=== PATIENT | male | born 1960 | race Caucasian/White ===

== ENCOUNTER → 2016-03-29 | Outpatient (CLI) | payer BC, OTHER ==
[~2016-03-29] MED LIST: ACET-1256 PO; AMT24 PO; ASCA500 PO; ASCO500T16 PO; AZIT250T PO; CNT PO; DOCU100C31 PO; FINA5TAB PO; FLM4 PO; FURO20TA PO; LACT10SO17 PO; LACT10SO61 PO; LEVO100T PO; LEVO100T7 PO; LEVO150T9 PO; LEVO75TA PO; LEVO88TA3 PO; LINA1CAP PO; LINA1CAP2 PO; LVQ500 PO; MRLP527 PO; MULT-845 PO; MULTTAB63 PO; OMEP20CA9 PO; PANT40TA PO; POLY335019 PO; PRS5 PO; PRT/40 PO; PRT40 PO; PSYL48.59 PO; RPF/8 PO; SENN-61 PO; SILO8CAP PO; SULF1SUS4 PO
[2016-03-29 14:37] LABS: THYROID STIMULATING HORMONE 0.043 uIu/ml (0.300-4.500)
== END | disposition home or self-care (01) ==
LOC: C.LABBFT 09:37
PROVIDERS: ATTEND Internal Medicine
DX: E03.9 Hypothyroidism, unspecified (principal)

== ENCOUNTER 2016-03-30 14:04 | Emergency (ER) | payer BC, OTHER ==
[~2016-03-30] VITALS: Ht 162.6 cm; Wt 67.0 kg
[~2016-03-30 14:04] MED LIST changes: -ACET-1256 PO; -AMT24 PO; -ASCO500T16 PO; -AZIT250T PO; -DOCU100C31 PO; -FINA5TAB PO; -FLM4 PO; -FURO20TA PO; -LACT10SO17 PO; -LACT10SO61 PO; -LEVO100T PO; -LEVO100T7 PO; -LEVO150T9 PO; -LEVO88TA3 PO; -LINA1CAP PO; -LINA1CAP2 PO; -LVQ500 PO; -MRLP527 PO; -MULT-845 PO; -MULTTAB63 PO; -OMEP20CA9 PO; -PANT40TA PO; -PRS5 PO; -PRT/40 PO; -PRT40 PO; -PSYL48.59 PO; -RPF/8 PO; -SULF1SUS4 PO
[2016-03-30 14:09] VITALS: TEMP 36.5; Ht 162.6 cm; Wt 67.0 kg
--- NOTE | 2016-03-30 15:16 | DIAGNOSTIC IMAGING REPORT ---
CT HEAD WITHOUT CONTRAST (CT) CLINICAL HISTORY: Change in mental status. COMPARISON STUDY: No previous studies for comparison. TECHNIQUE: Axial CT of the brain is performed from the vertex to the skull base. IV contrast was not administered for this examination. CT DOSE: 537.48 mGy.cm FINDINGS: No intra or extra-axial mass lesions are visualized. There is no CT evidence of acute cortical infarction. There is no evidence of midline shift. There is no acute hemorrhage. No calvarial fractures are visualized. There are minimal white matter hypodensities likely on a small vessel basis. There is mild ventricular dilatation, out of proportion to the degree of atrophy. There is no evidence of acute sinusitis IMPRESSION: 1. Mild hydrocephalus 2. No evidence of intracranial mass 3. No evidence of acute hemorrhage Electronically signed by: Ponce Obregon M.D. 03/30/2016 3:15 PM Dictated Date/Time: 03/30/2016 3:13 PM
[2016-03-30 15:58] LABS: BASO % 0.3 %; BASO ABS # 0.03 K/uL (0-0.2); COMPLETE YES; EOS % 0.3 %; HEMATOCRIT 37.4 % (42-52); IG% 0.1 %; LYMPH % 11.3 %; LYMPH ABS # 0.99 K/uL (1.2-3.4); MEAN CELL VOLUME 97.4 fL (80-100); MEAN CORPUSCULAR HEMOGLOBIN 33.9 pg (25-34); MEAN CORPUSCULAR HGB CONC 34.8 g/dl (32-36); MEAN PLATELET VOLUME 10.1 fL (7.4-10.4); MONO % 6.3 %; NEUT % 81.7 %; PLATELET COUNT 265 K/uL (130-400); RED BLOOD COUNT 3.84 M/uL (4.7-6.1); WHITE BLOOD COUNT 8.74 K/uL (4.8-10.8)
[2016-03-30] MEDS ORDERED: AZIT250T PO (16:11)
[2016-03-30] MEDS ORDERED: FURO20TA PO (16:11)
[2016-03-30] MEDS ORDERED: LEVO150T9 PO (16:11)
[2016-03-30] MEDS ORDERED: MULT-845 PO (16:11)
[2016-03-30] MEDS ORDERED: LACT10SO17 PO (16:11)
[2016-03-30 16:13] LABS: PARTIAL THROMBOPLASTIN RATIO 1.1; PROTHROMBIN TIME (PATIENT) 11.1 SECONDS (9.0-12.0)
[2016-03-30 16:16] LABS: ALT/SGPT 15 U/L (12-78); BLOOD UREA NITROGEN 9 mg/dl (7-18); BUN/CREATININE RATIO 9.7 (10-20); CALCIUM 8.6 mg/dl (8.5-10.1); CARBON DIOXIDE 28 mmol/L (21-32); CHLORIDE 101 mmol/L (98-107); CREATININE 0.95 mg/dl (0.60-1.40); GLUCOSE 92 mg/dl (70-99); MAGNESIUM 2.2 mg/dl (1.8-2.4); POTASSIUM 3.9 mmol/L (3.5-5.1); SODIUM 140 mmol/L (136-145)
[2016-03-30 16:20] LABS: ALKALINE PHOSPHATASE 84 U/L (45-117); AST/SGOT 18 U/L (15-37)
[2016-03-30] MEDS ORDERED: SODIUM CHLORIDE 0.9% 1000ML 1,000 ML IV STA (16:55)
--- NOTE | 2016-03-30 17:16 | DIAGNOSTIC IMAGING REPORT ---
CHEST 2 VIEWS ROUTINE CLINICAL HISTORY: Syncope COMPARISON STUDY: 02/09/2014 FINDINGS: The heart is normal in size. There is no failure. There is no lobar consolidation. There are mild basilar atelectatic changes. There is a retrocardiac opacity, consistent with a hiatal hernia. No pleural effusions are visualized. Visualized portions the upper abdomen reveal gaseous distention of the colon with fecal retention.[ IMPRESSION: No active disease in the chest. Electronically signed by: Ponce Obregon M.D. 03/30/2016 5:15 PM Dictated Date/Time: 03/30/2016 5:13 PM
[2016-03-30 17:54] LABS: MANUAL MICROSCOPIC REQUIRED? NO; REVIEW REQ? NO; URINE APPEARANCE CLEAR (CLEAR); URINE BILIRUBIN NEG (NEG); URINE COLOR YELLOW; URINE NITRITE NEG (NEG); URINE PH 7.5 (4.5-7.5); URINE SPECIFIC GRAVITY 1.004 (1.000-1.030); UROBILINOGEN NEG (NEG)
[2016-03-30 19:07] VITALS: BP 94/63; PULSE 79; O2SAT 98
--- NOTE | 2016-03-30 19:14 | EMERGENCY ROOM VISIT NOTE ---
History Report prepared by Shan: Lizett Bell Under the Supervision of: Dr. Kade Sainz M.D. First contact with patient: 14:35 Chief Complaint: SYNCOPE (NEAR SYNCOPE) Stated Complaint: PASSED OUT THIS MORNING Nursing Triage Summary: pt stood up from chair and table at lunch time and passed out per mother. mother states had trouble getting him off of floor. no injuries noted pt appears pale History of Present Illness The patient is a 55 year old male who presents to the Emergency Room with complaints of an episode of syncope beginning 2 hours ago. The patient's family member states that the patient has been having thyroid issues since August and his levels went from 3 to almost 6 in January. She states that he had two episodes off falls during this time period that she notes is from having difficulty with depth perception and he has been shuffling his feet. She reports that the patient has had a chest cold recently with a cough and they went to see the doctor yesterday and he had blood work and was put on a 5 day z- pac. She states that the patient was recently put on levothyroxine and the blood work was to check his thyroid to see if the medication was helping. She notes that he has cataracts and the patient's eye doctor did not think that his gait problems were in relation to his eyes. The family member states that when the patient falls he does not catch himself and hits his face. She notes that the patient has green mucous coming out of his nose and a cough. She reports that he took 1 dose of his antibiotic yesterday but did not take anything today. Today, the mother states that the patient was sitting down to eat dinner when he stood up and slumped over and fell to the carpeted floor. She notes that she does not think that he hit his head and he was not completely unconscious. She stated that he slowly went down to the floor and did not fall suddenly. The mother reports that he tried to get up but it was like he was sleeping and would slump back over if he tried to get up. She denies any seizure like activity and fever. At the time of the fall, they took his vitals and report that his blood pressure was 94/61, blood glucose was 123, and his pulse was 73. The family reports that they have not heard back about the thyroid results and note that he was put on Lasix in January after having swelling in his legs. They report that he sees a urologist and had 850cc of urinary retention in January. HPI limited secondary to non-verbal patient. Source of History: patient History Limited By: other (non-verbal) Onset: 2 hours ago Position: other (global) Quality: other (slumping) Timing: other (episode) Associated Symptoms: + cough, No LOC, No fevers Note: Denies seizure-like activity, and injury. They note green mucous. Review of Systems See HPI for pertinent positives & negatives. ROS limited secondary to non- verbal patient. Past Medical & Surgical Medical Problems: (1) Constipation (2) Emphysema lung (3) Mental retardation (4) Urinary problem Surgical Problems: (1) History of prostate surgery Family History FH: cancer FH: diabetes mellitus FH: hypertension Social History Smoking Status: Never Smoker Marital Status: single Housing Status: lives with family Occupation Status: disabled Current/Historical Medications Scheduled Ascorbic Acid (Ascorbic Acid), 500 MG PO DAILY Azithromycin (Zithromax), 250 MG PO DAILY Furosemide (Lasix), 20 MG PO DAILY Lactulose (Chronulac), 30 ML PO DAILY Levothyroxine Sodium (Levothyroxine Sodium), 1 TAB PO DAILY Multiple Vitamins W/ Minerals (Centrum Silver Adult 50+), 1 TAB PO DAILY Silodosin (Rapaflo), 8 MG PO HS Miscellaneous Medications Finasteride (Proscar), 5 MG PO Allergies Coded Allergies: No Known Allergies (Unverified , 03/30/16) Physical Exam Vital Signs Date Time Temp Pulse Resp B/P Pulse Ox O2 Delivery O2 Flow Rate FiO2 03/30/16 19:07 79 18 94/63 98 03/30/16 16:33 98 101/55 98 Room Air 86 99/55 78 91/56 03/30/16 14:25 64 03/30/16 14:09 36.5 72 16 98/63 100 Physical Exam Constitutional: Vital signs reviewed. Eyes: Pupils are equal round reactive to light. Conjunctiva are noninjected. ENT: Mucous membranes are moist. Neck supple without meningeal signs. No midline tenderness to cervical spine. Respiratory: Clear to auscultation bilaterally. Breath sounds are equal bilaterally. Cardiovascular: Regular rate and rhythm. No rubs or gallops. GI: Soft, nondistended and nontender. Bowel sounds are present. Musculoskeletal: No evidence of trauma to extremities. Bilateral lower extremity edema. Integumentary: No cyanosis. Neurological: The patient is awake and alert. Nonverbal. No focal deficits. Psychiatric: Cannot asses affect. Medical Decision & Procedures ER Provider Diagnostic Interpretation: X-ray results as stated below per interpretation by me and the radiologist. Other radiology results as stated below per my review and the radiologist's interpretation: CT HEAD WITHOUT CONTRAST (CT) FINDINGS: No intra or extra-axial mass lesions are visualized. There is no CT evidence of acute cortical infarction. There is no evidence of midline shift. There is no acute hemorrhage. No calvarial fractures are visualized. There are minimal white matter hypodensities likely on a small vessel basis. There is mild ventricular dilatation, out of proportion to the degree of atrophy. There is no evidence of acute sinusitis IMPRESSION: 1. Mild hydrocephalus 2. No evidence of intracranial mass 3. No evidence of acute hemorrhage Electronically signed by: Ponce Obregon M.D. 03/30/2016 3:15 PM Dictated Date/Time: 03/30/2016 3:13 PM CHEST 2 VIEWS ROUTINE FINDINGS: The heart is normal in size. There is no failure. There is no lobar consolidation. There are mild basilar atelectatic changes. There is a retrocardiac opacity, consistent with a hiatal hernia. No pleural effusions are visualized. Visualized portions the upper abdomen reveal gaseous distention of the colon with fecal retention.[ IMPRESSION: No active disease in the chest. Electronically signed by: Ponce Obregon M.D. 03/30/2016 5:15 PM Dictated Date/Time: 03/30/2016 5:13 PM Laboratory Results 03/30/16 15:45 Red Blood Count 3.84, Mean Corpuscular Volume 97.4, Mean Corpuscular Hemoglobin 33.9, Mean Corpuscular Hemoglobin Concent 34.8, Mean Platelet Volume 10.1, Neutrophils (%) (Auto) 81.7, Lymphocytes (%) (Auto) 11.3, Monocytes (%) (Auto) 6.3, Eosinophils (%) (Auto) 0.3, Basophils (%) (Auto) 0.3, Neutrophils # (Auto) 7.13, Lymphocytes # (Auto) 0.99, Monocytes # (Auto) 0.55, Eosinophils # (Auto) 0.03, Basophils # (Auto) 0.03 03/30/16 15:45 Test 03/30/16 15:45 03/30/16 17:34 White Blood Count 8.74 K/uL (4.8-10.8) Red Blood Count 3.84 M/uL (4.7-6.1) Hemoglobin 13.0 g/dL (14.0-18.0) Hematocrit 37.4 % (42-52) Mean Corpuscular Volume 97.4 fL (80-100) Mean Corpuscular Hemoglobin 33.9 pg (25-34) Mean Corpuscular Hemoglobin Concent 34.8 g/dl (32-36) Platelet Count 265 K/uL (130-400) Mean Platelet Volume 10.1 fL (7.4-10.4) Neutrophils (%) (Auto) 81.7 % Lymphocytes (%) (Auto) 11.3 % Monocytes (%) (Auto) 6.3 % Eosinophils (%) (Auto) 0.3 % Basophils (%) (Auto) 0.3 % Neutrophils # (Auto) 7.13 K/uL (1.4-6.5) Lymphocytes # (Auto) 0.99 K/uL (1.2-3.4) Monocytes # (Auto) 0.55 K/uL (0.11-0.59) Eosinophils # (Auto) 0.03 K/uL (0-0.5) Basophils # (Auto) 0.03 K/uL (0-0.2) RDW Standard Deviation 47.5 fL (36.4-46.3) RDW Coefficient of Variation 13.4 % (11.5-14.5) Immature Granulocyte % (Auto) 0.1 % Immature Granulocyte # (Auto) 0.01 K/uL (0.00-0.02) Prothrombin Time 11.1 SECONDS (9.0-12.0) Prothromb Time International Ratio 1.0 (0.9-1.1) Activated Partial Thromboplast Time 28.7 SECONDS (21.0-31.0) Partial Thromboplastin Ratio 1.1 Anion Gap 11.0 mmol/L (3-11) Est Creatinine Clear Calc Drug Dose 73.6 ml/min Estimated GFR () 104.0 Estimated GFR (Non- 89.8 BUN/Creatinine Ratio 9.7 (10-20) Calcium Level 8.6 mg/dl (8.5-10.1) Magnesium Level 2.2 mg/dl (1.8-2.4) Total Bilirubin 0.4 mg/dl (0.2-1) Direct Bilirubin 0.1 mg/dl (0-0.2) Aspartate Amino Transf (AST/SGOT) 18 U/L (15-37) Alanine Aminotransferase (ALT/SGPT) 15 U/L (12-78) Alkaline Phosphatase 84 U/L (45-117) Troponin I < 0.015 ng/ml (0-0.045) Total Protein 7.0 gm/dl (6.4-8.2) Albumin 3.0 gm/dl (3.4-5.0) Urine Color YELLOW Urine Appearance CLEAR (CLEAR) Urine pH 7.5 (4.5-7.5) Urine Specific [place] 1.004 (1.000-1.030) Urine Protein NEG (NEG) Urine Glucose (UA) NEG (NEG) Urine Ketones NEG (NEG) Urine Occult Blood NEG (NEG) Urine Nitrite NEG (NEG) Urine Bilirubin NEG (NEG) Urine Urobilinogen NEG (NEG) Urine Leukocyte Esterase NEG (NEG) Laboratory results as reviewed by me. Medications Administered Medications (Trade) Dose Ordered Sig/Page Route Start Time Stop Time Status Last Admin Dose Admin Sodium Chloride (Nss 1000ml) 1,000 ml @ 999 mls/hr Q1H1M STAT IV 03/30/16 16:55 03/30/16 17:56 DC 03/30/16 16:55 999 MLS/HR ECG Indication: syncope Rate (beats per minute): 65 Rhythm: normal sinus Findings: no acute ischemic change, no ectopy, other (No QT prolongation or heart block) ED Course 1435: The patient was evaluated in room C6. A complete history and physical exam was performed. 1655: Sodium Chloride 1000 ml @ 999 mls/hr IV. 1703: I spoke to Dr. Fonseca of neurology. He recommends that the patient follows up outpatient. 1717: I spoke to the patient's sister about the patient's hydrocephalus and urinary retention. She states that his doctor reports that the distention is normal and it has become distended over the years. The last time he saw the patient he had over 800cc of urine. We will catheterize the patient to get a sample. 1800: I spoke to the patient's family about his test results. He looks well appearing. 182: Upon reevaluation, the patient appeared to have improvement of his symptoms. I discussed tonight's findings with the patient's family. They verbalized agreement of the treatment plan. The patient was discharged home. Medical Decision This is a 55-year-old male with Down syndrome who presents after a syncopal episode today. Differential diagnosis includes vasovagal syncope, orthostatic hypotension, metabolic derangement, infection, cardiac. I did perform a limited focused review of portions of the patient's old chart on the electronic medical record. The patient had blood work yesterday and the TSH was .043 and T4 is 1.75. I did evaluate the patient as noted above. The patient is nonverbal and so I did obtain history from the mother who witnessed the fall and his sister. According to his mother the patient got up after sitting down and slowly fell to the floor. She states that he did not hit his head and did not appear to injure himself from the fall. When she went to him he was not fully unconscious but seemed like he was just difficult to wake up from sleep. IV access was established. The patient was placed on a continuous cardiac sonographer. I did order and personally review the patient's 12-lead EKG and chest x-ray as described above. I did order and review the patient's blood work as noted in the electronic medical record. I did order a CT of the head. I did review the images myself as well as the radiology report as described above. He does have mild hydrocephalus but no acute abnormality otherwise. I did discuss the case with Dr. Fonseca of neurology who recommended outpatient workup for the hydrocephalus. Urine bladder scan showed over 700 mL of urine. He does have a history of chronic urinary retention and is followed by Dr. Santiago. He does urinate on his own and does not have a Shah catheter. We did catheterize him for a urine specimen which was negative for infection. Orthostatic vital signs shows orthostatic hypotension with a drop of his systolic blood pressure to 91 upon standing. This is likely the cause of his syncope. He was hydrated with a liter normal saline. I did give instructions to the patient's mother and sister. I did recommend close follow up with neurology and his primary care physician. He was discharged in good condition. Consults Time Called: 1657 Consulting Physician: Dr. Fonseca Returned Call: [address] Fonseca of neurology. He recommends that the patient follows up outpatient. Impression Primary Impression: Syncope Additional Impressions: Orthostatic hypertension Hydrocephalus Urinary retention Scribe Attestation The scribe's documentation has been prepared under my direct and personally reviewed by me in its entirety. I confirm that the note above accurately reflects all work, treatment, procedures, and medical decision making performed by me. Departure Information Dispostion Home / Self-Care Referrals Fernando Herr M.D. (PCP) Forms HOME CARE DOCUMENTATION FORM, IMPORTANT VISIT INFORMATION Patient Instructions ED Hypotension Orthostatic, My [facility] Additional Instructions You have been examined and treated today on an emergency basis only. This is not a substitute for, or an effort to provide, complete comprehensive medical care. It is impossible to recognize and treat all injuries or illnesses in a single emergency department visit. It is therefore important that you follow up closely with your physician. Also follow up with neurology regarding his hydrocephalus on CT scan. Call as soon as possible for an appointment. Return for worsening symptoms or if you develop fever, vomiting, difficulty breathing or any other concerning symptoms. Problem Qualifiers Primary Impression: Syncope Syncope type: unspecified Qualified Codes: R55 - Syncope and collapse
[2016-07-28] MEDS ORDERED: LEVO88TA3 PO (14:25)
[2016-07-31] MEDS ORDERED: FLM4 PO (08:06)
[2016-08-05] MEDS ORDERED: SULF1SUS4 PO (14:46)
[2016-09-13] MEDS ORDERED: LINA1CAP PO (14:06)
[2016-10-07] MEDS ORDERED: LACT10SO61 PO (10:18)
[2016-10-07] MEDS ORDERED: PSYL48.59 PO (10:18)
[2016-11-14] MEDS ORDERED: PRT40 PO (14:27)
[2016-11-14] MEDS ORDERED: LVQ500 PO (14:27)
[2016-11-21] MEDS ORDERED: FINA5TAB PO (11:23)
== END 2016-03-30 19:09 | disposition home or self-care (01) ==
LOC: C.EDB 14:05 → C.EDC 19:09
DX: R55 Syncope and collapse (principal); I10 Essential (primary) hypertension; G91.9 Hydrocephalus, unspecified; R33.9 Retention of urine, unspecified; Z91.81 History of falling; F79 Unspecified intellectual disabilities; Z98.890 Other specified postprocedural states; Z80.9 Family history of malignant neoplasm, unspecified; Z83.3 Family history of diabetes mellitus; Z82.49 Family history of ischemic heart disease and other diseases of the circulatory system

== ENCOUNTER → 2016-04-29 | Outpatient (CLI) | payer BC, OTHER ==
[~2016-04-29] MED LIST changes: +ACET-1256 PO; +AMT24 PO; -ASCA500 PO; +ASCO500T16 PO; +AZIT250T PO; -CNT PO; +CRFUDL PO; +DOCU100C31 PO; +FINA5TAB PO; +FLM4 PO; +FURO20TA PO; +LACT10SO17 PO; +LACT10SO61 PO; +LEVO100T PO; +LEVO100T7 PO; +LEVO150T9 PO; -LEVO75TA PO; +LEVO88TA3 PO; +LINA1CAP PO; +LINA1CAP2 PO; +LVQ500 PO; +MRLP527 PO; +MULT-845 PO; +MULTTAB63 PO; +OMEP20CA9 PO; +PANT40TA PO; -POLY335019 PO; +PRS5 PO; +PRT/40 PO; +PRT40 PO; +PSYL48.59 PO; +RPF/8 PO; -SENN-61 PO; +SNKUDL10 PO; +SULF1SUS4 PO
[2016-04-29 13:11] LABS: THYROID STIMULATING HORMONE 0.084 uIu/ml (0.300-4.500)
== END | disposition home or self-care (01) ==
LOC: C.LABBFT 08:58
PROVIDERS: ATTEND Internal Medicine
DX: E03.9 Hypothyroidism, unspecified (principal)

== ENCOUNTER → 2016-05-31 | Outpatient (CLI) | payer BC, OTHER ==
[~2016-05-31] MED LIST changes: +PANT40TA2 PO; -PRT/40 PO
[2016-05-31 12:55] LABS: THYROID STIMULATING HORMONE 0.689 uIu/ml (0.300-4.500)
== END | disposition home or self-care (01) ==
LOC: C.LABBFT 08:58
PROVIDERS: ATTEND Internal Medicine
DX: E03.9 Hypothyroidism, unspecified (principal)

== ENCOUNTER → 2016-08-23 | Outpatient (CLI) | payer BC, OTHER ==
[~2016-08-23] MED LIST changes: -AZIT250T PO; -FURO20TA PO; -LEVO150T9 PO; -SILO8CAP PO
== END | disposition home or self-care (01) ==
LOC: C.LABSPEC 14:32
PROVIDERS: ATTEND Urology
DX: R33.9 Retention of urine, unspecified (principal); N39.0 Urinary tract infection, site not specified

== ENCOUNTER 2016-09-13 11:17 | Emergency (ER) | payer BC, OTHER ==
[~2016-09-13] VITALS: Ht 162.6 cm; Wt 66.0 kg
[~2016-09-13 11:17] MED LIST changes: -ACET-1256 PO; -AMT24 PO; -CRFUDL PO; -DOCU100C31 PO; -LACT10SO61 PO; -LEVO100T PO; -LEVO100T7 PO; -LINA1CAP PO; -LINA1CAP2 PO; -LVQ500 PO; -MRLP527 PO; -MULTTAB63 PO; -OMEP20CA9 PO; -PANT40TA PO; -PANT40TA2 PO; -PRS5 PO; -PRT40 PO; -PSYL48.59 PO; -RPF/8 PO; -SNKUDL10 PO
[2016-09-13 11:20] VITALS: TEMP 36.7; Ht 162.6 cm; Wt 66.0 kg
[2016-09-13 12:34] LABS: BASO % 0.6 %; BASO ABS # 0.05 K/uL (0-0.2); COMPLETE YES; EOS % 0.2 %; HEMATOCRIT 41.3 % (42-52); IG% 0.2 %; LYMPH % 17.7 %; LYMPH ABS # 1.56 K/uL (1.2-3.4); MEAN CELL VOLUME 100.2 fL (80-100); MEAN CORPUSCULAR HEMOGLOBIN 34.2 pg (25-34); MEAN CORPUSCULAR HGB CONC 34.1 g/dl (32-36); MEAN PLATELET VOLUME 9.8 fL (7.4-10.4); MONO % 8.1 %; NEUT % 73.2 %; PLATELET COUNT 308 K/uL (130-400); RED BLOOD COUNT 4.12 M/uL (4.7-6.1); WHITE BLOOD COUNT 8.79 K/uL (4.8-10.8)
[2016-09-13 12:53] LABS: BUN/CREATININE RATIO 12.8 (10-20); CALCIUM 9.1 mg/dl (8.5-10.1); CREATININE 1.2 mg/dl (0.60-1.40); POTASSIUM 3.7 mmol/L (3.5-5.1)
[2016-09-13 12:55] LABS: ALB/GLOB RATIO 0.9 (0.9-2)
[2016-09-13] MEDS ORDERED: RPF/8 PO (14:05)
[2016-09-13] MEDS ORDERED: LINA1CAP (14:06)
[2016-09-13] MEDS ORDERED: OPTIRAY 320 IV PRN (14:45)
--- NOTE | 2016-09-13 15:12 | DIAGNOSTIC IMAGING REPORT ---
ABDOMEN 2VIEW W/PA CHEST RTN CLINICAL HISTORY: 56 years-old Male presenting with abd pain/constipation. TECHNIQUE: PA view of the chest and supine and upright views of the abdomen were obtained. COMPARISON: None. FINDINGS: Cardiomediastinal silhouette normal. Lungs and pleural spaces clear. Moderate stool burden throughout the colon, which is mildly distended. Oral contrast opacifies the small bowel. No evidence of free intraperitoneal gas, pneumatosis, or portal venous gas. Osseous structures normal. IMPRESSION: 1. Findings consistent with constipation with stool throughout the mildly distended colon. Electronically signed by: Darian Walsh M.D. 09/13/2016 3:10 PM Dictated Date/Time: 09/13/2016 3:08 PM
[2016-09-13] MEDS ORDERED: MILK AND MOLASSES ENEMA PR ONE (15:15)
--- NOTE | 2016-09-13 16:11 | DIAGNOSTIC IMAGING REPORT ---
ABD/PELVIS IV AND ORAL CONT CT DOSE: 489.17 mGy.cm HISTORY: Pain abd pain/constipation TECHNIQUE: Multiaxial CT images of the abdomen and pelvis were performed following the use of intravenous and oral contrast. COMPARISON STUDY: None. FINDINGS: Lung bases are clear. There is hiatal hernia with evidence for thickening of the distal esophagus and gastroesophageal junction. Endoscopic evaluation is indicated. As 1.2 cm right hepatic lobe cyst. Liver otherwise is uniform. There is evidence for other marked hydronephrosis of the right kidney with distention of the right ureter. There is considerable cortical thinning of the right kidney which indicate a long-standing process. Left kidney shows moderate distention of the renal pelvis with mild distention of the ureter. Well-defined obstructing lesions are not seen although cystoscopy is suggested. Bladder is considerably distended. There is a large fecal impaction with the rectum is extensive fecal content and distention throughout the remainder of the sigmoid and to a lesser extent the remainder of the colon. Maximum diameter of the lower sigmoid is 9 cm with the more proximal sigmoid measuring 7 cm. There is additional fecal load throughout the remainder the colon although this is considerably less prominent. There is no evidence of pneumatosis or ascites. IMPRESSION: 1. Large fecal impaction of the rectosigmoid. 2. Considerable fecal material within the descending colon with less prominent fecal material within the remainder the colon. 3. Bladder distention. 4. Hydronephrosis and hydroureter of the right and to a lesser extent left kidney which appear to be long-standing given the cortical thinning present on the right 5. Nevertheless, cystoscopy is recommended given the degree of bladder distention 6. Hiatal hernia with an abnormally thickened distal esophageal and gastroesophageal junction wall. Endoscopic evaluation is suggested. 7. Small hepatic cyst. The above report was generated using voice recognition software. It may contain grammatical, syntax or spelling errors. Electronically signed by: Prem Silva M.D. 09/13/2016 4:10 PM Dictated Date/Time: 09/13/2016 4:05 PM
--- NOTE | 2016-09-13 18:15 | EMERGENCY ROOM VISIT NOTE ---
History Report prepared by Shan: Anoop Muñoz Under the Supervision of: Dr. Barrett Ni D.O. First contact with patient: 12:18 Chief Complaint: ABDOMINAL PAIN Stated Complaint: ABD. PAIN-NO GOOD BM IN 11 DAYS Nursing Triage Summary: Pt comes in with sister. Lives in residential at the [facility]. Pt has had increased abdominal distention over the last few days per sister reports. Reports pt seems to be in pain, unable to stand straight up. Pt is tender in RLQ of abdomen upon palpation. History of Present Illness The patient is a 56 year old male who presents to the Emergency Room from the [facility] with complaints of persistent constipation starting about 11 days ago. He has been straining to have a bowel movement. The patient is having small amounts of bowel movement but the stool is without form and has the consistency of peanut butter. He also has worsening abdominal distention. He seems to be in pain. The patient has been receiving lactulose, stool softeners, and enema with some relief. He had dinner as normal last night but did not eat too much today. The patient has a history of constipation occurring intermittently since he was a child. HPI is limited secondary to patient's nonverbal status. Additional history is obtained as per sister. Source of History: family History Limited By: other (nonverbal) Onset: about 11 days ago Position: other (global) Quality: other (constipation) Timing: other (persistent) Modifying Factors (Relieving): other (lactulose, stool softeners, and enema with some relief) Review of Systems ROS is limited secondary to patient's nonverbal status. Past Medical & Surgical Medical Problems: (1) Constipation (2) Emphysema lung (3) Mental retardation (4) Urinary problem Surgical Problems: (1) History of prostate surgery Family History FH: cancer FH: diabetes mellitus FH: hypertension Social History Smoking Status: Never Smoker Drug Use: none Marital Status: single Housing Status: lives with family Occupation Status: disabled Current/Historical Medications Scheduled Ascorbic Acid (Ascorbic Acid), 500 MG PO DAILY Finasteride (Proscar), 5 MG PO HS Lactulose (Chronulac), 30 ML PO DAILY Levothyroxine Sodium (Levothyroxine Sodium), 1 TAB PO DAILY Multiple Vitamins W/ Minerals (Centrum Silver Adult 50+), 1 TAB PO DAILY Silodosin (Rapaflo), 1 CAP PO DAILY Tamsulosin HCl (Tamsulosin HCl), 0.4 MG PO HS Miscellaneous Medications Linaclotide (Linzess), Unknown Dose Allergies Coded Allergies: Azithromycin (Unverified Allergy, Unknown, flat line, 09/13/16) Physical Exam Vital Signs Date Time Temp Pulse Resp B/P (MAP) Pulse Ox O2 Delivery O2 Flow Rate FiO2 09/13/16 19:00 71 20 145/89 94 09/13/16 16:45 87 16 118/77 94 Room Air 09/13/16 13:43 99 20 109/67 99 Room Air 09/13/16 11:20 36.7 81 16 110/70 91 Room Air Physical Exam CONSTITUTIONAL/VITAL SIGNS: Reviewed / noted above. GENERAL: Non-toxic in appearance. INTEGUMENTARY: Warm, dry, and [place]. HEAD: Normocephalic. EYES: without scleral icterus or trauma. ENT/OROPHARYNX: clear and moist. LYMPHADENOPATHY/NECK: Is supple without lymphadenopathy or meningismus. RESPIRATORY: Lungs clear and equal. CARDIOVASCULAR: Regular rate and rhythm. GI/ABDOMEN: Distended abdomen. Soft and nontender. No organomegaly or pulsatile mass. No rebound or guarding. Normal bowel sounds. RECTAL: Hard stool in the proximal rectum. EXTREMITIES: Warm and well perfused. BACK: No CVA tenderness. NEUROLOGICAL: Intact without focal deficits. PSYCHIATRIC: normal affect. MUSCULOSKELETAL: Normally developed with good muscle tone. Medical Decision & Procedures ER Provider Diagnostic Interpretation: X ray results and stated below per my interpretation and radiology interpretation. ABDOMEN 2VIEW W/PA CHEST RTN CLINICAL HISTORY: 56 years-old Male presenting with abd pain/constipation. TECHNIQUE: PA view of the chest and supine and upright views of the abdomen were obtained. COMPARISON: None. FINDINGS: Cardiomediastinal silhouette normal. Lungs and pleural spaces clear. Moderate stool burden throughout the colon, which is mildly distended. Oral contrast opacifies the small bowel. No evidence of free intraperitoneal gas, pneumatosis, or portal venous gas. Osseous structures normal. IMPRESSION: 1. Findings consistent with constipation with stool throughout the mildly distended colon. Electronically signed by: Darian Walsh M.D. 09/13/2016 3:10 PM Dictated Date/Time: 09/13/2016 3:[address] results as stated below per my review and radiologist interpretation: ABD/PELVIS IV AND ORAL CONT CT DOSE: 489.17 mGy.cm HISTORY: Pain abd pain/constipation TECHNIQUE: Multiaxial CT images of the abdomen and pelvis were performed following the use of intravenous and oral contrast. COMPARISON STUDY: None. FINDINGS: Lung bases are clear. There is hiatal hernia with evidence for thickening of the distal esophagus and gastroesophageal junction. Endoscopic evaluation is indicated. As 1.2 cm right hepatic lobe cyst. Liver otherwise is uniform. There is evidence for other marked hydronephrosis of the right kidney with distention of the right ureter. There is considerable cortical thinning of the right kidney which indicate a long-standing process. Left kidney shows moderate distention of the renal pelvis with mild distention of the ureter. Well-defined obstructing lesions are not seen although cystoscopy is suggested. Bladder is considerably distended. There is a large fecal impaction with the rectum is extensive fecal content and distention throughout the remainder of the sigmoid and to a lesser extent the remainder of the colon. Maximum diameter of the lower sigmoid is 9 cm with the more proximal sigmoid measuring 7 cm. There is additional fecal load throughout the remainder the colon although this is considerably less prominent. There is no evidence of pneumatosis or ascites. IMPRESSION: 1. Large fecal impaction of the rectosigmoid. 2. Considerable fecal material within the descending colon with less prominent fecal material within the remainder the colon. 3. Bladder distention. 4. Hydronephrosis and hydroureter of the right and to a lesser extent left kidney which appear to be long-standing given the cortical thinning present on the right 5. Nevertheless, cystoscopy is recommended given the degree of bladder distention 6. Hiatal hernia with an abnormally thickened distal esophageal and gastroesophageal junction wall. Endoscopic evaluation is suggested. 7. Small hepatic cyst. The above report was generated using voice recognition software. It may contain grammatical, syntax or spelling errors. Electronically signed by: Prem Silva M.D. 09/13/2016 4:10 PM Dictated Date/Time: 09/13/2016 4:05 PM Laboratory Results 09/13/16 12:15 Red Blood Count 4.12, Mean Corpuscular Volume 100.2, Mean Corpuscular Hemoglobin 34.2, Mean Corpuscular Hemoglobin Concent 34.1, Mean Platelet Volume 9.8, Neutrophils (%) (Auto) 73.2, Lymphocytes (%) (Auto) 17.7, Monocytes (%) ( Auto) 8.1, Eosinophils (%) (Auto) 0.2, Basophils (%) (Auto) 0.6, Neutrophils # ( Auto) 6.43, Lymphocytes # (Auto) 1.56, Monocytes # (Auto) 0.71, Eosinophils # ( Auto) 0.02, Basophils # (Auto) 0.05 09/13/16 12:15 Test 09/13/16 12:15 White Blood Count 8.79 K/uL (4.8-10.8) Red Blood Count 4.12 M/uL (4.7-6.1) Hemoglobin 14.1 g/dL (14.0-18.0) Hematocrit 41.3 % (42-52) Mean Corpuscular Volume 100.2 fL (80-100) Mean Corpuscular Hemoglobin 34.2 pg (25-34) Mean Corpuscular Hemoglobin Concent 34.1 g/dl (32-36) Platelet Count 308 K/uL (130-400) Mean Platelet Volume 9.8 fL (7.4-10.4) Neutrophils (%) (Auto) 73.2 % Lymphocytes (%) (Auto) 17.7 % Monocytes (%) (Auto) 8.1 % Eosinophils (%) (Auto) 0.2 % Basophils (%) (Auto) 0.6 % Neutrophils # (Auto) 6.43 K/uL (1.4-6.5) Lymphocytes # (Auto) 1.56 K/uL (1.2-3.4) Monocytes # (Auto) 0.71 K/uL (0.11-0.59) Eosinophils # (Auto) 0.02 K/uL (0-0.5) Basophils # (Auto) 0.05 K/uL (0-0.2) RDW Standard Deviation 52.4 fL (36.4-46.3) RDW Coefficient of Variation 14.2 % (11.5-14.5) Immature Granulocyte % (Auto) 0.2 % Immature Granulocyte # (Auto) 0.02 K/uL (0.00-0.02) Anion Gap 9.0 mmol/L (3-11) Est Creatinine Clear Calc Drug Dose 57.6 ml/min Estimated GFR () 77.9 Estimated GFR (Non- 67.2 BUN/Creatinine Ratio 12.8 (10-20) Calcium Level 9.1 mg/dl (8.5-10.1) Total Bilirubin 0.5 mg/dl (0.2-1) Aspartate Amino Transf (AST/SGOT) 63 U/L (15-37) Alanine Aminotransferase (ALT/SGPT) 33 U/L (12-78) Alkaline Phosphatase 98 U/L (45-117) Total Protein 7.6 gm/dl (6.4-8.2) Albumin 3.7 gm/dl (3.4-5.0) Globulin 3.9 gm/dl (2.5-4.0) Albumin/Globulin Ratio 0.9 (0.9-2) Lipase 88 U/L (73-393) Laboratory results as stated above per my review. Medications Administered Medications (Trade) Dose Ordered Sig/Page Route Start Time Stop Time Status Last Admin Dose Admin Miscellaneous Medication (Milk And Molasses Enema) 1 ea ONE ONCE KS 09/13/16 15:15 09/13/16 15:16 DC 09/13/16 16:40 1 EA ED Course 1218: Previous medical records were reviewed. The patient was evaluated in room C07. A complete history and physical examination was performed. 1515: Milk of Molasses Enema 1 ea KS 1550: I successfully disimpacted the patient. 1615: On reevaluation, the patient is resting comfortably. I discussed the results and findings with the patient's sister. She verbalized agreement of the treatment plan. The patient was discharged home. Medical Decision Medication Reconciliation: I attest that I have personally reviewed the patient' s current medication list. Blood pressure Screening: Patient was found to have normal blood pressure on screening and does not require follow-up. Differential considered: pancreatitis, hepatitis, or acute cholecystitis, AAA, UTI, pyelonephritis, kidney stones, appendicitis, diverticulitis, shingles, bowel obstruction mesenteric ischemia, intussusception,hernia, testicular torsion. This is a 56-year-old male who presents to the ED with a chief complaint of abdominal distention, intermittent abdominal pain for the past couple of days. The patient is unable to provide history because of his baseline mental status. His sister and caregiver provide the history. He has not had a good bowel movement for about 11 days according to the sister. He is been okay. He is been having loose stools but no solid stools. His vital signs are stable. His physical exam reveals some abdominal distention. He does have some stool in the proximal rectal vault just palpable of the distal end of my finger. It is fairly large. Unable to be disimpacted digitally. He does not appear to be in distress at this time. His blood work was unremarkable. Acute abdominal series reveals constipation. CT scan of the abdomen and pelvis reveals constipation as well. There is also some hydronephrosis noted. The patient is to see a urologist next Friday. He has already seen urology in the past. The patient received a soapsuds enema as well as a milk of molasses enema. This did not help. I was able to disimpact the patient with significant removal of bowels and then his bowels started to move and he had a significant ( Huge!) bowel movement here. I feel the patient is stable for discharge. Impression Primary Impression: Constipation Scribe Attestation The scribe's documentation has been prepared under my direction and personally reviewed by me in its entirety. I confirm that the note above accurately reflects all work, treatment, procedures, and medical decision making performed by me. Departure Information Dispostion Home / Self-Care Referrals No Doctor, Assigned (PCP) Forms Call Back Authorization, HOME CARE DOCUMENTATION FORM, IMPORTANT VISIT INFORMATION Patient Instructions Constipation, My [facility] Additional Instructions Follow-up with your doctor for further care and evaluation in 1-2 days. Return to the emergency department for worsening or new symptoms or any concerns. You have been examined and treated today on an emergency basis only. This is not a substitute for, or an effort to provide, complete comprehensive medical care. It is impossible to recognize and treat all injuries or illnesses in a single emergency department visit. It is therefore important that you follow up closely with your doctor. Call as soon as possible for an appointment.
[2016-09-13 19:00] VITALS: BP 145/89; PULSE 71; O2SAT 94
== END 2016-09-13 19:01 | disposition home or self-care (01) ==
LOC: C.EDB 11:18 → C.EDC 19:01
DX: K59.00 Constipation, unspecified (principal); J43.9 Emphysema, unspecified; F79 Unspecified intellectual disabilities; Z80.9 Family history of malignant neoplasm, unspecified; Z83.3 Family history of diabetes mellitus; Z82.49 Family history of ischemic heart disease and other diseases of the circulatory system; Z79.899 Other long term (current) drug therapy

== ENCOUNTER 2016-09-30 17:55 | Emergency (ER) | payer BC, OTHER ==
[~2016-09-30 17:55] MED LIST changes: -ASCO500T16 PO; -FINA5TAB PO; +LINA1CAP PO; -SULF1SUS4 PO
--- NOTE | 2016-09-30 18:00 | EMERGENCY ROOM VISIT NOTE ---
History First contact with patient: 17:57 Chief Complaint: FALL Stated Complaint: FALL History of Present Illness The patient is a 56 year old non-verbal male with intellectual disability, who presents to the Emergency Room with complaints of a fall. At ~5:30 patient fell backward from standing. Landed on bottom first, then back rolled down. Did not have traumatic hit to head. There was no LOC on initial fall - eyes were open through out, but was unconscious upon fall for 1-2 min. Sat patient up. Couldn't see chest movement, couldn't find pulse. Patient was not blue around lips or fingers. No CPR was done. Patient was trembling - possibly a seizure. Not on seizure medication. No fecal or urinary incontinence. Upon waking was whimpering, but rapidly returned to baseline. No recent cough, cold, fevers, runny nose. No vomiting. No complaints of pain. 2 episodes previously. In Mar 2016, July 2016. No cause was found. Seen by Dr. King previously who does not think it is related to seizure. Has had intermittent falls for the last year. Does not see PT regularly. No BM in 9 days, but passing flatus Review of Systems See HPI for pertinent positives and negatives. A total of ten systems were reviewed and were otherwise negative. Past Medical/Surgical History Medical Problems: (1) Constipation (2) Emphysema lung (3) Mental retardation (4) Urinary problem Surgical Problems: (1) History of prostate surgery Family History FH: cancer FH: diabetes mellitus FH: hypertension Social History Smoking Status: Never Smoker Drug Use: none Marital Status: single Housing Status: other (Lives in detention) Occupation Status: disabled Current/Historical Medications Scheduled Ascorbic Acid (Ascorbic Acid), 500 MG PO DAILY Docusate Sodium (Docusate Sodium), 100 MG PO HS Finasteride (Proscar), 5 MG PO HS Lactulose (Chronulac), 30 ML PO DAILY Levothyroxine Sodium (Levothyroxine Sodium), 1 TAB PO DAILY Linaclotide (Linzess), 290 MG PO QAM Multiple Vitamins W/ Minerals ([place]ms M), 1 TAB PO QAM Silodosin (Rapaflo), 1 CAP PO DAILY Allergies Azithromycin Physical Exam Vital Signs Date Time Temp Pulse Resp B/P (MAP) Pulse Ox O2 Delivery O2 Flow Rate FiO2 09/30/16 21:22 72 20 102/58 100 09/30/16 19:50 79 16 109/68 98 09/30/16 18:10 73 09/30/16 18:08 37.0 71 14 110/70 99 Room Air Physical Exam GENERAL: alert, lying in bed, no acute distress, non-toxic HEAD: NC/AT. EYES: PERRL, EOMI, normal conjunctiva OROPHARYNX: Mucous membranes are moist NECK: unable to assess given neck collar in situ LUNGS: Clear to auscultation without deep breathing as patient unable to comply to instructions. Normal chest wall mechanics, good air entry. No crepitations, crackles, or wheezes HEART: no murmurs, S1 normal and S2 normal ABDOMEN: abdomen soft, non-tender, normo-active bowel sounds, no masses, no rebound or guarding. BACK: Back is symmetrical on inspection, no deformities, no midline tenderness, no CVA tenderness. SKIN: Warm, pink, dry. No erythema, rashes, or bruising. EXTREMITIES: upper extremities are held in flexion, not fixed contractures. No pitting edema. Calves non tender. Strength 5/5 bilaterally. NEURO: Alert, No focal deficits. Non verbal. PSYCH: Mood and affect appropriate. Medical Decision & Procedures ER Provider Diagnostic Interpretation: CT SCAN OF THE BRAIN WITHOUT IV CONTRAST CLINICAL HISTORY: Seizure. COMPARISON STUDY: CT of the brain dated 07/28/2016. TECHNIQUE: Unenhanced axial CT scan of the brain is performed from the vertex to the skull base. Automated dose control exposure was utilized. A dose lowering technique was utilized adhering to the principles of ALARA. The patient was scanned twice due to motion artifact. The examination is significantly motion degraded. CT DOSE: Reported separately under the concurrently performed CT scan of the cervical spine. FINDINGS: Brain parenchyma: There are age advanced involutional changes. There is no hemorrhage, mass effect, or evidence of acute territorial ischemia by CT criteria. Mata-white matter is preserved. No extra-axial fluid collection is seen. Ventricles, sulci, cisterns: Ventriculomegaly is similar to previous. Intracranial vasculature: The visualized intracranial vasculature at the skull base is normal in appearance. Calvarium: There is no depressed calvarial fracture. Sinuses and mastoids: The visualized paranasal sinuses are clear. The mastoid air cells are well pneumatized. Orbits: The bony orbits are grossly intact. IMPRESSION: 1. No acute intracranial abnormality noting a motion compromised examination. 2. Ventriculomegaly is similar to previous. CT SCAN OF THE CERVICAL SPINE CLINICAL HISTORY: Fall with head injury. COMPARISON STUDY: No priors. TECHNIQUE: CT scan of the cervical spine is performed from the skull base to the upper thoracic spine. Images are reviewed in the axial, sagittal, and coronal planes. IV contrast was not administered for this examination. A dose lowering technique was utilized adhering to the principles of ALARA. The examination is degraded by suboptimal positioning. CT DOSE: 2181.38 mGy.cm FINDINGS: Skeletal structures: The skeletal structures are well mineralized. There is no evidence of fracture or subluxation involving the cervical spine. Vertebral body height and alignment are maintained. There is straightening of cervical lordosis. The odontoid process and lateral masses are intact. The atlantoaxial articulation is preserved. The spinous processes appear intact. There is mild to moderate multilevel cervical spondylosis. Uncovertebral and facet arthropathy is seen at several levels. This contributes to multilevel neural foraminal narrowing. Intervertebral discs: Mild disc space narrowing is seen at C5-C6 and C6-C7. Central canal: Grossly patent. Soft tissues: The prevertebral and paraspinous soft tissues are within normal limits. Calvarium: The visualized calvarium at the skull base appears intact. Brain parenchyma: Partially visualized brain parenchyma the skull base is within normal limits. Sinuses and mastoids: The visualized paranasal sinuses are clear. There are trace mastoid effusions. Lung apices: Clear as visualized. IMPRESSION: 1. There is no evidence of fracture or subluxation involving the cervical spine. 2. Spondylotic change as above. Laboratory Results 09/30/16 18:50 Red Blood Count 4.05, Mean Corpuscular Volume 100.0, Mean Corpuscular Hemoglobin 32.8, Mean Corpuscular Hemoglobin Concent 32.8, Mean Platelet Volume 9.8, Neutrophils (%) (Auto) 77.5, Lymphocytes (%) (Auto) 12.9, Monocytes (%) ( Auto) 8.0, Eosinophils (%) (Auto) 0.3, Basophils (%) (Auto) 1.0, Neutrophils # ( Auto) 5.70, Lymphocytes # (Auto) 0.95, Monocytes # (Auto) 0.59, Eosinophils # ( Auto) 0.02, Basophils # (Auto) 0.07 09/30/16 18:50 Test 09/30/16 18:50 White Blood Count 7.35 K/uL (4.8-10.8) Red Blood Count 4.05 M/uL (4.7-6.1) Hemoglobin 13.3 g/dL (14.0-18.0) Hematocrit 40.5 % (42-52) Mean Corpuscular Volume 100.0 fL (80-100) Mean Corpuscular Hemoglobin 32.8 pg (25-34) Mean Corpuscular Hemoglobin Concent 32.8 g/dl (32-36) Platelet Count 246 K/uL (130-400) Mean Platelet Volume 9.8 fL (7.4-10.4) Neutrophils (%) (Auto) 77.5 % Lymphocytes (%) (Auto) 12.9 % Monocytes (%) (Auto) 8.0 % Eosinophils (%) (Auto) 0.3 % Basophils (%) (Auto) 1.0 % Neutrophils # (Auto) 5.70 K/uL (1.4-6.5) Lymphocytes # (Auto) 0.95 K/uL (1.2-3.4) Monocytes # (Auto) 0.59 K/uL (0.11-0.59) Eosinophils # (Auto) 0.02 K/uL (0-0.5) Basophils # (Auto) 0.07 K/uL (0-0.2) RDW Standard Deviation 51.2 fL (36.4-46.3) RDW Coefficient of Variation 14.1 % (11.5-14.5) Immature Granulocyte % (Auto) 0.3 % Immature Granulocyte # (Auto) 0.02 K/uL (0.00-0.02) Prothrombin Time 11.2 SECONDS (9.0-12.0) Prothromb Time International Ratio 1.0 (0.9-1.1) Activated Partial Thromboplast Time 24.5 SECONDS (21.0-31.0) Partial Thromboplastin Ratio 0.9 Anion Gap 2.0 mmol/L (3-11) Estimated GFR () 97.1 Estimated GFR (Non- 83.8 BUN/Creatinine Ratio 13.3 (10-20) Calcium Level 8.7 mg/dl (8.5-10.1) Phosphorus Level 3.4 mg/dl (2.5-4.9) Magnesium Level 2.4 mg/dl (1.8-2.4) Thyroid Stimulating Hormone (TSH) 2.290 uIu/ml (0.300-4.500) ECG Indication: syncope Rhythm: normal sinus Change: no significant change ED Course 1800: The patient was evaluated in room A12. A complete history and physical exam was performed. 1833: Labs and imaging ordered Medical Decision Prior records/ancillary studies reviewed. Triage Nursing notes reviewed. The patient's history was concerning for fall with syncope Differential diagnosis: Etiologies such as benign positional vertigo, dehydration, hypovolemia, anemia, tumor, infection, hypoglycemia, electrolyte abnormalities, cardiac sources, intracerebral event, toxicologic, neurologic, as well as others were entertained. Physical examination: As above. No pathologic nystagmus. ER treatment provided: On initial and reassessment the patient was well. Diagnostics interpretation by me: ECG: Normal sinus rhythm without ischemic change or evidence of dysrhythmia. The labs revealed a normal CBC and chemistry panel, normal MG+, PO4+, and TSH Consultation: It appears the patient had an episode of syncope. By the evaluation outlined above emergent etiologies such as infection, hypoglycemia, electrolyte abnormalities, cardiac sources, intracerebral event, toxicologic, neurologic,as well as others were deemed relatively unlikely. The patient's sister and caregivers informed about the findings as listed above. All questions were answered and they were pleased with the management plan. Return instructions were outlined and the patient was discharged in stable condition. Outpatient prescription management: Magnesium citrate for constipation Referral: The patient was referred back to their primary care physician for follow-up in 3 to 4 days for a recheck of the current condition. Impression Primary Impression: Syncope Additional Impression: Constipation Departure Information Dispostion Home / Self-Care Condition GOOD Referrals Fernando Herr M.D. (PCP) Patient Instructions My [facility] Resident Tracking Resident Involvement: Resident Care Provided Care Provided: Adult ED Problem Qualifiers
[2016-09-30 18:08] VITALS: TEMP 37
[2016-09-30 19:10] LABS: BASO ABS # 0.07 K/uL (0-0.2); COMPLETE YES; EOS % 0.3 %; HEMATOCRIT 40.5 % (42-52); IG% 0.3 %; LYMPH % 12.9 %; LYMPH ABS # 0.95 K/uL (1.2-3.4); MEAN CORPUSCULAR HEMOGLOBIN 32.8 pg (25-34); MEAN CORPUSCULAR HGB CONC 32.8 g/dl (32-36); MEAN PLATELET VOLUME 9.8 fL (7.4-10.4); NEUT % 77.5 %; PLATELET COUNT 246 K/uL (130-400); RED BLOOD COUNT 4.05 M/uL (4.7-6.1); WHITE BLOOD COUNT 7.35 K/uL (4.8-10.8)
--- NOTE | 2016-09-30 19:18 | DIAGNOSTIC IMAGING REPORT ---
CT SCAN OF THE BRAIN WITHOUT IV CONTRAST CLINICAL HISTORY: Seizure. COMPARISON STUDY: CT of the brain dated 07/28/2016. TECHNIQUE: Unenhanced axial CT scan of the brain is performed from the vertex to the skull base. Automated dose control exposure was utilized. A dose lowering technique was utilized adhering to the principles of ALARA. The patient was scanned twice due to motion artifact. The examination is significantly motion degraded. CT DOSE: Reported separately under the concurrently performed CT scan of the cervical spine. FINDINGS: Brain parenchyma: There are age advanced involutional changes. There is no hemorrhage, mass effect, or evidence of acute territorial ischemia by CT criteria. Mata-white matter is preserved. No extra-axial fluid collection is seen. Ventricles, sulci, cisterns: Ventriculomegaly is similar to previous. Intracranial vasculature: The visualized intracranial vasculature at the skull base is normal in appearance. Calvarium: There is no depressed calvarial fracture. Sinuses and mastoids: The visualized paranasal sinuses are clear. The mastoid air cells are well pneumatized. Orbits: The bony orbits are grossly intact. IMPRESSION: 1. No acute intracranial abnormality noting a motion compromised examination. 2. Ventriculomegaly is similar to previous. Electronically signed by: Isaiah Sherwood M.D. 09/30/2016 7:16 PM Dictated Date/Time: 09/30/2016 7:14 PM
--- NOTE | 2016-09-30 19:23 | DIAGNOSTIC IMAGING REPORT ---
CT SCAN OF THE CERVICAL SPINE CLINICAL HISTORY: Fall with head injury. COMPARISON STUDY: No priors. TECHNIQUE: CT scan of the cervical spine is performed from the skull base to the upper thoracic spine. Images are reviewed in the axial, sagittal, and coronal planes. IV contrast was not administered for this examination. A dose lowering technique was utilized adhering to the principles of ALARA. The examination is degraded by suboptimal positioning. CT DOSE: 2181.38 mGy.cm FINDINGS: Skeletal structures: The skeletal structures are well mineralized. There is no evidence of fracture or subluxation involving the cervical spine. Vertebral body height and alignment are maintained. There is straightening of cervical lordosis. The odontoid process and lateral masses are intact. The atlantoaxial articulation is preserved. The spinous processes appear intact. There is mild to moderate multilevel cervical spondylosis. Uncovertebral and facet arthropathy is seen at several levels. This contributes to multilevel neural foraminal narrowing. Intervertebral discs: Mild disc space narrowing is seen at C5-C6 and C6-C7. Central canal: Grossly patent. Soft tissues: The prevertebral and paraspinous soft tissues are within normal limits. Calvarium: The visualized calvarium at the skull base appears intact. Brain parenchyma: Partially visualized brain parenchyma the skull base is within normal limits. Sinuses and mastoids: The visualized paranasal sinuses are clear. There are trace mastoid effusions. Lung apices: Clear as visualized. IMPRESSION: 1. There is no evidence of fracture or subluxation involving the cervical spine. 2. Spondylotic change as above. Electronically signed by: Isaiah Sherwood M.D. 09/30/2016 7:21 PM Dictated Date/Time: 09/30/2016 7:14 PM
[2016-09-30 19:26] LABS: PARTIAL THROMBOPLASTIN RATIO 0.9; PROTHROMBIN TIME (PATIENT) 11.2 SECONDS (9.0-12.0)
[2016-09-30 19:30] LABS: BLOOD UREA NITROGEN 13 mg/dl (7-18); BUN/CREATININE RATIO 13.3 (10-20); CALCIUM 8.7 mg/dl (8.5-10.1); CARBON DIOXIDE 30 mmol/L (21-32); CHLORIDE 108 mmol/L (98-107); GLUCOSE 112 mg/dl (70-99); MAGNESIUM 2.4 mg/dl (1.8-2.4); POTASSIUM 4.5 mmol/L (3.5-5.1); SODIUM 140 mmol/L (136-145)
[2016-09-30 19:41] LABS: PHOSPHORUS 3.4 mg/dl (2.5-4.9)
[2016-09-30 21:22] VITALS: BP 102/58; PULSE 72; O2SAT 100
--- NOTE | 2016-09-30 22:02 | EMERGENCY ROOM VISIT NOTE ---
History Report prepared by Shan: Josh Ye Under the Supervision of: Dr. Mynor Sosa M.D. First contact with patient: 17:57 Chief Complaint: FALL Stated Complaint: FALL History of Present Illness The patient is a 56 year old male who presents to the Emergency Room with complaints of fall that occurred 3 hours ago. The patient is nonverbal with an intellectual disability. This history is given by his family. He lives in a prison. This history is provided by the people living with him who saw the incident. At this time, the patient was standing up and fell backwards. They state that it was a slow fall, and he landed on his buttocks first and then curled back. There was no direct trauma to the head, and his eyes were open the entire time of the fall. After he fell, he lost consciousness for a few minutes. He looked like he was not breathing, and bystanders could not find a pulse. They sat him up immediately afterward. There was no blue discoloration around his lips or fingers. When he woke back up, he was trembling, but quickly returned to baseline. There were no post ictal symptoms. He has been constipated for the past 9 days, but they note he has been passing gas. Pt denies LOC, headache, fevers, chills, diaphoresis, visual changes, neck pain, chest pain, breathing difficulties, nausea, vomiting, abdominal pain, back pain , melena, hematochezia, urinary symptoms, numbness, weakness, lymphadenopathy, rash, or other complaints. He has had similar episodes of this in the past, but is nonconsistent with a seizure disorder. He also has had intermittent falls in the past. He is not on seizure medications. 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 Review of Systems See HPI for pertinent positives and negatives. A total of ten systems were reviewed and were otherwise negative. Past Medical & Surgical Medical Problems: (1) Constipation (2) Emphysema lung (3) Mental retardation (4) Urinary problem Surgical Problems: (1) History of prostate surgery Family History FH: cancer FH: diabetes mellitus FH: hypertension Social History Smoking Status: Never Smoker Smokeless Tobacco Use: No Drug Use: none Marital Status: single Housing Status: other (Lives in prison) Occupation Status: disabled Current/Historical Medications Scheduled Ascorbic Acid (Ascorbic Acid), 500 MG PO DAILY Docusate Sodium (Docusate Sodium), 100 MG PO HS Finasteride (Proscar), 5 MG PO HS Lactulose (Chronulac), 30 ML PO DAILY Levothyroxine Sodium (Levothyroxine Sodium), 1 TAB PO DAILY Linaclotide (Linzess), 290 MG PO QAM Multiple Vitamins W/ Minerals (Therems M), 1 TAB PO QAM Silodosin (Rapaflo), 1 CAP PO DAILY Allergies Coded Allergies: Azithromycin (Unverified Allergy, Unknown, flat line, 09/30/16) Physical Exam Vital Signs Date Time Temp Pulse Resp B/P (MAP) Pulse Ox O2 Delivery O2 Flow Rate FiO2 09/30/16 21:22 72 20 102/58 100 09/30/16 19:50 79 16 109/68 98 09/30/16 18:10 73 09/30/16 18:08 37.0 71 14 110/70 99 Room Air Physical Exam GENERAL: Awake, alert, well-appearing, in no distress HENT: Microcephalic, atraumatic. Oropharynx unremarkable. EYES: Normal conjunctiva. Sclera non-icteric. Disconjugate gaze. NECK: Supple. No nuchal rigidity. FROM. No JVD. RESPIRATORY: Clear to auscultation. CARDIAC: Regular rate, normal rhythm. Extremities warm and well perfused. Pulses equal. ABDOMEN: Soft, non-distended. No tenderness to palpation. No rebound or guarding. No masses. RECTAL: Deferred. MUSCULOSKELETAL: Chest examination reveals no tenderness. The back is symmetrical on inspection without obvious abnormality. There is no CVA tenderness to palpation. No joint edema. LOWER EXTREMITIES: Calves are equal size bilaterally and non-tender. 1+ bilateral edema. No discoloration. NEURO: Sensorium consistent with down syndrome. Follows basic commands. Gait relatively normal. SKIN: No rash or jaundice noted. Medical Decision & Procedures ER Provider Diagnostic Interpretation: Radiology results as stated below per my review and radiologist interpretation: CT SCAN OF THE BRAIN WITHOUT IV CONTRAST CLINICAL HISTORY: Seizure. COMPARISON STUDY: CT of the brain dated 07/28/2016. TECHNIQUE: Unenhanced axial CT scan of the brain is performed from the vertex to the skull base. Automated dose control exposure was utilized. A dose lowering technique was utilized adhering to the principles of ALARA. The patient was scanned twice due to motion artifact. The examination is significantly motion degraded. CT DOSE: Reported separately under the concurrently performed CT scan of the cervical spine. FINDINGS: Brain parenchyma: There are age advanced involutional changes. There is no hemorrhage, mass effect, or evidence of acute territorial ischemia by CT criteria. Mata-white matter is preserved. No extra-axial fluid collection is seen. Ventricles, sulci, cisterns: Ventriculomegaly is similar to previous. Intracranial vasculature: The visualized intracranial vasculature at the skull base is normal in appearance. Calvarium: There is no depressed calvarial fracture. Sinuses and mastoids: The visualized paranasal sinuses are clear. The mastoid air cells are well pneumatized. Orbits: The bony orbits are grossly intact. IMPRESSION: 1. No acute intracranial abnormality noting a motion compromised examination. 2. Ventriculomegaly is similar to previous. Electronically signed by: Isaiah Sherwood M.D. 09/30/2016 7:16 PM Dictated Date/Time: 09/30/2016 7:[address] SCAN OF THE CERVICAL SPINE CLINICAL HISTORY: Fall with head injury. COMPARISON STUDY: No priors. TECHNIQUE: CT scan of the cervical spine is performed from the skull base to the upper thoracic spine. Images are reviewed in the axial, sagittal, and coronal planes. IV contrast was not administered for this examination. A dose lowering technique was utilized adhering to the principles of ALARA. The examination is degraded by suboptimal positioning. CT DOSE: 2181.38 mGy.cm FINDINGS: Skeletal structures: The skeletal structures are well mineralized. There is no evidence of fracture or subluxation involving the cervical spine. Vertebral body height and alignment are maintained. There is straightening of cervical lordosis. The odontoid process and lateral masses are intact. The atlantoaxial articulation is preserved. The spinous processes appear intact. There is mild to moderate multilevel cervical spondylosis. Uncovertebral and facet arthropathy is seen at several levels. This contributes to multilevel neural foraminal narrowing. Intervertebral discs: Mild disc space narrowing is seen at C5-C6 and C6-C7. Central canal: Grossly patent. Soft tissues: The prevertebral and paraspinous soft tissues are within normal limits. Calvarium: The visualized calvarium at the skull base appears intact. Brain parenchyma: Partially visualized brain parenchyma the skull base is within normal limits. Sinuses and mastoids: The visualized paranasal sinuses are clear. There are trace mastoid effusions. Lung apices: Clear as visualized. IMPRESSION: 1. There is no evidence of fracture or subluxation involving the cervical spine. 2. Spondylotic change as above. Electronically signed by: Isaiah Sherwood M.D. 09/30/2016 7:21 PM Dictated Date/Time: 09/30/2016 7:14 PM Laboratory Results 09/30/16 18:50 Red Blood Count 4.05, Mean Corpuscular Volume 100.0, Mean Corpuscular Hemoglobin 32.8, Mean Corpuscular Hemoglobin Concent 32.8, Mean Platelet Volume 9.8, Neutrophils (%) (Auto) 77.5, Lymphocytes (%) (Auto) 12.9, Monocytes (%) ( Auto) 8.0, Eosinophils (%) (Auto) 0.3, Basophils (%) (Auto) 1.0, Neutrophils # ( Auto) 5.70, Lymphocytes # (Auto) 0.95, Monocytes # (Auto) 0.59, Eosinophils # ( Auto) 0.02, Basophils # (Auto) 0.07 09/30/16 18:50 Test 09/30/16 18:50 White Blood Count 7.35 K/uL (4.8-10.8) Red Blood Count 4.05 M/uL (4.7-6.1) Hemoglobin 13.3 g/dL (14.0-18.0) Hematocrit 40.5 % (42-52) Mean Corpuscular Volume 100.0 fL (80-100) Mean Corpuscular Hemoglobin 32.8 pg (25-34) Mean Corpuscular Hemoglobin Concent 32.8 g/dl (32-36) Platelet Count 246 K/uL (130-400) Mean Platelet Volume 9.8 fL (7.4-10.4) Neutrophils (%) (Auto) 77.5 % Lymphocytes (%) (Auto) 12.9 % Monocytes (%) (Auto) 8.0 % Eosinophils (%) (Auto) 0.3 % Basophils (%) (Auto) 1.0 % Neutrophils # (Auto) 5.70 K/uL (1.4-6.5) Lymphocytes # (Auto) 0.95 K/uL (1.2-3.4) Monocytes # (Auto) 0.59 K/uL (0.11-0.59) Eosinophils # (Auto) 0.02 K/uL (0-0.5) Basophils # (Auto) 0.07 K/uL (0-0.2) RDW Standard Deviation 51.2 fL (36.4-46.3) RDW Coefficient of Variation 14.1 % (11.5-14.5) Immature Granulocyte % (Auto) 0.3 % Immature Granulocyte # (Auto) 0.02 K/uL (0.00-0.02) Prothrombin Time 11.2 SECONDS (9.0-12.0) Prothromb Time International Ratio 1.0 (0.9-1.1) Activated Partial Thromboplast Time 24.5 SECONDS (21.0-31.0) Partial Thromboplastin Ratio 0.9 Anion Gap 2.0 mmol/L (3-11) Estimated GFR () 97.1 Estimated GFR (Non- 83.8 BUN/Creatinine Ratio 13.3 (10-20) Calcium Level 8.7 mg/dl (8.5-10.1) Phosphorus Level 3.4 mg/dl (2.5-4.9) Magnesium Level 2.4 mg/dl (1.8-2.4) Thyroid Stimulating Hormone (TSH) 2.290 uIu/ml (0.300-4.500) Laboratory results reviewed by me ECG Indication: other (Fall) Rate (beats per minute): 67 Rhythm: normal sinus Findings: no acute ischemic change, no ectopy ED Course 1756: The patient was evaluated in room A2. A complete history and physical exam was performed. 2113: I reevaluated the patient. Discussed results and discharge instructions: His family verbalized understanding and agreement. The patient is ready for discharge. Medical Decision Triage Nursing notes reviewed. The patient's presentation and history were concerning for a fall and possible syncope/seizure. Etiologies such as vasovagal event, infection, hypoglycemia, electrolyte abnormalities, cardiac sources, intracerebral event, toxicologic, neurologic, as well as others were entertained. The patient was evaluated. Clinically he was doing well. His head CT, cervical spine CT, and blood work were unremarkable. ECG was unremarkable. The patient was unable to provide a urine sample as he was incontinent prior and this is nothing new. Family did not want to stress him with a catheter or prolonged attempts at obtaining a urinalysis. I think this is reasonable. The patient was standing for an extended period prior to having this event. This may be a vagal/hypotensive event that then resulted in a brief syncopal episode. It does not sound consistent with seizure. I discussed conservative management given the patient's situation and family felt comfortable. They did note he is having intermittent problems with constipation. He is on a significant bowel regimen. I did offer magnesium citrate as a possible additive in case he needs it. He will need close outpatient follow-up. Family feels comfortable with this. I gave my usual and customary discussion regarding this issue. The patient was seen and examined with Dr. Geno Chin, resident physician. We discussed the case and treatments ordered, reviewed the results, and determine the disposition. Please refer to the resident's note for additional details. I have been directly involved with the management and disposition as well as independently evaluated the patient as documented in this note. By the evaluation outlined above other emergent etiologies such as those listed in the differential, as well as others, were deemed relatively unlikely. The patient's family educated about the findings as listed above. All questions were answered and they were pleased with the treatment. Return instructions were outlined and the patient was discharged in stable condition. The patient was referred to his PCP for follow-up for a recheck of the current condition. Medication Reconcilliation Current Medication List: was personally reviewed by me Blood Pressure Screening Patient's blood pressure: Normal blood pressure Blood pressure disposition: Did not require urgent referral Impression Primary Impression: Fall Additional Impression: Syncope Scribe Attestation The scribe's documentation has been prepared under my direction and personally reviewed by me in its entirety. I confirm that the note above accurately reflects all work, treatment, procedures, and medical decision making performed by me. Departure Information Dispostion Home / Self-Care Referrals Fernando Herr M.D. (PCP) Forms HOME CARE DOCUMENTATION FORM, IMPORTANT VISIT INFORMATION Patient Instructions My [facility] Additional Instructions Patient was seen in hospital for a fall. Lab and diagnostic imaging were reasurring. At this time, continue management as is, with no changes in medications. For constipation, you may add magnesium citrate to patient's regimen. Please drink half the bottle only initially. If no bowel movement occurs in ~8hrs, then drink the other half of the bottle. Advise for follow up with Dr. Herr later this week. Please seek medical advice for recurrent falls, seizure activity, vomiting, fevers, difficulty breathing, black or bloody stools, worsening of patient's condition, or as needed if new concerns arise Problem Qualifiers
[2016-10-07] MEDS ORDERED: LACT10SO61 PO (10:18)
[2016-10-07] MEDS ORDERED: PSYL48.59 PO (10:18)
[2016-11-14] MEDS ORDERED: PRT40 PO (14:27)
[2016-11-14] MEDS ORDERED: LVQ500 PO (14:27)
[2016-11-21] MEDS ORDERED: FINA5TAB PO (11:23)
[2016-12-04] MEDS ORDERED: SNKUDL10 PO (18:04)
[2016-12-04] MEDS ORDERED: CRFUDL PO (18:04)
== END 2016-09-30 21:22 | disposition home or self-care (01) ==
LOC: EDBD 17:55 → C.EDA 17:56
DX: R55 Syncope and collapse (principal); K59.00 Constipation, unspecified; F79 Unspecified intellectual disabilities; J43.9 Emphysema, unspecified; Z83.3 Family history of diabetes mellitus; Z82.49 Family history of ischemic heart disease and other diseases of the circulatory system

== ENCOUNTER 2016-10-09 14:14 | Emergency (ER) | payer BC, OTHER ==
[~2016-10-09] VITALS: Ht 162.6 cm; Wt 62.0 kg
[~2016-10-09 14:14] MED LIST changes: -FLM4 PO; -LACT10SO17 PO; +LACT10SO61 PO; -MULT-845 PO; +PSYL48.59 PO
[2016-10-09 14:17] VITALS: TEMP 36.6; Ht 162.6 cm; Wt 62.0 kg
[2016-10-09] MEDS ORDERED: LINA1CAP2 PO (14:46)
--- NOTE | 2016-10-09 15:26 | EMERGENCY ROOM VISIT NOTE ---
History Report prepared by Robinaibsusan: Rachel Abrams Under the Supervision of: Dr. Barrett Bearden M.D. First contact with patient: 14:50 Chief Complaint: CONSTIPATION Stated Complaint: NO BM-SENT BY DR. HOOD'S OFFICE Nursing Triage Summary: sister states patient is nonverbal and lives at the [facility] snf. patient has a lare colon and hx of extreme constipation and impactions. patient was constipated September 13. patient was impacted and has had on and off constipation since. pt is scheduled to have colonoscopy on friday. patient had large BM per the arc yesterday morning. sister states the doctor is worried he will not have prep done and adequate by friday and was told to take mag citrate last evening. sister states she gave mag citrate and all prescription meds for constipation and has had no BM. sister is unsure about large BM at the [facility] because he has not gone since. GI doctor wanted patient to be seen in ER due to questionable impaction. sister also states he is on a clear liquid diet this week for colonoscopy on friday. History of Present Illness The patient is a 56 year old male who presents to the Emergency Room with complaints of persistent constipation starting yesterday. The patient has a history of MR. Per sister, the last known normal bowel movement was yesterday. He was referred to the ED by Dr. Hood of GI. The patient was believed to be trying to have another bowel movement today, but was unsuccessful. He was given a bottle of magnesium citrate last night and has started on a clear liquid diet today. The patient has a scheduled colonoscopy and tracheoscopy for next week. HPI limited secondary to MR. Source of History: sibling History Limited By: other (MR) Onset: yesterday Quality: other (constipation) Timing: other (persistent) Review of Systems ROS limited secondary to MR. Past Medical & Surgical Medical Problems: (1) Constipation (2) Emphysema lung (3) Mental retardation (4) Urinary problem Surgical Problems: (1) History of prostate surgery Family History FH: cancer FH: diabetes mellitus FH: hypertension Social History Smoking Status: Never Smoker Drug Use: none Marital Status: single Housing Status: other Occupation Status: disabled Current/Historical Medications Scheduled Ascorbic Acid (Ascorbic Acid), 500 MG PO QAM Docusate Sodium (Docusate Sodium), 100 MG PO HS Finasteride (Proscar), 5 MG PO HS Levothyroxine Sodium (Levothyroxine Sodium), 1 TAB PO QAM Linaclotide (Linzess), 290 MCG PO DAILY Multiple Vitamins W/ Minerals (Therems M), 1 TAB PO QAM Silodosin (Rapaflo), 1 CAP PO HS Scheduled PRN Acetaminophen (Tylenol), 500 MG PO Q4H PRN for Pain or Fever Lactulose (Encephalopathy) (Enulose), 30 ML PO Q24H PRN for Constipation Allergies Coded Allergies: Azithromycin (Verified Allergy, Unknown, flat line, 10/11/16) Physical Exam Vital Signs Date Time Temp Pulse Resp B/P (MAP) Pulse Ox O2 Delivery O2 Flow Rate FiO2 10/09/16 16:32 82 18 107/69 100 10/09/16 14:17 36.6 59 22 87/53 94 Room Air Physical Exam GENERAL: Patient is a healthy-appearing well-nourished male HEAD: Normocephalic atraumatic EYES: Ocular movements intact pupils equal and react to light OROPHARYNX mucous membranes are moist no exudates present no erythema or edema present NECK: Supple no nuchal rigidity CHEST: Good equal expansion LUNGS: Clear and equal to auscultation CARDIAC: Normal S1 and S2 ABDOMEN: Soft nontender no guarding RECTAL EXAM: Patient has stool ball that I cannot reach. No masses were felt. BACK: No CVA tenderness EXTREMITIES: No pain upon palpation normal muscle strength in all groups no clubbing cyanosis or edema NEURO: Patient is following commands and answering questions appropriately. Alert and oriented x3 Cranial Nerves 2-12 grossly intact Medical Decision & Procedures ER Provider Diagnostic Interpretation: X-ray results as stated below per interpretation by me and the radiologist: KUB HISTORY: 56 years-old Male Pt c/o constipation COMPARISON: Abdominal radiographs 09/13/2016 TECHNIQUE: KUB radiograph FINDINGS: There is extensive stool volume is seen within the rectosigmoid with moderate to extensive stool in within the splenic flexure and descending colon. No significant stool volume is seen within the right hemicolon. Large stool ball in the rectal vault is seen measuring up to 9.4 cm transversely. These findings appear similar to slightly improved from prior exam. There is no bowel obstruction or gross pneumoperitoneum. Negative for urolithiasis or fracture. IMPRESSION: 1. No bowel obstruction. 2. Persistent large volume of formed stool throughout the colon, notably within the rectosigmoid and descending colon suggests constipation. The above report was generated using voice recognition software. It may contain grammatical, syntax or spelling errors. Electronically signed by: Maximo Ayala M.D. Medications Administered Medications (Trade) Dose Ordered Sig/Page Route Start Time Stop Time Status Last Admin Dose Admin Glycerin (Glycerin Adult Supp) 1 ea STK-MED ONCE .ROUTE 10/09/16 15:31 10/09/16 15:32 DC 10/09/16 15:31 1 EA Sodium Biphosphate/ Sodium Phosphate (Fleet Enema) 132 ml NOW STAT VT 10/09/16 15:40 10/09/16 15:41 DC 10/09/16 15:40 132 ML ED Course 1503: Past medical records reviewed. The patient was evaluated in room B5. A complete history and physical examination was performed. 1531: Ordered Glycerin 1 ea .STK-MED once 1539: Soap suds enema 1 ea VT 1540: Fleet enema 132 ml VT 1632: Upon reexamination the patient is resting. He was able to pass a large amount of stool successfully. I discussed results and treatment plan with the patient. His sister verbalizes agreement and understanding. The patient is ready for discharge. Medical Decision Differential diagnosis: Etiologies such as functional constipation, impaction, obstruction, volvulus, metabolic abnormality, infection, neurologic, as well as others were entertained. This is a 56-year-old male who presents emergency department who because he has been unable to have a bowel movement. The patient was disimpacted by me and then given a glycerin suppository along with an enema this resulted in a large bowel movement. I do believe the patient is well enough to be discharged home for follow-up with gastroenterology. Patient was in agreement with the treatment plan. Impression Primary Impression: Constipation Scribe Attestation The scribe's documentation has been prepared under my direction and personally reviewed by me in its entirety. I confirm that the note above accurately reflects all work, treatment, procedures, and medical decision making performed by me. Departure Information Dispostion Home / Self-Care Referrals Fernando Herr M.D. (PCP) Forms HOME CARE DOCUMENTATION FORM, IMPORTANT VISIT INFORMATION Patient Instructions Constipation, My [facility] Additional Instructions Follow up with Dr Hood's office You have been examined and treated today on an emergency basis only. This is not a substitute for, or an effort to provide, complete comprehensive medical care. It is impossible to recognize and treat all injuries or illnesses in a single emergency department visit. It is therefore important that you follow up closely with Dr Herr. Call as soon as possible for an appointment. Thank you for your time and consideration. I look forward to speaking with you again soon. Please don't hesitate to call us if you have any questions. Problem Qualifiers Primary Impression: Constipation Constipation type: unspecified constipation type Qualified Codes: K59.00 - Constipation, unspecified
--- NOTE | 2016-10-09 15:30 | DIAGNOSTIC IMAGING REPORT ---
KUB HISTORY: 56 years-old Male Pt c/o constipation COMPARISON: Abdominal radiographs 09/13/2016 TECHNIQUE: KUB radiograph FINDINGS: There is extensive stool volume is seen within the rectosigmoid with moderate to extensive stool in within the splenic flexure and descending colon. No significant stool volume is seen within the right hemicolon. Large stool ball in the rectal vault is seen measuring up to 9.4 cm transversely. These findings appear similar to slightly improved from prior exam. There is no bowel obstruction or gross pneumoperitoneum. Negative for urolithiasis or fracture. IMPRESSION: 1. No bowel obstruction. 2. Persistent large volume of formed stool throughout the colon, notably within the rectosigmoid and descending colon suggests constipation. The above report was generated using voice recognition software. It may contain grammatical, syntax or spelling errors. Electronically signed by: Maximo Ayala M.D. 10/09/2016 3:28 PM Dictated Date/Time: 10/09/2016 3:26 PM
[2016-10-09] MEDS ORDERED: GLYCERIN ADULT 1 EA SUPP ONE (15:31)
[2016-10-09] MEDS ORDERED: SOAP SUDS ENEMA PR STA (15:39)
[2016-10-09] MEDS ORDERED: SOD PHOSPHATE/SOD BIPHOSPHATE ENEMA 132 ML BTL PR STA (15:40)
[2016-10-09 16:32] VITALS: BP 107/69; PULSE 82; O2SAT 100
[2016-11-14] MEDS ORDERED: PRT40 PO (14:27)
[2016-11-14] MEDS ORDERED: LVQ500 PO (14:27)
[2016-11-21] MEDS ORDERED: FINA5TAB PO (11:23)
[2016-12-04] MEDS ORDERED: SNKUDL10 PO (18:04)
[2016-12-04] MEDS ORDERED: CRFUDL PO (18:04)
== END 2016-10-09 16:32 | disposition home or self-care (01) ==
LOC: C.EDB 14:16
DX: K59.00 Constipation, unspecified (principal); J43.9 Emphysema, unspecified; F79 Unspecified intellectual disabilities; Z80.9 Family history of malignant neoplasm, unspecified; Z83.3 Family history of diabetes mellitus; Z82.49 Family history of ischemic heart disease and other diseases of the circulatory system; Z79.899 Other long term (current) drug therapy

== ENCOUNTER → 2016-10-11 | Day surgery (SDC) | payer BC, OTHER ==
[2016-10-07 10:18] VITALS: Ht 160 cm; Wt 61.8 kg
[~2016-10-11] VITALS: Ht 160 cm; Wt 61.8 kg
[~2016-10-11] MED LIST changes: +ACET-1256 PO; +AMT24 PO; +ASCO500T16 PO; +CRFUDL PO; +DOCU100C31 PO; +FENTANYL CITRATE INJ 50 MCG/1 ML 2 ML VIAL ONE; +FINA5TAB PO; +LACT10SO17 PO; +LEVO100T PO; +LEVO100T7 PO; +LIDOCAINE HCL 2% 2 ML VIAL (20MG/ML) ONE; -LINA1CAP PO; +LINA1CAP2 PO; +LVQ500 PO; +MRLP527 PO; +MULTTAB63 PO; +OMEP20CA9 PO; +ONDANSETRON INJ 2 MG/ML 2 ML VIAL ONE; +PANT40TA PO; +PHENYLEPHRINE 100MCG/ML 5ML SYR ONE; +PROPOFOL IV EMULSION 10 MG/ML 20 ML VIAL IV ONE; +PRS5 PO; +PRT/40 PO; +PRT40 PO; +RPF/8 PO; +SNKUDL10 PO; +SODIUM CHLORIDE 0.9% 500ML 500 ML IV ONE
--- NOTE | 2016-10-11 14:07 | Endo History and Physical ---
History & Physical Date of Service: Oct 11, 2016. Chief Complaint: Anemia, Abnormal finding on imaging, constipation Referring Physician: Dr. Fernando Herr History of Present Illness 56 yo CM who presents for EGD and colonoscopy secondary to anemia and chronic constipation. Past Surgical History Hx Cardiac Surgery: No Hx Internal Defibrillator: No Hx Pacemaker: No Hx Abdominal Surgery: No Hx of Implantable Prosthesis: No Hx Cancer Surgery: No Hx Thoracic Surgery: No Hx Orthopedic: No Hx Urinary Tract Surgery: Yes (PROSTATE SURGERY) Family History None Social History Smoking Status: Never Smoker Allergies Coded Allergies: Azithromycin (Verified Allergy, Unknown, flat line, 10/11/16) Current Medications Reported Home Medications Medications Dose Route/Sig Max Daily Dose Days Date Category Linzess (Linaclotide) 290 Mcg Cap 290 Mcg PO DAILY 10/09/16 Reported Enulose (Lactulose (Encephalopathy)) 10 Gm/15 Ml Felicity 30 Ml PO Q24H PRN 10/07/16 Reported Tylenol (Acetaminophen) 500 Mg Tab 500 Mg PO Q4H PRN 10/07/16 Reported Docusate Sodium 100 Mg Cap 100 Mg PO HS 09/30/16 Reported Therems M (Multiple Vitamins W/ Minerals) 1 Tab Tab 1 Tab PO QAM 09/30/16 Reported Rapaflo (Silodosin) 8 Mg Cap 1 Cap PO HS 09/13/16 Reported Levothyroxine Sodium 88 Mcg Tab 1 Tab PO QAM 07/28/16 Reported Ascorbic Acid 500 Mg Tab 500 Mg PO QAM 03/30/16 Reported Proscar (Finasteride) 5 Mg Tab 5 Mg PO HS 03/25/11 Reported Vital Signs Weight (Kilograms): 61.82 Height (Feet): 5 Height (Inches): 3 Date Time Temp Pulse Resp B/P (MAP) Pulse Ox O2 Delivery O2 Flow Rate FiO2 10/11/16 13:44 36.5 80 16 95/62 (73) 100 Room Air Physical Exam General Appearance: WD/WN, no apparent distress Respiratory/Chest: Auscultation: breath sounds normal Cardiovascular: Heart Auscultation: RRR Abdomen: Bowel Sounds: normal Inspection & Palpation: soft, non-distended, no tenderness, guarding & rebound Assessment and Plan Assessment: 56 yo CM who presents for EGD and colonoscopy secondary to anemia and chronic constipation. Plan: Proceed with EGD and colonoscopy.
--- NOTE | 2016-10-11 15:23 | Anesthesiology Progress Note ---
Anesthesia Post Op Note Date & Time Oct 11, 2016 at 15:22 Vital Signs Pain Intensity: 0 Vital Signs Past 12 Hours Date Time Temp Pulse Resp B/P (MAP) Pulse Ox O2 Delivery O2 Flow Rate FiO2 10/11/16 13:44 36.5 80 16 95/62 (73) 100 Room Air Notes Mental Status: alert / awake / arousable, participated in evaluation Pt Amnestic to Procedure: Yes Nausea / Vomiting: adequately controlled Pain: adequately controlled Airway Patency, RR, SpO2: stable & adequate BP & HR: stable & adequate Hydration State: stable & adequate Anesthetic Complications: no major complications apparent The patient is awake and stable at baseline.
--- NOTE | 2016-10-11 15:27 | Discharge Instructions ---
Endoscopy Patient Instructions Date / Procedure(s) Performed Oct 11, 2016. Colonoscopy, EGD Allergy Information Coded Allergies: Azithromycin (Verified Allergy, Unknown, flat line, 10/11/16) Discharge Date / Findings Oct 11, 2016. EGD: Reflux esophagitis, Hiatal hernia, Gastritis s/p biopsies, Pyloric stenosis s/p dilation to 15mm Colonoscopy: Poor prep procedure aborted Medication Instructions 1) Start Omeprazole 20mg by mouth twice daily 1/2 hour prior to breakfast and dinner. 2) OK to resume all medications today as prescribed Reported Home Medications Medications Dose Route/Sig Max Daily Dose Days Date Category Linzess (Linaclotide) 290 Mcg Cap 290 Mcg PO DAILY 10/09/16 Reported Enulose (Lactulose (Encephalopathy)) 10 Gm/15 Ml Felicity 30 Ml PO Q24H PRN 10/07/16 Reported Tylenol (Acetaminophen) 500 Mg Tab 500 Mg PO Q4H PRN 10/07/16 Reported Docusate Sodium 100 Mg Cap 100 Mg PO HS 09/30/16 Reported Therems M (Multiple Vitamins W/ Minerals) 1 Tab Tab 1 Tab PO QAM 09/30/16 Reported Rapaflo (Silodosin) 8 Mg Cap 1 Cap PO HS 09/13/16 Reported Levothyroxine Sodium 88 Mcg Tab 1 Tab PO QAM 07/28/16 Reported Ascorbic Acid 500 Mg Tab 500 Mg PO QAM 03/30/16 Reported Proscar (Finasteride) 5 Mg Tab 5 Mg PO HS 03/25/11 Reported Provider Instructions Activity Restrictions - No exercising or heavy lifting for 24 hours. - Do not drink alcohol the day of the procedure. - Do not drive a car or operate machinery until the day after the procedure. - Do not make any important decisions or sign important papers in 24 hours after the procedure. Following Day: - Return to full activity which may include returning to work/school. Diet Start your diet with liquids and light foods (jello, soup, juice, toast). Then eat your usual diet if not nauseated. Treatment For Common After Affects For mild abdominal pain, bloating, or excessive gas: - Rest - Eat lightly - Lie on right side Follow-Up Information Follow-up with Dr. Fernando Herr as scheduled Anesthesia Information What You Should Know You have had a procedure that required some medicine to reduce anxiety and discomfort. This treatment is called moderate sedation. After receiving the treatment, you may be sleepy, but you will be able to breathe on your own. The effects of the treatment may last for several hours. Follow these instructions along with Activity/Diet recommendations noted above: * Do NOT do anything where dizziness or clumsiness would be dangerous. * Rest quietly at home today, then you can be up and about tomorrow. * Have a responsible person stay with you the rest of today. * You may have had an I.V. today. If so, you may take the dressing off later today. Recommendations Call your doctor if: * Trouble breathing * Continuous vomiting for more than 24 hours * Temperature above 101 degrees * Severe abdominal pain or bloating * Pain not relieved by pain medicine ordered * There is increased drainage or redness from any incision * A large amount of rectal bleeding greater than 2-3 tablespoons. (If you had a polyp/s removed or have hemorrhoids, a small amount of blood - from the rectum is to be expected.) * You have any unanswered questions or concerns. IN THE EVENT OF A SERIOUS EMERGENCY, GO TO THE NEAREST EMERGENCY ROOM Your discharge instructions were prepared by provider Amos Hood. Patient Instructions Signature Page Erlin Mantilla Patient (or Guardian) Signature/Date: I have read and understand the instructions given to me by my caregivers. Caregiver/RN/Doctor Signature/Date: The above-named patient and/or guardian has received patient instructions on this date. + Original Patient Signature Page (only) stays with chart. Please make copy for patient.
[2016-10-11 15:45] VITALS: BP 105/60; PULSE 80; O2SAT 100
--- NOTE | 2016-10-11 15:51 | GI REPORT ---
Procedure Date: 10/11/2016 2:13 PM Procedure: Upper GI endoscopy Indications: Iron deficiency anemia Medicines: Monitored Anesthesia Care Complications: No immediate complications. Estimated Blood Loss: Estimated blood loss: none. Procedure: Pre-Anesthesia Assessment: - Prior to the procedure, a History and Physical was performed, and patient medications and allergies were reviewed. The patient's tolerance of previous anesthesia was also reviewed. The risks and benefits of the procedure and the sedation options and risks were discussed with the patient. All questions were answered, and informed consent was obtained. Prior Anticoagulants: The patient has taken no previous anticoagulant or antiplatelet agents. ASA Grade Assessment: III - A patient with severe systemic disease. After reviewing the risks and benefits, the patient was deemed in satisfactory condition to undergo the procedure. After obtaining informed consent, the endoscope was passed under direct vision. Throughout the procedure, the patient's blood pressure, pulse, and oxygen saturations were monitored continuously. The scope was introduced through the mouth, and advanced to the second part of duodenum. The scope was introduced through the and advanced to the. The upper GI endoscopy was accomplished without difficulty. The patient tolerated the procedure well. Findings: LA Grade D (one or more mucosal breaks involving at least 75% of esophageal circumference) esophagitis with no bleeding was found. A small hiatus hernia was present. Localized moderate inflammation characterized by erythema was found in the gastric antrum. Biopsies were taken with a cold forceps for histology. A benign-appearing, intrinsic moderate stenosis was found in the gastric antrum. This was non-traversed. A TTS dilator was passed through the scope. Dilation with a 10-11-12 mm, a 12-13.5-15 mm and a 15 mm pyloric balloon dilator was performed. The dilation site was examined and showed moderate improvement in luminal narrowing. The examined duodenum was normal. Impression: - LA Grade D reflux esophagitis. - Small hiatus hernia. - Gastritis. Biopsied. - Gastric stenosis was found in the gastric antrum. Dilated. - Normal examined duodenum. Recommendation: - Resume previous diet. - Use Prilosec (omeprazole) 20 mg PO BID. - Await pathology results. - Return to primary care physician as previously scheduled. Amos Hood DO 10/11/2016 3:51:01 PM This report has been signed electronically. Note Initiated On: 10/11/2016 2:13 PM I attest to the content of the Intraoperative Record and orders documented therein, exceptions below
--- NOTE | 2016-10-11 15:59 | GI REPORT ---
Procedure Date: 10/11/2016 2:13 PM Procedure: Colonoscopy Indications: Constipation Medicines: Monitored Anesthesia Care Complications: No immediate complications. Estimated Blood Loss: Estimated blood loss: none. Procedure: Pre-Anesthesia Assessment: - Prior to the procedure, a History and Physical was performed, and patient medications and allergies were reviewed. The patient's tolerance of previous anesthesia was also reviewed. The risks and benefits of the procedure and the sedation options and risks were discussed with the patient. All questions were answered, and informed consent was obtained. Prior Anticoagulants: The patient has taken no previous anticoagulant or antiplatelet agents. ASA Grade Assessment: III - A patient with severe systemic disease. After reviewing the risks and benefits, the patient was deemed in satisfactory condition to undergo the procedure. After I obtained informed consent, the scope was passed under direct vision. Throughout the procedure, the patient's blood pressure, pulse, and oxygen saturations were monitored continuously. The Scope was introduced through the anus with the intention of advancing to the ileum. The scope was advanced to the rectum before the procedure was aborted. Medications were given. The colonoscopy was aborted due to the difficulty of the procedure. The patient tolerated the procedure well. The quality of the bowel preparation was unsatisfactory. Findings: Copious quantities of liquid semi-solid stool was found in the rectum, precluding visualization. Impression: - The procedure was aborted due to the difficulty of the procedure. - Preparation of the colon was unsatisfactory. - Stool in the rectum. - No specimens collected. Recommendation: - Resume previous diet. - Continue present medications. - No repeat colonoscopy. - Return to GI clinic as previously scheduled. Amos Hood DO 10/11/2016 3:58:39 PM This report has been signed electronically. Note Initiated On: 10/11/2016 2:13 PM I attest to the content of the Intraoperative Record and orders documented therein, exceptions below
== END | disposition home or self-care (01) ==
LOC: C.GI 12:18
PROVIDERS: ATTEND Internal Medicine
DX: K59.00 Constipation, unspecified (principal); K21.0 Gastro-esophageal reflux disease with esophagitis; K31.89 Other diseases of stomach and duodenum; K29.70 Gastritis, unspecified, without bleeding; K44.9 Diaphragmatic hernia without obstruction or gangrene; D50.9 Iron deficiency anemia, unspecified; Z79.899 Other long term (current) drug therapy

== ENCOUNTER 2016-10-18 08:58 | Emergency (ER) | payer BC, OTHER ==
[~2016-10-18 08:58] MED LIST changes: -ACET-1256 PO; -AMT24 PO; -ASCO500T16 PO; -CRFUDL PO; -DOCU100C31 PO; -FENTANYL CITRATE INJ 50 MCG/1 ML 2 ML VIAL ONE; -FINA5TAB PO; -LACT10SO17 PO; -LEVO100T PO; -LEVO100T7 PO; -LIDOCAINE HCL 2% 2 ML VIAL (20MG/ML) ONE; -LVQ500 PO; -MRLP527 PO; -MULTTAB63 PO; -OMEP20CA9 PO; -ONDANSETRON INJ 2 MG/ML 2 ML VIAL ONE; -PANT40TA PO; -PHENYLEPHRINE 100MCG/ML 5ML SYR ONE; -PROPOFOL IV EMULSION 10 MG/ML 20 ML VIAL IV ONE; -PRS5 PO; -PRT/40 PO; -PRT40 PO; -PSYL48.59 PO; -RPF/8 PO; -SNKUDL10 PO; -SODIUM CHLORIDE 0.9% 500ML 500 ML IV ONE
[2016-10-18] MEDS ORDERED: OMEP20CA9 PO (09:39)
[2016-10-18] MEDS ORDERED: AMT24 PO (09:39)
[2016-10-18] MEDS ORDERED: GLYCERIN ADULT 1 EA SUPP PR ONE (10:00)
--- NOTE | 2016-10-18 10:50 | DIAGNOSTIC IMAGING REPORT ---
KUB CLINICAL HISTORY: no BM for 7 days COMPARISON STUDY: No previous studies for comparison. FINDINGS: There is no pathologic bowel dilatation. There is mild fecal retention. There is a paucity of bowel gas within the pelvis. This could be secondary to a distended bladder as was described on a September 13, 2016 CT scan. IMPRESSION: 1. Mild fecal retention 2. No evidence of pathologic bowel dilatation 3. Paucity of bowel gas within the pelvis Electronically signed by: Ponce Obregon M.D. 10/18/2016 10:49 AM Dictated Date/Time: 10/18/2016 10:46 AM
[2016-10-18] MEDS ORDERED: LAVAGE SOLUTION 4000ML PO SCH (11:45)
[2016-10-18] MEDS ORDERED: LIDOCAINE HCL 2% JELLY 30 ML TUBE EXT ONE (11:51)
[2016-10-18 13:00] VITALS: BP 96/61; PULSE 62; O2SAT 98
[2016-10-18] MEDS ORDERED: METHYLNALTREXONE BROMIDE INJ 12 MG/0.6 ML SYR SQ ONE (13:15)
--- NOTE | 2016-10-18 18:01 | EMERGENCY ROOM VISIT NOTE ---
ED Visit Note First contact with patient: 09:25 Chief Complaint: My brother has not had a bowel movement in 7 days. History of Present Illness: Mr. Mantilla is a 56 year-old white male who ambulates into the ED accompanied by his caregiver. Historically patient has a history of moderate to severe constipation. He was seen in the emergency department a week ago for this. Laboratory testing and imaging was nondiagnostic. He was tried on multiple medications. He was seen by catering barista approximately 4 days ago after a colon prep for colonoscopy which was eventually canceled because of his constipation. An EGD was performed and was reported as normal. Additionally should be noted patient has Down syndrome is profoundly mentally retarded and does not speak but does acknowledge some questions with yes no answers of the head. Patient's sister reports that he has not had a bowel movement in the last 7 days since being discharged from the ED. She goes on to report he does not appear to be having any pain. His last bowel movement was not observed. She reports she has been eating and drinking normally. He has only received his constipation medications for his symptoms. Sister denies fevers, sweats, skin eruptions, skin color changes, upper respiratory tract symptoms, difficulty breathing, vomiting, diarrhea, hematuria. Review of Systems: As noted above in history of present illness. All body systems were reviewed and found to be negative as noted above. Past Medical History: (1) Constipation (2) Emphysema lung (3) Mental retardation (4) Urinary problem Surgical Problems: (1) History of prostate surgery Current Medications: Medications Dose Route/Sig Max Daily Dose Days Date Category Amitiza (Lubiprostone) 24 Mcg Cap 24 Mcg PO BID 10/18/16 Reported Prilosec (Omeprazole) 20 Mg Cap 20 Mg PO BID 10/18/16 Reported Polyethylene Glycol 3350 (Polyethylene) 527 Gm Soln 17 Gm PO DAILY 10/18/16 Reported Tylenol (Acetaminophen) 500 Mg Tab 500 Mg PO Q4H PRN 10/07/16 Reported Docusate Sodium 100 Mg Cap 100 Mg PO HS 09/30/16 Reported Therems M (Multiple Vitamins W/ Minerals) 1 Tab Tab 1 Tab PO QAM 09/30/16 Reported Rapaflo (Silodosin) 8 Mg Cap 1 Cap PO HS 09/13/16 Reported Levothyroxine Sodium 88 Mcg Tab 1 Tab PO QAM 07/28/16 Reported Ascorbic Acid 500 Mg Tab 500 Mg PO QAM 03/30/16 Reported Proscar (Finasteride) 5 Mg Tab 5 Mg PO HS 03/25/11 Reported Allergies to Medications: Azithromycin. Social History: Patient is not employed. He lives in a group environment. Family members deny tobacco and alcohol use. Physical Examination: Vital Signs: Date Time Temp Pulse Resp B/P (MAP) Pulse Ox O2 Delivery O2 Flow Rate FiO2 10/18/16 13:00 62 21 96/61 98 Room Air 10/18/16 11:05 59 19 88/59 97 Room Air 10/18/16 09:05 20 97/63 Room Air GENERAL: 56-year-old male in no acute distress, nontoxic-appearing, afebrile and hemodynamically stable. NEUROLOGICAL: Awake, alert and oriented to person and caregiver/sister. Pleasant and cooperative with my examination. Normal gait. Good hand eye coordination. SKIN: Warm, dry and pink. No soft tissue eruptions or trauma noted. HEENT: Atraumatic and normocephalic. PERRLA. Disconjugate gaze. Sclera white and conjunctiva pink. Oral cavity moist and pink. Pharynx is nonerythematous or edematous. No lymphadenopathy. Trachea midline. No jugular venous distention. BACK: No tenderness over the bony spine. No CVA tenderness. THORAX: Lungs sounds are clear to auscultation and equal bilaterally with symmetrical chest wall. ABDOMEN: Flat, soft and nontender. Decreased bowel sounds in all quadrants. No guarding, rigidity or organomegaly. RECTAL: No external tags or hemorrhoids. Normal rectal tone. No palpable rectal masses. I was not able to palpate any stool within the colon to indicate impaction. Heme-negative stools. EXTREMITIES: Moves all extremities well. All distal neurovascular statuses are intact and equal bilaterally. ED Course: Patient is assessed as noted above. KUB: Was read by myself and the radiologist showing mild feculent action with no evidence of bowel obstruction. Upon she bowel gas in the pelvis. This was compared to previous and the fecal retention seemed to improve. Radiologist also note that the bladder was distended. Patient was reassessed multiple times during his stay in the emergency department. Patient's sister was insistent that we clean out his colon from his constipation. I did have a lengthy conversation with the patient. She then requested that the patient be admitted for observation/admission. I did review the case with case management and the hospitalists who did not feel he met criteria for admission. Patient had an NG tube placed without difficulty and approximately 800 mL of GoLYTELY was placed in the stomach via the NG tube. Patient then started experiencing discomfort so this procedure was stopped. Additionally was looking at the patient's medication list I thought I noted that he was on Lortab for pain. I spoke with the pharmacist and he did recommend that Relistor could be given subcutaneously. This medication was ordered and given but on further review of his notes he was not on Lortab. I did inform him sister of this was power of corporate attorney. Just prior to discharge patient was placed on the toilet but did not have a bowel movement. Patient's case was reviewed with Dr. Bearden; we agreed on diagnostic approach , treatment, disposition and plan. Patient's sister was educated about today's findings and instructed on his treatment plan; she verbalized understanding and agreement with this plan. Clinical Impression: Chronic constipation. Decision-Making: Initially my differential diagnosis I considered constipation, bowel obstruction and other causes. Disposition: While reviewing the patient's treatment plan with his sister patient was sitting on the bed with his legs slightly and was passing gas by rectum without difficulty. Plan: Was encouraged that the sister in a alf continue his current medications as prescribed and encouraged clear fluids. Was encouraged that the sister over the alf contact his catering barista for further evaluation and care. Was encouraged that if the patient does start moving his bowels all his bowel movement should be observed for blood. It was also encouraged that the patient be brought back to the emergency department for worsening symptoms, bloody stools, fevers or any new/concerning symptoms.
[2016-11-14] MEDS ORDERED: LVQ500 PO (14:27)
[2016-11-14] MEDS ORDERED: PRT40 PO (14:27)
[2016-11-21] MEDS ORDERED: FINA5TAB PO (11:23)
[2016-12-04] MEDS ORDERED: SNKUDL10 PO (18:04)
[2016-12-04] MEDS ORDERED: CRFUDL PO (18:04)
== END 2016-10-18 15:31 | disposition home or self-care (01) ==
LOC: C.EDB 08:59 → C.EDA 15:31
DX: K59.09 Other constipation (principal); Q90.9 Down syndrome, unspecified; F73 Profound intellectual disabilities; Z87.09 Personal history of other diseases of the respiratory system; Z87.448 Personal history of other diseases of urinary system; Z79.899 Other long term (current) drug therapy

== ENCOUNTER → 2016-10-23 | Outpatient (CLI) | payer BC, OTHER ==
[~2016-10-23] MED LIST changes: +ACET-1256 PO; +AMT24 PO; +ASCO500T16 PO; +CRFUDL PO; +DOCU100C31 PO; +FINA5TAB PO; +LACT10SO17 PO; +LEVO100T PO; +LEVO100T7 PO; -LINA1CAP2 PO; +LVQ500 PO; +MRLP527 PO; +MULTTAB63 PO; +OMEP20CA9 PO; +PANT40TA PO; +PRS5 PO; +PRT/40 PO; +PRT40 PO; +RPF/8 PO; +SNKUDL10 PO
[2016-10-23 12:22] LABS: HEMATOCRIT 42.5 % (42-52); MEAN CELL VOLUME 101.2 fL (80-100); MEAN CORPUSCULAR HEMOGLOBIN 32.6 pg (25-34); MEAN CORPUSCULAR HGB CONC 32.2 g/dl (32-36); MEAN PLATELET VOLUME 11.1 fL (7.4-10.4); PLATELET COUNT 280 K/uL (130-400); WHITE BLOOD COUNT 4.61 K/uL (4.8-10.8)
[2016-10-23 12:57] LABS: ALT/SGPT 26 U/L (12-78); BLOOD UREA NITROGEN 12 mg/dl (7-18); BUN/CREATININE RATIO 10.9 (10-20); CALCIUM 8.7 mg/dl (8.5-10.1); CARBON DIOXIDE 27 mmol/L (21-32); CHLORIDE 107 mmol/L (98-107); CHOLESTEROL 182 mg/dl (0-200); GLUCOSE 69 mg/dl (70-99); POTASSIUM 4.1 mmol/L (3.5-5.1); SODIUM 140 mmol/L (136-145); TRIGLYCERIDES 65 mg/dl (0-150); VERY LOW DENSITY LIPOPROT CALC 13 mg/dl
[2016-10-23 13:07] LABS: ALB/GLOB RATIO 0.8 (0.9-2); ALKALINE PHOSPHATASE 91 U/L (45-117); AST/SGOT 23 U/L (15-37); CHOLESTEROL/HDL RATIO 2.5; HDL CHOLESTEROL 73 mg/dl; LDL CHOLESTEROL CALCULATED 96 mg/dl
== END | disposition home or self-care (01) ==
LOC: C.LABBFT 09:12
PROVIDERS: ATTEND Internal Medicine
DX: E03.9 Hypothyroidism, unspecified (principal)

== ENCOUNTER → 2016-11-07 | Outpatient (CLI) | payer BC, OTHER ==
--- NOTE | 2016-11-07 11:45 | DIAGNOSTIC IMAGING REPORT ---
ABDOMEN 2VIEW W/PA CHEST RTN CLINICAL HISTORY: K59.00 [id number] pain COMPARISON STUDY: 10/18/2016 FINDINGS: Lungs remain clear. No evidence for cardiac enlargement. Bowel pattern is improved compared to the prior study. Fecal load is considered within normal limits at this time. IMPRESSION: Negative chest. Negative abdomen. No current evidence for fecal retention The above report was generated using voice recognition software. It may contain grammatical, syntax or spelling errors. Electronically signed by: Prem Silva M.D. 11/07/2016 11:44 AM Dictated Date/Time: 11/07/2016 11:42 AM
== END | disposition home or self-care (01) ==
LOC: C.RAD 11:13
PROVIDERS: ATTEND Physician Assistant
DX: K59.00 Constipation, unspecified (principal)

== ENCOUNTER 2016-11-08 17:05 | Inpatient (IN) | payer BC, OTHER ==
[~2016-11-08] VITALS: Ht 154.9 cm; Wt 60.5 kg
[~2016-11-08 17:05] MED LIST changes: -ACET-1256 PO; -ASCO500T16 PO; -CRFUDL PO; -DOCU100C31 PO; -FINA5TAB PO; -LACT10SO17 PO; -LACT10SO61 PO; -LEVO100T PO; -LEVO100T7 PO; -LVQ500 PO; -MRLP527 PO; -MULTTAB63 PO; -PANT40TA PO; -PRS5 PO; -PRT/40 PO; -PRT40 PO; -RPF/8 PO; -SNKUDL10 PO
[2016-11-08 17:12] VITALS: Ht 154.9 cm; Wt 60.5 kg
[2016-11-08] MEDS ORDERED: SODIUM CHLORIDE 0.9% 1000ML 1,000 ML IV STA (17:48)
[2016-11-08] MEDS ORDERED: LACT10SO61 PO (18:13)
[2016-11-08 18:39] LABS: BASO ABS # 0.06 K/uL (0-0.2); COMPLETE YES; HEMATOCRIT 41.7 % (42-52); IG% 0.2 %; LYMPH % 15.8 %; LYMPH ABS # 0.96 K/uL (1.2-3.4); MEAN CORPUSCULAR HEMOGLOBIN 33.1 pg (25-34); MEAN CORPUSCULAR HGB CONC 33.1 g/dl (32-36); MEAN PLATELET VOLUME 9.9 fL (7.4-10.4); MONO % 10.6 %; NEUT % 71.4 %; PLATELET COUNT 227 K/uL (130-400); RED BLOOD COUNT 4.17 M/uL (4.7-6.1); WHITE BLOOD COUNT 6.06 K/uL (4.8-10.8)
[2016-11-08 18:58] LABS: ALT/SGPT 40 U/L (12-78); BLOOD UREA NITROGEN 17 mg/dl (7-18); BUN/CREATININE RATIO 14.1 (10-20); CALCIUM 9.2 mg/dl (8.5-10.1); CARBON DIOXIDE 31 mmol/L (21-32); CHLORIDE 109 mmol/L (98-107); GLUCOSE 98 mg/dl (70-99); POTASSIUM 4.2 mmol/L (3.5-5.1); SODIUM 145 mmol/L (136-145)
[2016-11-08 19:01] LABS: ALKALINE PHOSPHATASE 103 U/L (45-117); AST/SGOT 71 U/L (15-37)
--- NOTE | 2016-11-08 19:07 | DIAGNOSTIC IMAGING REPORT ---
SOFT TISSUE NECK WITHOUT CLINICAL HISTORY: patient refuses to swallow/refused barium swallow this morning no additional significant history TECHNIQUE: Transaxial acquisition with multi axial reformatted images COMPARISON STUDY: None FINDINGS: Limited study due to the absence of contrast enhancement. Major salivary glands appear grossly symmetric. No significant airway compromise. Glottic and subglottic regions are unremarkable. Distended low cervical and upper thoracic esophagus with a fluid debris level. This suggests suggests obstructive changes. Several small bilateral reactive cervical nodes. Mild degenerative change cervical spine. IMPRESSION: 1. Limited study due to limited history and no contrast enhancement. 2. No major compromise of the airway system. 3. Distended lower cervical and upper thoracic esophagus with a maximum esophageal distention of approximately 6 x 4 cm on this exam. 4. This suggests distal esophageal obstructive change. The above report was generated using voice recognition software. It may contain grammatical, syntax or spelling errors. Electronically signed by: Prem Silva M.D. 11/08/2016 7:06 PM Dictated Date/Time: 11/08/2016 7:00 PM
--- NOTE | 2016-11-08 20:05 | EMERGENCY ROOM VISIT NOTE ---
History First contact with patient: 17:37 Chief Complaint: OTHER COMPLAINT Stated Complaint: REFUSED FOOD/DRINK/MEDS 2 DAYS,SALIVA & MUCUS History of Present Illness The patient is a 56 year old male who presents to the Emergency Room from a shelter with complaints of that the patient will not drink or eat anything yesterday or today. The therapeutic recreation assistant states that she has been able to get his pills down with 1 teaspoon of yogurt each day. He refuses to take his lactulose or MiraLAX. She states any type of liquid he just spits up mucus. He was scheduled for a barium swallow this morning but refused to do the study. The patient is nonverbal. The patient is under the care of Dr. weller. He had an endoscopy performed on October 11 which revealed ulcers throughout his esophagus. He was placed on Prilosec. He has a follow-up with Dr. weller on November 28. The patient has not had any vomiting. There has been no fever. The patient has had problems with swallowing in the past. The patient also had an abdominal series x-ray done yesterday without any evidence of fecal retention or small bowel obstruction. Review of Systems 10 system review was performed and was negative unless stated otherwise history of present illness. Past Medical/Surgical History Medical Problems: (1) Constipation (2) Emphysema lung (3) Mental retardation (4) Urinary problem Surgical Problems: (1) History of prostate surgery Family History FH: cancer FH: diabetes mellitus FH: hypertension Social History Smoking Status: Never Smoker Drug Use: none Marital Status: single Housing Status: other Occupation Status: disabled Current/Historical Medications Scheduled Ascorbic Acid (Ascorbic Acid), 500 MG PO QAM Docusate Sodium (Docusate Sodium), 100 MG PO TID Finasteride (Proscar), 5 MG PO HS Lactulose (Encephalopathy) (Enulose), ML PO QID Levothyroxine Sodium (Synthroid), 100 MCG PO QAM Lubiprostone (Amitiza), 24 MCG PO BID Multiple Vitamins W/ Minerals (Therems M), 1 TAB PO QAM Omeprazole (Prilosec), 20 MG PO BID Polyethylene (Polyethylene Glycol 3350), 17 GM PO BID Silodosin (Rapaflo), 1 CAP PO HS Scheduled PRN Acetaminophen (Tylenol), 500 MG PO Q4H PRN for Pain or Fever Physical Exam Vital Signs Date Time Temp Pulse Resp B/P (MAP) Pulse Ox O2 Delivery O2 Flow Rate FiO2 11/08/16 19:02 76 18 87/66 92 Room Air 11/08/16 17:12 22 89/58 Physical Exam GENERAL: 56-year-old white male is nonverbal and appears in no acute distress. MENTAL Status: Patient is alert. MOUTH: Attempted to visualize pharynx without success. A large amount of mucus was expressed. NECK: Supple, no lymphadenopathy noted. No carotid bruits noted. LUNGS: Clear auscultation without wheezes rales or rhonchi. CARDIAC: Regular rate and rhythm without murmur. Pulses is full and equal throughout. ABDOMEN: Positive bowel sounds all 4 quadrants. Soft, nontender to palpation without organomegaly or masses. Medical Decision & Procedures ER Provider Diagnostic Interpretation: SOFT TISSUE NECK WITHOUT CLINICAL HISTORY: patient refuses to swallow/refused barium swallow this morning no additional significant history TECHNIQUE: Transaxial acquisition with multi axial reformatted images COMPARISON STUDY: None FINDINGS: Limited study due to the absence of contrast enhancement. Major salivary glands appear grossly symmetric. No significant airway compromise. Glottic and subglottic regions are unremarkable. Distended low cervical and upper thoracic esophagus with a fluid debris level. This suggests suggests obstructive changes. Several small bilateral reactive cervical nodes. Mild degenerative change cervical spine. IMPRESSION: 1. Limited study due to limited history and no contrast enhancement. 2. No major compromise of the airway system. 3. Distended lower cervical and upper thoracic esophagus with a maximum esophageal distention of approximately 6 x 4 cm on this exam. 4. This suggests distal esophageal obstructive change. The above report was generated using voice recognition software. It may contain grammatical, syntax or spelling errors. Electronically signed by: Prem Silva M.D. 11/08/2016 7:06 PM Laboratory Results 11/08/16 18:27 Red Blood Count 4.17, Mean Corpuscular Volume 100.0, Mean Corpuscular Hemoglobin 33.1, Mean Corpuscular Hemoglobin Concent 33.1, Mean Platelet Volume 9.9, Neutrophils (%) (Auto) 71.4, Lymphocytes (%) (Auto) 15.8, Monocytes (%) ( Auto) 10.6, Eosinophils (%) (Auto) 1.0, Basophils (%) (Auto) 1.0, Neutrophils # (Auto) 4.33, Lymphocytes # (Auto) 0.96, Monocytes # (Auto) 0.64, Eosinophils # ( Auto) 0.06, Basophils # (Auto) 0.06 11/08/16 18:27 Test 11/08/16 18:27 White Blood Count 6.06 K/uL (4.8-10.8) Red Blood Count 4.17 M/uL (4.7-6.1) Hemoglobin 13.8 g/dL (14.0-18.0) Hematocrit 41.7 % (42-52) Mean Corpuscular Volume 100.0 fL (80-100) Mean Corpuscular Hemoglobin 33.1 pg (25-34) Mean Corpuscular Hemoglobin Concent 33.1 g/dl (32-36) Platelet Count 227 K/uL (130-400) Mean Platelet Volume 9.9 fL (7.4-10.4) Neutrophils (%) (Auto) 71.4 % Lymphocytes (%) (Auto) 15.8 % Monocytes (%) (Auto) 10.6 % Eosinophils (%) (Auto) 1.0 % Basophils (%) (Auto) 1.0 % Neutrophils # (Auto) 4.33 K/uL (1.4-6.5) Lymphocytes # (Auto) 0.96 K/uL (1.2-3.4) Monocytes # (Auto) 0.64 K/uL (0.11-0.59) Eosinophils # (Auto) 0.06 K/uL (0-0.5) Basophils # (Auto) 0.06 K/uL (0-0.2) RDW Standard Deviation 52.8 fL (36.4-46.3) RDW Coefficient of Variation 14.6 % (11.5-14.5) Immature Granulocyte % (Auto) 0.2 % Immature Granulocyte # (Auto) 0.01 K/uL (0.00-0.02) Anion Gap 5.0 mmol/L (3-11) Estimated GFR () 77.9 Estimated GFR (Non- 67.2 BUN/Creatinine Ratio 14.1 (10-20) Calcium Level 9.2 mg/dl (8.5-10.1) Total Bilirubin 0.4 mg/dl (0.2-1) Direct Bilirubin 0.2 mg/dl (0-0.2) Aspartate Amino Transf (AST/SGOT) 71 U/L (15-37) Alanine Aminotransferase (ALT/SGPT) 40 U/L (12-78) Alkaline Phosphatase 103 U/L (45-117) Total Protein 7.5 gm/dl (6.4-8.2) Albumin 3.3 gm/dl (3.4-5.0) Lipase 94 U/L (73-393) Medications Administered Medications (Trade) Dose Ordered Sig/Page Route Start Time Stop Time Status Last Admin Dose Admin Sodium Chloride 1,000 ml @ 999 mls/hr Q1H1M STAT IV 11/08/16 17:48 11/08/16 18:48 DC 11/08/16 17:42 999 MLS/HR ED Course The patient was evaluated. IV access was obtained. The patient was given 1 L normal saline wide-open. CBC and differential, renal profile, LFTs and lipase levels were ordered. CT of the neck was ordered interpreted by the radiologist as above with evidence of possible obstruction of the mid to lower esophagus. Labs are reviewed and were unremarkable. The therapeutic recreation assistant was informed of the findings. I discussed the case with Dr. sorensen who is in agreement with treatment plan. The hospitalist was consulted for admission. Medical Decision Differential diagnosis include dysphasia, esophageal obstruction, small bowel obstruction. [place] Drug Monitoring Program Search Results: patient reviewed within database Medication Reconcilliation Current Medication List: was personally reviewed by sd Blood Pressure Screening Patient's blood pressure: Low blood pressure Impression Primary Impression: Esophageal obstruction Departure Information Dispostion Being Evaluated By Hospitalist Condition GOOD Referrals Kevin Teixeira D.ONazario (PCP) Patient Instructions [facility]
[2016-11-08] MEDS ORDERED: ACETAMINOPHEN 325 MG TAB PO PRN (21:15)
[2016-11-08] MEDS ORDERED: SODIUM CHLORIDE 0.9% 1000ML 1,000 ML IV SCH (21:15)
--- NOTE | 2016-11-08 21:20 | History and Physical ---
History & Physical Date & Time of Service: Nov 08, 2016 at 21:11 Chief Complaint: Refused Food/Drink/Meds 2 Days,Saliva & Mucus Primary Care Physician: Kevin Teixeira D.O. History of Present Illness Source: patient, clinic records, hospital records 56 year old male with Down Syndrome, Hypothyroidism, Urinary Retention, Chronic Constipation presenting with refusal to eat x 1 day. History of obtained from patient's sister Christina, caregiver and hospital records as patient is non verbal. Patient follows with Dr. Hood. On October 11, 2016, patient underwent an EGD and Colonoscopy for anemia and chronic constipation. Findings are as follows: EGD: Reflux esophagitis, Hiatal hernia, Gastritis s/p biopsies, Pyloric stenosis s/p dilation to 15mm Colonoscopy: Poor prep procedure aborted As per family and caregiver, patient has been doing fine since that time until yesterday when he started to refuse anything to eat or drink. Today, caregiver was able to give most of his medications with some yogurt. They have noticed that the patient was spitting up saliva/mucus today. (+) flatus, last BM yesterday No reports of fever/chills, coughing, dyspnea. Patient was scheduled for a barium swallow today but was did not tolerate the procedure. CT soft tissue of the neck showed: IMPRESSION: 1. Limited study due to limited history and no contrast enhancement 2. No major compromise of the airway system. 3. Distended lower cervical and upper thoracic esophagus with a maximum esophageal distention of approximately 6 x 4 cm on this exam. 4. This suggests distal esophageal obstructive change. On exam, patient seen with sister at bedside. Alert, comfortable, not in distress. Past Medical/Surgical History Medical Problems: (1) Constipation Status: Chronic (2) Emphysema lung Status: Chronic (3) Mental retardation Status: Chronic (4) Urinary problem Status: Chronic Surgical Problems: (1) History of prostate surgery Status: Chronic Family History FH: cancer FH: diabetes mellitus FH: hypertension Social History Smoking Status: Never Smoker Drug Use: none Marital Status: single Housing status: lives with family Occupational Status: disabled Allergies Coded Allergies: Azithromycin (Verified Allergy, Unknown, flat line, 11/08/16) Home Medications Scheduled Ascorbic Acid (Ascorbic Acid), 500 MG PO QAM Docusate Sodium (Docusate Sodium), 100 MG PO TID Finasteride (Proscar), 5 MG PO HS Lactulose (Encephalopathy) (Enulose), ML PO QID Levothyroxine Sodium (Synthroid), 100 MCG PO QAM Lubiprostone (Amitiza), 24 MCG PO BID Multiple Vitamins W/ Minerals (Therems M), 1 TAB PO QAM Omeprazole (Prilosec), 20 MG PO BID Polyethylene (Polyethylene Glycol 3350), 17 GM PO BID Silodosin (Rapaflo), 1 CAP PO HS Scheduled PRN Acetaminophen (Tylenol), 500 MG PO Q4H PRN for Pain or Fever Review of Systems Constitutional- no fever; no weight loss Eyes- no acute visual changes ENT- no sinus drainage; no pharyngitis Pulmonary- no cough, no wheezing, no shortness of breath Cardiac- no chest pain, no palpitations, no orthopnea, no dependent edema GI-(+) as noted above - no dysuria, no hematuria Musculoskeletal- no arthralgias, no myalgias Derm- no rashes, no new skin lesions, no changing skin lesions Hematologic- no unusual bruising, no unusual bleeding Lymphatics- no adenopathy Endocrine- no polyuria or polydipsia; no heat or cold intolerance Neuro- no headaches, no focal neurologic symptoms Psych- no anxiety, no depression Physical Exam Vital Signs Date Time Temp Pulse Resp B/P (MAP) Pulse Ox O2 Delivery O2 Flow Rate FiO2 11/08/16 21:00 74 18 103/64 95 Room Air 11/08/16 19:02 76 18 87/66 92 Room Air 11/08/16 17:12 22 89/58 General Appearance: WD/WN, no apparent distress Head: normocephalic, atraumatic Eyes: normal inspection, EOMI, sclerae normal ENT: normal ENT inspection, hearing grossly normal, pharynx normal Neck: supple, no adenopathy, thyroid normal, no JVD, trachea midline Respiratory/Chest: chest non-tender, lungs clear, normal breath sounds, no respiratory distress, no accessory muscle use Cardiovascular: regular rate, rhythm, no edema, no JVD, no murmur Abdomen/GI: non tender, soft, no organomegaly, + pertinent finding (hypoactive bowel sounds ) Back: normal inspection, no CVA tenderness Extremities/Musculoskelatal: normal inspection, no calf tenderness, no pedal edema 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, no motor/sensory deficits, alert, + pertinent finding (non verbal) Diagnostics Laboratory Results Results Past 24 Hours Test 11/08/16 18:27 Range/Units White Blood Count 6.06 4.8-10.8 K/uL Red Blood Count 4.17 4.7-6.1 M/uL Hemoglobin 13.8 14.0-18.0 g/dL Hematocrit 41.7 42-52 % Mean Corpuscular Volume 100.0 80-100 fL Mean Corpuscular Hemoglobin 33.1 25-34 pg Mean Corpuscular Hemoglobin Concent 33.1 32-36 g/dl Platelet Count 227 130-400 K/uL Mean Platelet Volume 9.9 7.4-10.4 fL Neutrophils (%) (Auto) 71.4 % Lymphocytes (%) (Auto) 15.8 % Monocytes (%) (Auto) 10.6 % Eosinophils (%) (Auto) 1.0 % Basophils (%) (Auto) 1.0 % Neutrophils # (Auto) 4.33 1.4-6.5 K/uL Lymphocytes # (Auto) 0.96 1.2-3.4 K/uL Monocytes # (Auto) 0.64 0.11-0.59 K/uL Eosinophils # (Auto) 0.06 0-0.5 K/uL Basophils # (Auto) 0.06 0-0.2 K/uL RDW Standard Deviation 52.8 36.4-46.3 fL RDW Coefficient of Variation 14.6 11.5-14.5 % Immature Granulocyte % (Auto) 0.2 % Immature Granulocyte # (Auto) 0.01 0.00-0.02 K/uL Sodium Level 145 136-145 mmol/L Potassium Level 4.2 3.5-5.1 mmol/L Chloride Level 109 98-107 mmol/L Carbon Dioxide Level 31 21-32 mmol/L Anion Gap 5.0 3-11 mmol/L Blood Urea Nitrogen 17 7-18 mg/dl Creatinine 1.20 0.60-1.40 mg/dl Estimated GFR () 77.9 Estimated GFR (Non- 67.2 BUN/Creatinine Ratio 14.1 10-20 Random Glucose 98 70-99 mg/dl Calcium Level 9.2 8.5-10.1 mg/dl Total Bilirubin 0.4 0.2-1 mg/dl Direct Bilirubin 0.2 0-0.2 mg/dl Aspartate Amino Transf (AST/SGOT) 71 15-37 U/L Alanine Aminotransferase (ALT/SGPT) 40 12-78 U/L Alkaline Phosphatase 103 45-117 U/L Total Protein 7.5 6.4-8.2 gm/dl Albumin 3.3 3.4-5.0 gm/dl Lipase 94 73-393 U/L Diagnostic Radiology soft tissue neck CT: as per H&P CXR and KUB pending Impression Assessment and Plan 56 year old male with Down Syndrome, Hypothyroidism, Urinary Retention, Chronic Constipation presenting with refusal to eat x 1 day. DYSPHAGIA - possible esophageal obstruction - has esophagitis, pyloric stenosis per EGD October 11, [address] Hood - KUB and CXR pending - strict NPO IV fluids - Protonix IV - consulted GI DOWN SYNDROME - mental status at baseline cooperative, calm, non verbal, follows simple commands CHRONIC CONSTIPATION - last BM 1 day ago - laxatives on hold as patient is NPO CHRONIC URINARY RETENTION - Tamsulosin and Finasteride on hold as patient NPO DVT PROPHYLAXIS SCDs for now LEVEL 3 no intubation/mech vent per sister DISPOSITION lives in a [facility] Dr. Teixeira PCP Dr. Hood GI VTE Prophylaxis VTE Risk Assessment Done? Y/N: Yes Risk Level: Moderate Given or contraindicated: SCD's
[2016-11-08 21:48] VITALS: BP 106/59
[2016-11-08] MEDS ORDERED: PANTOprazole INJ 40 MG in SYRINGE 0 ML IV STA (22:04)
[2016-11-08] MEDS: D5W AND NSS 1,000 ML IV SCH (22:13)
[2016-11-08] MEDS ORDERED: IV FLUIDS COMPLETED PRN (23:45)
[2016-11-09 04:33] VITALS: BP 70/39; PULSE 61; O2SAT 96
--- NOTE | 2016-11-09 05:50 | DIAGNOSTIC IMAGING REPORT ---
KUB CLINICAL HISTORY: r/o obstruction pain COMPARISON STUDY: 11/07/2016 FINDINGS: Nonobstructive bowel pattern. Mild nonobstructive ileus. No secondary evidence for free air. IMPRESSION: Mild nonobstructive ileus. The above report was generated using voice recognition software. It may contain grammatical, syntax or spelling errors. Electronically signed by: Prem Silva M.D. 11/09/2016 5:48 AM Dictated Date/Time: 11/09/2016 5:48 AM
--- NOTE | 2016-11-09 05:51 | DIAGNOSTIC IMAGING REPORT ---
CHEST ONE VIEW PORTABLE CLINICAL HISTORY: r/o pneumonia dyspnea COMPARISON STUDY: 11/07/2016 FINDINGS: Mild pulmonary hyperaeration. Potential early parenchymal infiltrate right base. Prominent central pulmonary vasculature. IMPRESSION: Hyperaeration. Early parenchymal infiltrate right base. The above report was generated using voice recognition software. It may contain grammatical, syntax or spelling errors. Electronically signed by: Prem Silva M.D. 11/09/2016 5:49 AM Dictated Date/Time: 11/09/2016 5:49 AM
[2016-11-09 07:06] LABS: BASO % 1.5 %; BASO ABS # 0.07 K/uL (0-0.2); COMPLETE YES; EOS % 2.8 %; HEMATOCRIT 33.8 % (42-52); IG% 0.2 %; LYMPH % 28.9 %; LYMPH ABS # 1.34 K/uL (1.2-3.4); MEAN CELL VOLUME 98.8 fL (80-100); MEAN CORPUSCULAR HEMOGLOBIN 33.3 pg (25-34); MEAN CORPUSCULAR HGB CONC 33.7 g/dl (32-36); MEAN PLATELET VOLUME 10.4 fL (7.4-10.4); MONO % 11.6 %; PLATELET COUNT 169 K/uL (130-400); RED BLOOD COUNT 3.42 M/uL (4.7-6.1); WHITE BLOOD COUNT 4.64 K/uL (4.8-10.8)
[2016-11-09 07:38] VITALS: BP 94/55; PULSE 57; TEMP 36.7; O2SAT 98
[2016-11-09 07:47] LABS: CREATININE 0.82 mg/dl (0.60-1.40)
[2016-11-09] MEDS: CLINDAMYCIN IV 600 MG in DEXTROSE 5% 50ML 50 ML IV SCH ×2 (07:53→15:35)
[2016-11-09] MEDS: D5W AND NSS 1,000 ML IV SCH ×2 (07:54→18:56)
[2016-11-09] MEDS: PANTOprazole INJ 40 MG in SYRINGE 0 ML IV SCH ×2 (07:55→20:46)
[2016-11-09 08:09] LABS: POTASSIUM 3.3 mmol/L (3.5-5.1)
[2016-11-09] MEDS ORDERED: LEVOTHYROXINE SODIUM IV SCH (09:00)
--- NOTE | 2016-11-09 09:50 | Gastrointestinal Consultation ---
Gastrointestinal Consultation Date of Consultation: Nov 09, 2016 Attending Physician: Lizzie Cheney Consulting Physician: Dr. Livingston Reason for Consultation: dysphagia History of Present Illness Patient is a 56 year old male with Down's syndrome. He is non-verbal. THe history is obtained at the bedside from his sister who is one of his main caregivers. She tells me that starting about 6 months ago he has had some problems eating. The first time was about 6 months ago while eating meatballs. He threw up undigested food shortly after eating. He has had a few other episodes like that which prompted an EGD on October [address] Hood. It showed severe esophagitis with associated ulcerations in the esophagus. He was also noted to have gastritis and stenosis of the pylorus which was dilated to 15mm. Since that time he has continued to have problems intermittently with meats and starchy foods. They have been questioning if the consistency of his diet should be altered. This past week on Friday he was eating enchiladas at his intermediate and threw up a bit. Per the patient's daughter, he then started refusing to eat or drink anything. She is not sure if he has had anything since that time. Finally on Friday she insisted that they bring him to the ER. He is managing his secretions without any difficulty this AM. She tells me this was not the case last evening. She witnessed him gulping and thinks this relieved whatever was bothering him. His sister noted that for the last 6 months he seems to cough intermittently while eating. He is sitting up in bed without any drooling or signs of distress this AM. Lives in intermediate Fri-Fri and with his mother and sister on the weekends. Past Medical/Surgical History Medical Problems: (1) Down syndrome Status: Acute (2) Esophageal obstruction Status: Acute (3) Fall Status: Acute (4) Hydrocephalus Status: Acute (5) Orthostatic hypertension Status: Acute (6) Syncope Status: Acute (7) Syncope Status: Acute (8) Syncope Status: Acute Family History FH: cancer FH: diabetes mellitus FH: hypertension as noted Social History Smoking Status: Never Smoker Drug Use: none Marital Status: single Housing Status: other Occupation Status: disabled Allergies Coded Allergies: Azithromycin (Verified Allergy, Unknown, flat line, 11/08/16) Current Medications Home Meds and Scripts Medications Dose Route/Sig Max Daily Dose Days Date Category Enulose (Lactulose (Encephalopathy)) 10 Gm/15 Ml Felicity Ml PO QID 11/08/16 Reported Synthroid (Levothyroxine Sodium) 100 Mcg Tab 100 Mcg PO QAM 11/08/16 Reported Amitiza (Lubiprostone) 24 Mcg Cap 24 Mcg PO BID 10/18/16 Reported Prilosec (Omeprazole) 20 Mg Cap 20 Mg PO BID 10/18/16 Reported Polyethylene Glycol 3350 (Polyethylene) 527 Gm Soln 17 Gm PO BID 10/18/16 Reported Tylenol (Acetaminophen) 500 Mg Tab 500 Mg PO Q4H PRN 10/07/16 Reported Docusate Sodium 100 Mg Cap 100 Mg PO TID 09/30/16 Reported Therems M (Multiple Vitamins W/ Minerals) 1 Tab Tab 1 Tab PO QAM 09/30/16 Reported Rapaflo (Silodosin) 8 Mg Cap 1 Cap PO HS 09/13/16 Reported Ascorbic Acid 500 Mg Tab 500 Mg PO QAM 03/30/16 Reported Proscar (Finasteride) 5 Mg Tab 5 Mg PO HS 03/25/11 Reported Review of Systems as noted Patient non-verbal and unable to personally contribute to the ROS Physical Exam Date Time Temp Pulse Resp B/P (MAP) Pulse Ox O2 Delivery O2 Flow Rate FiO2 11/09/16 07:38 36.7 57 18 94/55 (68) 98 Room Air 11/09/16 04:33 61 18 70/39 (49) 96 Room Air 11/09/16 04:00 Room Air 11/09/16 00:00 Room Air 11/08/16 21:48 106/59 (75) 11/08/16 21:25 Room Air 11/08/16 21:00 74 18 103/64 95 Room Air 11/08/16 19:02 76 18 87/66 92 Room Air 11/08/16 17:12 22 89/58 General Appearance: WD/WN, no apparent distress Eyes: normal inspection, PERRL ENT: normal ENT inspection, hearing grossly normal, pharynx normal Neck: supple, no JVD Respiratory/Chest: chest non-tender, lungs clear, normal breath sounds, no accessory muscle use Cardiovascular: regular rate, rhythm Abdomen: normal bowel sounds, non tender, soft Extremities: normal range of motion, no pedal edema 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, 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 Skin: normal color, no jaundice, warm/dry Laboratory Results Last 24 Hours Test 11/08/16 18:27 11/09/16 06:24 White Blood Count 6.06 K/uL 4.64 K/uL Red Blood Count 4.17 M/uL 3.42 M/uL Hemoglobin 13.8 g/dL 11.4 g/dL Hematocrit 41.7 % 33.8 % Mean Corpuscular Volume 100.0 fL 98.8 fL Mean Corpuscular Hemoglobin 33.1 pg 33.3 pg Mean Corpuscular Hemoglobin Concent 33.1 g/dl 33.7 g/dl Platelet Count 227 K/uL 169 K/uL Mean Platelet Volume 9.9 fL 10.4 fL Neutrophils (%) (Auto) 71.4 % 55.0 % Lymphocytes (%) (Auto) 15.8 % 28.9 % Monocytes (%) (Auto) 10.6 % 11.6 % Eosinophils (%) (Auto) 1.0 % 2.8 % Basophils (%) (Auto) 1.0 % 1.5 % Neutrophils # (Auto) 4.33 K/uL 2.55 K/uL Lymphocytes # (Auto) 0.96 K/uL 1.34 K/uL Monocytes # (Auto) 0.64 K/uL 0.54 K/uL Eosinophils # (Auto) 0.06 K/uL 0.13 K/uL Basophils # (Auto) 0.06 K/uL 0.07 K/uL RDW Standard Deviation 52.8 fL 51.9 fL RDW Coefficient of Variation 14.6 % 14.6 % Immature Granulocyte % (Auto) 0.2 % 0.2 % Immature Granulocyte # (Auto) 0.01 K/uL 0.01 K/uL Sodium Level 145 mmol/L 145 mmol/L Potassium Level 4.2 mmol/L 3.3 mmol/L Chloride Level 109 mmol/L 113 mmol/L Carbon Dioxide Level 31 mmol/L 25 mmol/L Anion Gap 5.0 mmol/L 7.0 mmol/L Blood Urea Nitrogen 17 mg/dl 15 mg/dl Creatinine 1.20 mg/dl 0.82 mg/dl Estimated GFR () 77.9 114.6 Estimated GFR (Non- 67.2 98.9 BUN/Creatinine Ratio 14.1 18.0 Random Glucose 98 mg/dl 105 mg/dl Calcium Level 9.2 mg/dl 8.0 mg/dl Total Bilirubin 0.4 mg/dl Direct Bilirubin 0.2 mg/dl Aspartate Amino Transf (AST/SGOT) 71 U/L Alanine Aminotransferase (ALT/SGPT) 40 U/L Alkaline Phosphatase 103 U/L Total Protein 7.5 gm/dl Albumin 3.3 gm/dl Lipase 94 U/L Est Creatinine Clear Calc Drug Dose 74.4 ml/min Impression Patient is a 56 year old non-verbal male with Down's syndrome who appears to have at least a 6 month history of difficulty with dysphagia. Recent EGD (just 3 weeks ago) showed severe ulcerative esophagitis as well as gastritis and some narrowing of the pylorus which was dilated. No esophageal obstruction/ stricture at that time. He was started on BID PPI. The CT showed dilated esophagus - at that time has was apparently not managing secretions. Now appears to have cleared any potential. Would like to let him have sips of liquids today and see how he does. No solid food today. If the liquids go well can advance to clear liquid diet and include jello, etc. Plan - BID IV PPI. - Sips of clears as detailed above today. - If no improvement, can consider repeating an EGD at some point. - He will need a full swallow evaluation with speech therapy prior to discharge once things improve.
[2016-11-09 11:38] VITALS: BP 80/47; PULSE 50; TEMP 36.1; O2SAT 96
[2016-11-09 15:49] VITALS: BP 107/48; PULSE 54; TEMP 36.6; O2SAT 97
--- NOTE | 2016-11-09 18:40 | Progress Note ---
Internal Med Progress Note Date of Service: Nov 09, 2016. Provider Documentation: SUBJECTIVE: sitting up on low bed , taking of his hospital gown does not communicate able to follow simple command " hold my hand -he will attempt to hold hands " no sign of drooling, no respiratory distress noted OBJECTIVE: Vital Signs-as noted below Exam: General-no sign of distress Lungs-no rales or wheeze noted Heart-regular Abdomen-soft, Extremities-no edema , rash or deformity noted Neuro-Down's syndrome with mental retardation , non communicative Lab data as noted below. ASSESSMENT & PLAN: 56 year old male with Down Syndrome, Hypothyroidism, Urinary Retention, Chronic Constipation presenting with refusal to eat x 1 day. DYSPHAGIA - possible esophageal obstruction - has esophagitis, pyloric stenosis per EGD October 11, [address] Hood - appreciate input form GI recommend cont IV PPI for evidence of severe esophagitis noted in recent EGD ordered for sips of water and ice chips slow advance to clears as tolerated speech eval requested DOWN SYNDROME - mental status at baseline cooperative, calm, non verbal, follows simple commands CHRONIC CONSTIPATION - last BM 1 day ago -ordered for stool softener /laxatives -Miralax CHRONIC URINARY RETENTION - Tamsulosin and Finasteride resumed DVT PROPHYLAXIS SCDs for now LEVEL 3 no intubation/mech vent per sister DISPOSITION lives in a assisted Dr. Teixeira PCP Dr. Hood GI Vital Signs: Date Time Temp Pulse Resp B/P (MAP) Pulse Ox O2 Delivery O2 Flow Rate FiO2 11/09/16 16:00 Nasal Cannula 11/09/16 15:49 36.6 54 16 107/48 (67) 97 Room Air 11/09/16 12:00 Nasal Cannula 11/09/16 11:38 36.1 50 16 80/47 (58) 96 Room Air 11/09/16 08:00 Nasal Cannula 11/09/16 07:38 36.7 57 18 94/55 (68) 98 Room Air 11/09/16 04:33 61 18 70/39 (49) 96 Room Air 11/09/16 04:00 Room Air 11/09/16 00:00 Room Air 11/08/16 21:48 106/59 (75) 11/08/16 21:25 Room Air 11/08/16 21:00 74 18 103/64 95 Room Air 11/08/16 19:02 76 18 87/66 92 Room Air Lab Results: Results Past 24 Hours Test 11/09/16 06:24 Range/Units White Blood Count 4.64 4.8-10.8 K/uL Red Blood Count 3.42 4.7-6.1 M/uL Hemoglobin 11.4 14.0-18.0 g/dL Hematocrit 33.8 42-52 % Mean Corpuscular Volume 98.8 80-100 fL Mean Corpuscular Hemoglobin 33.3 25-34 pg Mean Corpuscular Hemoglobin Concent 33.7 32-36 g/dl Platelet Count 169 130-400 K/uL Mean Platelet Volume 10.4 7.4-10.4 fL Neutrophils (%) (Auto) 55.0 % Lymphocytes (%) (Auto) 28.9 % Monocytes (%) (Auto) 11.6 % Eosinophils (%) (Auto) 2.8 % Basophils (%) (Auto) 1.5 % Neutrophils # (Auto) 2.55 1.4-6.5 K/uL Lymphocytes # (Auto) 1.34 1.2-3.4 K/uL Monocytes # (Auto) 0.54 0.11-0.59 K/uL Eosinophils # (Auto) 0.13 0-0.5 K/uL Basophils # (Auto) 0.07 0-0.2 K/uL RDW Standard Deviation 51.9 36.4-46.3 fL RDW Coefficient of Variation 14.6 11.5-14.5 % Immature Granulocyte % (Auto) 0.2 % Immature Granulocyte # (Auto) 0.01 0.00-0.02 K/uL Sodium Level 145 136-145 mmol/L Potassium Level 3.3 3.5-5.1 mmol/L Chloride Level 113 98-107 mmol/L Carbon Dioxide Level 25 21-32 mmol/L Anion Gap 7.0 3-11 mmol/L Blood Urea Nitrogen 15 7-18 mg/dl Creatinine 0.82 0.60-1.40 mg/dl Est Creatinine Clear Calc Drug Dose 74.4 ml/min Estimated GFR () 114.6 Estimated GFR (Non- 98.9 BUN/Creatinine Ratio 18.0 10-20 Random Glucose 105 70-99 mg/dl Calcium Level 8.0 8.5-10.1 mg/dl
[2016-11-09] MEDS: POLYETHYLENE (MIRALAX) 17 GM PACK PO SCH (20:47)
[2016-11-09] MEDS: DOCUSATE SODIUM 100 MG CAP PO SCH (20:47)
[2016-11-09] MEDS: FINASTERIDE 5 MG TAB PO SCH (20:48)
[2016-11-09 22:55] VITALS: BP 106/74; PULSE 60; TEMP 36.6; O2SAT 97
[2016-11-10] MEDS: CLINDAMYCIN IV 600 MG in DEXTROSE 5% 50ML 50 ML IV SCH ×4 (00:26→23:09)
[2016-11-10] MEDS: D5W AND NSS 1,000 ML IV SCH ×2 (04:15→14:44)
[2016-11-10] MEDS: LEVOTHYROXINE 100 MCG TAB PO SCH (06:34)
[2016-11-10 07:10] LABS: BASO % 1.5 %; BASO ABS # 0.06 K/uL (0-0.2); COMPLETE YES; EOS % 3.9 %; HEMATOCRIT 35.4 % (42-52); LYMPH % 34.2 %; LYMPH ABS # 1.33 K/uL (1.2-3.4); MEAN CELL VOLUME 98.3 fL (80-100); MEAN CORPUSCULAR HEMOGLOBIN 33.1 pg (25-34); MEAN CORPUSCULAR HGB CONC 33.6 g/dl (32-36); MEAN PLATELET VOLUME 10.2 fL (7.4-10.4); MONO % 11.8 %; NEUT % 48.6 %; PLATELET COUNT 187 K/uL (130-400); WHITE BLOOD COUNT 3.89 K/uL (4.8-10.8)
[2016-11-10 07:57] LABS: BUN/CREATININE RATIO 12.3 (10-20); CALCIUM 8.1 mg/dl (8.5-10.1); CREATININE 0.69 mg/dl (0.60-1.40); POTASSIUM 3.4 mmol/L (3.5-5.1)
--- NOTE | 2016-11-10 08:03 | Gastroenterology Progress Note ---
Progress Note Date of Service: Nov 10, 2016 Subjective Pt evaluation today including: conversation w/ patient, physical exam, chart review, lab review, review of studies, review of inpatient medication list Tolerated liquids well last evening. Awake and smiling this AM. No drool or evidence he is not managing secretions Review of Systems Patient unable to participate in ROS - non-verbal Medications Current Inpatient Medications Medications (Trade) Dose Ordered Sig/Page Route Start Time Stop Time Status Last Admin Dose Admin Pantoprazole Sodium 40 mg/ Syringe 10 ml @ 5 mls/min DAILY@ IV 11/09/16 09:00 12/09/16 08:59 11/09/16 20:46 5 MLS/MIN Acetaminophen (Tylenol Tab) 650 mg Q4H PRN PO 11/08/16 21:15 12/08/16 21:14 Dextrose/Sodium Chloride 1,000 ml @ 100 mls/hr Q10H IV 11/08/16 22:15 12/08/16 22:14 11/10/16 04:15 100 MLS/HR Miscellaneous (Iv Fluids Completed) 1 ea PRN PRN N/A 11/08/16 23:45 11/08/17 23:44 Clindamycin Phosphate 600 mg/ Dextrose 54 ml @ 100 mls/hr Q8H IV 11/09/16 07:00 11/16/16 06:59 11/10/16 06:34 100 MLS/HR Polyethylene (Miralax Powder Packet) 17 gm BID PO 11/09/16 21:00 12/09/16 20:59 11/09/16 20:47 17 GM Docusate Sodium (coLACE CAP) 100 mg BID PO 11/09/16 21:00 12/09/16 20:59 11/09/16 20:47 100 MG Ascorbic Acid (Vitamin C Tab) 500 mg QAM PO 11/10/16 09:00 12/10/16 08:59 Finasteride (Proscar Tab) 5 mg HS PO 11/09/16 21:00 12/09/16 20:59 11/09/16 20:48 5 MG Levothyroxine Sodium (Synthroid Tab) 100 mcg DAILYBB PO 11/10/16 06:30 12/10/16 06:29 11/10/16 06:34 100 MCG Multivitamins/ Minerals (Multivitamin W/ Minerals Tab) 1 tab QAM PO 11/10/16 09:00 12/10/16 08:59 Objective Vital Signs Date Time Temp Pulse Resp B/P (MAP) Pulse Ox O2 Delivery O2 Flow Rate FiO2 11/10/16 00:00 Room Air 11/09/16 22:55 36.6 60 18 106/74 (85) 97 Room Air 11/09/16 20:00 Room Air 11/09/16 16:00 Nasal Cannula 11/09/16 15:49 36.6 54 16 107/48 (67) 97 Room Air 11/09/16 12:00 Nasal Cannula 11/09/16 11:38 36.1 50 16 80/47 (58) 96 Room Air 11/09/16 08:00 Nasal Cannula Physical Exam General Appearance: WD/WN, no apparent distress Eyes: normal inspection ENT: normal ENT inspection, hearing grossly normal, pharynx normal, + pertinent finding (poor dentition) Neck: supple Respiratory/Chest: chest non-tender, lungs clear, normal breath sounds, no accessory muscle use Cardiovascular: regular rate, rhythm Abdomen: normal bowel sounds, non tender, soft Extremities: normal range of motion, no pedal edema Neurologic/Psych: no motor/sensory deficits, alert Skin: normal color, no jaundice, warm/dry Laboratory Results Last 24 Hours Test 11/10/16 06:41 White Blood Count 3.89 K/uL Red Blood Count 3.60 M/uL Hemoglobin 11.9 g/dL Hematocrit 35.4 % Mean Corpuscular Volume 98.3 fL Mean Corpuscular Hemoglobin 33.1 pg Mean Corpuscular Hemoglobin Concent 33.6 g/dl Platelet Count 187 K/uL Mean Platelet Volume 10.2 fL Neutrophils (%) (Auto) 48.6 % Lymphocytes (%) (Auto) 34.2 % Monocytes (%) (Auto) 11.8 % Eosinophils (%) (Auto) 3.9 % Basophils (%) (Auto) 1.5 % Neutrophils # (Auto) 1.89 K/uL Lymphocytes # (Auto) 1.33 K/uL Monocytes # (Auto) 0.46 K/uL Eosinophils # (Auto) 0.15 K/uL Basophils # (Auto) 0.06 K/uL RDW Standard Deviation 50.9 fL RDW Coefficient of Variation 14.1 % Immature Granulocyte % (Auto) 0.0 % Immature Granulocyte # (Auto) 0.00 K/uL Sodium Level 143 mmol/L Potassium Level 3.4 mmol/L Chloride Level 111 mmol/L Carbon Dioxide Level 26 mmol/L Anion Gap 6.0 mmol/L Blood Urea Nitrogen 9 mg/dl Creatinine 0.69 mg/dl Est Creatinine Clear Calc Drug Dose 88.4 ml/min Estimated GFR () 123.0 Estimated GFR (Non- 106.1 BUN/Creatinine Ratio 12.3 Random Glucose 88 mg/dl Calcium Level 8.1 mg/dl Assessment and Plan 56 year old non-verbal male with Down's syndrome who appears to have at least a 6 month history of difficulty with dysphagia. Recent EGD (just 3 weeks ago) showed severe ulcerative esophagitis as well as gastritis and some narrowing of the pylorus which was dilated. No esophageal obstruction/stricture at that time. He was started on BID PPI. The CT showed dilated esophagus - at that time has was apparently not managing secretions. Now appears to have cleared. Tolerated liquids well yesterday per nursing. Would allow him to have clear liquid diet today and NPO after midnight tonight for repeat EGD tomorrow. Swallow evaluation at some point.
[2016-11-10] MEDS: PANTOprazole INJ 40 MG in SYRINGE 0 ML IV SCH ×2 (08:27→21:28)
[2016-11-10] MEDS: POLYETHYLENE (MIRALAX) 17 GM PACK PO SCH ×2 (08:28→21:29)
[2016-11-10] MEDS: ASCORBIC ACID 500 MG TAB PO SCH (08:28)
[2016-11-10] MEDS: DOCUSATE SODIUM 100 MG CAP PO SCH ×3 (08:28→21:29)
[2016-11-10] MEDS: CEROVITE ADV FORMULA TAB PO SCH (08:28)
[2016-11-10 15:02] VITALS: BP 86/54; PULSE 61; TEMP 36.6; O2SAT 91
--- NOTE | 2016-11-10 17:58 | Progress Note ---
Internal Med Progress Note Date of Service: Nov 10, 2016. Provider Documentation: SUBJECTIVE: non verbal no sign of discomfort OBJECTIVE: Vital Signs-as noted below Exam: General-no sign of distress Lungs-no rales or wheeze noted Heart-regular Abdomen-soft, Extremities-no edema , rash or deformity noted Neuro-Down's syndrome with mental retardation , non communicative Lab data as noted below. ASSESSMENT & PLAN: 56 year old male with Down Syndrome, Hypothyroidism, Urinary Retention, Chronic Constipation presenting with refusal to eat x 1 day. DYSPHAGIA - - has esophagitis, pyloric stenosis per EGD October 11, [address] Hood - appreciate input form GI recommend cont IV PPI for evidence of severe esophagitis noted in recent EGD diet advanced to clears ordered for NPO past midnight by GI for possible EGD in AM D/w with Sister Christina -eager to know when EGD will be done , wants to be present prior to that will update GI team Christina mentions pt has been having the symptoms of coughing while eating solids for almost a months does not like soft food -mashed potato with gravy/pureed food was in [facility] in past -did not participate in speech therapy at all this Am during breakfast and lunch -family noticed -Erlin is able to eat jello with difficulty but having coughing spell with thin liquids and broth speech eval requested continue aspiration precaution DOWN SYNDROME - mental status at baseline cooperative, calm, non verbal, follows simple commands CHRONIC CONSTIPATION - last BM 1 day ago -ordered for stool softener /laxatives -Miralax CHRONIC URINARY RETENTION - Tamsulosin and Finasteride resumed DVT PROPHYLAXIS SCDs for now LEVEL 3 no intubation/mech vent per sister DISPOSITION lives in a detention the [facility] family interested to transition to Medical correction given his multiple medical needs also looking for SNF at [facility] for short term rehab including speech therapy if bed available update given to sister Christina at bedside Social service following for discharge planning Dr. Teixeira PCP Dr. Hood GI Vital Signs: Date Time Temp Pulse Resp B/P (MAP) Pulse Ox O2 Delivery O2 Flow Rate FiO2 11/11/16 17:19 36.8 78 18 110/72 (85) 90 11/11/16 16:16 36.7 170 18 105/70 (82) 90 11/11/16 16:00 Room Air 11/11/16 15:15 36.4 65 16 100/67 (78) 98 Room Air 11/11/16 14:37 57 16 105/54 (71) 96 Room Air 11/11/16 14:22 59 16 120/62 (81) 94 Room Air 11/11/16 14:07 54 16 104/55 (71) 96 Mask 2 11/11/16 13:17 36.6 81 16 93/59 (70) 95 Room Air 11/11/16 08:00 Room Air 11/11/16 07:18 36.5 64 16 86/53 (64) 98 Room Air 11/11/16 00:00 Room Air 11/10/16 22:45 36.6 59 16 94/56 (69) 96 Room Air 11/10/16 20:00 Room Air Lab Results: Results Past 24 Hours Test 11/11/16 06:35 Range/Units Sodium Level 144 136-145 mmol/L Potassium Level 3.8 3.5-5.1 mmol/L Chloride Level 112 98-107 mmol/L Carbon Dioxide Level 25 21-32 mmol/L Anion Gap 7.0 3-11 mmol/L Blood Urea Nitrogen 4 7-18 mg/dl Creatinine 0.80 0.60-1.40 mg/dl Est Creatinine Clear Calc Drug Dose 76.3 ml/min Estimated GFR () 115.7 Estimated GFR (Non- 99.9 BUN/Creatinine Ratio 5.3 10-20 Random Glucose 79 70-99 mg/dl Calcium Level 8.3 8.5-10.1 mg/dl
[2016-11-10] MEDS: D5NSS + 20MEQ KCL 1,000 ML IV SCH (18:30)
[2016-11-10] MEDS ORDERED: POTASSIUM CHLORIDE 20 MEQ/15 ML UDC PO ONE (18:30)
[2016-11-10] MEDS ORDERED: [UNRECOGNIZED DRUG - OTHER] PO SCH (21:00)
[2016-11-10] MEDS: FINASTERIDE 5 MG TAB PO SCH (21:29)
[2016-11-10 22:45] VITALS: BP 94/56; PULSE 59; TEMP 36.6; O2SAT 96
[2016-11-11] MEDS: LEVOTHYROXINE 100 MCG TAB PO SCH (04:57)
[2016-11-11] MEDS: D5NSS + 20MEQ KCL 1,000 ML IV SCH (06:12)
[2016-11-11] MEDS: CLINDAMYCIN IV 600 MG in DEXTROSE 5% 50ML 50 ML IV SCH ×2 (06:12→15:39)
[2016-11-11 07:18] VITALS: BP 86/53; PULSE 64; TEMP 36.5; O2SAT 98
--- NOTE | 2016-11-11 07:48 | DIAGNOSTIC IMAGING REPORT ---
CHEST ONE VIEW PORTABLE CLINICAL HISTORY: Aspiration pneumonia. COMPARISON STUDY: Chest radiograph November 08, 2016. FINDINGS: Lung volumes are diminished. No pneumothorax is present. Patient is rotated. Bibasilar consolidation has developed. There may be small bilateral pleural effusions. IMPRESSION: 1. Interval development of bibasilar consolidation, potentially on the basis of aspiration given the distribution. 2. Small bilateral pleural effusions. 3. Diminished lung volumes. Electronically signed by: Edwin Pollack M.D. 11/11/2016 7:46 AM Dictated Date/Time: 11/11/2016 7:40 AM
[2016-11-11 08:05] LABS: BUN/CREATININE RATIO 5.3 (10-20); CALCIUM 8.3 mg/dl (8.5-10.1); CREATININE 0.8 mg/dl (0.60-1.40); POTASSIUM 3.8 mmol/L (3.5-5.1)
[2016-11-11] MEDS: CEROVITE ADV FORMULA TAB PO SCH (09:00)
[2016-11-11] MEDS: ASCORBIC ACID 500 MG TAB PO SCH (09:00)
[2016-11-11] MEDS: POLYETHYLENE (MIRALAX) 17 GM PACK PO SCH ×2 (09:00→20:50)
[2016-11-11] MEDS: DOCUSATE SODIUM 100 MG CAP PO SCH ×4 (09:00→20:50)
[2016-11-11] MEDS: PANTOprazole INJ 40 MG in SYRINGE 0 ML IV SCH (09:53)
--- NOTE | 2016-11-11 13:12 | Gastroenterology Progress Note ---
Progress Note Date of Service: Nov 11, 2016 Subjective Pt evaluation today including: conversation w/ family, chart review, review of inpatient medication list 56 yo CM who presented with questionable aspiration pneumonia. Prior EGD showed severe esophagitis and pyloric stenosis s/p dilation. Medications Current Inpatient Medications Medications (Trade) Dose Ordered Sig/Page Route Start Time Stop Time Status Last Admin Dose Admin Pantoprazole Sodium 40 mg/ Syringe 10 ml @ 5 mls/min DAILY@, IV 11/09/16 09:00 12/09/16 08:59 11/11/16 09:53 5 MLS/MIN Acetaminophen (Tylenol Tab) 650 mg Q4H PRN PO 11/08/16 21:15 12/08/16 21:14 Miscellaneous (Iv Fluids Completed) 1 ea PRN PRN N/A 11/08/16 23:45 11/08/17 23:44 Clindamycin Phosphate 600 mg/ Dextrose 54 ml @ 100 mls/hr Q8H IV 11/09/16 07:00 11/16/16 06:59 11/11/16 06:12 100 MLS/HR Polyethylene (Miralax Powder Packet) 17 gm BID PO 11/09/16 21:00 12/09/16 20:59 11/10/16 21:29 17 GM Docusate Sodium (coLACE CAP) 100 mg BID PO 11/09/16 21:00 12/09/16 20:59 11/10/16 21:29 100 MG Ascorbic Acid (Vitamin C Tab) 500 mg QAM PO 11/10/16 09:00 12/10/16 08:59 11/10/16 08:28 500 MG Finasteride (Proscar Tab) 5 mg HS PO 11/09/16 21:00 12/09/16 20:59 11/10/16 21:29 5 MG Levothyroxine Sodium (Synthroid Tab) 100 mcg DAILYBB PO 11/10/16 06:30 12/10/16 06:29 11/10/16 06:34 100 MCG Multivitamins/ Minerals (Multivitamin W/ Minerals Tab) 1 tab QAM PO 11/10/16 09:00 12/10/16 08:59 11/10/16 08:28 1 TAB Potassium Chloride/Dextrose/ Sod Cl 1,000 ml @ 80 mls/hr [id number] IV 11/10/16 18:30 12/10/16 18:29 11/11/16 06:12 80 MLS/HR Docusate Sodium (coLACE CAP) 100 mg TID PO 11/10/16 21:00 12/10/16 20:59 11/10/16 21:29 100 MG Objective Vital Signs Date Time Temp Pulse Resp B/P (MAP) Pulse Ox O2 Delivery O2 Flow Rate FiO2 11/11/16 08:00 Room Air 11/11/16 07:18 36.5 64 16 86/53 (64) 98 Room Air 11/11/16 00:00 Room Air 11/10/16 22:45 36.6 59 16 94/56 (69) 96 Room Air 11/10/16 20:00 Room Air 11/10/16 16:00 Room Air 11/10/16 15:02 36.6 61 18 86/54 (65) 91 Room Air Physical Exam General Appearance: no apparent distress Respiratory/Chest: lungs clear Cardiovascular: regular rate, rhythm Laboratory Results Last 24 Hours Test 11/11/16 06:35 Sodium Level 144 mmol/L Potassium Level 3.8 mmol/L Chloride Level 112 mmol/L Carbon Dioxide Level 25 mmol/L Anion Gap 7.0 mmol/L Blood Urea Nitrogen 4 mg/dl Creatinine 0.80 mg/dl Est Creatinine Clear Calc Drug Dose 76.3 ml/min Estimated GFR () 115.7 Estimated GFR (Non- 99.9 BUN/Creatinine Ratio 5.3 Random Glucose 79 mg/dl Calcium Level 8.3 mg/dl Assessment and Plan Assessment: 56 yo CM with esophagitis and pyloric stenosis for EGD. Plan: Proceed with EGD Continue current therapy and supportive care
[2016-11-11] MEDS ORDERED: PROPOFOL IV EMULSION 10 MG/ML 20 ML VIAL IV ONE (13:34)
[2016-11-11] MEDS ORDERED: LIDOCAINE HCL 2% 2 ML VIAL (20MG/ML) ONE (13:34)
[2016-11-11] MEDS ORDERED: FENTANYL CITRATE INJ 50 MCG/1 ML 2 ML VIAL ONE (13:34)
--- NOTE | 2016-11-11 14:07 | GI REPORT ---
Procedure Date: 11/11/2016 1:33 PM Procedure: Upper GI endoscopy Indications: Abnormal CT of the GI tract, Reflux esophagitis Medicines: Monitored Anesthesia Care Complications: No immediate complications. Estimated Blood Loss: Estimated blood loss: none. Procedure: Pre-Anesthesia Assessment: - Prior to the procedure, a History and Physical was performed, and patient medications and allergies were reviewed. The patient's tolerance of previous anesthesia was also reviewed. The risks and benefits of the procedure and the sedation options and risks were discussed with the patient. All questions were answered, and informed consent was obtained. Prior Anticoagulants: The patient has taken no previous anticoagulant or antiplatelet agents. ASA Grade Assessment: III - A patient with severe systemic disease. After reviewing the risks and benefits, the patient was deemed in satisfactory condition to undergo the procedure. After obtaining informed consent, the endoscope was passed under direct vision. Throughout the procedure, the patient's blood pressure, pulse, and oxygen saturations were monitored continuously. The scope was introduced through the mouth, and advanced to the second part of duodenum. The upper GI endoscopy was accomplished without difficulty. The patient tolerated the procedure well. Findings: One moderate benign-appearing, intrinsic stenosis was found. This measured 1.2 cm (inner diameter) x 1 cm (in length) and was traversed. A TTS dilator was passed through the scope. Dilation with a 12-13.5-15 mm balloon (to a maximum balloon size of 15 mm) dilator was performed. The dilation site was examined and showed moderate improvement in luminal narrowing. A small hiatus hernia was present. The examined duodenum was normal. Impression: - Benign-appearing esophageal stenosis. Dilated. - Small hiatus hernia. - Normal examined duodenum. - No specimens collected. Recommendation: - Return patient to [facility] for ongoing care. - Advance diet as tolerated. - Continue present medications. Amos Hood DO 11/11/2016 2:06:18 PM This report has been signed electronically. Note Initiated On: 11/11/2016 1:33 PM I attest to the content of the Intraoperative Record and orders documented therein, exceptions below
[2016-11-11] MEDS ORDERED: EpHEDrine SULFATE 50MG/5ML SYR ONE (14:13)
[2016-11-11] MEDS ORDERED: GLYCOPYRROLATE INJ 0.2 MG/ML VIAL ONE (14:13)
--- NOTE | 2016-11-11 14:37 | Anesthesiology Progress Note ---
Anesthesia Post Op Note Date & Time Nov 11, 2016 at 14:37 Vital Signs Pain Intensity: 0 Vital Signs Past 12 Hours Date Time Temp Pulse Resp B/P (MAP) Pulse Ox O2 Delivery O2 Flow Rate FiO2 11/11/16 14:22 59 16 120/62 (81) 94 Room Air 11/11/16 14:07 54 16 104/55 (71) 96 Mask 2 11/11/16 13:17 36.6 81 16 93/59 (70) 95 Room Air 11/11/16 08:00 Room Air 11/11/16 07:18 36.5 64 16 86/53 (64) 98 Room Air Notes Mental Status: alert / awake / arousable, participated in evaluation Pt Amnestic to Procedure: Yes Nausea / Vomiting: adequately controlled Pain: adequately controlled Airway Patency, RR, SpO2: stable & adequate BP & HR: stable & adequate Hydration State: stable & adequate Anesthetic Complications: no major complications apparent
[2016-11-11 15:15] VITALS: BP 100/67; PULSE 65; TEMP 36.4; O2SAT 98
[2016-11-11 16:16] VITALS: BP 105/70; PULSE 170; TEMP 36.7; O2SAT 90
[2016-11-11 17:19] VITALS: BP 110/72; PULSE 78; TEMP 36.8; O2SAT 90
--- NOTE | 2016-11-11 18:15 | Progress Note ---
Internal Med Progress Note Date of Service: Nov 11, 2016. Provider Documentation: SUBJECTIVE: s/p EGD today with dilatation of lower Esophageal junction diet advanced to full liquid tolerating well no sign of distress , no aspiration noted with full liquid diet Sister and Mother present at bedside -updated OBJECTIVE: Vital Signs-as noted below Exam: General-no sign of distress Lungs-no rales or wheeze noted Heart-regular Abdomen-soft, Extremities-no edema , rash or deformity noted Neuro-Down's syndrome with mental retardation , non communicative Lab data as noted below. ASSESSMENT & PLAN: 56 year old male with Down Syndrome, Hypothyroidism, Urinary Retention, Chronic Constipation presenting with refusal to eat x 1 day. DYSPHAGIA - - has esophagitis, pyloric stenosis per EGD October 11, [address] Hood - appreciate input form GI s/p EGD today : - Benign-appearing esophageal stenosis. Dilated. - Small hiatus hernia. - Normal examined duodenum. - No specimens collected. diet advanced to full liquid tolerating well speech eval requested continue aspiration precaution ASPIRATION PNEUMONIA: due to above -Cxray shows rt lower lobe infiltrate was on Clindamycin changed to PO Levaquin -need total 10 days tx no evidence of sepsis , normal white count, no hypoxia , no fever DOWN SYNDROME - mental status at baseline cooperative, calm, non verbal, follows simple commands CHRONIC CONSTIPATION -ordered for stool softener /laxatives -Miralax CHRONIC URINARY RETENTION - Tamsulosin and Finasteride resumed DVT PROPHYLAXIS SCDs for now LEVEL 3 no intubation/mech vent per sister DISPOSITION lives in a penitentiary the [facility] family interested to transition to Medical residential given his multiple medical needs also looking for SNF at [facility] for short term rehab including speech therapy if bed available update given to sister and mother at bedside Social service following for discharge planning Dr. Teixeira PCP Dr. Hood GI Vital Signs: Date Time Temp Pulse Resp B/P (MAP) Pulse Ox O2 Delivery O2 Flow Rate FiO2 11/11/16 17:19 36.8 78 18 110/72 (85) 90 11/11/16 16:16 36.7 170 18 105/70 (82) 90 11/11/16 16:00 Room Air 11/11/16 15:15 36.4 65 16 100/67 (78) 98 Room Air 11/11/16 14:37 57 16 105/54 (71) 96 Room Air 11/11/16 14:22 59 16 120/62 (81) 94 Room Air 11/11/16 14:07 54 16 104/55 (71) 96 Mask 2 11/11/16 13:17 36.6 81 16 93/59 (70) 95 Room Air 11/11/16 08:00 Room Air 11/11/16 07:18 36.5 64 16 86/53 (64) 98 Room Air 11/11/16 00:00 Room Air 11/10/16 22:45 36.6 59 16 94/56 (69) 96 Room Air 11/10/16 20:00 Room Air Lab Results: Results Past 24 Hours Test 11/11/16 06:35 Range/Units Sodium Level 144 136-145 mmol/L Potassium Level 3.8 3.5-5.1 mmol/L Chloride Level 112 98-107 mmol/L Carbon Dioxide Level 25 21-32 mmol/L Anion Gap 7.0 3-11 mmol/L Blood Urea Nitrogen 4 7-18 mg/dl Creatinine 0.80 0.60-1.40 mg/dl Est Creatinine Clear Calc Drug Dose 76.3 ml/min Estimated GFR () 115.7 Estimated GFR (Non- 99.9 BUN/Creatinine Ratio 5.3 10-20 Random Glucose 79 70-99 mg/dl Calcium Level 8.3 8.5-10.1 mg/dl
[2016-11-11] MEDS: PANTOprazole SOD 40 MG TAB PO SCH (20:50)
[2016-11-11] MEDS: FINASTERIDE 5 MG TAB PO SCH (20:50)
[2016-11-11] MEDS: LEVOFLOXACIN 500 MG TAB PO SCH (20:51)
[2016-11-11 23:47] VITALS: BP 104/67; PULSE 87; TEMP 36.8; O2SAT 96
[2016-11-12] MEDS: LEVOTHYROXINE 100 MCG TAB PO SCH (05:59)
[2016-11-12 07:16] VITALS: BP 104/65; PULSE 66; TEMP 36.4; O2SAT 100
[2016-11-12 08:00] VITALS: O2SAT 100
[2016-11-12] MEDS: PANTOprazole SOD 40 MG TAB PO SCH ×2 (08:15→20:43)
[2016-11-12] MEDS: ASCORBIC ACID 500 MG TAB PO SCH (08:16)
[2016-11-12] MEDS: SENNA 17.6 MG/10 ML UDP PO SCH (08:16)
[2016-11-12] MEDS: CEROVITE ADV FORMULA TAB PO SCH (08:17)
[2016-11-12] MEDS: POLYETHYLENE (MIRALAX) 17 GM PACK PO SCH ×2 (08:17→20:54)
[2016-11-12] MEDS: DOCUSATE SODIUM 100 MG CAP PO SCH ×3 (08:18→20:43)
--- NOTE | 2016-11-12 10:56 | Gastroenterology Progress Note ---
Progress Note Date of Service: Nov 12, 2016 Subjective Pt evaluation today including: physical exam, chart review, review of studies, review of inpatient medication list Patient unable to provide any history. Per nursing, he did take his morning meal and medications without difficulty. No observed dysphagia this am. Status post EGD yesterday with pyloric dilation. Patient continues Protonix 40 mg BID. Review of Systems unable to obtain from the patient Medications Current Inpatient Medications Medications (Trade) Dose Ordered Sig/Page Route Start Time Stop Time Status Last Admin Dose Admin Acetaminophen (Tylenol Tab) 650 mg Q4H PRN PO 11/08/16 21:15 12/08/16 21:14 Miscellaneous (Iv Fluids Completed) 1 ea PRN PRN N/A 11/08/16 23:45 11/08/17 23:44 Polyethylene (Miralax Powder Packet) 17 gm BID PO 11/09/16 21:00 12/09/16 20:59 11/12/16 08:17 17 GM Ascorbic Acid (Vitamin C Tab) 500 mg QAM PO 11/10/16 09:00 12/10/16 08:59 11/12/16 08:16 500 MG Finasteride (Proscar Tab) 5 mg HS PO 11/09/16 21:00 12/09/16 20:59 11/11/16 20:50 5 MG Levothyroxine Sodium (Synthroid Tab) 100 mcg DAILYBB PO 11/10/16 06:30 12/10/16 06:29 11/12/16 05:59 100 MCG Multivitamins/ Minerals (Multivitamin W/ Minerals Tab) 1 tab QAM PO 11/10/16 09:00 12/10/16 08:59 11/12/16 08:17 1 TAB Docusate Sodium (coLACE CAP) 100 mg TID PO 11/10/16 21:00 12/10/16 20:59 11/12/16 08:18 100 MG Senna (Senokot Syrup) 17.6 mg QAM PO 11/12/16 09:00 12/12/16 08:59 11/12/16 08:16 17.6 MG Levofloxacin (Levaquin Tab) 500 mg DAILY@11 PO 11/11/16 21:00 11/21/16 20:59 11/11/16 20:51 500 MG Pantoprazole Sodium (Protonix Tab) 40 mg BID PO 11/11/16 21:00 12/11/16 20:59 11/12/16 08:15 40 MG Objective Vital Signs Date Time Temp Pulse Resp B/P (MAP) Pulse Ox O2 Delivery O2 Flow Rate FiO2 11/12/16 07:16 36.4 66 20 104/65 (78) 100 11/12/16 00:05 Room Air 11/11/16 23:47 36.8 87 20 104/67 (79) 96 Room Air 11/11/16 17:19 36.8 78 18 110/72 (85) 90 11/11/16 16:16 36.7 170 18 105/70 (82) 90 11/11/16 16:00 Room Air 11/11/16 15:15 36.4 65 16 100/67 (78) 98 Room Air 11/11/16 14:37 57 16 105/54 (71) 96 Room Air 11/11/16 14:22 59 16 120/62 (81) 94 Room Air 11/11/16 14:07 54 16 104/55 (71) 96 Mask 2 11/11/16 13:17 36.6 81 16 93/59 (70) 95 Room Air Physical Exam General Appearance: no apparent distress Eyes: EOMI Neck: supple Respiratory/Chest: lungs clear Cardiovascular: regular rate, rhythm Abdomen: normal bowel sounds, soft Neurologic/Psych: alert Skin: warm/dry Assessment and Plan Patient is a 56 year-old male with a history of Down's syndrome, nonverbal with ongoing dysphagia (although appears improved at this time) status post EGD with pyloric dilation. 1. Continue Protonix 40 mg BID. 2. Aspiration precautions. 3. Could consider barium swallow as ordered on an outpatient basis if dysphagia returns. 4. Supportive medical management. Agree with ALFONZO Vang as above Abd: Soft, NT, ND Continue current therapy and supportive care.
[2016-11-12] MEDS: LEVOFLOXACIN 500 MG TAB PO SCH (13:21)
--- NOTE | 2016-11-12 14:12 | Progress Note ---
Internal Med Progress Note Date of Service: Nov 12, 2016. Provider Documentation: SUBJECTIVE: Seen and examined at bedside Non verbal at baseline Seemed to be comfortable No family at bedside OBJECTIVE: Vital Signs-as noted below Physical Exam: General Appearance:Moderately built and nourished, no apparent distress Head: normocephalic, Atraumatic Eyes: normal inspection, EOMI, PERRL Neck: supple, Trachea midline Respiratory/Chest: Normal breath sounds, CTA Cardiovascular: S1, S2, No murmur Abdomen/GI:Soft, Non tender, Bowel sounds present Extremities/Musculoskelatal:normal inspection, no edema Neurologic/Psych:Down's syndrome, grossly no focal neurological deficits Skin: normal color, warm Lab data as noted below. ASSESSMENT & PLAN: Patient is a 56 yr old male with Down Syndrome, Hypothyroidism, Urinary Retention, Chronic Constipation presenting with refusal to eat x 1 day. DYSPHAGIA S/P EGD with pyloric dilation EGD: esophagitis, pyloric stenosis Appreciate GI help tolerating diet continue PPI aspiration precaution ASPIRATION PNEUMONIA: due to above -Cxray shows rt lower lobe infiltrate was on Clindamycin changed to PO Levaquin Day #2: need total 10 days tx No signs of sepsis DOWN SYNDROME mental status at baseline cooperative, calm, non verbal, follows simple commands CHRONIC CONSTIPATION stool softener /laxatives -Miralax CHRONIC URINARY RETENTION Tamsulosin and Finasteride resumed DVT Px SCDs Code Status: LEVEL 3 no intubation/mech vent per sister DISPOSITION lives in a long-term the [facility] family interested to transition to Medical care home given his multiple medical needs also looking for SNF at [facility] for short term rehab including speech therapy if bed available Social service consulted Dr. Teixeira PCP Dr. Hood GI Vital Signs: Date Time Temp Pulse Resp B/P (MAP) Pulse Ox O2 Delivery O2 Flow Rate FiO2 11/12/16 07:16 36.4 66 20 104/65 (78) 100 11/12/16 00:05 Room Air 11/11/16 23:47 36.8 87 20 104/67 (79) 96 Room Air 11/11/16 17:19 36.8 78 18 110/72 (85) 90 11/11/16 16:16 36.7 170 18 105/70 (82) 90 11/11/16 16:00 Room Air 11/11/16 15:15 36.4 65 16 100/67 (78) 98 Room Air 11/11/16 14:37 57 16 105/54 (71) 96 Room Air 11/11/16 14:22 59 16 120/62 (81) 94 Room Air
[2016-11-12 15:20] VITALS: BP 109/72; PULSE 58; TEMP 37; O2SAT 99
[2016-11-12] MEDS: FINASTERIDE 5 MG TAB PO SCH (20:42)
[2016-11-13 00:28] VITALS: BP 105/70; PULSE 62; TEMP 36.7; O2SAT 91
[2016-11-13] MEDS: LEVOTHYROXINE 100 MCG TAB PO SCH (05:37)
[2016-11-13 07:10] LABS: BUN/CREATININE RATIO 3.4 (10-20); CALCIUM 8.4 mg/dl (8.5-10.1); CREATININE 0.96 mg/dl (0.60-1.40); POTASSIUM 3.8 mmol/L (3.5-5.1)
[2016-11-13 07:22] VITALS: BP 89/60; PULSE 52; TEMP 35.9; O2SAT 100
[2016-11-13 07:45] VITALS: BP 120/82
[2016-11-13] MEDS: PANTOprazole SOD 40 MG TAB PO SCH ×2 (07:59→20:52)
[2016-11-13] MEDS: SENNA 17.6 MG/10 ML UDP PO SCH (07:59)
[2016-11-13] MEDS: DOCUSATE SODIUM 100 MG CAP PO SCH ×3 (07:59→20:47)
[2016-11-13] MEDS: POLYETHYLENE (MIRALAX) 17 GM PACK PO SCH ×2 (07:59→20:45)
[2016-11-13] MEDS: CEROVITE ADV FORMULA TAB PO SCH (07:59)
[2016-11-13] MEDS: ASCORBIC ACID 500 MG TAB PO SCH (07:59)
--- NOTE | 2016-11-13 08:11 | Clinical Documentation Query ---
Dr. [facility] : CLINICAL DOCUMENTATION QUERY Patient is a 56 year old male admitted for evaluation and treatment of dysphagia. GI customer relations consultant noted that recent EGD (just 3 weeks ago) demonstrated severe ulcerative esophagitis. He was started on BID PPI. Documentation this admission includes "esophagitis". As appropriate, please clarify by explicit documentation of the specific type of esophagitis in your patient as this detail impacts accurate DRG assignment. Thank you. In your clinical opinion is this patient being managed for: (X ) Ulcerative esophagitis ( ) Not Agree ( ) Other explanation of clinical findings (Please Explain) ( ) Unable to determine (Please Define) ( ) Need to Discuss The medical record reflects the following clinical findings, treatment, and risk factors. Clinical Indicators: As above Treatment: GI consultation, repeat EGD, ongoing PPI Risk Factors: Age, reflux Please clarify and document your clinical opinion in the progress notes and discharge summary. Terms such as "probable", "suspected", "likely", "questionable", "possible", or "still to be ruled out" are acceptable. IF IN AGREEMENT, YOU MUST DOCUMENT ABOVE DIAGNOSTIC STATEMENT IN DAILY PROGRESS NOTES AND DISCHARGE SUMMARY. This document is not part of the patient's record. Thank You, Arya Ibanez, RN [phone]
--- NOTE | 2016-11-13 09:41 | Gastroenterology Progress Note ---
Progress Note Date of Service: Nov 13, 2016 Subjective Pt evaluation today including: chart review, lab review Patient nonverbal and unable to provide history. Per nursing, he did complete ~ 50% of breakfast. No witnessed signs or symptoms of dysphagia. Review of Systems unable to obtain as patient is nonverbal Medications Current Inpatient Medications Medications (Trade) Dose Ordered Sig/Page Route Start Time Stop Time Status Last Admin Dose Admin Acetaminophen (Tylenol Tab) 650 mg Q4H PRN PO 11/08/16 21:15 12/08/16 21:14 Miscellaneous (Iv Fluids Completed) 1 ea PRN PRN N/A 11/08/16 23:45 11/08/17 23:44 Polyethylene (Miralax Powder Packet) 17 gm BID PO 11/09/16 21:00 12/09/16 20:59 11/13/16 07:59 17 GM Ascorbic Acid (Vitamin C Tab) 500 mg QAM PO 11/10/16 09:00 12/10/16 08:59 11/13/16 07:59 500 MG Finasteride (Proscar Tab) 5 mg HS PO 11/09/16 21:00 12/09/16 20:59 11/12/16 20:42 5 MG Levothyroxine Sodium (Synthroid Tab) 100 mcg DAILYBB PO 11/10/16 06:30 12/10/16 06:29 11/13/16 05:37 100 MCG Multivitamins/ Minerals (Multivitamin W/ Minerals Tab) 1 tab QAM PO 11/10/16 09:00 12/10/16 08:59 11/13/16 07:59 1 TAB Docusate Sodium (coLACE CAP) 100 mg TID PO 11/10/16 21:00 12/10/16 20:59 11/13/16 07:59 100 MG Senna (Senokot Syrup) 17.6 mg QAM PO 11/12/16 09:00 12/12/16 08:59 11/13/16 07:59 17.6 MG Levofloxacin (Levaquin Tab) 500 mg DAILY@11 PO 11/11/16 21:00 11/21/16 20:59 11/12/16 13:21 500 MG Pantoprazole Sodium (Protonix Tab) 40 mg BID PO 11/11/16 21:00 12/11/16 20:59 11/13/16 07:59 40 MG Objective Vital Signs Date Time Temp Pulse Resp B/P (MAP) Pulse Ox O2 Delivery O2 Flow Rate FiO2 11/13/16 09:00 Room Air 11/13/16 07:22 35.9 52 18 89/60 (70) 100 Room Air 11/13/16 00:28 36.7 62 18 105/70 (82) 91 Room Air 11/13/16 00:00 Room Air 11/12/16 20:00 Room Air 11/12/16 16:00 Room Air 11/12/16 15:20 37.0 58 16 109/72 (84) 99 Room Air Physical Exam General Appearance: no apparent distress Respiratory/Chest: lungs clear Cardiovascular: regular rate, rhythm Abdomen: normal bowel sounds, soft Neurologic/Psych: alert Laboratory Results Last 24 Hours Test 11/13/16 06:22 Sodium Level 142 mmol/L Potassium Level 3.8 mmol/L Chloride Level 107 mmol/L Carbon Dioxide Level 30 mmol/L Anion Gap 5.0 mmol/L Blood Urea Nitrogen 3 mg/dl Creatinine 0.96 mg/dl Est Creatinine Clear Calc Drug Dose 63.6 ml/min Estimated GFR () 102.0 Estimated GFR (Non- 88.0 BUN/Creatinine Ratio 3.4 Random Glucose 88 mg/dl Calcium Level 8.4 mg/dl Assessment and Plan Patient is a 56 year-old male with a history of Down's syndrome, nonverbal with ongoing dysphagia (although appears improved at this time) status post EGD with pyloric dilation. 1. Continue Protonix 40 mg BID. 2. Aspiration precautions. 3. Could consider barium swallow as ordered on an outpatient basis if dysphagia returns. 4. Supportive medical management. Will sign off at this time as patient is improved for a GI standpoint. Agree with ALFONZO Vang as above Abd: Soft, NT, ND Continue supportive care Continue current therapy
[2016-11-13 10:04] VITALS: O2SAT 100
[2016-11-13] MEDS: LEVOFLOXACIN 500 MG TAB PO SCH (11:23)
--- NOTE | 2016-11-13 15:50 | Progress Note ---
Internal Med Progress Note Date of Service: Nov 13, 2016. Provider Documentation: SUBJECTIVE: Seen and examined at bedside Non verbal at baseline Tolerating food without difficulty Seemed to be comfortable No family at bedside OBJECTIVE: Vital Signs-as noted below Physical Exam: General Appearance:Moderately built and nourished, no apparent distress Head: normocephalic, Atraumatic Eyes: normal inspection, EOMI, PERRL Neck: supple, Trachea midline Respiratory/Chest: Normal breath sounds, CTA Cardiovascular: S1, S2, No murmur Abdomen/GI:Soft, Non tender, Bowel sounds present Extremities/Musculoskelatal:normal inspection, no edema Neurologic/Psych:Down's syndrome, grossly no focal neurological deficits Skin: normal color, warm Lab data as noted below. ASSESSMENT & PLAN: Patient is a 56 yr old male with Down Syndrome, Hypothyroidism, Urinary Retention, Chronic Constipation presenting with refusal to eat x 1 day. DYSPHAGIA S/P EGD with pyloric dilation EGD: Ulcerative esophagitis, pyloric stenosis Appreciate GI help tolerating diet continue PPI aspiration precaution May need barium swallow as outpatient basis if dysphagia returns. ASPIRATION PNEUMONIA: due to above -Cxray shows rt lower lobe infiltrate was on Clindamycin changed to PO Levaquin Day #3: need total 10 days tx No signs of sepsis DOWN SYNDROME mental status at baseline cooperative, calm, non verbal, follows simple commands CHRONIC CONSTIPATION stool softener /laxatives -Miralax CHRONIC URINARY RETENTION Tamsulosin and Finasteride resumed DVT Px SCDs Code Status: LEVEL 3 no intubation/mech vent per sister DISPOSITION lives in a shelter the [facility], likely discharge tomorrow Social service consulted Dr. Teixeira PCP Dr. Hood GI Vital Signs: Date Time Temp Pulse Resp B/P (MAP) Pulse Ox O2 Delivery O2 Flow Rate FiO2 11/13/16 16:30 Room Air 11/13/16 16:00 36.4 54 16 102/69 (80) 96 Room Air 11/13/16 10:04 100 Room Air 11/13/16 09:00 Room Air 11/13/16 07:45 120/82 (95) 11/13/16 07:22 35.9 52 18 89/60 (70) 100 Room Air 11/13/16 00:28 36.7 62 18 105/70 (82) 91 Room Air 11/13/16 00:00 Room Air Lab Results: Results Past 24 Hours Test 11/13/16 06:22 Range/Units Sodium Level 142 136-145 mmol/L Potassium Level 3.8 3.5-5.1 mmol/L Chloride Level 107 98-107 mmol/L Carbon Dioxide Level 30 21-32 mmol/L Anion Gap 5.0 3-11 mmol/L Blood Urea Nitrogen 3 7-18 mg/dl Creatinine 0.96 0.60-1.40 mg/dl Est Creatinine Clear Calc Drug Dose 63.6 ml/min Estimated GFR () 102.0 Estimated GFR (Non- 88.0 BUN/Creatinine Ratio 3.4 10-20 Random Glucose 88 70-99 mg/dl Calcium Level 8.4 8.5-10.1 mg/dl
[2016-11-13 16:00] VITALS: BP 102/69; PULSE 54; TEMP 36.4; O2SAT 96
[2016-11-13] MEDS ORDERED: NURSING VERBAL MED ORDER ONE (17:45)
[2016-11-13] MEDS ORDERED: SOD PHOSPHATE/SOD BIPHOSPHATE ENEMA 132 ML BTL PR SCH (18:30)
[2016-11-13] MEDS: FINASTERIDE 5 MG TAB PO SCH (20:46)
[2016-11-13 23:17] VITALS: BP 92/62; PULSE 62; TEMP 36.9; O2SAT 99
[2016-11-14] MEDS: LEVOTHYROXINE 100 MCG TAB PO SCH (06:28)
[2016-11-14 07:31] VITALS: BP 81/50; PULSE 51; TEMP 35.9; O2SAT 94
[2016-11-14 08:00] VITALS: O2SAT 94
[2016-11-14] MEDS: CEROVITE ADV FORMULA TAB PO SCH (08:11)
[2016-11-14] MEDS: ASCORBIC ACID 500 MG TAB PO SCH (08:11)
[2016-11-14] MEDS: DOCUSATE SODIUM 100 MG CAP PO SCH ×2 (08:11→12:44)
[2016-11-14] MEDS: PANTOprazole SOD 40 MG TAB PO SCH (08:11)
[2016-11-14] MEDS: SENNA 17.6 MG/10 ML UDP PO SCH (08:12)
[2016-11-14] MEDS: POLYETHYLENE (MIRALAX) 17 GM PACK PO SCH (08:12)
[2016-11-14] MEDS: LEVOFLOXACIN 500 MG TAB PO SCH (10:06)
[2016-11-14 14:13] VITALS: BP 107/64; PULSE 74; O2SAT 96
--- NOTE | 2016-11-14 14:24 | Progress Note ---
Internal Med Progress Note Date of Service: Nov 14, 2016. Provider Documentation: SUBJECTIVE: Seen and examined at bedside Non verbal at baseline Discussed with sister in detail Tolerating food without difficulty Seemed to be comfortable Constipation resolved OBJECTIVE: Vital Signs-as noted below Physical Exam: General Appearance:Moderately built and nourished, no apparent distress Head: normocephalic, Atraumatic Eyes: normal inspection, EOMI, PERRL Neck: supple, Trachea midline Respiratory/Chest: Normal breath sounds, CTA Cardiovascular: S1, S2, No murmur Abdomen/GI:Soft, Non tender, Bowel sounds present Extremities/Musculoskelatal:normal inspection, no edema Neurologic/Psych:Down's syndrome, grossly no focal neurological deficits Skin: normal color, warm Lab data as noted below. ASSESSMENT & PLAN: Patient is a 56 yr old male with Down Syndrome, Hypothyroidism, Urinary Retention, Chronic Constipation presenting with refusal to eat x 1 day. DYSPHAGIA S/P EGD with pyloric dilation EGD: Ulcerative esophagitis, pyloric stenosis Appreciate GI help tolerating diet continue PPI BID aspiration precaution May need barium swallow as outpatient basis if dysphagia returns. ASPIRATION PNEUMONIA: due to above -Cxray shows rt lower lobe infiltrate was on Clindamycin changed to PO Levaquin Day #4: need total 10 days tx No signs of sepsis DOWN SYNDROME mental status at baseline cooperative, calm, non verbal, follows simple commands CHRONIC CONSTIPATION stool softener /laxatives -Miralax CHRONIC URINARY RETENTION Tamsulosin and Finasteride resumed DVT Px SCDs Code Status: LEVEL 3 no intubation/mech vent per sister DISPOSITION Plan to discharge to shelter the [facility], today Follow up with your Primary Care physician on 11/18/16 at 12:45pm (As his PCP not available currently) Follow up with your harness and bag inspector in 2-4 weeks as advised Seek immediate medical attention if your symptoms reoccur or worsen Speech Therapy Discharge Instructions * 1. Mechanical soft diet, slippery. Modify to moist puree should the patient have difficulty tolerating mechanical soft. 2. Aspiration and GERD precautions, straws OK as tolerated. Fully upright for meals and for 30 minutes after meals. Keep head of bed elevated to at lest 30 degress at all times (as the patient can tolerate), to include while sleeping. 3. Assist with feeding. Alternate solids and liquids. Monitor for oral pocketing. 4. Would benefit from continued speech at discharge for carryover of diet and strategies. Vital Signs: Date Time Temp Pulse Resp B/P (MAP) Pulse Ox O2 Delivery O2 Flow Rate FiO2 11/14/16 14:13 74 20 107/64 (78) 96 Room Air 11/14/16 08:00 94 Room Air 11/14/16 07:31 35.9 51 18 81/50 (60) 94 Room Air 11/14/16 00:00 Room Air 11/13/16 23:17 36.9 62 18 92/62 (72) 99 Room Air 11/13/16 16:30 Room Air 11/13/16 16:00 36.4 54 16 102/69 (80) 96 Room Air
[2016-11-14] MEDS ORDERED: LVQ500 PO (14:27)
[2016-11-14] MEDS ORDERED: PRT40 PO (14:27)
--- NOTE | 2016-11-14 14:30 | Discharge Summary ---
Discharge Summary Date of Service Nov 14, 2016. Discharge Summary Admission Date: Nov 12, 2016 at 14:13 Discharge Date: Nov 14, 2016 Discharge Disposition: Personal care Principal Diagnosis: DYSPHAGIA S/P Esophageal dilatation, Aspiration Pneumonia Procedures: CT neck: 1. Limited study due to limited history and no contrast enhancement. 2. No major compromise of the airway system. 3. Distended lower cervical and upper thoracic esophagus with a maximum esophageal distention of approximately 6 x 4 cm on this exam. 4. This suggests distal esophageal obstructive change. CXR: 1. Interval development of bibasilar consolidation, potentially on the basis of aspiration given the distribution. 2. Small bilateral pleural effusions. 3. Diminished lung volumes. Consultations: Gastroenterology Pending Studies/Follow-Up: Follow up with your Primary Care physician on 11/18/16 at 12:45pm (As his PCP not available currently) Follow up with your lumber trimmer in 2-4 weeks as advised Seek immediate medical attention if your symptoms reoccur or worsen Speech Therapy Discharge Instructions * 1. Mechanical soft diet, slippery. Modify to moist puree should the patient have difficulty tolerating mechanical soft. 2. Aspiration and GERD precautions, straws OK as tolerated. Fully upright for meals and for 30 minutes after meals. Keep head of bed elevated to at lest 30 degress at all times (as the patient can tolerate), to include while sleeping. 3. Assist with feeding. Alternate solids and liquids. Monitor for oral pocketing. 4. Would benefit from continued speech at discharge for carryover of diet and strategies. Medication Reconciliation New Medications: Levofloxacin (Levofloxacin) 500 Mg Tab 500 MG PO DAILY@11 for 6 Days, #6 TAB Pantoprazole (Pantoprazole Sodium) 40 Mg Tab 40 MG PO BID for 30 Days, #60 TAB Continued Medications: Acetaminophen (Tylenol) 500 Mg Tab 500 MG PO Q4H PRN for Pain or Fever Ascorbic Acid (Ascorbic Acid) 500 Mg Tab 500 MG PO QAM Docusate Sodium (Docusate Sodium) 100 Mg Cap 100 MG PO TID, CAP Finasteride (Proscar) 5 Mg Tab 5 MG PO HS Lactulose (Encephalopathy) (Enulose) 10 Gm/15 Ml Felicity ML PO QID, #8379 Levothyroxine Sodium (Synthroid) 100 Mcg Tab 100 MCG PO QAM, TAB Lubiprostone (Amitiza) 24 Mcg Cap 24 MCG PO BID, #60 Multiple Vitamins W/ Minerals (Therems M) 1 Tab Tab 1 TAB PO QAM Polyethylene (Polyethylene Glycol 3350) 527 Gm Soln 17 GM PO BID, #527 Silodosin (Rapaflo) 8 Mg Cap 1 CAP PO HS Discontinued Medications: Omeprazole (Prilosec) 20 Mg Cap 20 MG PO BID, #41 Admission Information HPI (per Admitting provider): 56 year old male with Down Syndrome, Hypothyroidism, Urinary Retention, Chronic Constipation presenting with refusal to eat x 1 day. History of obtained from patient's sister Christina, caregiver and hospital records as patient is non verbal. Patient follows with Dr. Hood. On October 11, 2016, patient underwent an EGD and Colonoscopy for anemia and chronic constipation. Findings are as follows: EGD: Reflux esophagitis, Hiatal hernia, Gastritis s/p biopsies, Pyloric stenosis s/p dilation to 15mm Colonoscopy: Poor prep procedure aborted As per family and caregiver, patient has been doing fine since that time until yesterday when he started to refuse anything to eat or drink. Today, caregiver was able to give most of his medications with some yogurt. They have noticed that the patient was spitting up saliva/mucus today. (+) flatus, last BM yesterday No reports of fever/chills, coughing, dyspnea. Patient was scheduled for a barium swallow today but was did not tolerate the procedure. CT soft tissue of the neck showed: IMPRESSION: 1. Limited study due to limited history and no contrast enhancement 2. No major compromise of the airway system. 3. Distended lower cervical and upper thoracic esophagus with a maximum esophageal distention of approximately 6 x 4 cm on this exam. 4. This suggests distal esophageal obstructive change. On exam, patient seen with sister at bedside. Alert, comfortable, not in distress. Physical Exam (per Admitting): General Appearance: WD/WN, no apparent distress Head: normocephalic, atraumatic Eyes: normal inspection, EOMI, sclerae normal ENT: normal ENT inspection, hearing grossly normal, pharynx normal Neck: supple, no adenopathy, thyroid normal, no JVD, trachea midline Respiratory/Chest: chest non-tender, lungs clear, normal breath sounds, no respiratory distress, no accessory muscle use Cardiovascular: regular rate, rhythm, no edema, no JVD, no murmur Abdomen/GI: non tender, soft, no organomegaly, + pertinent finding ( hypoactive bowel sounds ) Back: normal inspection, no CVA tenderness Extremities/Musculoskelatal: normal inspection, no calf tenderness, no pedal edema Neurologic/Psych: instrumentation and controls designer II-XII nml as tested, no motor/sensory deficits, alert , + pertinent finding (non verbal) Hospital Course Patient is a 56 yr old male with Down Syndrome, Hypothyroidism, Urinary Retention, Chronic Constipation presenting with refusal to eat x 1 day. DYSPHAGIA S/P EGD with pyloric dilation EGD: Ulcerative esophagitis, pyloric stenosis Appreciate GI help tolerating diet continue PPI BID aspiration precaution May need barium swallow as outpatient basis if dysphagia returns. ASPIRATION PNEUMONIA: due to above -Cxray shows rt lower lobe infiltrate was on Clindamycin changed to PO Levaquin Day #4: need total 10 days tx No signs of sepsis DOWN SYNDROME mental status at baseline cooperative, calm, non verbal, follows simple commands CHRONIC CONSTIPATION stool softener /laxatives -Miralax CHRONIC URINARY RETENTION Tamsulosin and Finasteride resumed DVT Px SCDs Code Status: LEVEL 3 no intubation/mech vent per sister DISPOSITION Plan to discharge to detention the [facility], today Follow up with your Primary Care physician on 11/18/16 at 12:45pm (As his PCP not available currently) Follow up with your lumber trimmer in 2-4 weeks as advised Seek immediate medical attention if your symptoms reoccur or worsen Speech Therapy Discharge Instructions * 1. Mechanical soft diet, slippery. Modify to moist puree should the patient have difficulty tolerating mechanical soft. 2. Aspiration and GERD precautions, straws OK as tolerated. Fully upright for meals and for 30 minutes after meals. Keep head of bed elevated to at lest 30 degress at all times (as the patient can tolerate), to include while sleeping. 3. Assist with feeding. Alternate solids and liquids. Monitor for oral pocketing. 4. Would benefit from continued speech at discharge for carryover of diet and strategies. Total time spent on discharge = 31 minutes This includes examination of the patient, discharge planning, medication reconciliation, and communication with other providers. Discharge Instructions Discharge Instructions Date of Service Nov 14, 2016. Admission Reason for Admission: Dysphagia Discharge Discharge Diagnosis / Problem: DYSPHAGIA S/P Esophageal dilatation, Aspiration Pneumonia Discharge Goals Goal(s): Decrease discomfort, Improve function Activity Recommendations Activity Limitations: resume your previous activity Exercise/Sports Limitations: as tolerated . Instructions / Follow-Up Instructions / Follow-Up Follow up with your Primary Care physician on 11/18/16 at 12:45pm (As his PCP not available currently) Follow up with your lumber trimmer in 2-4 weeks as advised Seek immediate medical attention if your symptoms reoccur or worsen Speech Therapy Discharge Instructions * 1. Mechanical soft diet, slippery. Modify to moist puree should the patient have difficulty tolerating mechanical soft. 2. Aspiration and GERD precautions, straws OK as tolerated. Fully upright for meals and for 30 minutes after meals. Keep head of bed elevated to at lest 30 degress at all times (as the patient can tolerate), to include while sleeping. 3. Assist with feeding. Alternate solids and liquids. Monitor for oral pocketing. 4. Would benefit from continued speech at discharge for carryover of diet and strategies. Current Hospital Diet Patient's current hospital diet: Regular Diet Discharge Diet Recommended Diet: Regular Diet Diet Texture: Mechanical Soft (ground) Procedures Procedures Performed: EGD, ESOPHAGEAL DILATION Pending Studies Studies pending at discharge: no Laboratory Results Lipid Panel Test 10/23/16 09:12 Range/Units Triglycerides Level 65 0-150 mg/dl Cholesterol Level 182 0-200 mg/dl HDL Cholesterol 73 mg/dl Cholesterol/HDL Ratio 2.5 LDL Cholesterol, Calculated 96 mg/dl Medical Emergencies . Who to Call and When: Medical Emergencies: If at any time you feel your situation is an emergency, please call 911 immediately. . Non-Emergent Contact Non-Emergency issues call your: Primary Care Provider, Last Ironer Call Non-Emergent contact if: you have a fever, your pain is not controlled, your pain is worsening, your pain is unusual for you, your pain is concerning you, you have any medication questions Seek immediate medical attention if your symptoms reoccur or worsen . . "Provider Documentation" section prepared by Kartik Lopez. . VTE Core Measure Inpt VTE Proph given/why not?: SCD's
[2016-11-14 14:34] VITALS: BP 107/64; PULSE 74; TEMP 35.9; O2SAT 96
[2016-11-21] MEDS ORDERED: FINA5TAB PO (11:23)
== END 2016-11-14 15:55 | disposition home health service (06) | DRG 380 ==
LOC: C.EDB 17:05 → C.MED 20:24 → ENRESERV 20:56 → OBSVTOIN 11-12 14:13 → C.MS2W 11-12 22:37
PROVIDERS: ADMIT Internal Medicine; ATTEND Internal Medicine
PROC: 0DJ08ZZ Inspection of Upper Intestinal Tract, Via Natural or Artificial Opening Endoscopic (ICD-10-PCS; principal; 2016-11-11 12:59)
DX: K22.10 Ulcer of esophagus without bleeding (principal); J69.0 Pneumonitis due to inhalation of food and vomit; K31.1 Adult hypertrophic pyloric stenosis; E03.9 Hypothyroidism, unspecified; K59.09 Other constipation; Q90.9 Down syndrome, unspecified; Z80.9 Family history of malignant neoplasm, unspecified; Z83.3 Family history of diabetes mellitus

== ENCOUNTER 2016-11-21 17:49 | Emergency (ER) | payer BC, OTHER ==
[~2016-11-21] VITALS: Ht 160 cm; Wt 60.0 kg
[~2016-11-21 17:49] MED LIST changes: +FINA5TAB PO; +LACT10SO61 PO; -LEVO88TA3 PO; +LVQ500 PO; -OMEP20CA9 PO; +PRT40 PO
[2016-11-21 17:59] VITALS: TEMP 37.1; Ht 160 cm; Wt 60.0 kg
[2016-11-21] MEDS ORDERED: LEVO100T PO (18:13)
[2016-11-21] MEDS ORDERED: LACT10SO17 PO (20:32)
[2016-11-21] MEDS ORDERED: PANT40TA PO (20:34)
[2016-11-21] MEDS ORDERED: FINASTERIDE 5 MG TAB PO STA (21:11)
[2016-11-21] MEDS ORDERED: PANTOprazole SOD 40 MG TAB PO STA (21:11)
[2016-11-21] MEDS ORDERED: POLYETHYLENE (MIRALAX) 17 GM PACK PO STA (21:11)
[2016-11-21] MEDS ORDERED: LACTULOSE SYRUP 20 GM/30 ML UDC PO STA (21:11)
[2016-11-21] MEDS ORDERED: DOCUSATE SODIUM 100 MG CAP PO ONE (21:15)
[2016-11-21] MEDS ORDERED: SODIUM CHLORIDE 0.9% 1000ML 1,000 ML IV ONE (21:15)
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
[2016-11-21 22:01] LABS: BASO % 1.5 %; BASO ABS # 0.07 K/uL (0-0.2); COMPLETE YES; EOS % 0.8 %; HEMATOCRIT 36.7 % (42-52); LYMPH % 29.3 %; MEAN CELL VOLUME 98.4 fL (80-100); MEAN CORPUSCULAR HGB CONC 34.6 g/dl (32-36); MONO % 8.2 %; NEUT % 60.2 %; PLATELET COUNT 271 K/uL (130-400); RED BLOOD COUNT 3.73 M/uL (4.7-6.1); WHITE BLOOD COUNT 4.78 K/uL (4.8-10.8)
[2016-11-21 22:30] LABS: BUN/CREATININE RATIO 11.4 (10-20); CREATININE 0.94 mg/dl (0.60-1.40); MAGNESIUM 2.5 mg/dl (1.8-2.4)
[2016-11-21 22:33] LABS: ALB/GLOB RATIO 0.8 (0.9-2)
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
[2016-11-22] MEDS ORDERED: TAMSULOSIN HCL 0.4 MG CAP PO ONE (00:15)
[2016-11-22 00:39] VITALS: BP 100/60; PULSE 60; O2SAT 95
[2016-11-22] MEDS ORDERED: MRLP527 PO (09:39)
[2016-11-22] MEDS ORDERED: ACET-1256 PO (10:18)
[2016-11-22] MEDS ORDERED: RPF/8 PO (14:05)
--- NOTE | 2016-11-22 15:57 | Pharmacy Progress Note ---
ED Pharmacist Culture FollowUp Date of Service: Nov 22, 2016. One of two blood cultures with Gram positive bacilli. 2nd blood culture still pending. May be contaminant (most notably Corynebacterium), but growth was identified less than 24 hours after drawn. Discussed case with Shawna Felix - patient should be re-evaluated today. If patient has outpatient follow-up scheduled for today, OK to be re-evaluated by outpatient provider (with specific work-up for bacteremia). Otherwise, patient should return to ED. Called next of kin Sharon Mantilla , left message with request to call back right when message is received.
[2016-11-22] MEDS ORDERED: ASCO500T16 PO (16:11)
[2016-11-22] MEDS ORDERED: DOCU100C31 PO (18:39)
[2016-11-22] MEDS ORDERED: MULTTAB63 PO (18:39)
[2016-11-22] MEDS ORDERED: LACT10SO61 PO (20:29)
[2016-11-22] MEDS ORDERED: PRS5 PO (20:29)
[2016-11-22] MEDS ORDERED: PRT/40 PO (20:29)
[2016-11-22] MEDS ORDERED: LEVO100T7 PO (20:29)
[2016-11-22] MEDS ORDERED: AMT24 PO (20:32)
[2016-12-04] MEDS ORDERED: SNKUDL10 PO (18:04)
[2016-12-04] MEDS ORDERED: CRFUDL PO (18:04)
== END 2016-11-22 00:40 | disposition home or self-care (01) ==
LOC: C.EDB 17:51 → C.EDC 11-22 00:40
DX: R69 Illness, unspecified (principal); F79 Unspecified intellectual disabilities; J43.9 Emphysema, unspecified; R13.10 Dysphagia, unspecified; Z83.3 Family history of diabetes mellitus; Z82.49 Family history of ischemic heart disease and other diseases of the circulatory system

== ENCOUNTER 2016-11-22 18:39 | Inpatient (IN) | payer BC, OTHER ==
[~2016-11-22] VITALS: Ht 160 cm; Wt 67.3 kg
[~2016-11-22 18:39] MED LIST changes: +ACET-1256 PO; -AMT24 PO; +ASCO500T16 PO; +DOCU100C31 PO; +LACT10SO17 PO; -LACT10SO61 PO; +LEVO100T PO; -LVQ500 PO; +MRLP527 PO; +MULTTAB63 PO; +PANT40TA PO; -PRT40 PO; +RPF/8 PO
[2016-11-22] MEDS ORDERED: SODIUM CHLORIDE 0.9% 500ML 500 ML IV STA ×2 (19:01→22:12)
--- NOTE | 2016-11-22 19:26 | EMERGENCY ROOM VISIT NOTE ---
History First contact with patient: 18:50 Chief Complaint: ABNORMAL LABS Stated Complaint: NEEDS REEVAL History of Present Illness The patient is a 56 year old male who presents to the Emergency Room with his sister after being notified that he had abnormal blood work done yesterday. The patient reportedly had one positive blood culture, and was told to come back to the emergency department for evaluation. There have been no reports of fever. His appetite is fair today. He is mentally at baseline. He has a history of Down syndrome. Review of Systems 10 system review performed and negative unless noted in HPI or below. This was reviewed with the patient's sister and caregiver. Past Medical/Surgical History Medical Problems: (1) Constipation (2) Down's syndrome (3) Dysphagia (4) Emphysema lung (5) Enlarged prostate (6) Esophageal ulceration (7) Gastritis (8) Hiatal hernia (9) Hypothyroidism (10) Mental retardation (11) Pyloric stenosis (12) Reflux esophagitis (13) Urinary retention Surgical Problems: (1) History of prostate surgery Family History FH: cancer FH: diabetes mellitus FH: hypertension Social History Smoking Status: Never Smoker Drug Use: none Marital Status: single Housing Status: other Occupation Status: disabled Current/Historical Medications Scheduled Ascorbic Acid (Ascorbic Acid), 500 MG PO QAM Docusate Sodium (Docusate Sodium), 100 MG PO TID Finasteride (Finasteride), 5 MG PO HS Lactulose (Encephalopathy) (Enulose), 30 ML PO TID Levothyroxine Sodium (Levothyroxine Sodium), 100 MCG PO DAILY Lubiprostone (Amitiza), 24 MCG PO BID Multiple Vitamins W/ Minerals (Therems M), 1 TAB PO QAM Pantoprazole (Pantoprazole Sodium), 40 MG PO BID Polyethylene (Polyethylene Glycol 3350), 17 GM PO BID Silodosin (Rapaflo), 8 MG PO HS Scheduled PRN Acetaminophen (Tylenol), 500 MG PO Q4H PRN for Pain or Fever Physical Exam Vital Signs Date Time Temp Pulse Resp B/P (MAP) Pulse Ox O2 Delivery O2 Flow Rate FiO2 11/22/16 21:28 80 18 89/52 97 Room Air 11/22/16 18:41 36.6 97 16 114/59 100 Room Air Physical Exam VITALS: Vitals are noted on the nurse's note and reviewed by myself. Vital signs stable. GENERAL: 56-year-old male, SKIN: The skin was without rashes, HEAD: atraumatic. MOUTH: Mucous membranes slightly dry. NECK: No JVD. HEART: Regular rate and rhythm without murmurs gallops or rubs. LUNGS: Clear to auscultation bilaterally without wheezes, rales or rhonchi. No accessory muscle use. ABDOMEN: Positive bowel sounds x 4.Soft, nontender, . No guarding or rebound tenderness. MUSCULOSKELETAL: +1 pitting edema without any erythema, tenderness or warmth in the lower extremities bilaterally NEURO: Patient was alert. He does not follow commands. Medical Decision & Procedures ER Provider Diagnostic Interpretation: (CHEST) THORAX WITH CT DOSE: 375.13 mGy.cm HISTORY: Chest pain dysphagia TECHNIQUE: Multiaxial CT images of the chest were performed following the intravenous administration of contrast. A dose lowering technique was utilized adhering to the principles of ALARA. COMPARISON: None. FINDINGS: The lungs are clear. Considerable distention of the thoracic esophagus. Extensive esophageal retained contents are present. Maximum esophageal diameter is 4.5 cm. No significant hilar or mediastinal adenopathy. Heart is top limits normal terms of size. A potential annular lesion at the level gastroesophageal junction. Possible wall thickening of the distal esophagus medially proximal to small hiatal hernia. Considerable fecal content throughout all visualized components of the colon suggesting considerable fecal stasis. No significant gastric distention. IMPRESSION: 1. Considerable distention of the thoracic esophagus throughout its entire length 2. This shows considerable retained gastric and esophageal content within the distended esophagus. 3. Probable annular lesion of the gastroesophageal junction. 4. Considerable fecal content throughout the colon consistent with fecal stasis. 5. Endoscopic evaluation is recommended to exclude an obstructing lesion. The above report was generated using voice recognition software. It may contain grammatical, syntax or spelling errors. Electronically signed by: Prem Silva M.D. 11/22/2016 9:36 PM Dictated Date/Time: 11/22/2016 9:32 PM The status of this report is Signed. Draft = Not yet reviewed or approved by Radiologist. Signed = Reviewed and approved by Radiologist. Patient: CLINT KRAMER Address1: [address] [place] [address] Med Rec: [id number] Address2: Acct ID: [id number] [facility] Zip: [place] [address] Date: 1960 Sex: M Room/Bed: Ref Phy: Kevin Teixeira D.O. SC: MARIA TERESA Att Phy: Report #: [id number] Geeta Phy: Kevin Teixeira D.O. Test: [id number] Admit Phy: Animal Care Provider: MERCEDES Interpreting Phy: Prem Silva M.D. Diagnosis: NEEDS REEVAL Ordering Phy: Jim Zhang D.O. Service Date: 11/22/16 Admit Date: 11/22/16 MNE: [id number] CONF: DICTATED BY: Prem Silva M.D.]] CC: Jim Zhang, Kevin Espinoza D.O. Endcc: [~ rep ct add3]] CHEST ONE VIEW PORTABLE CLINICAL HISTORY: dysphagia pain COMPARISON STUDY: 11/21/2016 FINDINGS: The bones soft tissues and hemidiaphragms are normal. The cardiomediastinal silhouette is normal. The lungs are clear. The pulmonary vasculature is normal. IMPRESSION: Negative chest. The above report was generated using voice recognition software. It may contain grammatical, syntax or spelling errors. Electronically signed by: Prem Silva M.D. 11/22/2016 8:47 PM Dictated Date/Time: 11/22/2016 8:46 PM The status of this report is Signed. Draft = Not yet reviewed or approved by Radiologist. Signed = Reviewed and approved by Radiologist. <AttendingPhy></AttendingPhy> <FamilyPhy>Kevin Teixeira D.O.</FamilyPhy> < PrimaryPhy>Kevin Teixeira D.O.</PrimaryPhy> <UnitNumber>[id number]</UnitNumber > <VisitNumber>[id number]</VisitNumber> <PatientName>CLINT KRAMER</ PatientName> <DateOfBirth>1960</DateOfBirth> <Location>[facility]</Location> < ServiceDate>11/22/16</ServiceDate> <MNE>ESINDI</MNE> <OrderingPhy>Vicente, Jim R. D.O.</OrderingPhy> <OrderingPhyMNE>f rep michelle oh Laboratory Results 11/22/16 19:12 Red Blood Count 4.00, Mean Corpuscular Volume 99.5, Mean Corpuscular Hemoglobin 32.8, Mean Corpuscular Hemoglobin Concent 32.9, Mean Platelet Volume 10.4, Neutrophils (%) (Auto) 51.3, Lymphocytes (%) (Auto) 34.3, Monocytes (%) (Auto) 10.9, Eosinophils (%) (Auto) 0.9, Basophils (%) (Auto) 2.6, Neutrophils # (Auto ) 2.21, Lymphocytes # (Auto) 1.48, Monocytes # (Auto) 0.47, Eosinophils # (Auto ) 0.04, Basophils # (Auto) 0.11 11/22/16 19:12 Test 11/22/16 19:12 White Blood Count 4.31 K/uL (4.8-10.8) Red Blood Count 4.00 M/uL (4.7-6.1) Hemoglobin 13.1 g/dL (14.0-18.0) Hematocrit 39.8 % (42-52) Mean Corpuscular Volume 99.5 fL (80-100) Mean Corpuscular Hemoglobin 32.8 pg (25-34) Mean Corpuscular Hemoglobin Concent 32.9 g/dl (32-36) Platelet Count 303 K/uL (130-400) Mean Platelet Volume 10.4 fL (7.4-10.4) Neutrophils (%) (Auto) 51.3 % Lymphocytes (%) (Auto) 34.3 % Monocytes (%) (Auto) 10.9 % Eosinophils (%) (Auto) 0.9 % Basophils (%) (Auto) 2.6 % Neutrophils # (Auto) 2.21 K/uL (1.4-6.5) Lymphocytes # (Auto) 1.48 K/uL (1.2-3.4) Monocytes # (Auto) 0.47 K/uL (0.11-0.59) Eosinophils # (Auto) 0.04 K/uL (0-0.5) Basophils # (Auto) 0.11 K/uL (0-0.2) RDW Standard Deviation 53.0 fL (36.4-46.3) RDW Coefficient of Variation 14.6 % (11.5-14.5) Immature Granulocyte % (Auto) 0.0 % Immature Granulocyte # (Auto) 0.00 K/uL (0.00-0.02) Anion Gap 5.0 mmol/L (3-11) Est Creatinine Clear Calc Drug Dose 66.4 ml/min Estimated GFR () 97.1 Estimated GFR (Non- 83.8 BUN/Creatinine Ratio 10.5 (10-20) Calcium Level 8.7 mg/dl (8.5-10.1) Medications Administered Medications (Trade) Dose Ordered Sig/Page Route Start Time Stop Time Status Last Admin Dose Admin Sodium Chloride 500 ml @ 999 mls/hr Q31M STAT IV 11/22/16 19:01 11/22/16 19:31 DC 11/22/16 19:26 999 MLS/HR ED Course Patient was seen and examined Vital signs including blood pressure were reviewed medications list was verified with patient Labs were obtained, and a saline lock was established the patient was hydrated with 500 mL normal saline The patient's sister started saying that the patient again was drooling. This was intermittently happening over the last several weeks. The patient was reassessed. He did have a fair amount of saliva in the oral cavity. The patient was also assessed by my supervising physician, Dr. Zhang Chest x-ray was performed, which then prompted a CT of the chest. The case was discussed with Dr. Roberts in addition to Dr. Farah who agreed to admit the patient for further treatment. The patient's family seemed happy with this plan. Medical Decision Differential diagnosis: Sepsis, contaminant, This patient is a 56-year-old male that presents back to the emergency department with a reported positive blood culture. It is growing gram-positive bacilli in 1 bottle. This is likely a contaminant such as corynebacterium. The patient is afebrile. There is no leukocytosis. His exam was not extremely different from yesterday's. However, the patient's sister noted that he did have one of his episodes of drooling while in the emergency department. This has been happening intermittently for the last few weeks. Chest x-ray was performed. No aspiration was noted. There is question will dilation of the esophagus, which prompted a CT of the chest. This is consistent with significant esophageal dilation. The patient was discussed with GI in addition to the hospitalist service. They agreed to admit the patient for further workup and treatment as he is not tolerating po and is a high aspiration risk. Medication Reconcilliation Current Medication List: was personally reviewed by me Blood Pressure Screening Patient's blood pressure: Normal blood pressure Consults Consulting Physician: Dr. Roberts, Dr Farah Impression Primary Impression: Dysphagia Departure Information Referrals Kevin Teixeira DNazarioONazario (PCP) Patient Instructions My [facility]
[2016-11-22 19:39] LABS: BASO % 2.6 %; BASO ABS # 0.11 K/uL (0-0.2); COMPLETE YES; EOS % 0.9 %; HEMATOCRIT 39.8 % (42-52); LYMPH % 34.3 %; LYMPH ABS # 1.48 K/uL (1.2-3.4); MEAN CELL VOLUME 99.5 fL (80-100); MEAN CORPUSCULAR HEMOGLOBIN 32.8 pg (25-34); MEAN CORPUSCULAR HGB CONC 32.9 g/dl (32-36); MEAN PLATELET VOLUME 10.4 fL (7.4-10.4); MONO % 10.9 %; NEUT % 51.3 %; PLATELET COUNT 303 K/uL (130-400); WHITE BLOOD COUNT 4.31 K/uL (4.8-10.8)
[2016-11-22 20:10] LABS: BUN/CREATININE RATIO 10.5 (10-20); CALCIUM 8.7 mg/dl (8.5-10.1); POTASSIUM 4.1 mmol/L (3.5-5.1)
--- NOTE | 2016-11-22 20:24 | EMERGENCY ROOM VISIT NOTE ---
ED Visit Note First contact with patient: 18:50 This Patient was discussed with the physician Arm Rest Builder, Shawna Felix PA-C. The pertinent historical and physical exam findings were confirmed. I agree with the studies ordered and with the interpretations of these studies. I agree with the disposition and care plan.
[2016-11-22] MEDS ORDERED: PRS5 PO (20:29)
[2016-11-22] MEDS ORDERED: LACT10SO61 PO (20:29)
[2016-11-22] MEDS ORDERED: PRT/40 PO (20:29)
[2016-11-22] MEDS ORDERED: LEVO100T7 PO (20:29)
[2016-11-22] MEDS ORDERED: AMT24 PO (20:32)
--- NOTE | 2016-11-22 20:48 | DIAGNOSTIC IMAGING REPORT ---
CHEST ONE VIEW PORTABLE CLINICAL HISTORY: dysphagia pain COMPARISON STUDY: 11/21/2016 FINDINGS: The bones soft tissues and hemidiaphragms are normal. The cardiomediastinal silhouette is normal. The lungs are clear. The pulmonary vasculature is normal. IMPRESSION: Negative chest. The above report was generated using voice recognition software. It may contain grammatical, syntax or spelling errors. Electronically signed by: Prem Silva M.D. 11/22/2016 8:47 PM Dictated Date/Time: 11/22/2016 8:46 PM
[2016-11-22] MEDS ORDERED: OPTIRAY 320 IV PRN (21:30)
--- NOTE | 2016-11-22 21:37 | DIAGNOSTIC IMAGING REPORT ---
(CHEST) THORAX WITH CT DOSE: 375.13 mGy.cm HISTORY: Chest pain dysphagia TECHNIQUE: Multiaxial CT images of the chest were performed following the intravenous administration of contrast. A dose lowering technique was utilized adhering to the principles of ALARA. COMPARISON: None. FINDINGS: The lungs are clear. Considerable distention of the thoracic esophagus. Extensive esophageal retained contents are present. Maximum esophageal diameter is 4.5 cm. No significant hilar or mediastinal adenopathy. Heart is top limits normal terms of size. A potential annular lesion at the level gastroesophageal junction. Possible wall thickening of the distal esophagus medially proximal to small hiatal hernia. Considerable fecal content throughout all visualized components of the colon suggesting considerable fecal stasis. No significant gastric distention. IMPRESSION: 1. Considerable distention of the thoracic esophagus throughout its entire length 2. This shows considerable retained gastric and esophageal content within the distended esophagus. 3. Probable annular lesion of the gastroesophageal junction. 4. Considerable fecal content throughout the colon consistent with fecal stasis. 5. Endoscopic evaluation is recommended to exclude an obstructing lesion. The above report was generated using voice recognition software. It may contain grammatical, syntax or spelling errors. Electronically signed by: Prem Silva M.D. 11/22/2016 9:36 PM Dictated Date/Time: 11/22/2016 9:32 PM
[2016-11-22] MEDS ORDERED: SODIUM CHLORIDE 0.9% 1000ML 1,000 ML IV SCH (22:15)
[2016-11-22] MEDS ORDERED: ONDANSETRON INJ 2 MG/ML 2 ML VIAL IV PRN (22:15)
--- NOTE | 2016-11-22 23:15 | History and Physical ---
History & Physical Date & Time of Service: Nov 22, 2016 at 22:13 Chief Complaint: Needs Reeval Primary Care Physician: Kevin Teixeira D.O. History of Present Illness Source: family (sister Christina at bedside), clinic records, hospital records This is a 56 year old male with history of Down syndrome, intellectual disability, dysphagia, GERD, esophageal ulcers, pyloric stenosis s/p dilation, chronic constipation, hypothyroidism, and other problems listed below who presents to the ED for abnormal blood culture. Hx obtained from records and his sister due to pt's nonverbal status. Pt had an EGD on October 11, [address] Hood which showed reflux esophagitis, small HH, gastritis s/p biopsy (benign), gastric antral stenosis s/p dilation. Patient was then admitted to [facility] from Nov 12-2016 for dysphagia. Underwent EGD by Dr. Hood 11/11/16 showing benign- appearing esophageal stenosis- dilated, small HH. Speech therapy recommended mechanical soft diet, slippery with aspiration and GERD precautions. Patient was doing well at the residential until yesterday when he stopped eating. Patient was seen in ER yesterday, labs unremarkable, CXR showed resolution of prior bibasilar infiltrates, abdominal x-ray showed no evidence of bowel obstruction. He was given IVF's for clinical dehydration. Patient's sister states today his PO intake was low today. He ate a small amount of chicken and potato, applesauce, 10 oz liquid, and did take his AM and PM meds. She states today patient developed drooling, cough described as "croupy", and grinding of the teeth, which occurred 20 minutes after eating applesauce. This has been an intermittent problem for him in the past. His sister notes weight loss of approx 26 lb over past 4 months. Pt's sister reports chronic constipation but states his current regimen is working and he had a normal BM today. Pt's sister is not aware of any hematochezia/ melena. Denies patient seeming to be in pain. She notes urine being darker with strong odor. Denies patient having a fever, chills, vomiting, SOB. Past Medical/Surgical History Medical Problems: (1) Constipation Status: Chronic (2) Down's syndrome Status: Chronic (3) Emphysema lung Status: Chronic (4) Enlarged prostate Status: Chronic (5) Esophageal ulceration Status: Chronic (6) Gastritis Status: Chronic (7) Hiatal hernia Status: Chronic (8) Hypothyroidism Status: Chronic (9) Mental retardation Status: Chronic (10) Pyloric stenosis Status: Chronic (11) Reflux esophagitis Status: Chronic (12) Urinary retention Status: Chronic Surgical Problems: (1) History of prostate surgery Status: Chronic Family History FH: cancer FH: diabetes mellitus FH: hypertension Social History Smoking Status: Never Smoker Alcohol Use: none Marital Status: single Housing status: other (residential) Occupational Status: disabled Allergies Coded Allergies: Azithromycin (Verified Allergy, Unknown, flat line, 11/08/16) Home Medications Scheduled Ascorbic Acid (Ascorbic Acid), 500 MG PO QAM Docusate Sodium (Docusate Sodium), 100 MG PO TID Finasteride (Finasteride), 5 MG PO HS Lactulose (Encephalopathy) (Enulose), 30 ML PO TID Levothyroxine Sodium (Levothyroxine Sodium), 100 MCG PO DAILY Lubiprostone (Amitiza), 24 MCG PO BID Multiple Vitamins W/ Minerals (Therems M), 1 TAB PO QAM Pantoprazole (Pantoprazole Sodium), 40 MG PO BID Polyethylene (Polyethylene Glycol 3350), 17 GM PO BID Silodosin (Rapaflo), 8 MG PO HS Scheduled PRN Acetaminophen (Tylenol), 500 MG PO Q4H PRN for Pain or Fever Review of Systems Unable to obtain complete ROS due to patient's intellectual disability/ nonverbal status. Physical Exam Vital Signs Date Time Temp Pulse Resp B/P (MAP) Pulse Ox O2 Delivery O2 Flow Rate FiO2 11/22/16 21:28 80 18 89/52 97 Room Air 11/22/16 18:41 36.6 97 16 114/59 100 Room Air General Appearance: no apparent distress, + thin Head: normocephalic, atraumatic Eyes: normal inspection, PERRL ENT: hearing grossly normal, + pertinent finding (patient not cooperative with exam of posterior pharynx, + clear saliva discharge from the mouth) Neck: supple, trachea midline Respiratory/Chest: lungs clear, normal breath sounds, no respiratory distress, no accessory muscle use Cardiovascular: regular rate, rhythm, no murmur Abdomen/GI: normal bowel sounds, non tender, soft Extremities/Musculoskelatal: no calf tenderness, no pedal edema Neurologic/Psych: alert, normal mood/affect, + pertinent finding (nonverbal, limited neuro exam as patient is not cooperative with following commands. no gross focal deficit noted. ) Skin: normal color, warm/dry, + pertinent finding (venous stasis discoloration bilateral lower legs and feet. small healing/ scabbed abrasions on bilateral anterior lower legs. ) Diagnostics Laboratory Results Results Past 24 Hours Test 11/22/16 19:12 Range/Units White Blood Count 4.31 4.8-10.8 K/uL Red Blood Count 4.00 4.7-6.1 M/uL Hemoglobin 13.1 14.0-18.0 g/dL Hematocrit 39.8 42-52 % Mean Corpuscular Volume 99.5 80-100 fL Mean Corpuscular Hemoglobin 32.8 25-34 pg Mean Corpuscular Hemoglobin Concent 32.9 32-36 g/dl Platelet Count 303 130-400 K/uL Mean Platelet Volume 10.4 7.4-10.4 fL Neutrophils (%) (Auto) 51.3 % Lymphocytes (%) (Auto) 34.3 % Monocytes (%) (Auto) 10.9 % Eosinophils (%) (Auto) 0.9 % Basophils (%) (Auto) 2.6 % Neutrophils # (Auto) 2.21 1.4-6.5 K/uL Lymphocytes # (Auto) 1.48 1.2-3.4 K/uL Monocytes # (Auto) 0.47 0.11-0.59 K/uL Eosinophils # (Auto) 0.04 0-0.5 K/uL Basophils # (Auto) 0.11 0-0.2 K/uL RDW Standard Deviation 53.0 36.4-46.3 fL RDW Coefficient of Variation 14.6 11.5-14.5 % Immature Granulocyte % (Auto) 0.0 % Immature Granulocyte # (Auto) 0.00 0.00-0.02 K/uL Sodium Level 141 136-145 mmol/L Potassium Level 4.1 3.5-5.1 mmol/L Chloride Level 105 98-107 mmol/L Carbon Dioxide Level 31 21-32 mmol/L Anion Gap 5.0 3-11 mmol/L Blood Urea Nitrogen 10 7-18 mg/dl Creatinine 1.00 0.60-1.40 mg/dl Est Creatinine Clear Calc Drug Dose 66.4 ml/min Estimated GFR () 97.1 Estimated GFR (Non- 83.8 BUN/Creatinine Ratio 10.5 10-20 Random Glucose 93 70-99 mg/dl Calcium Level 8.7 8.5-10.1 mg/dl Microbiology Results 11/22/16 Blood Culture, Received Pending 11/22/16 Blood Culture, Received Pending Diagnostic Radiology CHEST ONE VIEW PORTABLE IMPRESSION: Negative chest. CHEST) THORAX WITH IMPRESSION: 1. Considerable distention of the thoracic esophagus throughout its entire length 2. This shows considerable retained gastric and esophageal content within the distended esophagus. 3. Probable annular lesion of the gastroesophageal junction. 4. Considerable fecal content throughout the colon consistent with fecal stasis. 5. Endoscopic evaluation is recommended to exclude an obstructing lesion. Impression Assessment and Plan DYSPHAGIA/ DILATED ESOPHAGUS Prior EGD's: October 11, [address] Hood showed reflux esophagitis, small HH, gastritis s/p biopsy (benign), gastric antral stenosis s/p dilation; EGD by Dr. Hood 11/11/16 showed benign-appearing esophageal stenosis- dilated, small HH Strict NPO, aspiration precautions, HOB elevated, speech therapy eval IV fluids IV PPI Consult GI- Dr. Roberts notified by ER provider, will see patient tomorrow HYPOTENSIVE EPISODE Had one BP 89/52 after admission Likely due to dehydration Received a 500 mL bolus in ER- will give another 500 mL bolus NSS then 125/hour of D5LR Monitor POSITIVE BLOOD CULTURE X 1 Blood culture 11/21/16 x 1 positive for gram positive bacilli Likely a contaminant Afebrile, no leukocytosis No infiltrate on CXR or CT chest Repeat blood cultures drawn F/u blood cultures MALNUTRITION Weight loss of approx 26 lb over 4 months as per his sister NPO for now pending workup Consider bathroom tiling professional consult when appropriate HYPOTHYROIDISM IV levothyroxine CHRONIC CONSTIPATION Hold PO bowel regimen Consider adding suppository ENLARGED PROSTATE Hold Rapaflo and finasteride for NPO status Bladder scan PRN retention GERD IV PPI DVT PROPHYLAXIS SCD's CODE STATUS Level 3 no intubation/ mech ventilation per his sister as per documentation on admission earlier this month DISPOSITION Lives at a residential business and services instructor consulted PCP is Dr. Teixeira Patient seen in collaboration with Dr. Farah. Please see his addendum. VTE Prophylaxis VTE Risk Assessment Done? Y/N: Yes Risk Level: Moderate Note ATTENDING ADDENDUM Record reviewed. Patient interviewed and examined in his room on 4W. Care coordinated with Brandi Marr PA-C. Please refer to her documentation for patient's history. Briefly, 56 YO male with trisomy 21. Hospitalized 11/08 - 11/14 with dysphagia. EGD on 11/11 demonstrated esophageal stenosis which was balloon dilated to 15 cm. Family has noticed decreased oral intake over past few days. No vomiting. Occasional cough, no fever. Seen in ED yesterday. Seemed to be able to tolerate diet. Referred back to ED today because of + blood culture. PO intake remains poor. EXAM: General- no acute distress VS- as noted HEENT- anicteric Neck- [] Lungs- few scattered rhonchi Heart- RRR Abdomen- + BS, soft, nontender Extremities- no pretibial edema or calf tenderness Neuro- alert, nonverbal DATA: 1/2 blood cultures from ED 11/21 growing gram positive bacilli. Other lab studies as noted. Chest x-ray reviewed- no infiltrates. CT chest interpreted by Radiology and reviewed by undersigned: FINDINGS: The lungs are clear. Considerable distention of the thoracic esophagus. Extensive esophageal retained contents are present. Maximum esophageal diameter is 4.5 cm. No significant hilar or mediastinal adenopathy. Heart is top limits normal terms of size. A potential annular lesion at the level gastroesophageal junction. Possible wall thickening of the distal esophagus medially proximal to small hiatal hernia. Considerable fecal content throughout all visualized components of the colon suggesting considerable fecal stasis. No significant gastric distention. IMPRESSION: 1. Considerable distention of the thoracic esophagus throughout its entire length 2. This shows considerable retained gastric and esophageal content within the distended esophagus. 3. Probable annular lesion of the gastroesophageal junction. 4. Considerable fecal content throughout the colon consistent with fecal stasis. 5. Endoscopic evaluation is recommended to exclude an obstructing lesion. The above report was generated using voice recognition software. It may contain grammatical, syntax or spelling errors. Electronically signed by: Prem Silva M.D. 11/22/2016 9:36 PM Dictated Date/Time: 11/22/2016 9:32 PM ASSESSMENT AND PLAN: History of esophageal stricture, s/p dilation, with recurrent dysphagia. CT as detailed above demonstrates food / fluid in esophagus. At risk for aspiration. NPO. Elevate HOB. GI consulted. / blood cultures from 11/22 growing gram positive bacilli- most likely contaminate. Repeat blood cultures obtained. No indication for antibiotics at this time. Sister at bedside and given update. Please refer to SHILOH Marr's documentation for discussion of other issues. Mynor Farah MD .
[2016-11-23] VITALS: BP 106/64; PULSE 79; TEMP 36.6; O2SAT 97; Ht 160 cm; Wt 67.3 kg
[2016-11-23] MEDS: D5W AND LACTATED RINGERS 1,000 ML IV SCH ×3 (00:49→15:50)
[2016-11-23] MEDS ORDERED: IV FLUIDS COMPLETED PRN (03:45)
[2016-11-23] MEDS: PANTOprazole INJ 40 MG in SYRINGE 0 ML IV SCH ×2 (09:05→21:36)
[2016-11-23] MEDS: LEVOTHYROXINE SODIUM INJ 50 MCG in SYRINGE 0 ML IV SCH (09:05)
[2016-11-23 09:24] LABS: BUN/CREATININE RATIO 9.7 (10-20); CALCIUM 8.5 mg/dl (8.5-10.1); CREATININE 0.79 mg/dl (0.60-1.40); POTASSIUM 3.8 mmol/L (3.5-5.1)
--- NOTE | 2016-11-23 12:55 | GASTROINTESTINAL CONSULTATION ---
DATE OF CONSULTATION: 11/23/2016 REFERRED BY: Dr. Farah. HISTORY OF PRESENT ILLNESS: I was asked by Dr. Farah to consult on this gentleman for evaluation of abnormal imaging of his abdomen and dysphagia. The patient is a 56-year-old with Down syndrome and is nonverbal, who has a history of reflux esophagitis, hiatal hernia and antral stenosis. He has had endoscopy in October and November 11. He has been having issues with drooling, coughing, some anorexia and he has lost about 26 pounds over the past 4 months and he was brought in because of this. There was some concern whether or not he had eaten a meal and had a food bolus impaction. He was salivating upon presentation in the Emergency Room, but overnight he has had no salivation, spitting up or vomiting. It is difficult to get a history because his nonverbal status. This is from nursing. He also has chronic constipation issues, but had a normal bowel movement on the day of admission, which was last night. PAST MEDICAL HISTORY: I reviewed his medical records and past medical history and his past medical history is significant for constipation, Down syndrome, emphysema, enlarged prostate, pyloric stenosis of unclear etiology, reflux esophagitis, and urinary retention. FAMILY HISTORY: Negative for gastrointestinal disease. SOCIAL HISTORY: Not significant for smoking or drinking. ALLERGIES: HE IS ALLERGIC TO AZITHROMYCIN. MEDICATIONS: His home medications include docusate p.r.n., finasteride, lactulose p.r.n., levothyroxine, Amitiza, pantoprazole, MiraLax p.r.n. and Rapaflo. REVIEW OF SYSTEMS: As above. Otherwise, it is difficult to gather any more review of systems because of nonverbal status. PHYSICAL EXAMINATION: GENERAL: Reveals a gentleman sitting up in bed with physical features typical of Down syndrome, who appears comfortable. VITAL SIGNS: His most recent temperature is 36.6, blood pressure is 106/64, and pulse is 79. SKIN: Anicteric. EYES: Show anicteric sclerae. MOUTH: Clear of lesions. There is no hypersalivation, but he has moist mucous membranes. NECK: Supple, no adenopathy. CHEST: Has diffuse rhonchorous sounds, but no wheezing. HEART: Regular rate and rhythm with no murmurs. ABDOMEN: Soft with good bowel sounds. There is no organomegaly, masses, or rebound tenderness noted. EXTREMITIES: Warm and thin with good distal pulses. NEUROLOGIC: He seems alert, but is difficult to discern orientation given his nonverbal status and Down syndrome. IMAGING STUDIES: As above and again showed distention of his esophagus, retained gastric contents, possible annular lesion or thickening in the distal esophagus in the setting of a hiatal hernia as well as considerable fecal contents throughout his colon. LABORATORY DATA: Shows a hemoglobin of 13 and white blood cell count of 4.3. IMPRESSION: A 56-year-old patient with Down syndrome, who is nonverbal, who presented with possibility of food impaction or continued symptoms from his upper gastrointestinal pathology. Because it did not appear that he was having any issues with esophageal impaction, I offered him several ounces of warm water, which he drank quickly and handled it well without vomiting. I asked the nurse to give him a little bit more water in another hour to see this goes down and if this does without any issues, I think it is reasonable to just start him on clears only to see how he tolerates this. This all may be related to delayed gastric emptying, more than esophageal pathology. Certainly, he needs further workup of his upper GI pathology and malignancy ruled out. I think he would be at high risk for endoscopy at this point if there are any issues with retained gastric contents and the possibility of aspiration and aspiration pneumonia. I would recommend he continue on his proton pump inhibitor as well for his esophagitis. MUKESH
[2016-11-23 14:59] VITALS: BP 104/66; PULSE 54; TEMP 36.3; O2SAT 98
[2016-11-23] MEDS ORDERED: ACETAMINOPHEN 500 MG TAB PO PRN (18:30)
--- NOTE | 2016-11-23 18:34 | Progress Note ---
Internal Med Progress Note Date of Service: Nov 23, 2016. Provider Documentation: SUBJECTIVE: pt non verbal ,appears to be comfortable diet advanced to full liquid , finished dinner with out any over sign of aspiration no hypoxia no fever or chills Sister present at bedside OBJECTIVE: Vital Signs-as noted below Exam: General-pt with down's syndrome , non verbal , unable to communicate , not in any apparent distress Lungs-diminished , with rales at base Heart-regular Abdomen-soft, Extremities-no edema Neuro-Down's syndrome with MR , Non verbal Lab data as noted below. ASSESSMENT & PLAN: DYSPHAGIA/ DILATED ESOPHAGUS recurrent episode CT chest : IMPRESSION: 1. Considerable distention of the thoracic esophagus throughout its entire length 2. This shows considerable retained gastric and esophageal content within the distended esophagus. 3. Probable annular lesion of the gastroesophageal junction. 4. Considerable fecal content throughout the colon consistent with fecal stasis. 5. Endoscopic evaluation is recommended to exclude an obstructing lesion. recent admission earlier this months with similar presentation recurrent repeated EGD with Esophageal dilatation Prior EGD's: October 11, [address] Hood showed reflux esophagitis, small HH, gastritis s/p biopsy (benign), gastric antral stenosis s/p dilation; EGD by Dr. Hood 11/11/16 showed benign-appearing esophageal stenosis- dilated, small HH GI eval requested appreciate input possible EGD on Friday by Dr Hood diet advanced to Full liquid with aspiration precaution , tolerating well HYPOTENSIVE EPISODE Had one BP 89/52 after admission Likely due to dehydration BP improved with IV hydration POSITIVE BLOOD CULTURE X 1 Blood culture 11/21/16 x 1 positive for gram positive bacilli Likely a contaminant Afebrile, no leukocytosis No infiltrate on CXR or CT chest Repeat blood cultures ordered ,will follow result MALNUTRITION Weight loss of approx 26 lb over 4 months as per his sister due to recurrent aspiration , severe dysphagia diet advanced to full liquid dietary consulted HYPOTHYROIDISM cont levothyroxine CHRONIC CONSTIPATION cont bowel regimen ENLARGED PROSTATE resumed Rapaflo and finasteride Bladder scan PRN retention GERD PPI DVT PROPHYLAXIS SCD's CODE STATUS Level 3 no intubation/ mech ventilation per his sister as per documentation on admission earlier this month DISPOSITION [facility] at a [facility] program services planner consulted for discharge planning PCP is Dr. Teixeira sister given update at bedside Vital Signs: Date Time Temp Pulse Resp B/P (MAP) Pulse Ox O2 Delivery O2 Flow Rate FiO2 11/24/16 15:03 36.5 63 20 112/67 (82) 92 Room Air 11/24/16 08:00 Room Air 11/24/16 07:23 36.5 50 18 86/57 (67) 99 Room Air 11/24/16 00:20 Room Air 11/23/16 23:24 36.5 70 16 129/66 (87) 95 Room Air 11/23/16 18:30 Room Air Lab Results:
[2016-11-23] MEDS: LACTULOSE SYRUP 20 GM/30 ML UDC PO SCH (21:32)
[2016-11-23] MEDS: SENNA 17.6 MG/10 ML UDP PO SCH (21:35)
[2016-11-23] MEDS: POLYETHYLENE (MIRALAX) 17 GM PACK PO SCH (21:37)
[2016-11-23] MEDS: DOCUSATE SODIUM 100 MG CAP PO SCH (21:38)
[2016-11-23] MEDS: LUBIPROSTONE 8 MCG CAP PO SCH (21:39)
[2016-11-23] MEDS: FINASTERIDE 5 MG TAB PO SCH (21:40)
[2016-11-23 23:24] VITALS: BP 129/66; PULSE 70; TEMP 36.5; O2SAT 95
[2016-11-24] MEDS: D5W AND LACTATED RINGERS 1,000 ML IV SCH (03:53)
[2016-11-24 07:23] VITALS: BP 86/57; PULSE 50; TEMP 36.5; O2SAT 99
[2016-11-24] MEDS: RAPAFLO: ORDER AWAITING ACTION SCH ×3 (08:00→16:44)
--- NOTE | 2016-11-24 11:39 | GASTROENTEROLOGY PROGRESS NOTE ---
DATE: 11/24/2016 SUBJECTIVE: Mr. Mantilla is resting comfortably in bed. He seems to be in no distress. He has been tolerating clears. He has had no vomiting. PHYSICAL EXAMINATION: VITAL SIGNS: During this visit, his most recent temperature is 36.5, pulse is 50, blood pressure is 86/57. SKIN: Anicteric, but pale. Mouth is clear of lesions. NECK: Supple. CHEST: Has some scattered rhonchi, but is otherwise clear. ABDOMEN: Benign with good bowel sounds. PSYCHIATRIC: He is alert but otherwise noncommunicative. EXTREMITIES: Warm with fair distal pulses. IMPRESSION AND PLAN: A 56-year-old gentleman, tolerating clears with a history of upper gastrointestinal pathology including esophageal stricturing and pyloric stricturing disease of unclear etiology. At this point, I would consider keeping him on clears to make sure he continues to tolerate this and potentially tomorrow morning, if he does start him on a soft diet. He should followup and it appears that he has seen Dr. Hood in the past and may need a repeat upper endoscopy to rule out more sinister pathology of his antral and pyloric disease. It is always a concern in his age group that this could represent malignancy versus benign scarring. MUKESH
[2016-11-24] MEDS: LACTULOSE SYRUP 20 GM/30 ML UDC PO SCH ×3 (12:09→20:30)
[2016-11-24] MEDS: LUBIPROSTONE 8 MCG CAP PO SCH ×2 (12:09→20:30)
[2016-11-24] MEDS: POLYETHYLENE (MIRALAX) 17 GM PACK PO SCH ×2 (12:10→20:31)
[2016-11-24] MEDS: SENNA 17.6 MG/10 ML UDP PO SCH ×3 (12:10→20:31)
[2016-11-24] MEDS: DOCUSATE SODIUM 100 MG CAP PO SCH ×3 (12:10→20:30)
[2016-11-24] MEDS: PANTOprazole INJ 40 MG in SYRINGE 0 ML IV SCH (12:11)
[2016-11-24] MEDS: CEROVITE ADV FORMULA TAB PO SCH (12:12)
[2016-11-24] MEDS: ASCORBIC ACID 500 MG TAB PO SCH (12:13)
[2016-11-24] MEDS: LEVOTHYROXINE SODIUM INJ 50 MCG in SYRINGE 0 ML IV SCH (14:25)
[2016-11-24 15:03] VITALS: BP 112/67; PULSE 63; TEMP 36.5; O2SAT 92
--- NOTE | 2016-11-24 16:10 | Progress Note ---
Internal Med Progress Note Date of Service: Nov 24, 2016. 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 ASSESSMENT & PLAN: SEVERE DYSPHAGIA/ DILATED ESOPHAGUS recurrent episode CT chest : IMPRESSION: 1. Considerable distention of the thoracic esophagus throughout its entire length 2. This shows considerable retained gastric and esophageal content within the distended esophagus. 3. Probable annular lesion of the gastroesophageal junction. 4. Considerable fecal content throughout the colon consistent with fecal stasis. 5. Endoscopic evaluation is recommended to exclude an obstructing lesion. recent admission earlier this months with similar presentation recurrent repeated EGD with Esophageal dilatation Prior EGD's: October 11, [address] Hood showed reflux esophagitis, small HH, gastritis s/p biopsy (benign), gastric antral stenosis s/p dilation; EGD by Dr. Hood 11/11/16 showed benign-appearing esophageal stenosis- dilated, small HH GI eval requested appreciate input diet advanced to Full liquid with aspiration precaution , tolerating well Ordered for NPO past midnight possible EGD on Friday by Dr Hood HYPOTENSIVE EPISODE Likely due to dehydration resolved with IV hydration tolerating full liquid diet well renal function stable D/C IVF POSITIVE BLOOD CULTURE X 1 Blood culture 11/21/16 x 1 positive for gram positive bacilli Likely a contaminant Afebrile, no leukocytosis No infiltrate on CXR or CT chest Repeat blood cultures : no growth MALNUTRITION Weight loss of approx 26 lb over 4 months as per his sister due to recurrent aspiration , severe dysphagia diet advanced to full liquid dietary consulted HYPOTHYROIDISM cont levothyroxine CHRONIC CONSTIPATION cont bowel regimen ENLARGED PROSTATE resumed Rapaflo and finasteride Bladder scan PRN retention GERD PPI DVT PROPHYLAXIS SCD's CODE STATUS Level 3 no intubation/ mech ventilation per his sister as per documentation on admission earlier this month DISPOSITION Lives at a penitentiary will return to [facility] after medically stable office services manager consulted for discharge planning PCP is Dr. Teixeira family given update at bedside Vital Signs: Date Time Temp Pulse Resp B/P (MAP) Pulse Ox O2 Delivery O2 Flow Rate FiO2 11/24/16 15:03 36.5 63 20 112/67 (82) 92 Room Air 11/24/16 08:00 Room Air 11/24/16 07:23 36.5 50 18 86/57 (67) 99 Room Air 11/24/16 00:20 Room Air 11/23/16 23:24 36.5 70 16 129/66 (87) 95 Room Air
[2016-11-24] MEDS: FINASTERIDE 5 MG TAB PO SCH (20:31)
[2016-11-24] MEDS: PANTOprazole SOD 40 MG TAB PO SCH (20:46)
[2016-11-24] MEDS: SUCRALFATE 1 GM/10 ML UDC PO SCH (20:47)
[2016-11-24 23:14] VITALS: BP 83/52; PULSE 60; TEMP 36.3; O2SAT 98
[2016-11-25 03:30] VITALS: BP 101/62; PULSE 59; O2SAT 95
[2016-11-25] MEDS: LEVOTHYROXINE 100 MCG TAB PO SCH (05:58)
[2016-11-25] MEDS: SUCRALFATE 1 GM/10 ML UDC PO SCH ×4 (05:58→21:06)
[2016-11-25 07:20] VITALS: BP 130/69; PULSE 66; TEMP 36.3; O2SAT 97
[2016-11-25] MEDS: RAPAFLO: ORDER AWAITING ACTION SCH ×4 (07:21→21:54)
[2016-11-25] MEDS: LUBIPROSTONE 8 MCG CAP PO SCH ×2 (07:48→20:09)
[2016-11-25] MEDS: PANTOprazole SOD 40 MG TAB PO SCH ×2 (07:49→20:09)
[2016-11-25] MEDS: POLYETHYLENE (MIRALAX) 17 GM PACK PO SCH ×2 (07:49→20:08)
[2016-11-25] MEDS: DOCUSATE SODIUM 100 MG CAP PO SCH ×3 (07:49→20:09)
[2016-11-25] MEDS: SENNA 17.6 MG/10 ML UDP PO SCH ×3 (07:49→20:09)
[2016-11-25] MEDS: ASCORBIC ACID 500 MG TAB PO SCH (07:49)
[2016-11-25] MEDS: CEROVITE ADV FORMULA TAB PO SCH (07:49)
[2016-11-25] MEDS: LACTULOSE SYRUP 20 GM/30 ML UDC PO SCH ×3 (07:49→20:09)
[2016-11-25 08:00] VITALS: O2SAT 97
[2016-11-25 11:47] VITALS: BP 130/69; PULSE 66; TEMP 36.3; O2SAT 97
--- NOTE | 2016-11-25 12:45 | Gastroenterology Progress Note ---
Progress Note Date of Service: Nov 25, 2016 Subjective Pt evaluation today including: conversation w/ family, physical exam Patient with dysphagia. Medications Current Inpatient Medications Medications (Trade) Dose Ordered Sig/Page Route Start Time Stop Time Status Last Admin Dose Admin Ioversol (Optiray 320) 116 ml UD PRN IV 11/22/16 21:30 11/26/16 21:29 Ondansetron HCl (Zofran Inj) 4 mg Q6H PRN IV 11/22/16 22:15 12/22/16 22:14 Miscellaneous (Iv Fluids Completed) 1 ea PRN PRN N/A 11/23/16 03:45 11/23/17 03:44 Acetaminophen (Tylenol Tab) 500 mg Q4H PRN PO 11/23/16 18:30 12/23/16 18:29 Ascorbic Acid (Vitamin C Tab) 500 mg QAM PO 11/24/16 08:00 12/24/16 07:59 11/24/16 12:13 500 MG Docusate Sodium (coLACE CAP) 100 mg TID PO 11/23/16 20:00 12/23/16 19:59 11/24/16 20:30 100 MG Finasteride (Proscar Tab) 5 mg HS PO 11/23/16 22:00 12/23/16 21:59 11/24/16 20:31 5 MG Multivitamins/ Minerals (Multivitamin W/ Minerals Tab) 1 tab QAM PO 11/24/16 08:00 12/24/16 07:59 11/24/16 12:12 1 TAB Lactulose (Chronulac Syrup) 20 gm TID PO 11/23/16 20:00 12/23/16 19:59 11/24/16 20:30 20 GM Lubiprostone (Amitiza) 24 mcg BID PO 11/23/16 20:00 12/23/16 19:59 11/24/16 20:30 24 MCG Polyethylene (Miralax Powder Packet) 17 gm BID PO 11/23/16 20:00 12/23/16 19:59 11/24/16 20:31 17 GM Miscellaneous Information (Order Awaiting Action) 1 ea QS N/A 11/24/16 00:00 12/24/16 00:00 Senna (Senokot Syrup) 17.6 mg TID PO 11/23/16 20:00 12/23/16 19:59 11/24/16 20:31 17.6 MG Levothyroxine Sodium (Synthroid Tab) 100 mcg DAILYBB PO 11/25/16 06:30 12/25/16 06:29 11/25/16 05:58 100 MCG Pantoprazole Sodium (Protonix Tab) 40 mg BID PO 11/24/16 20:00 12/24/16 19:59 11/24/16 20:46 40 MG Sucralfate (Carafate Susp) 1 gm ACHS PO 11/24/16 22:00 12/24/16 21:59 11/25/16 05:58 1 GM Objective Vital Signs Date Time Temp Pulse Resp B/P (MAP) Pulse Ox O2 Delivery O2 Flow Rate FiO2 11/25/16 12:31 36.3 53 20 94/52 (66) 98 Room Air 11/25/16 11:47 36.3 66 20 130/69 97 Room Air 11/25/16 08:00 97 Room Air 11/25/16 07:20 36.3 66 20 130/69 (89) 97 Room Air 11/25/16 03:30 59 101/62 (75) 95 Room Air 11/25/16 00:12 Room Air 11/24/16 23:14 36.3 60 18 83/52 (62) 98 Room Air 11/24/16 18:00 Room Air 11/24/16 15:03 36.5 63 20 112/67 (82) 92 Room Air Physical Exam General Appearance: no apparent distress Respiratory/Chest: lungs clear Abdomen: non tender, soft Assessment and Plan Assessment: 56 yo CM with dysphagia. Plan: Proceed with EGD.
[2016-11-25] MEDS ORDERED: MIDAZOLAM HCL 1 MG/ML 2ML VIAL ONE (12:57)
[2016-11-25] MEDS ORDERED: FENTANYL CITRATE INJ 50 MCG/1 ML 2 ML VIAL ONE (12:58)
[2016-11-25] MEDS ORDERED: LIDOCAINE HCL 2% 2 ML VIAL (20MG/ML) ONE (12:59)
[2016-11-25] MEDS ORDERED: PROPOFOL IV EMULSION 10 MG/ML 20 ML VIAL IV ONE (13:00)
[2016-11-25] MEDS ORDERED: ONDANSETRON INJ 2 MG/ML 2 ML VIAL ONE (13:00)
[2016-11-25] MEDS ORDERED: EpHEDrine SULFATE 50MG/5ML SYR ONE (13:20)
--- NOTE | 2016-11-25 13:22 | GI REPORT ---
Procedure Date: 11/25/2016 1:01 PM Procedure: Upper GI endoscopy Indications: Dysphagia Medicines: Monitored Anesthesia Care Complications: No immediate complications. Estimated Blood Loss: Estimated blood loss: none. Procedure: Pre-Anesthesia Assessment: - Prior to the procedure, a History and Physical was performed, and patient medications and allergies were reviewed. The patient's tolerance of previous anesthesia was also reviewed. The risks and benefits of the procedure and the sedation options and risks were discussed with the patient. All questions were answered, and informed consent was obtained. Prior Anticoagulants: The patient has taken no previous anticoagulant or antiplatelet agents. ASA Grade Assessment: III - A patient with severe systemic disease. After reviewing the risks and benefits, the patient was deemed in satisfactory condition to undergo the procedure. After obtaining informed consent, the endoscope was passed under direct vision. Throughout the procedure, the patient's blood pressure, pulse, and oxygen saturations were monitored continuously. The scope was introduced through the mouth, and advanced to the second part of duodenum. The upper GI endoscopy was accomplished without difficulty. The patient tolerated the procedure well. Findings: The esophagus was normal. The stomach was normal. The examined duodenum was normal. Impression: - Normal esophagus. - Normal stomach. - Normal examined duodenum. - No specimens collected. Recommendation: - [facility]. - Resume previous diet. - Aspiration precautions - No evidence of stricture or narrowing in the esophagus to explain symptoms. No evidence of peristalsis in the esophagus. Amos Hood, DO 11/25/2016 1:22:19 PM This report has been signed electronically. Note Initiated On: 11/25/2016 1:01 PM I attest to the content of the Intraoperative Record and orders documented therein, exceptions below
--- NOTE | 2016-11-25 14:07 | Anesthesiology Progress Note ---
Anesthesia Post Op Note Date & Time Nov 25, 2016 at 14:06 Vital Signs Pain Intensity: 0.0 Vital Signs Past 12 Hours Date Time Temp Pulse Resp B/P (MAP) Pulse Ox O2 Delivery O2 Flow Rate FiO2 11/25/16 13:52 65 16 90/48 (62) 95 Room Air 11/25/16 13:37 61 16 91/54 (66) 97 Room Air 11/25/16 13:22 59 16 99/51 (67) 97 Room Air 11/25/16 12:31 36.3 53 20 94/52 (66) 98 Room Air 11/25/16 11:47 36.3 66 20 130/69 97 Room Air 11/25/16 08:00 97 Room Air 11/25/16 07:20 36.3 66 20 130/69 (89) 97 Room Air 11/25/16 03:30 59 101/62 (75) 95 Room Air Notes Mental Status: alert / awake / arousable, participated in evaluation Pt Amnestic to Procedure: Yes Nausea / Vomiting: adequately controlled Pain: adequately controlled Airway Patency, RR, SpO2: stable & adequate BP & HR: stable & adequate Hydration State: stable & adequate Anesthetic Complications: no major complications apparent
[2016-11-25 14:25] VITALS: BP 104/62; PULSE 70; TEMP 36.2; O2SAT 94
[2016-11-25] MEDS: FINASTERIDE 5 MG TAB PO SCH (21:06)
--- NOTE | 2016-11-25 22:50 | Progress Note ---
Internal Med Progress Note Date of Service: Nov 25, 2016. 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 ASSESSMENT & PLAN: SEVERE DYSPHAGIA/ DILATED ESOPHAGUS recurrent episode CT chest : IMPRESSION: 1. Considerable distention of the thoracic esophagus throughout its entire length 2. This shows considerable retained gastric and esophageal content within the distended esophagus. 3. Probable annular lesion of the gastroesophageal junction. 4. Considerable fecal content throughout the colon consistent with fecal stasis. 5. Endoscopic evaluation is recommended to exclude an obstructing lesion. recent admission earlier this months with similar presentation recurrent repeated EGD with Esophageal dilatation Prior EGD's: October 11, [address] Hood showed reflux esophagitis, small HH, gastritis s/p biopsy (benign), gastric antral stenosis s/p dilation; EGD by Dr. Hood 11/11/16 showed benign-appearing esophageal stenosis- dilated, small HH GI eval requested appreciate input s/p EGD today : Findings: The esophagus was normal. The stomach was normal. The examined duodenum was normal. Impression: - Normal esophagus. - Normal stomach. - Normal examined duodenum. - No specimens collected. Recommendation: - Return patient to [facility] for [facility] care. - Resume previous diet. - Aspiration precautions - No evidence of stricture or narrowing in the esophagus to explain symptoms. No evidence of peristalsis in the esophagus. D/w the EGD finding with Dr Hood -not sure of if any effective treatment will be available form GI to this unfortunate pt may consider J tube -which can prevent aspiration -but given pt's Down's syndrome, severe MR , non verbal status -he may pull out the feeding tube will be difficult to keep him upright position during feeding , may not give quality of life there is other option of sending him to tertiary care -[facility] to assess esophageal tonometry /assess for nv stimulator -given pt's co morbidities may not be practical or beneficial for pt speech pathology consulted, pt been followed by Speech very closely , no evidence of dysphagia noted as per prior bed side eval prior VFSS showed no oropharyngeal difficulty , no aspiration , pt was able to clear food to esophagus, due to profound esophageal dysmotility-poor progression of food to stomach causing dilated esophagus , regurgitation of food I called pt's sister -given her brief update -family not sure of aggressive measure ,but do like to know option for same nutrition for pt HYPOTENSIVE EPISODE resolved , was hypotensive on presentation Likely due to dehydration resolved with IV hydration tolerating full liquid diet well renal function stable D/C IVF POSITIVE BLOOD CULTURE X 1 Blood culture 11/21/16 x 1 positive for gram positive bacilli Likely a contaminant Afebrile, no leukocytosis No infiltrate on CXR or CT chest Repeat blood cultures : no growth MALNUTRITION Weight loss of approx 26 lb over 4 months as per his sister due to recurrent aspiration , severe dysphagia diet advanced to full liquid dietary consulted HYPOTHYROIDISM cont levothyroxine CHRONIC CONSTIPATION cont bowel regimen ENLARGED PROSTATE resumed Rapaflo and finasteride Bladder scan PRN retention GERD PPI DVT PROPHYLAXIS SCD's CODE STATUS Level 3 no intubation/ mech ventilation per his sister as per documentation on admission earlier this month DISPOSITION Lives at a long term will return to [facility] after medically stable business services sales agent consulted for discharge planning PCP is Dr. Teixeira Sister given update over phone Vital Signs: Date Time Temp Pulse Resp B/P (MAP) Pulse Ox O2 Delivery O2 Flow Rate FiO2 11/26/16 08:00 100 Room Air 11/26/16 07:37 36.6 63 20 93/56 (68) 100 11/26/16 00:36 36.6 74 18 97/52 (67) 98 Room Air 11/26/16 00:20 Room Air 11/25/16 21:00 Room Air 11/25/16 14:25 36.2 70 16 104/62 (76) 94 Room Air 11/25/16 13:52 65 16 90/48 (62) 95 Room Air 11/25/16 13:37 61 16 91/54 (66) 97 Room Air 11/25/16 13:22 59 16 99/51 (67) 97 Room Air 11/25/16 12:31 36.3 53 20 94/52 (66) 98 Room Air 11/25/16 11:47 36.3 66 20 130/69 97 Room Air
[2016-11-26 00:36] VITALS: BP 97/52; PULSE 74; TEMP 36.6; O2SAT 98
[2016-11-26] MEDS: LEVOTHYROXINE 100 MCG TAB PO SCH (05:42)
[2016-11-26] MEDS: SUCRALFATE 1 GM/10 ML UDC PO SCH ×4 (05:42→21:25)
[2016-11-26] MEDS: LUBIPROSTONE 8 MCG CAP PO SCH ×2 (07:31→19:30)
[2016-11-26] MEDS: RAPAFLO: ORDER AWAITING ACTION SCH ×2 (07:31→16:00)
[2016-11-26] MEDS: POLYETHYLENE (MIRALAX) 17 GM PACK PO SCH ×2 (07:32→19:29)
[2016-11-26] MEDS: DOCUSATE SODIUM 100 MG CAP PO SCH ×3 (07:32→19:29)
[2016-11-26] MEDS: PANTOprazole SOD 40 MG TAB PO SCH ×2 (07:32→19:29)
[2016-11-26] MEDS: ASCORBIC ACID 500 MG TAB PO SCH (07:32)
[2016-11-26] MEDS: CEROVITE ADV FORMULA TAB PO SCH (07:32)
[2016-11-26] MEDS: LACTULOSE SYRUP 20 GM/30 ML UDC PO SCH ×3 (07:32→19:29)
[2016-11-26] MEDS: SENNA 17.6 MG/10 ML UDP PO SCH ×3 (07:32→19:28)
[2016-11-26 07:37] VITALS: BP 93/56; PULSE 63; TEMP 36.6; O2SAT 100
[2016-11-26 08:00] VITALS: O2SAT 100
[2016-11-26 14:59] VITALS: BP 97/63; PULSE 88; TEMP 36.5; O2SAT 100
--- NOTE | 2016-11-26 16:39 | Progress Note ---
Internal Med Progress Note Date of Service: Nov 26, 2016. Provider Documentation: SUBJECTIVE: Seen and examined at bedside Non verbal/ MR from down's syndrome Comfortable lying in bed Family at bedside Plan to involve palliative care today to identify goals of care OBJECTIVE: Vital Signs-as noted below Physical Exam: General Appearance:Moderately built and nourished, no apparent distress Head: normocephalic, Atraumatic Eyes: normal inspection, EOMI, PERRL Neck: supple, Trachea midline Respiratory/Chest: Normal breath sounds, CTA Cardiovascular: S1, S2, No murmur Abdomen/GI:Soft, Non tender, Bowel sounds present Extremities/Musculoskelatal:normal inspection, no edema Neurologic/Psych:grossly no focal neurological deficits, +MR, Downs syndrome Skin: normal color, warm Lab data as noted below. ASSESSMENT & PLAN: SEVERE DYSPHAGIA/ DILATED ESOPHAGUS recurrent episode CT chest : as below Prior EGD's: October 11, [address] Hood showed reflux esophagitis, small HH, gastritis s/p biopsy (benign), gastric antral stenosis s/p dilation; EGD by Dr. Hood 11/11/16 showed benign-appearing esophageal stenosis- dilated, small HH S/P EGD 11/25:as below Appreciate GI Input Discussed with GI by : not sure of if any effective treatment will be available form GI --may consider J tube -which can prevent aspiration -but given pt's Down's syndrome, severe MR , non verbal status: may not be proper solution as it would be difficult to keep him upright position during feeding, may not give quality of life --Other option of sending him to tertiary care -[place] to assess esophageal tonometry /assess for nv stimulator -given pt's co morbidities may not be practical or beneficial for pt speech pathology consulted. Aspiration precautions showed no evidence of dysphagia, oropharyngeal difficulty , no aspiration Discussed with family(sister): Will involve palliative care to identify goals of care HYPOTENSIVE EPISODE resolved Likely due to dehydration S/P IV fluids POSITIVE BLOOD CULTURE X 1 Blood culture 11/21/16 x 1 positive for gram positive bacilli Likely a contaminant Afebrile, no leukocytosis No infiltrate on CXR or CT chest Repeat blood cultures : no growth MALNUTRITION Weight loss of approx 26 lb over 4 months as per his sister due to recurrent aspiration , severe dysphagia diet as tolerated dietary consulted HYPOTHYROIDISM continue levothyroxine CHRONIC CONSTIPATION continue bowel regimen ENLARGED PROSTATE resumed Rapaflo and finasteride Bladder scan PRN retention GERD PPI DVT Px: SCD's CODE STATUS Level 3 no intubation/ mech ventilation per his sister as per documentation on admission earlier this month DISPOSITION Lives at a nursing home Plan to return to [facility] manager managed backup services consulted for discharge planning PCP is Dr. Teixeira PROCEDURES: CT chest: 1. Considerable distention of the thoracic esophagus throughout its entire length 2. This shows considerable retained gastric and esophageal content within the distended esophagus. 3. Probable annular lesion of the gastroesophageal junction. 4. Considerable fecal content throughout the colon consistent with fecal stasis. 5. Endoscopic evaluation is recommended to exclude an obstructing lesion. CXR: Negative chest EGD: Impression: - Normal esophagus. - Normal stomach. - Normal examined duodenum. - No specimens collected. Recommendation: - Return patient to [facility] for [facility] care. - Resume previous diet. - Aspiration precautions - No evidence of stricture or narrowing in the esophagus to explain symptoms. No evidence of peristalsis in the esophagus. speech/Swallow Eval recommendations: 1. Mechanical soft diet, slippery. Modify to full liquid should the patient have difficulty tolerating mechanical soft. 2. STRICT Aspiration and GERD precautions, straws OK as tolerated. Fully upright for meals and for 30 minutes after meals. Keep head of bed elevated to at lest 30 degress at all times (as the patient can tolerate), to include while sleeping. 3. Assist with feeding. Alternate solids and liquids. Monitor for oral pocketing. 4. Stringent oral care to reduce oral bacteria that can be aspirated in saliva. 5. Speech will follow for tolerance, further education as needed, and for results of palliative care consult. Vital Signs: Date Time Temp Pulse Resp B/P (MAP) Pulse Ox O2 Delivery O2 Flow Rate FiO2 11/26/16 16:00 Room Air 11/26/16 14:59 36.5 88 20 97/63 (74) 100 11/26/16 08:00 100 Room Air 11/26/16 07:37 36.6 63 20 93/56 (68) 100 11/26/16 00:36 36.6 74 18 97/52 (67) 98 Room Air 11/26/16 00:20 Room Air 11/25/16 21:00 Room Air
[2016-11-26] MEDS: FINASTERIDE 5 MG TAB PO SCH (21:25)
[2016-11-27 00:12] VITALS: BP 96/59; PULSE 75; TEMP 36.9; O2SAT 96
[2016-11-27] MEDS: LEVOTHYROXINE 100 MCG TAB PO SCH (06:06)
[2016-11-27] MEDS: SUCRALFATE 1 GM/10 ML UDC PO SCH ×4 (06:06→21:52)
[2016-11-27 07:13] VITALS: BP 85/54; PULSE 65; TEMP 36.5; O2SAT 93
[2016-11-27] MEDS: RAPAFLO: ORDER AWAITING ACTION SCH ×3 (07:19→15:34)
[2016-11-27] MEDS: CEROVITE ADV FORMULA TAB PO SCH (07:26)
[2016-11-27] MEDS: PANTOprazole SOD 40 MG TAB PO SCH ×2 (07:26→19:38)
[2016-11-27] MEDS: LACTULOSE SYRUP 20 GM/30 ML UDC PO SCH ×3 (07:26→19:37)
[2016-11-27] MEDS: DOCUSATE SODIUM 100 MG CAP PO SCH ×3 (07:26→19:38)
[2016-11-27] MEDS: LUBIPROSTONE 8 MCG CAP PO SCH ×2 (07:26→19:37)
[2016-11-27] MEDS: POLYETHYLENE (MIRALAX) 17 GM PACK PO SCH ×2 (07:26→19:37)
[2016-11-27] MEDS: SENNA 17.6 MG/10 ML UDP PO SCH ×3 (07:26→19:38)
[2016-11-27] MEDS: ASCORBIC ACID 500 MG TAB PO SCH (07:26)
[2016-11-27 08:00] VITALS: O2SAT 93
[2016-11-27 09:00] VITALS: BP 108/69; PULSE 70
--- NOTE | 2016-11-27 09:47 | Palliative Care Progress Note ---
Palliative Care Progress Note Date of Service Nov 27, 2016. Subjective Thank you for consult. Saw pt briefly, no family at bedside. Called phone # for sister as well as mother - NA - left msg on sister's phone to call when family available to meet with us. Objective Vital Signs Date Time Temp Pulse Resp B/P (MAP) Pulse Ox O2 Delivery O2 Flow Rate FiO2 11/27/16 08:00 93 Room Air 11/27/16 07:13 36.5 65 18 85/54 (64) 93 Room Air 11/27/16 00:12 36.9 75 20 96/59 (71) 96 Room Air 11/27/16 00:00 Room Air 11/26/16 16:00 Room Air 11/26/16 14:59 36.5 88 20 97/63 (74) 100
[2016-11-27 15:06] VITALS: BP 88/57; PULSE 60; TEMP 37; O2SAT 98
--- NOTE | 2016-11-27 18:09 | Palliative Care Consultation ---
Consultation Date of Consultation: Nov 27, 2016. Requesting Physician: Dr Lopez Attending Physician: Dr Vipin Rico Reason for Consultation: Determine goals of care, discuss treatment options. History of Present Illness Pt is a 56 yo male with Down's Syndrome. Pt has been non-verbal all his life. His mother has been his primary caregiver until she was in her late 80's. Pt has been at the [facility] skilled nursing since July as his mother is no longer able to care for him. He has had problems with constipation all his life - it had been managed with lactulose up until July when he required admission for disimpaction. He has undergone several EGD's and dilation of esophagus. he has been doing well until 11/21 when he refused to eat and was drooling. He was sent to the ER and was found to have a dilated esophagus with retained contents on CT scan as well as considerable stool throughout the colon, c/w fecal stasis. . He again underwent EGD on 11/25 - the contents had cleared, the esophagus and stomach appeared normal, no stricture or narrowing was noted. It was also noted that there was no esophageal peristalsis. Pt has been losing weight , he has been eating well off and on. He has been on a soft diet with occasional coughing. He also has times when he refuses food and liquids. He has a h/o hypothyroidism and is on Synthroid as well as BPH - on Rapaflo and Proscar. Family reports that he would likely pull out a feeding tube . Discussed his prognosis as well as treatment options. Family meeting with [facility] facility tomorrow - gave them questins to ask them to help determine the right place to continue his care. Discussed likely continued disease progression and likely disease course. Past Medical/Surgical History Medical History: Down's Syndrome - severely affected, non verbal , did not walk until somewhere between ages 2 and 4. Family knows his vocalizations and facial expression and "guess" what he wants. Chronic constipation, BPH, hypothyroid, hiatal hernia, urinary retention. Surgical History: Prostate , EGD with dilation Family History + for cancer, DM, HTN Social History Smoking Status: Never Smoker History of Alcohol Use: No Drug Use: none Marital Status: single Housing Status: other (skilled nursing) Occupation Status: disabled Review of Systems Constitutional: + weight loss Eyes: + problem reported (dysconjugate gaze), No worsening of vision ENT: + trouble swallowing Respiratory: + cough, No shortness of breath Cardiac: No edema Abdomen: + constipation, No pain Musculoskeletal: No swelling Male : + problem reported (urinary retention) Neurologic: + problem reported (Mental retardation - severe) Heme: No abnormal bleeding/bruising Skin: No new/changing skin lesions Allergies Coded Allergies: Azithromycin (Verified Allergy, Unknown, flat line, 11/08/16) Medications Current Inpatient Medications Medications (Trade) Dose Ordered Sig/Page Route Start Time Stop Time Status Last Admin Dose Admin Ondansetron HCl (Zofran Inj) 4 mg Q6H PRN IV 11/22/16 22:15 12/22/16 22:14 Miscellaneous (Iv Fluids Completed) 1 ea PRN PRN N/A 11/23/16 03:45 11/23/17 03:44 Acetaminophen (Tylenol Tab) 500 mg Q4H PRN PO 11/23/16 18:30 12/23/16 18:29 Ascorbic Acid (Vitamin C Tab) 500 mg QAM PO 11/24/16 08:00 12/24/16 07:59 11/27/16 07:26 500 MG Docusate Sodium (coLACE CAP) 100 mg TID PO 11/23/16 20:00 12/23/16 19:59 11/27/16 13:18 100 MG Finasteride (Proscar Tab) 5 mg HS PO 11/23/16 22:00 12/23/16 21:59 11/26/16 21:25 5 MG Multivitamins/ Minerals (Multivitamin W/ Minerals Tab) 1 tab QAM PO 11/24/16 08:00 12/24/16 07:59 11/27/16 07:26 1 TAB Lactulose (Chronulac Syrup) 20 gm TID PO 11/23/16 20:00 12/23/16 19:59 11/27/16 13:18 20 GM Lubiprostone (Amitiza) 24 mcg BID PO 11/23/16 20:00 12/23/16 19:59 11/27/16 07:26 24 MCG Polyethylene (Miralax Powder Packet) 17 gm BID PO 11/23/16 20:00 12/23/16 19:59 11/27/16 07:26 17 GM Miscellaneous Information (Order Awaiting Action) 1 ea QS N/A 11/24/16 00:00 12/24/16 00:00 Senna (Senokot Syrup) 17.6 mg TID PO 11/23/16 20:00 12/23/16 19:59 11/27/16 13:18 17.6 MG Levothyroxine Sodium (Synthroid Tab) 100 mcg DAILYBB PO 11/25/16 06:30 12/25/16 06:29 11/27/16 06:06 100 MCG Pantoprazole Sodium (Protonix Tab) 40 mg BID PO 11/24/16 20:00 12/24/16 19:59 11/27/16 07:26 40 MG Sucralfate (Carafate Susp) 1 gm ACHS PO 11/24/16 22:00 12/24/16 21:59 11/27/16 16:56 1 GM Physical Exam Date Time Temp Pulse Resp B/P (MAP) Pulse Ox O2 Delivery O2 Flow Rate FiO2 11/27/16 16:00 Room Air 11/27/16 15:06 37.0 60 20 88/57 (67) 98 Room Air 11/27/16 09:00 70 108/69 (82) 11/27/16 08:00 93 Room Air 11/27/16 07:13 36.5 65 18 85/54 (64) 93 Room Air 11/27/16 00:12 36.9 75 20 96/59 (71) 96 Room Air 11/27/16 00:00 Room Air General Appearance: no apparent distress Eyes: + pertinent finding (dysconjugate gaze) Neck: supple Respiratory: + decreased breath sounds Cardiovascular: regular rate, rhythm, no murmur Abdomen: non tender, soft, + pertinent finding (poor bowel sounds) Musculoskeletal: normal tone Neurologic/Psychiatric: + pertinent finding (non verbal, unable to communicate needs) Skin: warm/dry Assessment & Plan Palliative Performance Scale: 50 % (1) Down's syndrome Status: Chronic Assessment & Plan: Severely affected, non verbal (2) Dysphagia Status: Chronic Assessment & Plan: Increasing - discussed role of tube feeds, but given poor peristalsis , along with the fact that he will very likely pull it out - family does not want to pursue GT placement at this time. Will allow pt to eat what he wants , when he wants and family is accepting of recurrent aspiration. Family also voiced that they do not want to keep returning to the hospital and would prefer comfort care. Family to meet with [facility] facility and find out what their ability is to provide comfort care with or without Hospice involvement. (3) Constipation Status: Acute Assessment & Plan: Continue current bowel regime, may require disimpaction/ enemas family will meet with case management after meeting at [facility] facility . Family to discuss goals of care and if they would want Hospice assistance. Pt would likely be eligible for hospice if family no longer wants ER/hospital admissions and want only comfort care. Total time 100 min with > 50% of time spent at bedside discussing prognosis , treatment options and goals of care.
--- NOTE | 2016-11-27 18:53 | Progress Note ---
Internal Med Progress Note Date of Service: Nov 27, 2016. Provider Documentation: SUBJECTIVE: Seen and examined at bedside Non verbal/ MR from down's syndrome Comfortable lying in bed Family at bedside Appreciate palliative care input poor appetite but no aspiration issues per staff OBJECTIVE: Vital Signs-as noted below Physical Exam: General Appearance:Moderately built and nourished, no apparent distress Head: normocephalic, Atraumatic Eyes: normal inspection, EOMI, PERRL Neck: supple, Trachea midline Respiratory/Chest: Normal breath sounds, CTA Cardiovascular: S1, S2, No murmur Abdomen/GI:Soft, Non tender, Bowel sounds present Extremities/Musculoskelatal:normal inspection, no edema Neurologic/Psych:grossly no focal neurological deficits, +MR, Downs syndrome Skin: normal color, warm Lab data as noted below. ASSESSMENT & PLAN: SEVERE DYSPHAGIA/ DILATED ESOPHAGUS recurrent episode CT chest : as below Prior EGD's: October 11, [address] Hood showed reflux esophagitis, small HH, gastritis s/p biopsy (benign), gastric antral stenosis s/p dilation; EGD by Dr. Hood 11/11/16 showed benign-appearing esophageal stenosis- dilated, small HH S/P EGD 11/25:as below Appreciate GI Input Discussed with GI by : not sure of if any effective treatment will be available form GI --may consider J tube -which can prevent aspiration -but given pt's Down's syndrome, severe MR , non verbal status: may not be proper solution as it would be difficult to keep him upright position during feeding, may not give quality of life --Other option of sending him to tertiary care -[facility] to assess esophageal tonometry /assess for nv stimulator -given pt's co morbidities may not be practical or beneficial for pt speech pathology consulted. Aspiration precautions showed no evidence of dysphagia, oropharyngeal difficulty , no aspiration Discussed with family(sister): Involved palliative care to identify goals of care Appreciate Palliative care input Family planning to consider comfort measures only. HYPOTENSIVE EPISODE Likely due to dehydration S/P IV fluids monitor POSITIVE BLOOD CULTURE X 1 Blood culture 11/21/16 x 1 positive for gram positive bacilli Likely a contaminant Afebrile, no leukocytosis No infiltrate on CXR or CT chest Repeat blood cultures : no growth MALNUTRITION Weight loss of approx 26 lb over 4 months as per his sister due to recurrent aspiration , severe dysphagia diet as tolerated dietary consulted HYPOTHYROIDISM continue levothyroxine CHRONIC CONSTIPATION continue bowel regimen ENLARGED PROSTATE resumed Rapaflo and finasteride Bladder scan PRN retention GERD PPI DVT Px: SCD's CODE STATUS Level 3 no intubation/ mech ventilation per his sister as per documentation on admission earlier this month DISPOSITION Lives at a alf Plan to return to [facility] consulting services manager consulted for discharge planning PCP is Dr. Teixeira PROCEDURES: CT chest: 1. Considerable distention of the thoracic esophagus throughout its entire length 2. This shows considerable retained gastric and esophageal content within the distended esophagus. 3. Probable annular lesion of the gastroesophageal junction. 4. Considerable fecal content throughout the colon consistent with fecal stasis. 5. Endoscopic evaluation is recommended to exclude an obstructing lesion. CXR: Negative chest EGD: Impression: - Normal esophagus. - Normal stomach. - Normal examined duodenum. - No specimens collected. Recommendation: - Return patient to [facility] for ongoing care. - Resume previous diet. - Aspiration precautions - No evidence of stricture or narrowing in the esophagus to explain symptoms. No evidence of peristalsis in the esophagus. speech/Swallow Eval recommendations: 1. Mechanical soft diet, slippery. Modify to full liquid should the patient have difficulty tolerating mechanical soft. 2. STRICT Aspiration and GERD precautions, straws OK as tolerated. Fully upright for meals and for 30 minutes after meals. Keep head of bed elevated to at lest 30 degress at all times (as the patient can tolerate), to include while sleeping. 3. Assist with feeding. Alternate solids and liquids. Monitor for oral pocketing. 4. Stringent oral care to reduce oral bacteria that can be aspirated in saliva. 5. Speech will follow for tolerance, further education as needed, and for results of palliative care consult. Vital Signs: Date Time Temp Pulse Resp B/P (MAP) Pulse Ox O2 Delivery O2 Flow Rate FiO2 11/27/16 16:00 Room Air 11/27/16 15:06 37.0 60 20 88/57 (67) 98 Room Air 11/27/16 09:00 70 108/69 (82) 11/27/16 08:00 93 Room Air 11/27/16 07:13 36.5 65 18 85/54 (64) 93 Room Air 11/27/16 00:12 36.9 75 20 96/59 (71) 96 Room Air 11/27/16 00:00 Room Air
[2016-11-27] MEDS: FINASTERIDE 5 MG TAB PO SCH (21:52)
[2016-11-28 00:32] VITALS: BP 95/60; PULSE 78; TEMP 36.6; O2SAT 100
[2016-11-28] MEDS: SUCRALFATE 1 GM/10 ML UDC PO SCH ×4 (06:02→22:03)
[2016-11-28] MEDS: LEVOTHYROXINE 100 MCG TAB PO SCH (06:03)
[2016-11-28] MEDS: LUBIPROSTONE 8 MCG CAP PO SCH ×2 (08:33→20:12)
[2016-11-28] MEDS: POLYETHYLENE (MIRALAX) 17 GM PACK PO SCH ×2 (08:34→20:12)
[2016-11-28] MEDS: SENNA 17.6 MG/10 ML UDP PO SCH ×3 (08:35→20:12)
[2016-11-28] MEDS: PANTOprazole SOD 40 MG TAB PO SCH ×2 (08:36→20:12)
[2016-11-28] MEDS: ASCORBIC ACID 500 MG TAB PO SCH (08:36)
[2016-11-28] MEDS: DOCUSATE SODIUM 100 MG CAP PO SCH ×3 (08:36→20:11)
[2016-11-28] MEDS: CEROVITE ADV FORMULA TAB PO SCH (08:36)
[2016-11-28] MEDS: LACTULOSE SYRUP 20 GM/30 ML UDC PO SCH ×3 (08:38→20:11)
[2016-11-28] MEDS: RAPAFLO: ORDER AWAITING ACTION SCH ×4 (08:39→23:22)
[2016-11-28 15:31] VITALS: BP 86/57; PULSE 67; TEMP 36.8; O2SAT 98
--- NOTE | 2016-11-28 16:08 | Progress Note ---
Internal Med Progress Note Date of Service: Nov 28, 2016. Provider Documentation: SUBJECTIVE: Seen and examined at bedside Non verbal/ MR from down's syndrome Had 2 BMs overnight Comfortable No family at bedside poor appetite but no aspiration issues per staff Awaiting for placement OBJECTIVE: Vital Signs-as noted below Physical Exam: General Appearance:Moderately built and nourished, no apparent distress Head: normocephalic, Atraumatic Eyes: normal inspection, EOMI, PERRL Neck: supple, Trachea midline Respiratory/Chest: Normal breath sounds, CTA Cardiovascular: S1, S2, No murmur Abdomen/GI:Soft, Non tender, Bowel sounds present Extremities/Musculoskelatal:normal inspection, no edema Neurologic/Psych:grossly no focal neurological deficits, +MR, Downs syndrome Skin: normal color, warm Lab data as noted below. ASSESSMENT & PLAN: SEVERE DYSPHAGIA/ DILATED ESOPHAGUS recurrent episode CT chest : as below Prior EGD's: October 11, [address] Hood showed reflux esophagitis, small HH, gastritis s/p biopsy (benign), gastric antral stenosis s/p dilation; EGD by Dr. Hood 11/11/16 showed benign-appearing esophageal stenosis- dilated, small HH S/P EGD 11/25:as below Appreciate GI Input Discussed with GI by : not sure of if any effective treatment will be available form GI --may consider J tube -which can prevent aspiration -but given pt's Down's syndrome, severe MR , non verbal status: may not be proper solution as it would be difficult to keep him upright position during feeding, may not give quality of life --Other option of sending him to tertiary care -[facility] to assess esophageal tonometry /assess for nv stimulator -given pt's co morbidities may not be practical or beneficial for pt speech pathology consulted. Aspiration precautions showed no evidence of dysphagia, oropharyngeal difficulty , no aspiration Discussed with family(sister): Involved palliative care to identify goals of care Appreciate Palliative care input Family planning to consider comfort measures only. Awaiting placement HYPOTENSIVE EPISODE Likely due to dehydration S/P IV fluids monitor POSITIVE BLOOD CULTURE X 1 Blood culture 11/21/16 x 1 positive for gram positive bacilli Likely a contaminant Afebrile, no leukocytosis No infiltrate on CXR or CT chest Repeat blood cultures : no growth MALNUTRITION Weight loss of approx 26 lb over 4 months as per his sister due to recurrent aspiration , severe dysphagia diet as tolerated dietary consulted HYPOTHYROIDISM continue levothyroxine CHRONIC CONSTIPATION continue bowel regimen ENLARGED PROSTATE resumed Rapaflo and finasteride Bladder scan PRN retention GERD PPI DVT Px: SCD's CODE STATUS Level 3 no intubation/ mech ventilation per his sister as per documentation on admission earlier this month DISPOSITION Lives at a [facility] Plan to return to [facility] if able managed services consultant consulted for discharge planning PCP is Dr. Teixeira Awaiting for placement PROCEDURES: CT chest: 1. Considerable distention of the thoracic esophagus throughout its entire length 2. This shows considerable retained gastric and esophageal content within the distended esophagus. 3. Probable annular lesion of the gastroesophageal junction. 4. Considerable fecal content throughout the colon consistent with fecal stasis. 5. Endoscopic evaluation is recommended to exclude an obstructing lesion. CXR: Negative chest EGD: Impression: - Normal esophagus. - Normal stomach. - Normal examined duodenum. - No specimens collected. Recommendation: - Return patient to [facility] for ongoing care. - Resume previous diet. - Aspiration precautions - No evidence of stricture or narrowing in the esophagus to explain symptoms. No evidence of peristalsis in the esophagus. speech/Swallow Eval recommendations: 1. Mechanical soft diet, slippery. Modify to full liquid should the patient have difficulty tolerating mechanical soft. 2. STRICT Aspiration and GERD precautions, straws OK as tolerated. Fully upright for meals and for 30 minutes after meals. Keep head of bed elevated to at lest 30 degress at all times (as the patient can tolerate), to include while sleeping. 3. Assist with feeding. Alternate solids and liquids. Monitor for oral pocketing. 4. Stringent oral care to reduce oral bacteria that can be aspirated in saliva. 5. Speech will follow for tolerance, further education as needed, and for results of palliative care consult. Vital Signs: Date Time Temp Pulse Resp B/P (MAP) Pulse Ox O2 Delivery O2 Flow Rate FiO2 11/28/16 16:07 Room Air 11/28/16 15:31 36.8 67 18 86/57 (67) 98 Room Air 11/28/16 08:00 Room Air 11/28/16 00:32 36.6 78 18 95/60 (72) 100 Room Air 11/28/16 00:00 Room Air 11/27/16 20:00 Room Air
[2016-11-28] MEDS: FINASTERIDE 5 MG TAB PO SCH (20:14)
[2016-11-29] MEDS: SUCRALFATE 1 GM/10 ML UDC PO SCH ×4 (06:22→20:30)
[2016-11-29] MEDS: LEVOTHYROXINE 100 MCG TAB PO SCH (06:22)
[2016-11-29 07:55] VITALS: BP 96/64; PULSE 95; TEMP 36.4; O2SAT 97
[2016-11-29] MEDS: RAPAFLO: ORDER AWAITING ACTION SCH ×3 (08:00→23:31)
[2016-11-29] MEDS: ASCORBIC ACID 500 MG TAB PO SCH (10:15)
[2016-11-29] MEDS: SENNA 17.6 MG/10 ML UDP PO SCH ×3 (10:15→20:32)
[2016-11-29] MEDS: PANTOprazole SOD 40 MG TAB PO SCH ×2 (10:15→20:31)
[2016-11-29] MEDS: LACTULOSE SYRUP 20 GM/30 ML UDC PO SCH ×3 (10:15→20:30)
[2016-11-29] MEDS: DOCUSATE SODIUM 100 MG CAP PO SCH ×3 (10:15→20:30)
[2016-11-29] MEDS: CEROVITE ADV FORMULA TAB PO SCH (10:15)
[2016-11-29] MEDS: POLYETHYLENE (MIRALAX) 17 GM PACK PO SCH ×2 (10:16→20:31)
[2016-11-29] MEDS: LUBIPROSTONE 8 MCG CAP PO SCH ×2 (10:16→20:32)
[2016-11-29 15:47] VITALS: BP 96/60; PULSE 75; TEMP 36.6; O2SAT 97
--- NOTE | 2016-11-29 15:51 | Progress Note ---
Internal Med Progress Note Date of Service: Nov 29, 2016. Provider Documentation: SUBJECTIVE: Seen and examined at bedside Non verbal/ MR from down's syndrome Had 1 BM today No issues per staff Comfortable No family at bedside poor appetite but no aspiration issues Awaiting for placement OBJECTIVE: Vital Signs-as noted below Physical Exam: General Appearance:Moderately built and nourished, no apparent distress Head: normocephalic, Atraumatic Eyes: normal inspection, EOMI, PERRL Neck: supple, Trachea midline Respiratory/Chest: Normal breath sounds, CTA Cardiovascular: S1, S2, No murmur Abdomen/GI:Soft, Non tender, Bowel sounds present Extremities/Musculoskelatal:normal inspection, no edema Neurologic/Psych:grossly no focal neurological deficits, +MR, Downs syndrome Skin: normal color, warm Lab data as noted below. ASSESSMENT & PLAN: SEVERE DYSPHAGIA/ DILATED ESOPHAGUS recurrent episode CT chest : as below Prior EGD's: October 11, [address] Hood showed reflux esophagitis, small HH, gastritis s/p biopsy (benign), gastric antral stenosis s/p dilation; EGD by Dr. Hood 11/11/16 showed benign-appearing esophageal stenosis- dilated, small HH S/P EGD 11/25:as below Appreciate GI Input Discussed with GI by : not sure of if any effective treatment will be available form GI --may consider J tube -which can prevent aspiration -but given pt's Down's syndrome, severe MR , non verbal status: may not be proper solution as it would be difficult to keep him upright position during feeding, may not give quality of life --Other option of sending him to tertiary care -[facility] to assess esophageal tonometry /assess for nv stimulator -given pt's co morbidities may not be practical or beneficial for pt speech pathology consulted. Aspiration precautions showed no evidence of dysphagia, oropharyngeal difficulty , no aspiration Discussed with family(sister): Involved palliative care to identify goals of care Appreciate Palliative care input Family planning to consider comfort measures only. Awaiting for placement HYPOTENSIVE EPISODE Likely due to dehydration S/P IV fluids monitor POSITIVE BLOOD CULTURE X 1 Blood culture 11/21/16 x 1 positive for gram positive bacilli Likely a contaminant Afebrile, no leukocytosis No infiltrate on CXR or CT chest Repeat blood cultures : no growth MALNUTRITION Weight loss of approx 26 lb over 4 months as per his sister due to recurrent aspiration , severe dysphagia diet as tolerated dietary consulted HYPOTHYROIDISM continue levothyroxine CHRONIC CONSTIPATION continue bowel regimen ENLARGED PROSTATE resumed Rapaflo and finasteride Bladder scan PRN retention GERD PPI DVT Px: SCD's CODE STATUS Level 3 no intubation/ mech ventilation per his sister as per documentation on admission earlier this month DISPOSITION Lives at a custodial Plan to return to [facility] likely on 12/04 volunteer services manager working on discharge planning PCP is Dr. Teixeira Awaiting for placement PROCEDURES: CT chest: 1. Considerable distention of the thoracic esophagus throughout its entire length 2. This shows considerable retained gastric and esophageal content within the distended esophagus. 3. Probable annular lesion of the gastroesophageal junction. 4. Considerable fecal content throughout the colon consistent with fecal stasis. 5. Endoscopic evaluation is recommended to exclude an obstructing lesion. CXR: Negative chest EGD: Impression: - Normal esophagus. - Normal stomach. - Normal examined duodenum. - No specimens collected. Recommendation: - Return patient to [facility] for ongoing care. - Resume previous diet. - Aspiration precautions - No evidence of stricture or narrowing in the esophagus to explain symptoms. No evidence of peristalsis in the esophagus. speech/Swallow Eval recommendations: 1. Mechanical soft diet, slippery. Modify to full liquid should the patient have difficulty tolerating mechanical soft. 2. STRICT Aspiration and GERD precautions, straws OK as tolerated. Fully upright for meals and for 30 minutes after meals. Keep head of bed elevated to at lest 30 degress at all times (as the patient can tolerate), to include while sleeping. 3. Assist with feeding. Alternate solids and liquids. Monitor for oral pocketing. 4. Stringent oral care to reduce oral bacteria that can be aspirated in saliva. 5. Speech will follow for tolerance, further education as needed, and for results of palliative care consult. Vital Signs: Date Time Temp Pulse Resp B/P (MAP) Pulse Ox O2 Delivery O2 Flow Rate FiO2 11/29/16 08:00 Room Air 11/29/16 07:55 36.4 95 20 96/64 (75) 97 Room Air 11/29/16 04:00 Room Air 11/29/16 00:00 Room Air 11/28/16 20:00 Room Air 11/28/16 16:07 Room Air
[2016-11-29] MEDS: FINASTERIDE 5 MG TAB PO SCH (20:31)
--- NOTE | 2016-11-29 20:32 | Palliative Care Progress Note ---
Palliative Care Progress Note Date of Service Nov 29, 2016. Subjective Pt evaluation today including: conversation w/ family Spoke with sister Christina, they are waiting to here from [facility] , if they are able to meet pt's needs or if he will need LTC placement. Sister to keep us updated. Objective Vital Signs Date Time Temp Pulse Resp B/P (MAP) Pulse Ox O2 Delivery O2 Flow Rate FiO2 11/29/16 16:00 Room Air 11/29/16 15:47 36.6 75 18 96/60 (72) 97 Room Air 11/29/16 08:00 Room Air 11/29/16 07:55 36.4 95 20 96/64 (75) 97 Room Air 11/29/16 04:00 Room Air 11/29/16 00:00 Room Air Assessment and Plan (1) Down's syndrome Status: Chronic (2) Dysphagia Status: Chronic (3) Constipation Status: Acute Palliative Performance Scale: 50 %
[2016-11-29 23:24] VITALS: BP 98/62; PULSE 62; TEMP 36.6; O2SAT 93
[2016-11-30 01:22] VITALS: O2SAT 93
[2016-11-30] MEDS: SUCRALFATE 1 GM/10 ML UDC PO SCH ×4 (06:13→20:55)
[2016-11-30] MEDS: LEVOTHYROXINE 100 MCG TAB PO SCH (06:13)
[2016-11-30 07:51] VITALS: BP 87/59; PULSE 64; TEMP 35.9; O2SAT 99
[2016-11-30] MEDS: RAPAFLO: ORDER AWAITING ACTION SCH ×3 (08:00→23:13)
[2016-11-30] MEDS: LUBIPROSTONE 8 MCG CAP PO SCH ×2 (08:23→20:55)
[2016-11-30] MEDS: POLYETHYLENE (MIRALAX) 17 GM PACK PO SCH ×2 (08:23→20:00)
[2016-11-30] MEDS: SENNA 17.6 MG/10 ML UDP PO SCH ×3 (08:23→20:00)
[2016-11-30] MEDS: CEROVITE ADV FORMULA TAB PO SCH (08:24)
[2016-11-30] MEDS: PANTOprazole SOD 40 MG TAB PO SCH ×2 (08:24→20:55)
[2016-11-30] MEDS: ASCORBIC ACID 500 MG TAB PO SCH (08:24)
[2016-11-30] MEDS: LACTULOSE SYRUP 20 GM/30 ML UDC PO SCH ×3 (08:24→20:55)
[2016-11-30] MEDS: DOCUSATE SODIUM 100 MG CAP PO SCH ×3 (08:24→20:00)
--- NOTE | 2016-11-30 12:54 | Progress Note ---
Internal Med Progress Note Date of Service: Nov 30, 2016. Provider Documentation: SUBJECTIVE: Seen and examined at bedside Doing well per staff Non verbal/ MR from down's syndrome Comfortable No family at bedside No signs of aspiration, tolerating diet Awaiting for placement OBJECTIVE: Vital Signs-as noted below Physical Exam: General Appearance:Moderately built and nourished, no apparent distress Head: normocephalic, Atraumatic Eyes: normal inspection, EOMI, PERRL Neck: supple, Trachea midline Respiratory/Chest: Normal breath sounds, CTA Cardiovascular: S1, S2, No murmur Abdomen/GI:Soft, Non tender, Bowel sounds present Extremities/Musculoskelatal:normal inspection, no edema Neurologic/Psych:grossly no focal neurological deficits, +MR, Downs syndrome Skin: normal color, warm Lab data as noted below. ASSESSMENT & PLAN: SEVERE DYSPHAGIA/ DILATED ESOPHAGUS recurrent episode CT chest : as below Prior EGD's: October 11, [address] Hood showed reflux esophagitis, small HH, gastritis s/p biopsy (benign), gastric antral stenosis s/p dilation; EGD by Dr. Hood 11/11/16 showed benign-appearing esophageal stenosis- dilated, small HH S/P EGD 11/25:as below Appreciate GI Input Discussed with GI by : not sure of if any effective treatment will be available form GI --may consider J tube -which can prevent aspiration -but given pt's Down's syndrome, severe MR , non verbal status: may not be proper solution as it would be difficult to keep him upright position during feeding, may not give quality of life --Other option of sending him to tertiary care -[place] to assess esophageal tonometry /assess for nv stimulator -given pt's co morbidities may not be practical or beneficial for pt speech pathology consulted. Aspiration precautions showed no evidence of dysphagia, oropharyngeal difficulty , no aspiration Discussed with family(sister): Involved palliative care to identify goals of care Family planning to consider comfort measures only. Awaiting for placement Palliative care following HYPOTENSIVE EPISODE Likely due to dehydration S/P IV fluids monitor POSITIVE BLOOD CULTURE X 1 Blood culture 11/21/16 x 1 positive for gram positive bacilli Likely a contaminant Afebrile, no leukocytosis No infiltrate on CXR or CT chest Repeat blood cultures : no growth MALNUTRITION Weight loss of approx 26 lb over 4 months as per his sister due to recurrent aspiration , severe dysphagia diet as tolerated dietary consulted HYPOTHYROIDISM continue levothyroxine CHRONIC CONSTIPATION continue bowel regimen ENLARGED PROSTATE resumed Rapaflo and finasteride Bladder scan PRN retention GERD PPI DVT Px: SCD's CODE STATUS Level 3 no intubation/ mech ventilation per his sister as per documentation on admission earlier this month DISPOSITION Lives at a [facility] Plan to return to [facility] likely on 12/04 vocational services specialist working on discharge planning PCP is Dr. Teixeira Awaiting for placement PROCEDURES: CT chest: 1. Considerable distention of the thoracic esophagus throughout its entire length 2. This shows considerable retained gastric and esophageal content within the distended esophagus. 3. Probable annular lesion of the gastroesophageal junction. 4. Considerable fecal content throughout the colon consistent with fecal stasis. 5. Endoscopic evaluation is recommended to exclude an obstructing lesion. CXR: Negative chest EGD: Impression: - Normal esophagus. - Normal stomach. - Normal examined duodenum. - No specimens collected. Recommendation: - [facility] to [facility]. - Resume previous diet. - Aspiration precautions - No evidence of stricture or narrowing in the esophagus to explain symptoms. No evidence of peristalsis in the esophagus. speech/Swallow Eval recommendations: 1. Mechanical soft diet, slippery. Modify to full liquid should the patient have difficulty tolerating mechanical soft. 2. STRICT Aspiration and GERD precautions, straws OK as tolerated. Fully upright for meals and for 30 minutes after meals. Keep head of bed elevated to at lest 30 degress at all times (as the patient can tolerate), to include while sleeping. 3. Assist with feeding. Alternate solids and liquids. Monitor for oral pocketing. 4. Stringent oral care to reduce oral bacteria that can be aspirated in saliva. 5. Speech will follow for tolerance, further education as needed, and for results of palliative care consult. Vital Signs: Date Time Temp Pulse Resp B/P (MAP) Pulse Ox O2 Delivery O2 Flow Rate FiO2 11/30/16 08:10 Room Air 11/30/16 07:51 35.9 64 18 87/59 (68) 99 Room Air 11/30/16 01:22 93 Room Air 11/29/16 23:24 36.6 62 18 98/62 (74) 93 Room Air 11/29/16 16:00 Room Air 11/29/16 15:47 36.6 75 18 96/60 (72) 97 Room Air
[2016-11-30 15:00] VITALS: BP 100/65; PULSE 62; TEMP 36.9; O2SAT 96
--- NOTE | 2016-11-30 18:23 | Progress Note ---
Progress Note Date of Service Nov 30, 2016. Progress Note Discussed with patient's family( 2 sisters) regarding patient's condition today. Family preferred patient's code status be changed to DNI/DNR. Patient likely had a Vasovagal response. Vitals are stable. 500ml of IV fluids given. Patient alert, awake. History could not be obtained as patient is non verbal at baseline. Will continue to monitor.
[2016-11-30] MEDS: FINASTERIDE 5 MG TAB PO SCH (20:55)
[2016-12-01 00:34] VITALS: BP 90/51; PULSE 66; TEMP 36.4; O2SAT 95
[2016-12-01] MEDS: SUCRALFATE 1 GM/10 ML UDC PO SCH ×4 (06:11→22:21)
[2016-12-01] MEDS: LEVOTHYROXINE 100 MCG TAB PO SCH (06:11)
[2016-12-01 06:58] VITALS: BP 97/50; PULSE 54; TEMP 36.4; O2SAT 98
[2016-12-01] MEDS: RAPAFLO: ORDER AWAITING ACTION SCH ×2 (07:26→16:00)
[2016-12-01] MEDS: SENNA 17.6 MG/10 ML UDP PO SCH ×3 (07:30→20:16)
[2016-12-01] MEDS: POLYETHYLENE (MIRALAX) 17 GM PACK PO SCH ×2 (07:33→20:15)
[2016-12-01] MEDS: LUBIPROSTONE 8 MCG CAP PO SCH ×2 (07:33→20:15)
[2016-12-01] MEDS: CEROVITE ADV FORMULA TAB PO SCH (07:34)
[2016-12-01] MEDS: DOCUSATE SODIUM 100 MG CAP PO SCH ×3 (07:34→20:15)
[2016-12-01] MEDS: PANTOprazole SOD 40 MG TAB PO SCH ×2 (07:34→20:16)
[2016-12-01] MEDS: ASCORBIC ACID 500 MG TAB PO SCH (07:35)
[2016-12-01] MEDS: LACTULOSE SYRUP 20 GM/30 ML UDC PO SCH ×3 (07:35→20:15)
[2016-12-01 15:03] VITALS: BP 136/67; PULSE 62; TEMP 36.9; O2SAT 99
--- NOTE | 2016-12-01 16:33 | Progress Note ---
Internal Med Progress Note Date of Service: Dec 01, 2016. Provider Documentation: SUBJECTIVE: Seen and examined at bedside Currently sleeping, comfortable Family at bedside Non verbal/ MR from down's syndrome No signs of aspiration, tolerating diet Awaiting for placement OBJECTIVE: Vital Signs-as noted below Physical Exam: General Appearance:Moderately built and nourished, no apparent distress Head: normocephalic, Atraumatic Eyes: normal inspection, EOMI, PERRL Neck: supple, Trachea midline Respiratory/Chest: Normal breath sounds, CTA Cardiovascular: S1, S2, No murmur Abdomen/GI:Soft, Non tender, Bowel sounds present Extremities/Musculoskelatal:normal inspection, no edema Neurologic/Psych:grossly no focal neurological deficits, +MR, Downs syndrome Skin: normal color, warm Lab data as noted below. ASSESSMENT & PLAN: SEVERE DYSPHAGIA/ DILATED ESOPHAGUS recurrent episode CT chest : as below Prior EGD's: October 11, [address] Hood showed reflux esophagitis, small HH, gastritis s/p biopsy (benign), gastric antral stenosis s/p dilation; EGD by Dr. Hood 11/11/16 showed benign-appearing esophageal stenosis- dilated, small HH S/P EGD 11/25:as below Appreciate GI Input Discussed with GI by : not sure of if any effective treatment will be available form GI --may consider J tube -which can prevent aspiration -but given pt's Down's syndrome, severe MR , non verbal status: may not be proper solution as it would be difficult to keep him upright position during feeding, may not give quality of life --Other option of sending him to tertiary care -[place] to assess esophageal tonometry /assess for nv stimulator -given pt's co morbidities may not be practical or beneficial for pt speech pathology consulted. Aspiration precautions showed no evidence of dysphagia, oropharyngeal difficulty , no aspiration Discussed with family(sister): Involved palliative care to identify goals of care Family planning to consider comfort measures only. Awaiting for placement Palliative care following No significant change, continue to monitor HYPOTENSIVE EPISODE Likely due to dehydration S/P IV fluids monitor POSITIVE BLOOD CULTURE X 1 Blood culture 11/21/16 x 1 positive for gram positive bacilli Likely a contaminant Afebrile, no leukocytosis No infiltrate on CXR or CT chest Repeat blood cultures : no growth MALNUTRITION Weight loss of approx 26 lb over 4 months as per his sister due to recurrent aspiration , severe dysphagia diet as tolerated dietary consulted HYPOTHYROIDISM continue levothyroxine CHRONIC CONSTIPATION continue bowel regimen ENLARGED PROSTATE resumed Rapaflo and finasteride Bladder scan PRN retention GERD PPI DVT Px: SCD's CODE STATUS Level 3 no intubation/ mech ventilation per his sister as per documentation on admission earlier this month DISPOSITION Lives at a detention Plan to return to [facility] likely on 12/04 managed services sales consultant working on discharge planning PCP is Dr. Teixeira Awaiting for placement PROCEDURES: CT chest: 1. Considerable distention of the thoracic esophagus throughout its entire length 2. This shows considerable retained gastric and esophageal content within the distended esophagus. 3. Probable annular lesion of the gastroesophageal junction. 4. Considerable fecal content throughout the colon consistent with fecal stasis. 5. Endoscopic evaluation is recommended to exclude an obstructing lesion. CXR: Negative chest EGD: Impression: - Normal esophagus. - Normal stomach. - Normal examined duodenum. - No specimens collected. Recommendation: - Return patient to [facility] for [facility] care. - Resume previous diet. - Aspiration precautions - No evidence of stricture or narrowing in the esophagus to explain symptoms. No evidence of peristalsis in the esophagus. speech/Swallow Eval recommendations: 1. Mechanical soft diet, slippery. Modify to full liquid should the patient have difficulty tolerating mechanical soft. 2. STRICT Aspiration and GERD precautions, straws OK as tolerated. Fully upright for meals and for 30 minutes after meals. Keep head of bed elevated to at lest 30 degress at all times (as the patient can tolerate), to include while sleeping. 3. Assist with feeding. Alternate solids and liquids. Monitor for oral pocketing. 4. Stringent oral care to reduce oral bacteria that can be aspirated in saliva. 5. Speech will follow for tolerance, further education as needed, and for results of palliative care consult. Vital Signs: Date Time Temp Pulse Resp B/P (MAP) Pulse Ox O2 Delivery O2 Flow Rate FiO2 12/01/16 15:03 36.9 62 18 136/67 (90) 99 Room Air 12/01/16 08:00 Room Air 12/01/16 06:58 36.4 54 18 97/50 (66) 98 Room Air 12/01/16 00:34 36.4 66 18 90/51 (64) 95 Room Air 12/01/16 00:15 Room Air Lab Results: Results Past 24 Hours Test 11/30/16 17:59 Range/Units Bedside Glucose 96 70-99 mg/dl
[2016-12-01] MEDS: FINASTERIDE 5 MG TAB PO SCH (22:21)
[2016-12-02 00:31] VITALS: BP 93/63; PULSE 67; TEMP 36.9; O2SAT 93
[2016-12-02] MEDS: LEVOTHYROXINE 100 MCG TAB PO SCH (05:51)
[2016-12-02] MEDS: SUCRALFATE 1 GM/10 ML UDC PO SCH ×4 (05:51→21:02)
[2016-12-02] MEDS: LUBIPROSTONE 8 MCG CAP PO SCH ×2 (07:26→21:02)
[2016-12-02] MEDS: PANTOprazole SOD 40 MG TAB PO SCH ×2 (07:26→21:02)
[2016-12-02] MEDS: POLYETHYLENE (MIRALAX) 17 GM PACK PO SCH ×2 (07:26→21:02)
[2016-12-02] MEDS: SENNA 17.6 MG/10 ML UDP PO SCH ×3 (07:26→21:02)
[2016-12-02] MEDS: ASCORBIC ACID 500 MG TAB PO SCH (07:26)
[2016-12-02] MEDS: LACTULOSE SYRUP 20 GM/30 ML UDC PO SCH ×3 (07:26→21:02)
[2016-12-02] MEDS: CEROVITE ADV FORMULA TAB PO SCH (07:26)
[2016-12-02] MEDS: DOCUSATE SODIUM 100 MG CAP PO SCH ×3 (07:26→21:02)
[2016-12-02] MEDS: RAPAFLO: ORDER AWAITING ACTION SCH ×4 (07:26→23:09)
[2016-12-02 08:00] VITALS: O2SAT 93
--- NOTE | 2016-12-02 10:01 | Palliative Care Progress Note ---
Palliative Care Progress Note Date of Service Dec 02, 2016. Subjective Pt evaluation today including: physical exam, chart review, lab review Pain: none PO Intake: ad alvin Voiding: no voiding problems Pt is awake and alert, NAD. Pt is non-verbal, did not respond when asked if he was cold, etc. Nursing reports + BM this am - soft, brown, moderate in size. No new issues Review of Systems Unable to obtain - pt is non verbal Objective Vital Signs Date Time Temp Pulse Resp B/P (MAP) Pulse Ox O2 Delivery O2 Flow Rate FiO2 12/02/16 00:31 36.9 67 18 93/63 (73) 93 Room Air 12/02/16 00:00 Room Air 12/01/16 20:00 Room Air 12/01/16 16:00 Room Air 12/01/16 15:03 36.9 62 18 136/67 (90) 99 Room Air Physical Exam General Appearance: no apparent distress Eyes: + pertinent finding (dysconjugate gaze) ENT: + pertinent finding ([place]) Neck: supple Respiratory/Chest: lungs clear Cardiovascular: regular rate, rhythm, no edema Abdomen: non tender, soft Extremities: normal range of motion, no pedal edema Neurologic/Psychiatric: + pertinent finding (non verbal) Skin: warm/dry Assessment and Plan (1) Down's syndrome Status: Chronic Assessment & Plan: Pt non-verbal, able to vocalize when uncomfortable. Previous resident at [facility] (2) Dysphagia Status: Chronic Assessment & Plan: NO s/s of aspiration - has GI dysmotility (3) Constipation Status: Chronic Assessment & Plan: Issues with constipation all his life - now more of an issue with poor gut motility - cont bowel regime Total time 20 min with > 50% of time spent at bedside and discussing care with nursing Palliative Performance Scale: 50 % Continued [facility] stay due to: other (severe constipation and GI dysmotility) Discharge planning: other (Awaiting to hear from [facility] if pt is able to return or will need higher level of care - with or without Hospice)
[2016-12-02 10:58] VITALS: BP 95/47; PULSE 54; TEMP 36.5; O2SAT 97
--- NOTE | 2016-12-02 14:35 | Progress Note ---
Internal Med Progress Note Date of Service: Dec 02, 2016. Provider Documentation: SUBJECTIVE: Seen and examined at bedside Alert, awake Family at bedside comfortable Non verbal/ MR from down's syndrome No signs of aspiration, tolerating diet Awaiting for placement OBJECTIVE: Vital Signs-as noted below Physical Exam: General Appearance:Moderately built and nourished, no apparent distress Head: normocephalic, Atraumatic Eyes: normal inspection, EOMI, PERRL Neck: supple, Trachea midline Respiratory/Chest: Normal breath sounds, CTA Cardiovascular: S1, S2, No murmur Abdomen/GI:Soft, Non tender, Bowel sounds present Extremities/Musculoskelatal:normal inspection, no edema Neurologic/Psych:grossly no focal neurological deficits, +MR, Downs syndrome Skin: normal color, warm Lab data as noted below. ASSESSMENT & PLAN: SEVERE DYSPHAGIA/ DILATED ESOPHAGUS recurrent episode CT chest : as below Prior EGD's: October 11, [address] Hood showed reflux esophagitis, small HH, gastritis s/p biopsy (benign), gastric antral stenosis s/p dilation; EGD by Dr. Hood 11/11/16 showed benign-appearing esophageal stenosis- dilated, small HH S/P EGD 11/25:as below Appreciate GI Input Discussed with GI by : not sure of if any effective treatment will be available form GI --may consider J tube -which can prevent aspiration -but given pt's Down's syndrome, severe MR , non verbal status: may not be proper solution as it would be difficult to keep him upright position during feeding, may not give quality of life --Other option of sending him to tertiary care -[place] to assess esophageal tonometry /assess for nv stimulator -given pt's co morbidities may not be practical or beneficial for pt speech pathology consulted. Aspiration precautions showed no evidence of dysphagia, oropharyngeal difficulty , no aspiration Discussed with family(sister): Involved palliative care to identify goals of care Family planning to consider comfort measures only. Palliative care following continue to monitor Awaiting for placement HYPOTENSIVE EPISODE Likely due to dehydration S/P IV fluids monitor POSITIVE BLOOD CULTURE X 1 Blood culture 11/21/16 x 1 positive for gram positive bacilli Likely a contaminant Afebrile, no leukocytosis No infiltrate on CXR or CT chest Repeat blood cultures : no growth MALNUTRITION Weight loss of approx 26 lb over 4 months as per his sister due to recurrent aspiration , severe dysphagia diet as tolerated dietary consulted HYPOTHYROIDISM continue levothyroxine CHRONIC CONSTIPATION continue bowel regimen ENLARGED PROSTATE resumed Rapaflo and finasteride Bladder scan PRN retention GERD PPI DVT Px: SCD's CODE STATUS Level 3 no intubation/ mech ventilation per his sister as per documentation on admission earlier this month DISPOSITION Lives at a senior care Plan to return to [facility] likely on 12/04 clinical services consultant working on discharge planning PCP is Dr. Teixeira Awaiting for placement PROCEDURES: CT chest: 1. Considerable distention of the thoracic esophagus throughout its entire length 2. This shows considerable retained gastric and esophageal content within the distended esophagus. 3. Probable annular lesion of the gastroesophageal junction. 4. Considerable fecal content throughout the colon consistent with fecal stasis. 5. Endoscopic evaluation is recommended to exclude an obstructing lesion. CXR: Negative chest EGD: Impression: - Normal esophagus. - Normal stomach. - Normal examined duodenum. - No specimens collected. Recommendation: - Return patient to [facility] for ongoing care. - Resume previous diet. - Aspiration precautions - No evidence of stricture or narrowing in the esophagus to explain symptoms. No evidence of peristalsis in the esophagus. speech/Swallow Eval recommendations: 1. Mechanical soft diet, slippery. Modify to full liquid should the patient have difficulty tolerating mechanical soft. 2. STRICT Aspiration and GERD precautions, straws OK as tolerated. Fully upright for meals and for 30 minutes after meals. Keep head of bed elevated to at lest 30 degress at all times (as the patient can tolerate), to include while sleeping. 3. Assist with feeding. Alternate solids and liquids. Monitor for oral pocketing. 4. Stringent oral care to reduce oral bacteria that can be aspirated in saliva. 5. Speech will follow for tolerance, further education as needed, and for results of palliative care consult. Vital Signs: Date Time Temp Pulse Resp B/P (MAP) Pulse Ox O2 Delivery O2 Flow Rate FiO2 12/02/16 10:58 36.5 54 16 95/47 (63) 97 Room Air 12/02/16 08:00 93 Room Air 12/02/16 00:31 36.9 67 18 93/63 (73) 93 Room Air 12/02/16 00:00 Room Air 12/01/16 20:00 Room Air 12/01/16 16:00 Room Air 12/01/16 15:03 36.9 62 18 136/67 (90) 99 Room Air
[2016-12-02 16:00] VITALS: BP 97/64; PULSE 76; TEMP 37.2; O2SAT 97
[2016-12-02] MEDS: FINASTERIDE 5 MG TAB PO SCH (21:02)
[2016-12-03 00:06] VITALS: BP 93/53; PULSE 73; TEMP 36.3; O2SAT 96
[2016-12-03] MEDS: SUCRALFATE 1 GM/10 ML UDC PO SCH ×4 (05:03→21:30)
[2016-12-03] MEDS: LEVOTHYROXINE 100 MCG TAB PO SCH (05:03)
[2016-12-03 07:26] VITALS: BP 102/68; PULSE 58; TEMP 36.5; O2SAT 96
[2016-12-03] MEDS: RAPAFLO: ORDER AWAITING ACTION SCH ×3 (07:26→23:59)
[2016-12-03] MEDS: CEROVITE ADV FORMULA TAB PO SCH (07:27)
[2016-12-03] MEDS: ASCORBIC ACID 500 MG TAB PO SCH ×2 (07:27→21:30)
[2016-12-03] MEDS: PANTOprazole SOD 40 MG TAB PO SCH ×2 (07:27→21:31)
[2016-12-03] MEDS: SENNA 17.6 MG/10 ML UDP PO SCH ×3 (07:28→21:30)
[2016-12-03] MEDS: DOCUSATE SODIUM 100 MG CAP PO SCH ×3 (07:28→21:31)
[2016-12-03] MEDS: LACTULOSE SYRUP 20 GM/30 ML UDC PO SCH ×3 (07:28→21:30)
[2016-12-03] MEDS: LUBIPROSTONE 8 MCG CAP PO SCH ×2 (07:28→21:31)
[2016-12-03] MEDS: POLYETHYLENE (MIRALAX) 17 GM PACK PO SCH ×2 (07:28→21:30)
--- NOTE | 2016-12-03 11:21 | Progress Note ---
Internal Med Progress Note Date of Service: Dec 03, 2016. Provider Documentation: SUBJECTIVE: Seen and examined at bedside Alert, awake, seemed to be comfortable No issues per staff Non verbal/ MR from down's syndrome Awaiting for placement, case monitor working on placement OBJECTIVE: Vital Signs-as noted below Physical Exam: General Appearance:Moderately built and nourished, no apparent distress Head: normocephalic, Atraumatic Eyes: normal inspection, EOMI, PERRL Neck: supple, Trachea midline Respiratory/Chest: Normal breath sounds, CTA Cardiovascular: S1, S2, No murmur Abdomen/GI:Soft, Non tender, Bowel sounds present Extremities/Musculoskelatal:normal inspection, no edema Neurologic/Psych:grossly no focal neurological deficits, +MR, Downs syndrome Skin: normal color, warm Lab data as noted below. ASSESSMENT & PLAN: SEVERE DYSPHAGIA/ DILATED ESOPHAGUS recurrent episode CT chest : as below Prior EGD's: October 11, [address] Hood showed reflux esophagitis, small HH, gastritis s/p biopsy (benign), gastric antral stenosis s/p dilation; EGD by Dr. Hood 11/11/16 showed benign-appearing esophageal stenosis- dilated, small HH S/P EGD 11/25:as below Appreciate GI Input Discussed with GI by : not sure of if any effective treatment will be available form GI --may consider J tube -which can prevent aspiration -but given pt's Down's syndrome, severe MR , non verbal status: may not be proper solution as it would be difficult to keep him upright position during feeding, may not give quality of life --Other option of sending him to tertiary care -[place] to assess esophageal tonometry /assess for nv stimulator -given pt's co morbidities may not be practical or beneficial for patient speech pathology consulted. Aspiration precautions showed no evidence of dysphagia, oropharyngeal difficulty , no aspiration Discussed with family(sister): Involved palliative care to identify goals of care Family prefers pa[facility]ina aggressive measures Palliative care following Awaiting for placement. Patient is being planned to return to [facility] HYPOTENSIVE EPISODE Resolved Likely due to dehydration S/P IV fluids monitor POSITIVE BLOOD CULTURE X 1 Blood culture 11/21/16 x 1 positive for gram positive bacilli Likely a contaminant Afebrile, no leukocytosis No infiltrate on CXR or CT chest Repeat blood cultures : no growth MALNUTRITION Weight loss of approx 26 lb over 4 months as per his sister due to recurrent aspiration , severe dysphagia diet as tolerated dietary consulted HYPOTHYROIDISM continue levothyroxine CHRONIC CONSTIPATION continue bowel regimen ENLARGED PROSTATE Continue Rapaflo and finasteride Bladder scan PRN retention GERD PPI DVT Px: SCD's CODE STATUS Level 5 DISPOSITION Lives at a jail Plan to return to [facility] likely tomorrow support services manager working on discharge planning PCP is Dr. Teixeira Awaiting for placement PROCEDURES: CT chest: 1. Considerable distention of the thoracic esophagus throughout its entire length 2. This shows considerable retained gastric and esophageal content within the distended esophagus. 3. Probable annular lesion of the gastroesophageal junction. 4. Considerable fecal content throughout the colon consistent with fecal stasis. 5. Endoscopic evaluation is recommended to exclude an obstructing lesion. CXR: Negative chest EGD: Impression: - Normal esophagus. - Normal stomach. - Normal examined duodenum. - No specimens collected. Recommendation: - Return patient to [facility] for ongoing care. - Resume previous diet. - Aspiration precautions - No evidence of stricture or narrowing in the esophagus to explain symptoms. No evidence of peristalsis in the esophagus. speech/Swallow Eval recommendations: 1. Mechanical soft diet, slippery. Modify to full liquid should the patient have difficulty tolerating mechanical soft. 2. STRICT Aspiration and GERD precautions, straws OK as tolerated. Fully upright for meals and for 30 minutes after meals. Keep head of bed elevated to at lest 30 degress at all times (as the patient can tolerate), to include while sleeping. 3. Assist with feeding. Alternate solids and liquids. Monitor for oral pocketing. 4. Stringent oral care to reduce oral bacteria that can be aspirated in saliva. 5. Speech will follow for tolerance, further education as needed, and for results of palliative care consult. Vital Signs: Date Time Temp Pulse Resp B/P (MAP) Pulse Ox O2 Delivery O2 Flow Rate FiO2 12/03/16 08:00 Room Air 12/03/16 07:26 36.5 58 16 102/68 (79) 96 Room Air 12/03/16 00:06 36.3 73 16 93/53 (66) 96 Room Air 12/03/16 00:00 Room Air 12/02/16 16:44 Room Air 12/02/16 16:00 37.2 76 16 97/64 (75) 97 Room Air
[2016-12-03 15:04] VITALS: BP 92/55; PULSE 63; TEMP 36.8
[2016-12-03] MEDS: FINASTERIDE 5 MG TAB PO SCH (21:30)
[2016-12-03 23:15] VITALS: BP 100/63; PULSE 59; TEMP 36.7; O2SAT 99
[2016-12-04] MEDS: SUCRALFATE 1 GM/10 ML UDC PO SCH ×3 (05:53→17:12)
[2016-12-04] MEDS: LEVOTHYROXINE 100 MCG TAB PO SCH (05:53)
[2016-12-04 07:18] VITALS: BP 99/67; PULSE 70; TEMP 36.4; O2SAT 97
[2016-12-04] MEDS: RAPAFLO: ORDER AWAITING ACTION SCH ×2 (08:57→15:33)
[2016-12-04] MEDS: CEROVITE ADV FORMULA TAB PO SCH (08:58)
[2016-12-04] MEDS: PANTOprazole SOD 40 MG TAB PO SCH (08:58)
[2016-12-04] MEDS: POLYETHYLENE (MIRALAX) 17 GM PACK PO SCH (08:58)
[2016-12-04] MEDS: DOCUSATE SODIUM 100 MG CAP PO SCH ×2 (08:58→14:31)
[2016-12-04] MEDS: SENNA 17.6 MG/10 ML UDP PO SCH ×2 (08:59→14:31)
[2016-12-04] MEDS: LUBIPROSTONE 8 MCG CAP PO SCH (08:59)
[2016-12-04] MEDS: LACTULOSE SYRUP 20 GM/30 ML UDC PO SCH ×2 (08:59→14:31)
--- NOTE | 2016-12-04 16:46 | Palliative Care Progress Note ---
Palliative Care Progress Note Date of Service Dec 04, 2016. Subjective Pt evaluation today including: conversation w/ family (sister, Christina Martel) Met with patient's sister, Christina Martel, in patient's room 461-2 to do POLST form on patient's behalf as requested by the [facility]. Patient is nonverbal and with Downs syndrome. POLST form completed as follows: DNR, limited additional interventions, use of abx with comfort as the goal, trial of IV hydration but no feeding tube. Signed by Christina and myself.
[2016-12-04 17:45] VITALS: BP 99/67; PULSE 70; TEMP 36.4; O2SAT 97
--- NOTE | 2016-12-04 18:02 | Progress Note ---
Medicine Progress Note Date & Time of Visit: Dec 04, 2016 at 17:54. Subjective seen sitting up in bed, having dinner with assistance from PHYSICAL SCIENCE TEACHER not in distress, calm, cooperative with exam no symptoms/signs per corporate staff accountant Objective Last 8 Hrs Date Time Temp Pulse Resp B/P (MAP) Pulse Ox O2 Delivery O2 Flow Rate FiO2 12/04/16 17:45 36.4 70 16 97 Room Air 12/04/16 16:00 Room Air 12/04/16 12:51 Room Air Physical Exam: General- not in distress, no accessory muscle use Eyes- anicteric Neck- no JVD Lungs- clear breath sounds bilaterally, no rales/wheezes Heart- regular rhythm; no murmur, normal rate Abdomen- normal bowel sounds, soft, nontender Extremities- no pretibial edema, no calf tenderness Neuro- alert, no gross focal deficits Skin- warm & dry Assessment & Plan SEVERE DYSPHAGIA/ DILATED ESOPHAGUS recurrent episode CT chest : as below Prior EGD's: October 11, [address] Hood showed reflux esophagitis, small HH, gastritis s/p biopsy (benign), gastric antral stenosis s/p dilation; EGD by Dr. Hood 11/11/16 showed benign-appearing esophageal stenosis- dilated, small HH S/P EGD 11/25: The esophagus was normal. The stomach was normal. The examined duodenum was normal. Impression: - Normal esophagus. - Normal stomach. - Normal examined duodenum. - No specimens collected. Recommendation: - [facility]. - Resume previous diet. - Aspiration precautions - No evidence of stricture or narrowing in the esophagus to explain symptoms. No evidence of peristalsis in the esophagus. -- Discussed with GI: not sure of if any effective treatment will be available form GI --may consider J tube -which can prevent aspiration -but given pt's Down's syndrome, severe MR , non verbal status: may not be proper solution as it would be difficult to keep him upright position during feeding, may not give quality of life --Other option of sending him to tertiary care -[place] to assess esophageal tonometry /assess for nv stimulator -given pt's co morbidities may not be practical or beneficial for patient -- speech pathology consulted, recommendations: 1. Mechanical soft diet, slippery. Modify to full liquid should the patient have difficulty tolerating mechanical soft. 2. STRICT Aspiration and GERD precautions, straws OK as tolerated. Fully upright for meals and for 30 minutes after meals. Keep head of bed elevated to at lest 30 degrees at all times (as the patient can tolerate), to include while sleeping. 3. Assist with feeding. Alternate solids and liquids. Monitor for oral pocketing. Stop feeding with any increased coughing or signs of increased difficulty. Re-approach after rest period. 4. Stringent oral care to reduce oral bacteria that can be aspirated in saliva as tolerated. -- Discussed with family(sister): Involved palliative care to identify goals of care Family prefers no aggressive measures -- Palliative care followed the patient, POLST form signed continue Palliative Care Services at [facility] HYPOTENSIVE EPISODE Resolved Likely due to dehydration given IV fluids POSITIVE BLOOD CULTURE X 1 Blood culture 11/21/16 x 1 positive for gram positive bacilli Likely a contaminant Afebrile, no leukocytosis No infiltrate on CXR or CT chest Repeat blood cultures : no growth MALNUTRITION Weight loss of approx 26 lb over 4 months as per his sister due to recurrent aspiration , severe dysphagia diet as tolerated dietary consulted HYPOTHYROIDISM continue levothyroxine CHRONIC CONSTIPATION continue bowel regimen ENLARGED PROSTATE Continue Rapaflo and finasteride Bladder scan PRN retention GERD PPI DVT Px: SCD's CODE STATUS DNR DISPOSITION d/c to long term with Palliative Care Services ff up with PCP Dr. Teixeira in 3-5 days Continued [facility] stay due to: other (severe constipation and GI dysmotility) Discharge planning: other (Awaiting to hear from [facility] if pt is able to return or will need higher level of care - with or without Hospice) Current Inpatient Medications: Current Inpatient Medications Medications (Trade) Dose Ordered Sig/Page Route Start Time Stop Time Status Last Admin Dose Admin Ondansetron HCl (Zofran Inj) 4 mg Q6H PRN IV 11/22/16 22:15 12/22/16 22:14 Miscellaneous (Iv Fluids Completed) 1 ea PRN PRN N/A 11/23/16 03:45 11/23/17 03:44 Acetaminophen (Tylenol Tab) 500 mg Q4H PRN PO 11/23/16 18:30 12/23/16 18:29 Ascorbic Acid (Vitamin C Tab) 500 mg QAM PO 11/24/16 08:00 12/24/16 07:59 12/03/16 21:30 500 MG Docusate Sodium (coLACE CAP) 100 mg TID PO 11/23/16 20:00 12/23/16 19:59 12/04/16 14:31 100 MG Finasteride (Proscar Tab) 5 mg HS PO 11/23/16 22:00 12/23/16 21:59 12/03/16 21:30 5 MG Multivitamins/ Minerals (Multivitamin W/ Minerals Tab) 1 tab QAM PO 11/24/16 08:00 12/24/16 07:59 12/04/16 08:58 1 TAB Lactulose (Chronulac Syrup) 20 gm TID PO 11/23/16 20:00 12/23/16 19:59 12/04/16 14:31 20 GM Lubiprostone (Amitiza) 24 mcg BID PO 11/23/16 20:00 12/23/16 19:59 12/04/16 08:59 24 MCG Polyethylene (Miralax Powder Packet) 17 gm BID PO 11/23/16 20:00 12/23/16 19:59 12/04/16 08:58 17 GM Miscellaneous Information (Order Awaiting Action) 1 ea QS N/A 11/24/16 00:00 12/24/16 00:00 Senna (Senokot Syrup) 17.6 mg TID PO 11/23/16 20:00 12/23/16 19:59 12/04/16 14:31 17.6 MG Levothyroxine Sodium (Synthroid Tab) 100 mcg DAILYBB PO 11/25/16 06:30 12/25/16 06:29 12/04/16 05:53 100 MCG Pantoprazole Sodium (Protonix Tab) 40 mg BID PO 11/24/16 20:00 12/24/16 19:59 12/04/16 08:58 40 MG Sucralfate (Carafate Susp) 1 gm ACHS PO 11/24/16 22:00 12/24/16 21:59 12/04/16 17:12 1 GM
[2016-12-04] MEDS ORDERED: SNKUDL10 PO (18:04)
[2016-12-04] MEDS ORDERED: CRFUDL PO (18:04)
--- NOTE | 2016-12-04 18:13 | Discharge Instructions ---
Discharge Instructions Date of Service Dec 04, 2016. Admission Reason for Admission: Dysphagia Discharge Discharge Diagnosis / Problem: SEVERE DYSPHAGIA, DILATED ESOPHAGUS Discharge Goals Goal(s): Diagnostic testing, Therapeutic intervention Activity Recommendations Activity Level: Assistance Required . Additional Information Patient informed of condition: No (PATIENT HAS DOWN SYNDROME) Advance Directives: No (UNKNOWN) DNR: Yes Level of Care: Other ([facility] WITH PALLIATIVE CARE SERVICES) Communicable Disease: No Prognosis: Stable Instructions / Follow-Up Instructions / Follow-Up MAY HAVE MECHANICAL SOFT, SLIPPERY DIET WITH ASSISTANCE AND ASPIRATION PRECAUTIONS. MAY RETURN TO DAY PROGRAM. CONTINUE PALLIATIVE CARE SERVICES AT THE [facility]. FOLLOW SPEECH THERAPY RECOMMENDATIONS: * 1. Mechanical soft diet, slippery. Modify to full liquid should the patient have difficulty tolerating mechanical soft. 2. STRICT Aspiration and GERD precautions, straws OK as tolerated. Fully upright for meals and for 30 minutes after meals. Keep head of bed elevated to at lest 30 degrees at all times (as the patient can tolerate), to include while sleeping. 3. Assist with feeding. Alternate solids and liquids. Monitor for oral pocketing. Stop feeding with any increased coughing or signs of increased difficulty. Re-approach after rest period. 4. Stringent oral care to reduce oral bacteria that can be aspirated in saliva as tolerated. FOLLOW UP WITH PRIMARY CARE PHYSICIAN DR. DOMINGUEZ ON FRIDAY DECEMBER 09, 2016 AT 8 :45AM. PLEASE REFER TO ACCOMPANYING DISCHARGE SUMMARY FOR FURTHER DETAILS. Current Hospital Diet Patient's current hospital diet: Regular Diet Discharge Diet Recommended Diet: Regular Diet Diet Texture: Mechanical Soft (ground) (SLIPPERY) Procedures Procedures Performed: EGD Pending Studies Studies pending at discharge: no Physician Orders On Transfer Special Precautions: MAY HAVE MECHANICAL SOFT, SLIPPERY DIET WITH ASSISTANCE AND ASPIRATION PRECAUTIONS. MAY RETURN TO DAY PROGRAM. CONTINUE PALLIATIVE CARE SERVICES AT THE [facility]. FOLLOW SPEECH THERAPY RECOMMENDATIONS: * 1. Mechanical soft diet, slippery. Modify to full liquid should the patient have difficulty tolerating mechanical soft. 2. STRICT Aspiration and GERD precautions, straws OK as tolerated. Fully upright for meals and for 30 minutes after meals. Keep head of bed elevated to at lest 30 degrees at all times (as the patient can tolerate), to include while sleeping. 3. Assist with feeding. Alternate solids and liquids. Monitor for oral pocketing. Stop feeding with any increased coughing or signs of increased difficulty. Re-approach after rest period. 4. Stringent oral care to reduce oral bacteria that can be aspirated in saliva as tolerated. FOLLOW UP WITH PRIMARY CARE PHYSICIAN DR. DOMINGUEZ ON FRIDAY DECEMBER 09, 2016 AT 8 :45AM. PLEASE REFER TO ACCOMPANYING DISCHARGE SUMMARY FOR FURTHER DETAILS. Laboratory Results Lipid Panel Test 10/23/16 09:12 Range/Units Triglycerides Level 65 0-150 mg/dl Cholesterol Level 182 0-200 mg/dl HDL Cholesterol 73 mg/dl Cholesterol/HDL Ratio 2.5 LDL Cholesterol, Calculated 96 mg/dl Medical Emergencies . Who to Call and When: Medical Emergencies: If at any time you feel your situation is an emergency, please call 911 immediately. . Non-Emergent Contact Non-Emergency issues call your: Primary Care Provider Call Non-Emergent contact if: you have a fever, you have any medication questions . . "Provider Documentation" section prepared by Nghia Livingston. . Core Measure Problem Core Measures: None
--- NOTE | 2016-12-04 18:18 | Discharge Summary ---
Discharge Summary Date of Service Dec 04, 2016. Discharge Summary Admission Date: Nov 29, 2016 at 13:28 Discharge Date: Dec 04, 2016 Discharge Disposition: Home with services Principal Diagnosis: SEVERE DYSPHAGIA/ DILATED ESOPHAGUS Secondary Diagnoses/Problems: Please refer to hospital course below. Procedures: EGD by Dr. Amos Hood Procedure Date: 11/25/2016 1:01 PM Procedure: Upper GI endoscopy Indications: Dysphagia Medicines: Monitored Anesthesia Care Complications: No immediate complications. Estimated Blood Loss: Estimated blood loss: none. Procedure: Pre-Anesthesia Assessment: - Prior to the procedure, a History and Physical was performed, and patient medications and allergies were reviewed. The patient's tolerance of previous anesthesia was also reviewed. The risks and benefits of the procedure and the sedation options and risks were discussed with the patient. All questions were answered, and informed consent was obtained. Prior Anticoagulants: The patient has taken no previous anticoagulant or antiplatelet agents. ASA Grade Assessment: III - A patient with severe systemic disease. After reviewing the risks and benefits, the patient was deemed in satisfactory condition to undergo the procedure. After obtaining informed consent, the endoscope was passed under direct vision. Throughout the procedure, the patient's blood pressure, pulse, and oxygen saturations were monitored continuously. The scope was introduced through the mouth, and advanced to the second part of duodenum. The upper GI endoscopy was accomplished without difficulty. The patient tolerated the procedure well. Findings: The esophagus was normal. The stomach was normal. The examined duodenum was normal. Impression: - Normal esophagus. - Normal stomach. - Normal examined duodenum. - No specimens collected. Recommendation: - Return patient to [facility] for ongoing care. - Resume previous diet. - Aspiration precautions - No evidence of stricture or narrowing in the esophagus to explain symptoms. No evidence of peristalsis in the esophagus. (CHEST) THORAX WITH CT DOSE: 375.13 mGy.cm HISTORY: Chest pain dysphagia TECHNIQUE: Multiaxial CT images of the chest were performed following the intravenous administration of contrast. A dose lowering technique was utilized adhering to the principles of ALARA. COMPARISON: None. FINDINGS: The lungs are clear. Considerable distention of the thoracic esophagus. Extensive esophageal retained contents are present. Maximum esophageal diameter is 4.5 cm. No significant hilar or mediastinal adenopathy. Heart is top limits normal terms of size. A potential annular lesion at the level gastroesophageal junction. Possible wall thickening of the distal esophagus medially proximal to small hiatal hernia. Considerable fecal content throughout all visualized components of the colon suggesting considerable fecal stasis. No significant gastric distention. IMPRESSION: 1. Considerable distention of the thoracic esophagus throughout its entire length 2. This shows considerable retained gastric and esophageal content within the distended esophagus. 3. Probable annular lesion of the gastroesophageal junction. 4. Considerable fecal content throughout the colon consistent with fecal stasis. 5. Endoscopic evaluation is recommended to exclude an obstructing lesion. The above report was generated using voice recognition software. It may contain grammatical, syntax or spelling errors. Consultations: GASTROENTEROLOGY DR. HOOD, PALLIATIVE CARE SERVICE DR. RODAS/RN MARYCRUZ LUJAN Pending Studies/Follow-Up: Please refer to hospital course below. Medication Reconciliation New Medications: Senna (Senna-Grx) 17.6 Mg/10 Ml Syrp 17.6 MG PO TID for 30 Days, #900 ML 2 Refills Sucralfate (Sucralfate) 1 Gm/10 Ml Susp 1 GM PO ACHS for 30 Days, #1200 ML 2 Refills Continued Medications: Acetaminophen (Tylenol) 500 Mg Tab 500 MG PO Q4H PRN for Pain or Fever Ascorbic Acid (Ascorbic Acid) 500 Mg Tab 500 MG PO QAM Docusate Sodium (Docusate Sodium) 100 Mg Cap 100 MG PO TID, CAP Finasteride (Finasteride) 5 Mg Tab 5 MG PO HS Lactulose (Encephalopathy) (Enulose) 10 Gm/15 Ml Felicity 30 ML PO TID Levothyroxine Sodium (Levothyroxine Sodium) 100 Mcg Tab 100 MCG PO DAILY Lubiprostone (Amitiza) 24 Mcg Cap 24 MCG PO BID, CAP Multiple Vitamins W/ Minerals (Therems M) 1 Tab Tab 1 TAB PO QAM Pantoprazole (Pantoprazole Sodium) 40 Mg Tab 40 MG PO BID Polyethylene (Polyethylene Glycol 3350) 527 Gm Soln 17 GM PO BID Silodosin (Rapaflo) 8 Mg Cap 8 MG PO HS Admission Information HPI (per Admitting provider): This is a 56 year old male with history of Down syndrome, intellectual disability, dysphagia, GERD, esophageal ulcers, pyloric stenosis s/p dilation, chronic constipation, hypothyroidism, and other problems listed below who presents to the ED for abnormal blood culture. Hx obtained from records and his sister due to pt's nonverbal status. Pt had an EGD on October 11, [address] Hood which showed reflux esophagitis, small HH, gastritis s/p biopsy (benign), gastric antral stenosis s/p dilation. Patient was then admitted to [facility] from Nov 12-2016 for dysphagia. Underwent EGD by Dr. Hood 11/11/16 showing benign- appearing esophageal stenosis- dilated, small HH. Speech therapy recommended mechanical soft diet, slippery with aspiration and GERD precautions. [facility] until yesterday when he stopped eating. Patient was seen in ER yesterday, labs unremarkable, CXR showed resolution of prior bibasilar infiltrates, abdominal x-ray showed no evidence of bowel obstruction. He was given IVF's for clinical dehydration. Patient's sister states today his PO intake was low today. He ate a small amount of chicken and potato, applesauce, 10 oz liquid, and did take his AM and PM meds. She states today patient developed drooling, cough described as "croupy", and grinding of the teeth, which occurred 20 minutes after eating applesauce. This has been an intermittent problem for him in the past. His sister notes weight loss of approx 26 lb over past 4 months. Pt's sister reports chronic constipation but states his current regimen is working and he had a normal BM today. Pt's sister is not aware of any hematochezia/ melena. Denies patient seeming to be in pain. She notes urine being darker with strong odor. Denies patient having a fever, chills, vomiting, SOB. Physical Exam (per Admitting): General Appearance: no apparent distress, + thin Head: normocephalic, atraumatic Eyes: normal inspection, PERRL ENT: hearing grossly normal, + pertinent finding (patient not cooperative with exam of posterior pharynx, + clear saliva discharge from the mouth) Neck: supple, trachea midline Respiratory/Chest: lungs clear, normal breath sounds, no respiratory distress, no accessory muscle use Cardiovascular: regular rate, rhythm, no murmur Abdomen/GI: normal bowel sounds, non tender, soft Extremities/Musculoskelatal: no calf tenderness, no pedal edema Neurologic/Psych: alert, normal mood/affect, + pertinent finding (nonverbal , limited neuro exam as patient is not cooperative with following commands. no gross focal deficit noted. ) Skin: normal color, warm/dry, + pertinent finding (venous stasis discoloration bilateral lower legs and feet. small healing/ scabbed abrasions on bilateral anterior lower legs. ) Hospital Course SEVERE DYSPHAGIA/ DILATED ESOPHAGUS recurrent episode CT chest : as below Prior EGD's: October 11, 2016 by Case showed reflux esophagitis, small HH, gastritis s/p biopsy (benign), gastric antral stenosis s/p dilation; EGD by Case 11/11/16 showed benign-appearing esophageal stenosis- dilated, small HH S/P EGD 11/25: The esophagus was normal. The stomach was normal. The examined duodenum was normal. Impression: - Normal esophagus. - Normal stomach. - Normal examined duodenum. - No specimens collected. Recommendation: - Return patient to [facility] for ongoing care. - Resume previous diet. - Aspiration precautions - No evidence of stricture or narrowing in the esophagus to explain symptoms. No evidence of peristalsis in the esophagus. -- Discussed with GI: not sure of if any effective treatment will be available form GI --may consider J tube -which can prevent aspiration -but given pt's Down's syndrome, severe MR , non verbal status: may not be proper solution as it would be difficult to keep him upright position during feeding, may not give quality of life --Other option of sending him to tertiary care -[place] to assess esophageal tonometry /assess for nv stimulator -given pt's co morbidities may not be practical or beneficial for patient -- speech pathology consulted, recommendations: 1. Mechanical soft diet, slippery. Modify to full liquid should the patient have difficulty tolerating mechanical soft. 2. STRICT Aspiration and GERD precautions, straws OK as tolerated. Fully upright for meals and for 30 minutes after meals. Keep head of bed elevated to at lest 30 degrees at all times (as the patient can tolerate), to include while sleeping. 3. Assist with feeding. Alternate solids and liquids. Monitor for oral pocketing. Stop feeding with any increased coughing or signs of increased difficulty. Re-approach after rest period. 4. Stringent oral care to reduce oral bacteria that can be aspirated in saliva as tolerated. -- Sucralfate added, as well as Senokot S -- Discussed with family(sister): Involved palliative care to identify goals of care Family prefers no aggressive measures -- Palliative care followed the patient, POLST form signed continue Palliative Care Services at [facility] HYPOTENSIVE EPISODE Resolved Likely due to dehydration given IV fluids POSITIVE BLOOD CULTURE X 1 Blood culture 11/21/16 x 1 positive for gram positive bacilli Likely a contaminant Afebrile, no leukocytosis No infiltrate on CXR or CT chest Repeat blood cultures : no growth MALNUTRITION Weight loss of approx 26 lb over 4 months as per his sister due to recurrent aspiration , severe dysphagia diet as tolerated dietary consulted HYPOTHYROIDISM continue levothyroxine CHRONIC CONSTIPATION continue bowel regimen ENLARGED PROSTATE Continue Rapaflo and finasteride Bladder scan PRN retention GERD PPI DVT Px: SCD's CODE STATUS DNR DISPOSITION d/c to [facility] with Palliative Care Services ff up with Primary Care Physician in 3-5 days Total time spent on discharge = 35 minutes This includes examination of the patient, discharge planning, medication reconciliation, and communication with other providers. Discharge Instructions Discharge Instructions Date of Service Dec 04, 2016. Admission Reason for Admission: Dysphagia Discharge Discharge Diagnosis / Problem: SEVERE DYSPHAGIA, DILATED ESOPHAGUS Discharge Goals Goal(s): Diagnostic testing, Therapeutic intervention Activity Recommendations Activity Level: Assistance Required . Additional Information Patient informed of condition: No (PATIENT HAS DOWN SYNDROME) Advance Directives: No (UNKNOWN) DNR: Yes Level of Care: Other ([facility] TER[facility] WITH PALLIATIVE CARE SERVICES) Communicable Disease: No Prognosis: Stable Instructions / Follow-Up Instructions / Follow-Up MAY HAVE MECHANICAL SOFT, SLIPPERY DIET WITH ASSISTANCE AND ASPIRATION PRECAUTIONS. MAY RETURN TO DAY PROGRAM. CONTINUE PALLIATIVE CARE SERVICES AT THE [facility]. FOLLOW SPEECH THERAPY RECOMMENDATIONS: * 1. Mechanical soft diet, slippery. Modify to full liquid should the patient have difficulty tolerating mechanical soft. 2. STRICT Aspiration and GERD precautions, straws OK as tolerated. Fully upright for meals and for 30 minutes after meals. Keep head of bed elevated to at lest 30 degrees at all times (as the patient can tolerate), to include while sleeping. 3. Assist with feeding. Alternate solids and liquids. Monitor for oral pocketing. Stop feeding with any increased coughing or signs of increased difficulty. Re-approach after rest period. 4. Stringent oral care to reduce oral bacteria that can be aspirated in saliva as tolerated. FOLLOW UP WITH PRIMARY CARE PHYSICIAN DR. DOMINGUEZ ON FRIDAY DECEMBER 09, 2016 AT 8 :45AM. PLEASE REFER TO ACCOMPANYING DISCHARGE SUMMARY FOR FURTHER DETAILS. Current Hospital Diet Patient's current hospital diet: Regular Diet Discharge Diet Recommended Diet: Regular Diet Diet Texture: Mechanical Soft (ground) (SLIPPERY) Procedures Procedures Performed: EGD Pending Studies Studies pending at discharge: no Physician Orders On Transfer Special Precautions: MAY HAVE MECHANICAL SOFT, SLIPPERY DIET WITH ASSISTANCE AND ASPIRATION PRECAUTIONS. MAY RETURN TO DAY PROGRAM. CONTINUE PALLIATIVE CARE SERVICES AT THE [facility]. FOLLOW SPEECH THERAPY RECOMMENDATIONS: * 1. Mechanical soft diet, slippery. Modify to full liquid should the patient have difficulty tolerating mechanical soft. 2. STRICT Aspiration and GERD precautions, straws OK as tolerated. Fully upright for meals and for 30 minutes after meals. Keep head of bed elevated to at lest 30 degrees at all times (as the patient can tolerate), to include while sleeping. 3. Assist with feeding. Alternate solids and liquids. Monitor for oral pocketing. Stop feeding with any increased coughing or signs of increased difficulty. Re-approach after rest period. 4. Stringent oral care to reduce oral bacteria that can be aspirated in saliva as tolerated. FOLLOW UP WITH PRIMARY CARE PHYSICIAN DR. DOMINGUEZ ON FRIDAY DECEMBER 09, 2016 AT 8 :45AM. PLEASE REFER TO ACCOMPANYING DISCHARGE SUMMARY FOR FURTHER DETAILS.
== END 2016-12-04 19:16 | disposition other institution (70) | DRG 392 ==
LOC: C.EDB 18:40 → C.MS4W 21:30 → ENRESERV 21:53 → OBSVTOIN 11-29 13:28
PROVIDERS: ADMIT Hospitalist; ATTEND Internal Medicine
PROC: 0DJ08ZZ Inspection of Upper Intestinal Tract, Via Natural or Artificial Opening Endoscopic (ICD-10-PCS; principal; 2016-11-25 11:49)
DX: K22.8 Other specified diseases of esophagus (principal); E46 Unspecified protein-calorie malnutrition; F72 Severe intellectual disabilities; Q90.9 Down syndrome, unspecified; K21.9 Gastro-esophageal reflux disease without esophagitis; E03.9 Hypothyroidism, unspecified; K59.00 Constipation, unspecified; N40.0 Benign prostatic hyperplasia without lower urinary tract symptoms; I95.9 Hypotension, unspecified; Z51.5 Encounter for palliative care; Z79.899 Other long term (current) drug therapy

== ENCOUNTER → 2017-01-08 | Outpatient (CLI) | payer BC, OTHER ==
[~2017-01-08] MED LIST changes: +AMT24 PO; +CRFUDL PO; -FINA5TAB PO; -LACT10SO17 PO; +LACT10SO61 PO; -LEVO100T PO; +LEVO100T7 PO; -PANT40TA PO; +PANT40TA2 PO; +PRS5 PO; +SNKUDL10 PO
[2017-01-08 12:23] LABS: BASO % 1.6 %; COMPLETE YES; EOS % 1.9 %; HEMATOCRIT 39.5 % (42-52); IG% 0.2 %; LYMPH % 27.6 %; LYMPH ABS # 1.75 K/uL (1.2-3.4); MEAN CELL VOLUME 102.3 fL (80-100); MEAN CORPUSCULAR HEMOGLOBIN 33.4 pg (25-34); MEAN CORPUSCULAR HGB CONC 32.7 g/dl (32-36); MONO % 12.3 %; NEUT % 56.4 %; PLATELET COUNT 312 K/uL (130-400); RED BLOOD COUNT 3.86 M/uL (4.7-6.1); WHITE BLOOD COUNT 6.34 K/uL (4.8-10.8)
--- NOTE | 2017-01-08 12:42 | DIAGNOSTIC IMAGING REPORT ---
(RENAL)RETROPERITON COMP HISTORY: Hydronephrosis N39.0 UTI (urinary tract infection)[id number] COMPARISON: 02/16/2011 FINDINGS: Right kidney: Maximum dimension 9 cm. Severe hydronephrosis unchanged from the prior study. Normal corticomedullary differentiation and cortical thickness. Left kidney: Maximum dimension 8.7 cm. No evidence for hydronephrosis. Normal corticomedullary differentiation and cortical thickness. Bladder: Mild bladder wall trabeculation. Small/moderate amount of bladder debris. IMPRESSION: 1. Chronic severe right renal hydronephrosis. 2. 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 3. No evidence for left renal hydronephrosis. 4. Mild bladder wall trabeculation with a mild/moderate amount of bladder debris. The above report was generated using voice recognition software. It may contain grammatical, syntax or spelling errors. Electronically signed by: Prem Silva M.D. 01/08/2017 12:41 PM Dictated Date/Time: 01/08/2017 12:29 PM
[2017-01-08 12:59] LABS: BLOOD UREA NITROGEN 12 mg/dl (7-18); BUN/CREATININE RATIO 13.6 (10-20); CREATININE 0.91 mg/dl (0.60-1.40)
[2017-01-08 13:04] LABS: PROSTATE SPECIFIC ANTIGEN 0.034 ng/ml (0.000-4.000)
== END | disposition home or self-care (01) ==
LOC: C.ULTR 11:34
PROVIDERS: ATTEND Urology
DX: N13.30 Unspecified hydronephrosis (principal); N28.9 Disorder of kidney and ureter, unspecified; D64.9 Anemia, unspecified; N40.0 Benign prostatic hyperplasia without lower urinary tract symptoms; R35.0 Frequency of micturition; R33.9 Retention of urine, unspecified; N39.0 Urinary tract infection, site not specified

== ENCOUNTER 2017-07-15 21:22 | Emergency (ER) | payer BC, OTHER ==
[2017-07-15] MEDS ORDERED: SODIUM CHLORIDE 0.9% 1000ML 1,000 ML IV STA (21:29)
[2017-07-15 21:30] VITALS: O2SAT 97
[2017-07-15 21:55] LABS: BASO ABS # 0.11 K/uL (0-0.2); EOS % 3.1 %; EOS ABS # 0.17 K/uL (0-0.5); HEMATOCRIT 37.9 % (42-52); IG# 0.01 K/uL (0.00-0.02); LYMPH % 34.6 %; MEAN CORPUSCULAR HEMOGLOBIN 33.9 pg (25-34); MEAN CORPUSCULAR HGB CONC 34.3 g/dl (32-36); MEAN PLATELET VOLUME 10.1 fL (7.4-10.4); MONO % 9.1 %; PLATELET COUNT 255 K/uL (130-400); RED CELL DISTRIBUTION WIDTH CV 14.9 % (11.5-14.5); RED CELL DISTRIBUTION WIDTH SD 53.2 fL (36.4-46.3); WHITE BLOOD COUNT 5.49 K/uL (4.8-10.8)
[2017-07-15 22:06] LABS: PTT PATIENT 22.9 SECONDS (21.0-31.0)
--- NOTE | 2017-07-15 22:21 | DIAGNOSTIC IMAGING REPORT ---
CHEST ONE VIEW PORTABLE HISTORY: 57 years-old Male EVALUATE ALTERED MENTAL STATUS/WEAKNESS acute weakness COMPARISON: Chest radiograph 11/22/2016 TECHNIQUE: Portable AP view of the chest FINDINGS: Cardiomediastinal and hilar silhouettes appear unchanged. The lung apices are partially obscured by the patient's chin. Mild interstitial coarsening is unchanged without pneumothorax, pleural effusion, focal airspace consolidation or overt pulmonary edema. Degenerative changes of the bilateral shoulders and spine. Gaseous distention of bowel within the imaged upper abdomen. IMPRESSION: No acute process. The above report was generated using voice recognition software. It may contain grammatical, syntax or spelling errors. Electronically signed by: Maximo Ayala M.D. 07/15/2017 10:20 PM Dictated Date/Time: 07/15/2017 10:16 PM
[2017-07-15 22:22] LABS: ALBUMIN 3.1 gm/dl (3.4-5.0); ALT/SGPT 24 U/L (12-78); AST/SGOT 21 U/L (15-37); BLOOD UREA NITROGEN 17 mg/dl (7-18); CALCIUM 8.2 mg/dl (8.5-10.1); CARBON DIOXIDE 33 mmol/L (21-32); CREATININE 1.09 mg/dl (0.60-1.40); GLUCOSE 103 mg/dl (70-99); POTASSIUM 4.5 mmol/L (3.5-5.1); SODIUM 141 mmol/L (136-145); TOTAL PROTEIN 6.8 gm/dl (6.4-8.2)
[2017-07-15 22:30] LABS: ALKALINE PHOSPHATASE 100 U/L (45-117)
--- NOTE | 2017-07-15 22:57 | DIAGNOSTIC IMAGING REPORT ---
HEAD WITHOUT CONTRAST (CT) CLINICAL HISTORY: 57 years-old Male with EVALUATE ALTERED MENTAL STATUS/WEAKNESS. Acute altered mental status TECHNIQUE: Multiple axial CT images of the head were obtained without contrast. A dose lowering technique was utilized adhering to the principles of ALARA. COMPARISON: CT cervical spine of same day, CT head 09/30/2016. FINDINGS: No acute intracranial hemorrhage, midline shift, intracranial mass, territorial ischemia or abnormal extra-axial collection. Unchanged ventriculomegaly with mild cerebral atrophy. The calvarium is intact. Metopic suture incidentally noted. Mild mucosal thickening about the ethmoid and maxillary sinuses. Soft tissues and orbits are unremarkable. Note is made of disconjugate gaze. IMPRESSION: No acute intracranial abnormality. The above report was generated using voice recognition software. It may contain grammatical, syntax or spelling errors. Electronically signed by: Maximo Ayala M.D. 07/15/2017 10:56 PM Dictated Date/Time: 07/15/2017 10:53 PM
[2017-07-15] MEDS ORDERED: AMT24 PO (22:59)
--- NOTE | 2017-07-15 23:04 | DIAGNOSTIC IMAGING REPORT ---
CERVICAL SPINE W/O CT DOSE: 971.44 mGy.cm CLINICAL HISTORY: 57 years-old Male with fall. Acute neck injury status post fall COMPARISON: CT head of same day. TECHNIQUE: Multiple axial CT images of the cervical spine were obtained without contrast. A dose lowering technique was utilized adhering to the principles of ALARA. FINDINGS: Reversal of the normal lordotic curvature with 15 degrees kyphosis centered at C5-C6. Moderate intervertebral disc space narrowing at C6-C7 with multilevel spondylitic spurring and facet arthrosis. There is bony fusion of the left facets at C4-C5. Corticated bone fragment measuring 6 mm adjacent to the right C1 pillar suggests remote injury. Degree of central canal and foraminal narrowing is better assessed by MRI. There is suggested multilevel foraminal stenosis. Distended esophagus with suggested hiatal hernia, further discussed on CT abdomen and pelvis study of same day. No pneumothorax. IMPRESSION: No acute fracture or subluxation. The above report was generated using voice recognition software. It may contain grammatical, syntax or spelling errors. Electronically signed by: Maximo Ayala M.D. 07/15/2017 11:03 PM Dictated Date/Time: 07/15/2017 10:58 PM
[2017-07-15] MEDS ORDERED: HYOS1TAB PO (23:11)
[2017-07-15] MEDS ORDERED: ACET-1256 PO (23:11)
--- NOTE | 2017-07-15 23:32 | DIAGNOSTIC IMAGING REPORT ---
ABDOMEN AND PELVIS CT WITHOUT CONTRAST CT DOSE: 565.91 mGy.cm HISTORY: Acute generalized abdominal pain with fall pain TECHNIQUE: Multiaxial CT images of the abdomen and pelvis were performed without contrast. A dose lowering technique was utilized adhering to the principles of ALARA. COMPARISON STUDY: CT chest 11/22/2016, CT abdomen and pelvis 09/13/2016 FINDINGS: There are patchy consolidative and groundglass opacities about the basal left lower lobe with trace left pleural effusion. Motion degraded exam without pneumatosis or pneumoperitoneum identified. Imaged inferior cardiac chambers are mildly enlarged with trace pericardial effusion. Circumscribed 1.6 cm low attenuating lesion of the hepatic dome is unchanged suggesting hepatic cyst. The liver otherwise appears unremarkable. Gallbladder, spleen, pancreas and adrenal glands are unremarkable. Mild atrophy of the left kidney. Moderate right-sided hydroureteronephrosis appears improved from prior exam. Cortical thinning about the right kidney is noted. Nonobstructing 3 mm calculus of the interpolar right kidney. Moderate urinary bladder distention. Urinary bladder is again noted to be extending into the right lower pelvis. No aortic aneurysm. Large hiatal hernia with partially intrathoracic stomach redemonstrated. There is no small bowel obstruction. Extensive stool volume throughout the colon is redemonstrated with tortuosity of the sigmoid. The sigmoid colon is distended measuring up to 7 cm, previously measuring up to 8 cm on comparison. The appendix is not definitively seen. No significant ascites. Mild generalized body wall edema. Bones appear intact. Healed fracture of the posterior lateral left 11th rib. IMPRESSION: 1. Extensive stool volume throughout the colon is compatible with constipation. No evidence of small bowel obstruction. 2. Patchy consolidative and groundglass opacities about the basal left lower lobe suggest bronchopneumonia or aspiration pneumonitis with associated trace left pleural effusion. 3. Moderate sized hiatal hernia with partially intrathoracic stomach. 4. Chronic moderate right-sided hydroureteronephrosis appears mildly improved from comparison study 09/13/2016. 5. Additional findings as above. Electronically signed by: Maximo Ayala M.D. 07/15/2017 11:30 PM Dictated Date/Time: 07/15/2017 11:20 PM
[2017-07-15] MEDS ORDERED: CEFDINIR 300 MG CAP PO STA (23:38)
[2017-07-15] MEDS ORDERED: CEFD300C2 PO (23:40)
--- NOTE | 2017-07-15 23:55 | EMERGENCY ROOM VISIT NOTE ---
History Report prepared by Shan: Nori Samuel Under the Supervision of: Dr. Jim Zhang D.O. First contact with patient: 21:23 Stated Complaint: POSSIBLE FALL OR SYNCOPE History of Present Illness The patient is a 57 year old male who presents to the Emergency Room with complaints of an episode of syncope occurring prior to arrival. Per EMS, the patient has a history of Downs Syndrome. They report that the patient was noted to be pretty reactive and verbal, but is not now and appears lethargic. Per the patient's caregiver, the patient was sitting on the sofa drinking his juice when he had a syncopal episode. He states that the patient was helped to the floor and appeared to be gasping for air. He states that they turned the patient on his side and juice came out of his mouth. He states that at this time the patient seemed to start to come back around. The patient's caregiver notes that the patient seems to have a more distended and tender abdomen this evening. He notes that they gave the patient prune juice due to his history of constipation. He notes that the patient's bowel movements have been regular though. The patient's sister reports that the patient has episodes of acid reflux and will not swallow his saliva when he has an episode. She reports that it appears that the patient is holding his saliva in his mouth. The patient's sister denies the patient having a cardiac history. Source of History: family, caregiver, EMS Onset: prior to arrival Position: other (global) Quality: other (syncope) Timing: other (episode) Associated Symptoms: + abdominal pain Note: Per EMS, the patient is lethargic. Per the patient's caregiver, the patient's abdomen is distended. The patient's sister complains of the patient appearing to not be swallowing his saliva. Review of Systems See HPI for pertinent positives & negatives. A total of 10 systems reviewed and were otherwise negative. Past Medical & Surgical Medical Problems: (1) Constipation (2) Constipation (3) Down's syndrome (4) Dysphagia (5) Emphysema lung (6) Enlarged prostate (7) Esophageal ulceration (8) Gastritis (9) Hiatal hernia (10) Hypothyroidism (11) Mental retardation (12) Pyloric stenosis (13) Reflux esophagitis (14) Urinary retention Surgical Problems: (1) History of prostate surgery Family History FH: cancer FH: diabetes mellitus FH: hypertension Social History Smoking Status: Never Smoker Drug Use: none Marital Status: single Housing Status: other Occupation Status: disabled Current/Historical Medications Scheduled Ascorbic Acid (Ascorbic Acid), 500 MG PO QAM Cefdinir (Omnicef), 300 MG PO Q12H Docusate Sodium (Docusate Sodium), 100 MG PO TID Finasteride (Finasteride), 5 MG PO HS Levothyroxine Sodium (Levothyroxine Sodium), 100 MCG PO DAILY Lubiprostone (Amitiza), 24 MCG PO BID Multiple Vitamins W/ Minerals (Therems M), 1 TAB PO QAM Pantoprazole (Pantoprazole Sodium), 40 MG PO BID Polyethylene (Polyethylene Glycol 3350), 17 GM PO BID Silodosin (Rapaflo), 8 MG PO HS Scheduled PRN Acetaminophen (Tylenol), 500 MG PO Q4 PRN for Pain or Fever Hyoscyamine Sulfate (Levsin), 0.125 MG PO Q4 PRN for EXCESS SECRETIONS Allergies Coded Allergies: Azithromycin (Verified Allergy, Unknown, flat line, 11/08/16) Physical Exam Vital Signs Date Time Temp Pulse Resp B/P (MAP) Pulse Ox O2 Delivery O2 Flow Rate FiO2 07/15/17 23:23 73 18 93/61 94 Room Air 07/15/17 21:43 77 07/15/17 21:30 73 20 100/57 97 Room Air 07/15/17 21:30 97 Room Air Physical Exam GENERAL: Patient is awake, alert, and looking around the room. Does not appear to be uncomfortable or in pain. EYES: The conjunctivae are clear. The pupils are round and reactive. EARS, NOSE, MOUTH AND THROAT: Mucus membranes are moist. NECK: The neck is nontender and supple. RESPIRATORY: Normal respiratory effort is noted there is no evidence of wheezing rhonchi or rales CARDIOVASCULAR: Regular rate and rhythm noted there no murmurs rubs or gallops normal S1 normal S2 GASTROINTESTINAL: The abdomen is moderately distended and diffusely tender. No guarding or rigidity appreciated. MUSCULOSKELETAL/EXTREMITIES: There is no evidence of gross deformity full range of motion is noted in the hips and shoulders SKIN: There is no obvious evidence of any rash. There are no petechiae, pallor or cyanosis noted. Pedal edema bilaterally. NEUROLOGIC: At baseline according to family member. Medical Decision & Procedures ER Provider Diagnostic Interpretation: Radiology results as stated below per my review and radiologist interpretation: CHEST ONE VIEW PORTABLE HISTORY: 57 years-old Male EVALUATE ALTERED MENTAL STATUS/WEAKNESS acute weakness COMPARISON: Chest radiograph 11/22/2016 TECHNIQUE: Portable AP view of the chest FINDINGS: Cardiomediastinal and hilar silhouettes appear unchanged. The lung apices are partially obscured by the patient's chin. Mild interstitial coarsening is unchanged without pneumothorax, pleural effusion, focal airspace consolidation or overt pulmonary edema. Degenerative changes of the bilateral shoulders and spine. Gaseous distention of bowel within the imaged upper abdomen. IMPRESSION: No acute process. The above report was generated using voice recognition software. It may contain grammatical, syntax or spelling errors. Electronically signed by: Maximo Ayala M.D. 07/15/2017 10:20 PM Dictated Date/Time: 07/15/2017 10:16 PM HEAD WITHOUT CONTRAST (CT) CLINICAL HISTORY: 57 years-old Male with EVALUATE ALTERED MENTAL STATUS/WEAKNESS. Acute altered mental status TECHNIQUE: Multiple axial CT images of the head were obtained without contrast. A dose lowering technique was utilized adhering to the principles of ALARA. COMPARISON: CT cervical spine of same day, CT head 09/30/2016. FINDINGS: No acute intracranial hemorrhage, midline shift, intracranial mass, territorial ischemia or abnormal extra-axial collection. Unchanged ventriculomegaly with mild cerebral atrophy. The calvarium is intact. Metopic suture incidentally noted. Mild mucosal thickening about the ethmoid and maxillary sinuses. Soft tissues and orbits are unremarkable. Note is made of disconjugate gaze. IMPRESSION: No acute intracranial abnormality. The above report was generated using voice recognition software. It may contain grammatical, syntax or spelling errors. Electronically signed by: Maximo Ayala M.D. 07/15/2017 10:56 PM Dictated Date/Time: 07/15/2017 10:53 PM CERVICAL SPINE W/O CT DOSE: 971.44 mGy.cm CLINICAL HISTORY: 57 years-old Male with fall. Acute neck injury status post fall COMPARISON: CT head of same day. TECHNIQUE: Multiple axial CT images of the cervical spine were obtained without contrast. A dose lowering technique was utilized adhering to the principles of ALARA. FINDINGS: Reversal of the normal lordotic curvature with 15 degrees kyphosis centered at C5-C6. Moderate intervertebral disc space narrowing at C6-C7 with multilevel spondylitic spurring and facet arthrosis. There is bony fusion of the left facets at C4-C5. Corticated bone fragment measuring 6 mm adjacent to the right C1 pillar suggests remote injury. Degree of central canal and foraminal narrowing is better assessed by MRI. There is suggested multilevel foraminal stenosis. Distended esophagus with suggested hiatal hernia, further discussed on CT abdomen and pelvis study of same day. No pneumothorax. IMPRESSION: No acute fracture or subluxation. The above report was generated using voice recognition software. It may contain grammatical, syntax or spelling errors. Electronically signed by: Maximo Ayala M.D. 07/15/2017 11:03 PM Dictated Date/Time: 07/15/2017 10:58 PM A[address]OMEN AND PELVIS CT WITHOUT CONTRAST CT DOSE: 565.91 mGy.cm HISTORY: Acute generalized abdominal pain with fall pain TECHNIQUE: Multiaxial CT images of the abdomen and pelvis were performed without contrast. A dose lowering technique was utilized adhering to the principles of ALARA. COMPARISON STUDY: CT chest 11/22/2016, CT abdomen and pelvis 09/13/2016 FINDINGS: There are patchy consolidative and groundglass opacities about the basal left lower lobe with trace left pleural effusion. Motion degraded exam without pneumatosis or pneumoperitoneum identified. Imaged inferior cardiac chambers are mildly enlarged with trace pericardial effusion. Circumscribed 1.6 cm low attenuating lesion of the hepatic dome is unchanged suggesting hepatic cyst. The liver otherwise appears unremarkable. Gallbladder, spleen, pancreas and adrenal glands are unremarkable. Mild atrophy of the left kidney. Moderate right-sided hydroureteronephrosis appears improved from prior exam. Cortical thinning about the right kidney is noted. Nonobstructing 3 mm calculus of the interpolar right kidney. Moderate urinary bladder distention. Urinary bladder is again noted to be extending into the right lower pelvis. No aortic aneurysm. Large hiatal hernia with partially intrathoracic stomach redemonstrated. There is no small bowel obstruction. Extensive stool volume throughout the colon is redemonstrated with tortuosity of the sigmoid. The sigmoid colon is distended measuring up to 7 cm, previously measuring up to 8 cm on comparison. The appendix is not definitively seen. No significant ascites. Mild generalized body wall edema. Bones appear intact. Healed fracture of the posterior lateral left 11th rib. IMPRESSION: 1. Extensive stool volume throughout the colon is compatible with constipation. No evidence of small bowel obstruction. 2. Patchy consolidative and groundglass opacities about the basal left lower lobe suggest bronchopneumonia or aspiration pneumonitis with associated trace left pleural effusion. 3. Moderate sized hiatal hernia with partially intrathoracic stomach. 4. Chronic moderate right-sided hydroureteronephrosis appears mildly improved from comparison study 09/13/2016. 5. Additional findings as above. Electronically signed by: Maximo Ayala M.D. 07/15/2017 11:30 PM Dictated Date/Time: 07/15/2017 11:20 PM Laboratory Results 07/15/17 21:40 Red Blood Count 3.83, Mean Corpuscular Volume 99.0, Mean Corpuscular Hemoglobin 33.9, Mean Corpuscular Hemoglobin Concent 34.3, Mean Platelet Volume 10.1, Neutrophils (%) (Auto) 51.0, Lymphocytes (%) (Auto) 34.6, Monocytes (%) (Auto) 9.1, Eosinophils (%) (Auto) 3.1, Basophils (%) (Auto) 2.0, Neutrophils # (Auto) 2.80, Lymphocytes # (Auto) 1.90, Monocytes # (Auto) 0.50, Eosinophils # (Auto) 0.17, Basophils # (Auto) 0.11 07/15/17 21:40 Test 07/15/17 21:40 White Blood Count 5.49 K/uL (4.8-10.8) Red Blood Count 3.83 M/uL (4.7-6.1) Hemoglobin 13.0 g/dL (14.0-18.0) Hematocrit 37.9 % (42-52) Mean Corpuscular Volume 99.0 fL (80-100) Mean Corpuscular Hemoglobin 33.9 pg (25-34) Mean Corpuscular Hemoglobin Concent 34.3 g/dl (32-36) Platelet Count 255 K/uL (130-400) Mean Platelet Volume 10.1 fL (7.4-10.4) Neutrophils (%) (Auto) 51.0 % Lymphocytes (%) (Auto) 34.6 % Monocytes (%) (Auto) 9.1 % Eosinophils (%) (Auto) 3.1 % Basophils (%) (Auto) 2.0 % Neutrophils # (Auto) 2.80 K/uL (1.4-6.5) Lymphocytes # (Auto) 1.90 K/uL (1.2-3.4) Monocytes # (Auto) 0.50 K/uL (0.11-0.59) Eosinophils # (Auto) 0.17 K/uL (0-0.5) Basophils # (Auto) 0.11 K/uL (0-0.2) RDW Standard Deviation 53.2 fL (36.4-46.3) RDW Coefficient of Variation 14.9 % (11.5-14.5) Immature Granulocyte % (Auto) 0.2 % Immature Granulocyte # (Auto) 0.01 K/uL (0.00-0.02) Prothrombin Time 10.5 SECONDS (9.0-12.0) Prothromb Time International Ratio 1.0 (0.9-1.1) Activated Partial Thromboplast Time 22.9 SECONDS (21.0-31.0) Partial Thromboplastin Ratio 0.9 Anion Gap 3.0 mmol/L (3-11) Estimated GFR () 86.9 Estimated GFR (Non- 74.9 BUN/Creatinine Ratio 15.6 (10-20) Calcium Level 8.2 mg/dl (8.5-10.1) Magnesium Level 2.8 mg/dl (1.8-2.4) Total Bilirubin 0.3 mg/dl (0.2-1) Direct Bilirubin < 0.1 mg/dl (0-0.2) Aspartate Amino Transf (AST/SGOT) 21 U/L (15-37) Alanine Aminotransferase (ALT/SGPT) 24 U/L (12-78) Alkaline Phosphatase 100 U/L (45-117) Troponin I < 0.015 ng/ml (0-0.045) Total Protein 6.8 gm/dl (6.4-8.2) Albumin 3.1 gm/dl (3.4-5.0) Thyroid Stimulating Hormone (TSH) 0.467 uIu/ml (0.300-4.500) Medications Administered Medications (Trade) Dose Ordered Sig/Page Route Start Time Stop Time Status Last Admin Dose Admin Sodium Chloride 1,000 ml @ 999 mls/hr Q1H1M STAT IV 07/15/17 21:29 07/15/17 22:29 DC 07/15/17 21:55 999 MLS/HR Cefdinir (Omnicef Cap) 600 mg ONE STAT PO 07/15/17 23:38 07/15/17 23:39 DC 07/16/17 00:00 600 MG Laboratory results per my review. ECG Per My Interpretation Indication: syncope Rate (beats per minute): 76 Rhythm: normal sinus Findings: no ectopy, other (no acute ST segment changes) Comparison ECG Date: 09/30/2006 Change: no significant change ED Course 2127: The patient was evaluated in room C3. A complete history and physical examination were performed. 2128: Ordered NSS 1000 ml @ 999 mls/hr IV. 2337: Ordered Cefdinir 600 mg PO. 0: Upon reevaluation, the patient is resting comfortably. I discussed the results and treatment plan with the patient, his caregiver, and his sister. They verbalized agreement of the treatment plan. The patient was discharged home. 2358: Nursing staff informed me that the patient's caregiver and family are worried he may have measles. I reevaluated the patient at this time and informed them that he does not have measles.He had what looked like was heat rash and a diaper rash. Medical Decision Differential diagnosis: Etiologies such as vasovagal event, infection, hypoglycemia, electrolyte abnormalities, cardiac sources, intracerebral event, toxicologic, neurologic, as well as others were entertained. Nursing notes reviewed. Additional history is obtained from the patient's family member. The patient is a 57-year-old male who presented to the emergency department after having a syncopal episode. The patient presented to the emergency department after having an episode which was not witnessed. He has a history of syncope. He was found of hypotension but are reviewed the patient's previous electronic medical records does show that he has had hypotension in the past. He was treated with IV fluids as well as oral antibiotics for presumed pneumonia. I discussed the patient's laboratory and radiographic studies with him and his family. At this time I have encouraged him to continue all medications as prescribed and follow-up with his primary care physician. They are also encouraged to return the emergency department immediately if symptoms change worsen or the need arises. Medication Reconcilliation Current Medication List: was personally reviewed by me Blood Pressure Screening Patient's blood pressure: Normal blood pressure Blood pressure disposition: Elevated BP felt to be situational Impression Primary Impression: Syncope Additional Impressions: Pneumonia Constipation Scribe Attestation The scribe's documentation has been prepared under my direction and personally reviewed by me in its entirety. I confirm that the note above accurately reflects all work, treatment, procedures, and medical decision making performed by me. Departure Information Dispostion Home / Self-Care Prescriptions Cefdinir (OMNICEF) 300 Mg Cap 300 MG PO Q12H, #14 CAP Prov: Jim Zhang, DO 07/15/17 Referrals Kevin Teixeira D.O. (PCP) Forms HOME CARE DOCUMENTATION FORM, IMPORTANT VISIT INFORMATION Additional Instructions Continue all medications as prescribed. Continue to offer the patient plenty of clear liquids. Start the antibiotic prescription tomorrow. Follow-up with the primary care physician within the next few days but return to the emergency department immediately symptoms change worsen or the need arises. Problem Qualifiers Primary Impression: Syncope Syncope type: unspecified Qualified Codes: R55 - Syncope and collapse Additional Impressions: Pneumonia Pneumonia type: due to unspecified organism Laterality: left Lung location : lower lobe of lung Qualified Codes: J18.1 - Lobar pneumonia, unspecified organism Constipation Constipation type: unspecified constipation type Qualified Codes: K59.00 - Constipation, unspecified
[2017-07-16 00:04] VITALS: BP 125/53; PULSE 90; O2SAT 94
== END 2017-07-16 00:04 | disposition home or self-care (01) ==
LOC: EDBD 21:22 → C.EDC 21:23
DX: R55 Syncope and collapse (principal); J18.1 Lobar pneumonia, unspecified organism; K59.00 Constipation, unspecified; Q90.9 Down syndrome, unspecified; F79 Unspecified intellectual disabilities; E03.9 Hypothyroidism, unspecified; K21.0 Gastro-esophageal reflux disease with esophagitis; K31.1 Adult hypertrophic pyloric stenosis; Z79.899 Other long term (current) drug therapy; Z88.1 Allergy status to other antibiotic agents

== ENCOUNTER → 2017-09-18 | Outpatient (CLI) | payer BC, OTHER ==
[~2017-09-18] MED LIST changes: -CRFUDL PO; +HYOS1TAB PO; -LACT10SO61 PO; -RPF/8 PO; +SILO8CAP3 PO; -SNKUDL10 PO
--- NOTE | 2017-09-18 19:04 | DIAGNOSTIC IMAGING REPORT ---
CHEST 2 VIEWS ROUTINE HISTORY: 57 years-old Male PNEUMONIA acute shortness of breath and cough with reported pneumonia COMPARISON: Chest radiograph 07/15/2017 and 11/22/2016 TECHNIQUE: PA and lateral views of the chest FINDINGS: Cardiac silhouette is within normal limits in size. There are hazy right perihilar and infrahilar opacities present without pneumothorax, pleural effusion or overt pulmonary edema. Mild pulmonary vascular congestion is suggested. Medial lung apices are secured by the patient's chin. The bones of the chest appear grossly intact. Air-fluid levels are noted within nondilated bowel of the upper abdomen. IMPRESSION: Hazy right perihilar and infrahilar opacities are suspicious for pneumonia in the appropriate clinical setting. The above report was generated using voice recognition software. It may contain grammatical, syntax or spelling errors. Electronically signed by: Maximo Ayala M.D. 09/18/2017 7:03 PM Dictated Date/Time: 09/18/2017 7:01 PM
== END | disposition home or self-care (01) ==
LOC: C.RAD 18:21
PROVIDERS: ATTEND Internal Medicine
DX: J18.9 Pneumonia, unspecified organism (principal); R91.8 Other nonspecific abnormal finding of lung field

== ENCOUNTER 2017-10-25 23:10 | Emergency (ER) | payer BC, OTHER ==
[~2017-10-25] VITALS: Ht 152.4 cm; Wt 68.7 kg
[2017-10-25 23:24] VITALS: TEMP 37
--- NOTE | 2017-10-25 23:47 | EMERGENCY ROOM VISIT NOTE ---
History First contact with patient: 23:28 Chief Complaint: URINARY SYMPTOMS Stated Complaint: HAS NOT VOIDED IN 24 HRS Nursing Triage Summary: Unable to void since 2129 History of Present Illness The patient is a 57 year old male who presents to the Emergency Room accompanied by his retail banker, who states that he has not urinated in 24 hours. His retail banker reports that the patient normally holds his urine all day but does urinate once a day, usually when he is lying down in bed. She states that the last time he urinated was at 9:30 PM yesterday. She does report that he threw up his meds yesterday, including his alpha-sy. She reports that the patient has been acting like his normal self. He does not appear to be in pain. He has not had any fevers or recent illnesses. She states they called his primary urologist who recommended that he come here for a straight catheterization. Review of Systems A complete 10 point review of systems was reviewed with the patient with pertinent positives and negatives as per history of present illness. All else were negative. Past Medical/Surgical History Medical Problems: (1) Constipation (2) Constipation (3) Down's syndrome (4) Dysphagia (5) Emphysema lung (6) Enlarged prostate (7) Esophageal ulceration (8) Gastritis (9) Hiatal hernia (10) Hypothyroidism (11) Mental retardation (12) Pyloric stenosis (13) Reflux esophagitis (14) Urinary retention Surgical Problems: (1) History of prostate surgery Family History FH: cancer FH: diabetes mellitus FH: hypertension Social History Smoking Status: Never Smoker Drug Use: none Marital Status: single Housing Status: other Occupation Status: disabled Current/Historical Medications Scheduled Ascorbic Acid (Ascorbic Acid), 500 MG PO QAM Docusate Sodium (Docusate Sodium), 100 MG PO TID Finasteride (Finasteride), 5 MG PO HS Levothyroxine Sodium (Levothyroxine Sodium), 100 MCG PO DAILY Lubiprostone (Amitiza), 24 MCG PO BID Multiple Vitamins W/ Minerals (Therems M), 1 TAB PO QAM Pantoprazole (Pantoprazole Sodium), 40 MG PO BID Polyethylene (Polyethylene Glycol 3350), 17 GM PO BID Silodosin (Rapaflo), 8 MG PO HS Scheduled PRN Acetaminophen (Tylenol), 500 MG PO Q4 PRN for Pain or Fever Hyoscyamine Sulfate (Levsin), 0.125 MG PO Q4 PRN for EXCESS SECRETIONS Physical Exam Vital Signs Date Time Temp Pulse Resp B/P (MAP) Pulse Ox O2 Delivery O2 Flow Rate FiO2 10/26/17 00:28 70 18 99/67 97 10/25/17 23:24 37.0 71 22 94/66 98 Room Air Physical Exam VITALS: Vitals are noted on the nurse's note and reviewed by myself. Vital signs stable. GENERAL: This is a 57-year-old male, in no acute distress, nondiaphoretic, well- developed well-nourished. SKIN: There are no rashes. HEART: Regular rate and rhythm without murmurs gallops or rubs. LUNGS: Clear to auscultation bilaterally without wheezes, rales or rhonchi. No retractions or accessory muscle use. ABDOMEN: Positive bowel sounds x 4. Abdomen soft, nondistended and nontender. NEURO: Patient was alert and oriented to person place and time. Medical Decision & Procedures Laboratory Results Test 10/25/17 23:55 Urine Color YELLOW Urine Appearance CLEAR (CLEAR) Urine pH 7.0 (4.5-7.5) Urine Specific [place] 1.022 (1.000-1.030) Urine Protein NEG (NEG) Urine Glucose (UA) NEG (NEG) Urine Ketones NEG (NEG) Urine Occult Blood NEG (NEG) Urine Nitrite NEG (NEG) Urine Bilirubin NEG (NEG) Urine Urobilinogen NEG (NEG) Urine Leukocyte Esterase NEG (NEG) Medical Decision Differential diagnosis includes BPH, acute urinary retention, UTI, renal failure , among others. The patient was evaluated as above. He presents because he has not urinated for the past 24 hours. He is well-appearing on exam. He does have a history of BPH and did not receive his alpha-sy yesterday. The caretakers have already spoken with his urologist who recommended he come here for straight catheterization. Initial bladder scan showed over 700 mL of urine in the bladder. Straight catheterization was performed. Urinalysis shows no evidence of UTI. They were advised to contact his urologist to schedule follow-up. The retail banker verbalized understanding of my assessment and treatment plan and the patient was discharged home in good condition. The patient was independently evaluated by Dr. Magaña, ED attending physician, who agreed with my assessment and treatment plan. Medication Reconcilliation Current Medication List: was personally reviewed by me Blood Pressure Screening Patient's blood pressure: Low blood pressure (Patient's baseline blood pressure is low.) Impression Primary Impression: Urinary retention Departure Information Dispostion Home / Self-Care Condition GOOD Referrals Fernando Herr M.D. (PCP) Patient Instructions My [facility] Additional Instructions Contact the urologist to schedule follow-up from today's visit. Continue medications as prescribed. Return to the emergency room with any worsening or new/concerning symptoms.
--- NOTE | 2017-10-26 00:20 | EMERGENCY ROOM VISIT NOTE ---
ED Visit Note First contact with patient: 23:28 I saw this patient in conjunction with Catrachita Nelson PA-C. I agree with her decision making and treatment plan.
[2017-10-26 00:28] VITALS: BP 99/67; PULSE 70; O2SAT 97
== END 2017-10-26 00:29 | disposition home or self-care (01) ==
LOC: C.EDB 23:11 → C.EDC 10-26 00:29
DX: R33.9 Retention of urine, unspecified (principal); Q90.9 Down syndrome, unspecified; E03.9 Hypothyroidism, unspecified; F79 Unspecified intellectual disabilities; K21.0 Gastro-esophageal reflux disease with esophagitis; Z79.899 Other long term (current) drug therapy

== ENCOUNTER 2020-05-12 09:20 | Inpatient (IN) ==
[2020-05-12] MEDS ORDERED: ACETAMINOPHEN 1,000 MG/100 ML VIAL IV STA (09:57)
[2020-05-12] MEDS ORDERED: PIPERACILL/TAZOBAC CONSULT ACTIVE PRN (10:00)
[2020-05-12] MEDS ORDERED: SODIUM CHLORIDE 0.9% 1000ML 1,000 ML IV SCH ×2 (10:00→10:58)
[2020-05-12] MEDS ORDERED: PIPERACILLIN/TAZOBACTAM 4.5 GM/120 ML BAG IV ONE (10:00)
--- NOTE | 2020-05-12 10:02 | Emergency Department Note ---
Impression & Plan Acute hypoxemic respiratory failure, Pneumonia, Sepsis ED Provider Note NAME: CLINT KRAMER AGE: 59 SEX: M : 1960 ARRIVES VIA: Ambulance INFORMANT: Patient, ED PROVIDER(S): Pedro Barry MD Chief Complaint: Hypoxia, possible pneumonia HPI: History obtained from nursing note as well as sister at bedside. Patient does present via EMS from [facility]. The patient baseline is nonverbal and does not ambulate. EMS reported the patient was slower to respond with sats in the low 80s on room air. Patient did have a dental procedure several days ago likely aspiration pneumonia currently on Augmentin. The sister at bedside who is the POA also stated that the patient did have some dental issu es and recently had a dental procedure with a filling completed on May 03. The patient subsequently did have issues with some productive yellow sputum and the thought was that the patient may have aspirated. The patient was seen in the outpatient setting by the primary care physician on Friday and started on Augmentin. The patient has had decreased p.o. intake potentially because of the recent dental procedure. Today because of the hypoxia and decreased activity the patient did present to the emergency department. No reported falls. Patient reportedly has been taking his medications as prescribed. No reported vomiting. ROS: Limited secondary to the patient's history of Down syndrome most of the history is obtained from the sister at bedside. Past medical history: See below Surgical history: See below Social history: See below Physical Exam: GENERAL: Ill in appearance, opens eyes to voice, nonrebreather in place. EYE EXAM: Normal conjunctiva. PERRL, no anisocoria and EOM's grossly intact w/o pain. NECK: Supple, no nuchal rigidity, no adenopathy, non-tender. No signs of meningismus. Not stridulous. LUNGS: Rhonchi present bilateral lung rojo. normal chest wall mechanics. HEART: Tachycardic and regular, no MRG. ABDOMEN: Abdomen soft, non-tender, normo-active bowel sounds, no masses, no rebound or guarding. BACK: No CVA TTP. SKIN: No rashes and no bruising. UPPER EXTREMITIES: Upper extremities are grossly normal. LOWER EXTREMITIES: Grossly normal, no edema. NEURO EXAM: Opens eyes to stimulation, motor movement of all 4 extremities. Differential diagnoses: Sepsis, UTI, pneumonia, metabolic, electrolyte abnormalities, cardiac sources, intracerebral event, toxicologic, neurologic, as well as other pathologies. Course: Patient was seen and evaluated the bedside. Full history physical exam was performed. EKG: Indication: Tachycardia Sinus tachycardia, rate of 102, normal intervals, normal axis. No significant change from comparison EKG March 18, 2020. Imaging Studies: Radiology results as stated below per my review in the radiologist's interp retation: XR chest 1V portable CLINICAL HISTORY: SEPSIS COMPARISON STUDY: 03/18/2020 FINDINGS: The cardiac and mediastinal contours remain stable. There are bilateral right greater than left pulmonary airspace opacities suspicious for a multifocal pneumonia. There is a suspected trace right pleural effusion. There is no pneumothorax.[ IMPRESSION: 1. Bilateral right greater than left pulmonary airspace opacities likely secondary to a pneumonia. Suspected small right pleural effusion ACT 112: Negative or not required by law. Electronically signed by: Ponce Obregon M.D. 05/12/2020 10:38 AM Dictated: 05/12/20 1035 Transcribed: 05/12/20 1035 Cardiac monitoring: An order was placed for continuous cardiac monitoring. The monitor shows a rate of 102 with sinus tachycardia rhythm. MDM: Patient was seen due to concern for hypoxia and possible pneumonia. Of note the patient is DNR/DNI but the patient's sister who is at bedside is the POA and is amenable to IV fluids antibiotics and oxygen supplementation. Sepsis protocols were ordered along with antibiotics. Patient was ordered Zosyn empirically along with a MRSA swab. Patient also did have Covid testing. The patient was ordered antipyretics and IV fluids. Patient does have a white count of 17 with a hemoglobin of 13. Platelet count is normal. Kidney function with a creatinine 1.5. Lactate of 2.5. Pro-Walter is elevated. Troponin is nondetectable. Urinalysis does show positive for leuks and whites but does have numerous epithelial cells. Zosyn should cover gram-negative bacteria in the urine as well. Covid flu and RSV negative. Given the concern for oxygen requirement pneumonia and sepsis I did speak with the on-call hospitalist Umm Mann PA-C. The patient was to be admitted under Dr. Lopez. Critical Care: I have personally spent 55 minutes of critical care time in direct management of this patient. This includes bedside care, interpretation of diagnostic studies, and testing, discussion with consultants, patient, and family members, and other require inpatient management activities. This 55 minutes is in excess of all separately billable procedures. Past Med/Surg History Medical History BPH (benign prostatic hyperplasia) Constipation Constipation Down's syndrome Enlarged prostate Esophageal ulceration Gastritis GERD (gastroesophageal reflux disease) Hiatal hernia Hypothyroidism Mental retardation Pyloric stenosis Recurrent aspiration pneumonia Reflux esophagitis Severe intellectual disability Urinary retention Urinary symptom or sign Surgical History History of prostate surgery Family History Other Family history non-contributory Social History Smoking Status: Unknown if ever smoked Hx Alcohol Use: No Hx Substance Use: No Preferred Language: Mauritian Communication Ability: Unable Family Life Counselor Required: No Beliefs That Will Affect Care: None Current Living Situation: Personal Care Facility Current Living Situation Comment: Patient lives in correction current occupational status: disabled Feels Safe at Home: Yes Assistive Devices: None Allergies Allergies Allergy/AdvReac Type Severity Reaction Status Date / Time azithromycin AdvReac Unknown Unknown Unverified 05/12/20 11:04 furosemide [From Lasix] AdvReac Unknown Unknown Unverified 05/12/20 11:04 Home Meds Home Medications Medication Instructions Recorded Confirmed diphenhydramine HCl [Diphenhist] 25 mg PO Q6H PRN 12/19/17 05/12/20 docusate sodium [Stool Softener] 100 mg PO TID 12/19/17 05/12/20 ibuprofen 200 mg PO Q6H PRN 12/19/17 05/12/20 levothyroxine [Synthroid] 100 mcg PO DAILYBB 12/19/17 05/12/20 acetaminophen 650 mg MT Q4H PRN 03/18/20 05/12/20 ascorbic acid (vitamin C) 1 g PO HS 03/18/20 05/12/20 cholecalciferol (vitamin D3) 50 mcg PO HS 03/18/20 05/12/20 [Vitamin D3] famotidine 20 mg PO HS 03/18/20 05/12/20 lactulose 30 ml PO BID 03/18/20 05/12/20 melatonin 6 mg PO HS 03/18/20 05/12/20 nystatin 1 applic TOPICAL UD PRN 03/18/20 05/12/20 tramadol 50 mg PO BID 03/18/20 05/12/20 zinc 50 mg PO HS 03/18/20 05/12/20 amoxicillin-pot clavulanate 10 ml PO Q12 05/12/20 05/12/20 finasteride 5 mg PO HS 05/12/20 05/12/20 silodosin [Rapaflo] 8 mg PO HS 05/12/20 05/12/20 zinc oxide-cod liver oil [Desitin] 1 applic TOPICAL TID PRN 05/12/20 05/12/20 Previous Rx's Medication Instructions Recorded sodium phosphates 19 gram-7 266 ml MT ONCE PRN #3192 ml 04/28/19 gram/118 mL enema lubiprostone 24 mcg capsule 24 mcg PO BID #60 cap 05/28/19 pantoprazole 40 mg tablet,delayed 40 mg PO BID #60 tab 06/09/19 release polyethylene glycol 3350 17 See Rx Instructions .ROUTE 05/01/20 gram/dose oral powder .COMPLEX #510 g Results & Data (ED) Vital Signs Vital Signs - 24 hr 05/12/20 09:30 05/12/20 09:45 05/12/20 10:11 Temperature 38.2 C H Temperature Source Rectal Pulse Rate 107 H Pulse Rate [Left Finger] Pulse Rate from SpO2 Sensor 107 H Respiratory Rate 19 Respiratory Effort / Characteristics Non-Labored Respiratory Depth Normal Blood Pressure 80/62 L Blood Pressure [Left Arm] Blood Pressure Mean 68 Blood Pressure Mean [Left Arm] Blood Pressure Position Lying Pulse Oximetry 97 99 Oxygen Delivery Method High Flow Nasal Cannula Non-rebreather Non-rebreather Oxygen Flow Rate 10 10 10 Sepsis Recent Fever Within 48 Hours No Sepsis New/Unexplained Change in Mental Status Yes Sepsis Action Taken by Nursing Physician Notified 05/12/20 10:30 05/12/20 11:29 Temperature Temperature Source Pulse Rate Pulse Rate [Left Finger] 105 H 106 H Pulse Rate from SpO2 Sensor Respiratory Rate 20 18 Respiratory Effort / Characteristics Respiratory Depth Blood Pressure Blood Pressure [Left Arm] 104/52 L 92/60 L Blood Pressure Mean Blood Pressure Mean [Left Arm] 69 70 Blood Pressure Position Pulse Oximetry 97 96 Oxygen Delivery Method Room Air Non-rebreather Oxygen Flow Rate 10 Sepsis Recent Fever Within 48 Hours Sepsis New/Unexplained Change in Mental Status Sepsis Action Taken by [place] Medications Current Medication List: was personally reviewed by me Laboratory Data Attestation: I reviewed the patient's lab results. Result diagrams: 05/12/20 10:41 05/12/20 10:41 Lab Results 05/12/20 05/12/20 05/12/20 Range/Units 10:32 10:32 10:32 WBC (4.8-10.8) K/uL RBC (4.7-6.1) M/uL Hgb (14.0-18.0) g/dL Hct (42-52) % MCV (80-100) fL MCH (25-34) pg MCHC (32-36) g/dL RDW Std Deviation (36.4-46.3) fL RDW Coeff of [place] (11.5-14.5) % Plt Count (130-400) K/uL MPV (7.4-10.4) fL Immature Gran % (Auto) % Neut % (Auto) % Lymph % (Auto) % [place] % (Auto) % Eos % (Auto) % Baso % (Auto) % Neut # (Auto) (1.4-6.5) K/uL Lymph # (Auto) (1.2-3.4) K/uL [place] # (Auto) (0.11-0.59) K/uL Eos # (Auto) (0-0.5) K/uL Baso # (Auto) (0-0.2) K/uL Immature Gran # (Auto) (0.00-0.02) K/uL PT (9.0-12.0) Seconds INR (0.9-1.1) APTT (21.0-31.0) Seconds PTT Ratio Sodium (136-145) mmol/L Potassium (3.5-5.1) mmol/L Chloride (98-107) mmol/L Carbon Dioxide (21-32) mmol/L Anion Gap (3-11) BUN (7-18) mg/dl Creatinine (0.6-1.4) mg/dl Est Cr Clr Drug Dosing Est GFR ( Amer) Est GFR (Non-Af Amer) BUN/Creatinine Ratio (10-20) Glucose (70-99) mg/dl Lactate (0.4-2.0) mmol/L Calcium (8.5-10.1) mg/dl Magnesium (1.8-2.4) mg/dl Total Bilirubin (0.2-1) mg/dl AST (15-37) U/L ALT (12-78) U/L Alkaline Phosphatase (45-117) U/L Troponin I (0-0.045) ng/ml Total Protein (6.4-8.2) gm/dl Albumin (3.4-5.0) gm/dl Globulin (2.5-4.0) gm/dl Albumin/Globulin Ratio (0.9-2) Procalcitonin (0-0.5) ng/ml Urine Color Urine Appearance (Clear) Urine pH (4.5-7.5) Ur Specific [place] (1.000-1.030) Urine Protein (Negative) Urine Glucose (UA) (Negative) Urine Ketones (Negative) Urine Blood (Negative) Urine Nitrite (Negative) Urine Bilirubin (Negative) Urine Urobilinogen (Negative) Ur Leukocyte Esterase (Negative) Urine WBC (Auto) (0-5) /hpf Urine RBC (Auto) (0-4) /hpf U Hyaline Cast (Auto) (0-5) /lpf U Epithel Cells (Auto) (0-5) /lpf Urine Bacteria (Auto) (Negative) Nasal Screen MRSA (PCR) Negative (Negative) COVID-19 Eval Order CovFluRsv at [facility] SARS-CoV-2 (PCR) NEGATIVE (Negative) Influenza Type A (PCR) Negative (Neg) Influenza Type B (PCR) Negative (Neg) RSV (RT-PCR) Negative (Neg) 05/12/20 05/12/20 05/12/20 Range/Units 10:41 10:41 10:41 WBC 17.32 H (4.8-10.8) K/uL RBC 3.92 L (4.7-6.1) M/uL Hgb 13.2 L (14.0-18.0) g/dL Hct 39.8 L (42-52) % MCV 101.5 H (80-100) fL MCH 33.7 (25-34) pg MCHC 33.2 (32-36) g/dL RDW Std Deviation 51.8 H (36.4-46.3) fL RDW Coeff of [place] 14.2 (11.5-14.5) % Plt Count 291 (130-400) K/uL MPV 10.7 H (7.4-10.4) fL Immature Gran % (Auto) 0.3 % Neut % (Auto) 90.5 % Lymph % (Auto) 5.3 % [place] % (Auto) 3.6 % Eos % (Auto) 0.1 % Baso % (Auto) 0.2 % Neut # (Auto) 15.69 H (1.4-6.5) K/uL Lymph # (Auto) 0.91 L (1.2-3.4) K/uL [place] # (Auto) 0.62 H (0.11-0.59) K/uL Eos # (Auto) 0.02 (0-0.5) K/uL Baso # (Auto) 0.03 (0-0.2) K/uL Immature Gran # (Auto) 0.05 H (0.00-0.02) K/uL PT 11.3 (9.0-12.0) Seconds INR 1.1 (0.9-1.1) APTT 25.5 (21.0-31.0) Seconds PTT Ratio 1.0 Sodium 145 (136-145) mmol/L Potassium 3.7 (3.5-5.1) mmol/L Chloride 111 H (98-107) mmol/L Carbon Dioxide 27 (21-32) mmol/L Anion Gap 7.0 (3-11) BUN 17 (7-18) mg/dl Creatinine 1.54 H (0.6-1.4) mg/dl Est Cr Clr Drug Dosing Not Reportable Est GFR ( Amer) 56.4 Est GFR (Non-Af Amer) 48.7 BUN/Creatinine Ratio 11.1 (10-20) Glucose 98 (70-99) mg/dl Lactate (0.4-2.0) mmol/L Calcium 8.5 (8.5-10.1) mg/dl Magnesium 2.2 (1.8-2.4) mg/dl Total Bilirubin 0.6 (0.2-1) mg/dl AST 32 (15-37) U/L ALT 32 (12-78) U/L Alkaline Phosphatase 127 H (45-117) U/L Troponin I < 0.015 (0-0.045) ng/ml Total Protein 7.4 (6.4-8.2) gm/dl Albumin 2.4 L (3.4-5.0) gm/dl Globulin 5.0 H (2.5-4.0) gm/dl Albumin/Globulin Ratio 0.5 L (0.9-2) Procalcitonin (0-0.5) ng/ml Urine Color Urine Appearance (Clear) Urine pH (4.5-7.5) Ur Specific [place] (1.000-1.030) Urine Protein (Negative) Urine Glucose (UA) (Negative) Urine Ketones (Negative) Urine Blood (Negative) Urine Nitrite (Negative) Urine Bilirubin (Negative) Urine Urobilinogen (Negative) Ur Leukocyte Esterase (Negative) Urine WBC (Auto) (0-5) /hpf Urine RBC (Auto) (0-4) /hpf U Hyaline Cast (Auto) (0-5) /lpf U Epithel Cells (Auto) (0-5) /lpf Urine Bacteria (Auto) (Negative) Nasal Screen MRSA (PCR) (Negative) COVID-19 Eval Order SARS-CoV-2 (PCR) (Negative) Influenza Type A (PCR) (Neg) Influenza Type B (PCR) (Neg) RSV (RT-PCR) (Neg) 05/12/20 05/12/20 05/12/20 Range/Units 10:41 10:41 12:10 WBC (4.8-10.8) K/uL RBC (4.7-6.1) M/uL Hgb (14.0-18.0) g/dL Hct (42-52) % MCV (80-100) fL MCH (25-34) pg MCHC (32-36) g/dL RDW Std Deviation (36.4-46.3) fL RDW Coeff of [place] (11.5-14.5) % Plt Count (130-400) K/uL MPV (7.4-10.4) fL Immature Gran % (Auto) % Neut % (Auto) % Lymph % (Auto) % [place] % (Auto) % Eos % (Auto) % Baso % (Auto) % Neut # (Auto) (1.4-6.5) K/uL Lymph # (Auto) (1.2-3.4) K/uL [place] # (Auto) (0.11-0.59) K/uL Eos # (Auto) (0-0.5) K/uL Baso # (Auto) (0-0.2) K/uL Immature Gran # (Auto) (0.00-0.02) K/uL PT (9.0-12.0) Seconds INR (0.9-1.1) APTT (21.0-31.0) Seconds PTT Ratio Sodium (136-145) mmol/L Potassium (3.5-5.1) mmol/L Chloride (98-107) mmol/L Carbon Dioxide (21-32) mmol/L Anion Gap (3-11) BUN (7-18) mg/dl Creatinine (0.6-1.4) mg/dl Est Cr Clr Drug Dosing Est GFR ( Amer) Est GFR (Non-Af Amer) BUN/Creatinine Ratio (10-20) Glucose (70-99) mg/dl Lactate 2.5 H* (0.4-2.0) mmol/L Calcium (8.5-10.1) mg/dl Magnesium (1.8-2.4) mg/dl Total Bilirubin (0.2-1) mg/dl AST (15-37) U/L ALT (12-78) U/L Alkaline Phosphatase (45-117) U/L Troponin I (0-0.045) ng/ml Total Protein (6.4-8.2) gm/dl Albumin (3.4-5.0) gm/dl Globulin (2.5-4.0) gm/dl Albumin/Globulin Ratio (0.9-2) Procalcitonin 1.32 H (0-0.5) ng/ml Urine Color Yellow Urine Appearance Turbid A (Clear) Urine pH 5.0 (4.5-7.5) Ur Specific [place] 1.020 (1.000-1.030) Urine Protein 2+ H (Negative) Urine Glucose (UA) Negative (Negative) Urine Ketones Negative (Negative) Urine Blood 2+ H (Negative) Urine Nitrite Negative (Negative) Urine Bilirubin Negative (Negative) Urine Urobilinogen Negative (Negative) Ur Leukocyte Esterase 3+ H (Negative) Urine WBC (Auto) >30 H (0-5) /hpf Urine RBC (Auto) 0-4 (0-4) /hpf U Hyaline Cast (Auto) 1-5 (0-5) /lpf U Epithel Cells (Auto) 20-30 H (0-5) /lpf Urine Bacteria (Auto) 1+ H (Negative) Nasal Screen MRSA (PCR) (Negative) COVID-19 Eval Order SARS-CoV-2 (PCR) (Negative) Influenza Type A (PCR) (Neg) Influenza Type B (PCR) (Neg) RSV (RT-PCR) (Neg) Administered Medications Discontinued Medications Sodium Chloride (Nss 1000ml) 1,000 mls @ 999 mls/hr IV .Q1H1M MAGDALENA Stop: 05/12/20 10:58 Last Admin: 05/12/20 11:23 Dose: 999 mls/hr Documented by: [id number] Sodium Chloride (Nss 1000ml) 1,000 mls @ 999 mls/hr IV .Q1H1M MAGDALENA Stop: 05/12/20 11:58 Last Admin: 05/12/20 11:54 Dose: 999 mls/hr Documented by: [id number] Acetaminophen (Ofirmev) 1,000 mg in 100 mls @ 400 mls/hr IV NOW STA Stop: 05/12/20 10:11 Last Infusion: 05/12/20 11:53 Dose: 0 mls/hr Documented by: [id number] Admin: 05/12/20 11:23 Dose: 400 mls/hr Documented by: [id number] Piperacillin Sod/Tazobactam Sod (Zosyn) 4.5 gm in 120 mls @ 240 mls/hr IV NOW ONE Stop: 05/12/20 10:29 Last Admin: 05/12/20 11:52 Dose: 240 mls/hr Documented by: [id number] Discharge Plan Visit Data Chief Complaint: Respiratory Problems ED Provider: Pedro Barry Discharge Problem: Acute hypoxemic respiratory failure, Pneumonia, Sepsis Forms Stand Alone Forms: [facility] Prescriptions Prescriptions: No Action Fleet Enema 19-7 gram/118 mL enema 266 ml MT ONCE PRN (Reason: no bm) Qty: 3192 RF: 1 Amitiza 24 mcg capsule 24 mcg PO BID Qty: 60 RF: 11 pantoprazole [Protonix] 40 mg tablet,delayed release (DR/EC) 40 mg PO BID Qty: 60 RF: 11 polyethylene glycol 3350 17 gram/dose powder See Rx Instructions .ROUTE .COMPLEX Qty: 510 RF: 5 levothyroxine [Synthroid] 100 mcg Tablet 100 mcg PO DAILYBB RF: 0 diphenhydramine HCl [Diphenhist] 25 mg Capsule 25 mg PO Q6H PRN (Reason: allergies) RF: 0 ibuprofen 200 mg Tablet 200 mg PO Q6H PRN (Reason: Pain) RF: 0 docusate sodium [Stool Softener] 100 mg Capsule 100 mg PO TID RF: 0 ascorbic acid (vitamin C) 1,000 mg Tablet 1 g PO HS RF: 0 acetaminophen 650 mg Suppository 650 mg MT Q4H PRN (Reason: Pain and Fever) RF: 0 melatonin 3 mg Tablet 6 mg PO HS RF: 0 tramadol 50 mg Tablet 50 mg PO BID RF: 0 famotidine 20 mg tablet 20 mg PO HS RF: 0 zinc 50 mg Tablet 50 mg PO HS RF: 0 nystatin 100,000 unit/gram powder 1 applic TOPICAL UD PRN (Reason: Rash) RF: 0 lactulose 10 gram/15 mL solution 30 ml PO BID RF: 0 cholecalciferol (vitamin D3) [Vitamin D3] 50 mcg (2,000 unit) Capsule 50 mcg PO HS RF: 0 Desitin Ointment 1 applic TOPICAL TID PRN (Reason: Groin and Buttocks Irritation) RF: 0 finasteride 5 mg tablet 5 mg PO HS RF: 0 silodosin [Rapaflo] 8 mg capsule 8 mg PO HS RF: 0 amoxicillin-pot clavulanate 400-57 mg/5 mL suspension for reconstitution 10 ml PO Q12 RF: 0 Discharge Problem: Pneumonia Qualifiers: Pneumonia type: due to unspecified organism Laterality: bilateral Lung location: unspecified part of lung Qualified Code(s): J18.9 - Pneumonia, unspecified organism Sepsis Qualifiers: Sepsis type: sepsis due to unspecified organism Sepsis acute organ dysfunction status: with acute organ dysfunction Severe sepsis acute organ dysfunction type: acute respiratory failure Acute respiratory failure type: with hypoxia Severe sepsis shock status: unspecified Qualified Code(s): A41.9 - Sepsis, unspecified organism
--- NOTE | 2020-05-12 10:40 | XRay Report ---
XR chest 1V portable CLINICAL HISTORY: SEPSIS COMPARISON STUDY: 03/18/2020 FINDINGS: The cardiac and mediastinal contours remain stable. There are bilateral right greater than left pulmonary airspace opacities suspicious for a multifocal pneumonia. There is a suspected trace r ight pleural effusion. There is no pneumothorax.[ IMPRESSION: 1. Bilateral right greater than left pulmonary airspace opacities likely secondary to a pneumonia. [place] spected small right pleural effusion ACT 112: Negative or not required by law. Electronically signed by: Ponce Obregon M.D. 05/12/2020 10:38 AM
[2020-05-12 10:53] LABS: Basophils # (auto) 0.03 K/uL (0-0.2); Basophils % (auto) 0.2 %; Eosinophils # (auto) 0.02 K/uL (0-0.5); Eosinophils % (auto) 0.1 %; Hematocrit (blood only) 39.8 % (42-52); Hemoglobin 13.2 g/dL (14.0-18.0); Immature Granulocytes # (auto) 0.05 K/uL (0.00-0.02); Immature Granulocytes % (auto) 0.3 %; Lymphocytes # (auto) 0.91 K/uL (1.2-3.4); Lymphocytes % (auto) 5.3 %; Mean Corpuscular Hemoglobin 33.7 pg (25-34); Mean Corpuscular Hgb Conc 33.2 g/dL (32-36); Mean Corpuscular Volume 101.5 fL (80-100); Mean Platelet Volume 10.7 fL (7.4-10.4); Monocytes # (auto) 0.62 K/uL (0.11-0.59); Monocytes % (auto) 3.6 %; Neutrophils # (auto) 15.69 K/uL (1.4-6.5); Neutrophils % (auto) 90.5 %; Platelet Count 291 K/uL (130-400); RDW Coefficient of Variation 14.2 % (11.5-14.5); RDW Standard Deviation 51.8 fL (36.4-46.3); Red Blood Count 3.92 M/uL (4.7-6.1); White Blood Count 17.32 K/uL (4.8-10.8)
[2020-05-12 11:03] LABS: INR 1.1 (0.9-1.1); Partial Thromboplastin Time 25.5 Seconds (21.0-31.0); Prothrombin Time 11.3 Seconds (9.0-12.0)
[2020-05-12 11:09] LABS: Blood Urea Nitrogen 17 mg/dl (7-18); Carbon Dioxide 27 mmol/L (21-32); Chloride 111 mmol/L (98-107); Est GFR (African American) 56.4; Potassium 3.7 mmol/L (3.5-5.1); Sodium 145 mmol/L (136-145)
[2020-05-12 11:10] LABS: Albumin Level 2.4 gm/dl (3.4-5.0); BUN Creatinine Ratio 11.1 (10-20); Calcium 8.5 mg/dl (8.5-10.1); Est GFR (Non-African American) 48.7; Glucose 98 mg/dl (70-99); Magnesium 2.2 mg/dl (1.8-2.4)
[2020-05-12 11:14] LABS: Alanine Aminotransferase 32 U/L (12-78); Albumin Globulin Ratio 0.5 (0.9-2); Alkaline Phosphatase 127 U/L (45-117); Aspartate Aminotransferase 32 U/L (15-37); Bilirubin,Total 0.6 mg/dl (0.2-1); Total Protein 7.4 gm/dl (6.4-8.2); Troponin I < 0.015 ng/ml (0-0.045)
[2020-05-12 11:23] LABS: Influenza A virus by PCR Negative (Neg); Influenza B virus by PCR Negative (Neg); RSV by PCR Negative (Neg); SARS CoV2 RNA(COVID-19) InHosp NEGATIVE (Negative)
[2020-05-12 12:41] LABS: Appearance Urine Turbid (Clear); Bacteria Urine Automated 1+ (Negative); Bilirubin Urine Negative (Negative); Blood Urine 2+ (Negative); Color Urine Yellow; Epithelial Cell Urine Auto 20-30 /lpf (0-5); Glucose Urine UA Negative (Negative); Ketones Urine Negative (Negative); Leukocyte Esterase Urine 3+ (Negative); Nitrite Urine Negative (Negative); Protein Urine 2+ (Negative); RBC Urine Automated 0-4 /hpf (0-4); Urobilinogen Urine Negative (Negative); WBC Urine Automated >30 /hpf (0-5)
--- NOTE | 2020-05-12 12:55 | History & Physical Report ---
Date of Service May 12, 2020 Assessment & Plan (1) Bilateral pneumonia: Suspect related to aspiration - Continue oxygen via NRB - titrate as needed. Per pt's sister, pt is a DNI - Broad-spectrum antibiotic coverage with Zosyn and Vancomycin - Add prn albuterol nebs - Speech evaluation due to ongoing issues with aspiration - discussed potential PEG tube with sister who states they would not want this. POLST document on the chart in alignment - Palliative care consult to help outline goals of care (2) DOREEN (acute kidney injury): Suspect related to limited oral intake - Given 2 liters of NSS in ED - will start IVF with 1/2 NSS with 20 mEq KCL at 125 ml/hr x 2 liters then re-evaluate - Follow labs (3) Hypotension: Baseline SBP in 90s per caregiver - will continue to monitor after fluids (4) Urinary retention: Due to BPH - Shah placed in ED - will continue - Oral meds on hold (5) Constipation: Current bowel regimen on hold due to NPO status - will continue to monitor (6) Down's syndrome: (7) Hypothyroidism: - Continue levothyroxine but convert to IV dosing (8) GERD (gastroesophageal reflux disease): - IV Pepcic 20 mg BID since NPO Code Status: DNR/DNI DVT Prophylaxis: Heparin subQ due to DOREEN Pt seen and reviewed with attending physician, Dr. Lopez. Plan of care discussed and as outlined above. Pt's sister and merchandise planning manager were updated at the bedside. The possibility of a central line and pressors was discussed if needed but no decision was made at this time. Regino Mann PA-C History of Present Illness Chief Complaint: more tired and not eating x 2-3 days Primary Care Provider: Kevin Teixeira DO This is a 59 y/o male with a PMH of Trisomy 21, intellectual disability, recurrent aspiration pneumonia, hypothyroidism, chronic constipation, GERD, urinary retention, pyloric stenosis and dementia who presents to the ED today via EMS with increased fatigue and decreased oral intake, found to by hypoxic on initial EMS evaluation with O2 sats in the 80s. History from the patient is unobtainable so history obtained from the sister and caregiver at bedside as well as the outpatient medical records. Apparently, pt underwent a dental procedure with sedation on 05/03. A few days after this procedure he developed a junky cough productive of yellow-green sputum. He was seen by his PCP two days ago and started on Augmentin for presumed aspiration pneumonia. He has been taking the antibiotic as ordered but has seemed to have less and less energy, especially today. Per pt's caregiver, he is on a pureed diet with nectar thick liquids but there is still concern for occasional aspiration at meals even with aggressive precautions in place. His oral intake is variable with some days only eating 1-2 meals. His oral intake has been worse than usual over the past several days and his PCP was concerned about dehydration. Pt also had diarrhea this morning, which may be related to the antibiotics. Allergies Allergy/AdvReac Type Severity Reaction Status Date / Time azithromycin AdvReac Unknown Unknown Unverified 05/12/20 11:04 furosemide [From Lasix] AdvReac Unknown Unknown Unverified 05/12/20 11:04 Home Medications Medication Instructions Recorded Confirmed Type diphenhydramine HCl [Diphenhist] 25 mg PO Q6H PRN 12/19/17 05/12/20 History docusate sodium [Stool Softener] 100 mg PO TID 12/19/17 05/12/20 History ibuprofen 200 mg PO Q6H PRN 12/19/17 05/12/20 History levothyroxine [Synthroid] 100 mcg PO DAILYBB 12/19/17 05/12/20 History sodium phosphates 19 gram-7 266 ml AZ ONCE PRN #3192 ml 04/28/19 05/12/20 Rx gram/118 mL enema lubiprostone 24 mcg capsule 24 mcg PO BID #60 cap 05/28/19 05/12/20 Rx pantoprazole 40 mg tablet,delayed 40 mg PO BID #60 tab 06/09/19 05/12/20 Rx release acetaminophen 650 mg AZ Q4H PRN 03/18/20 05/12/20 History ascorbic acid (vitamin C) 1 g PO HS 03/18/20 05/12/20 History cholecalciferol (vitamin D3) 50 mcg PO HS 03/18/20 05/12/20 History [Vitamin D3] famotidine 20 mg PO HS 03/18/20 05/12/20 History lactulose 30 ml PO BID 03/18/20 05/12/20 History melatonin 6 mg PO HS 03/18/20 05/12/20 History nystatin 1 applic TOPICAL UD PRN 03/18/20 05/12/20 History tramadol 50 mg PO BID 03/18/20 05/12/20 History zinc 50 mg PO HS 03/18/20 05/12/20 History polyethylene glycol 3350 17 See Rx Instructions .ROUTE 05/01/20 05/12/20 Rx gram/dose oral powder .COMPLEX #510 g amoxicillin-pot clavulanate 10 ml PO Q12 05/12/20 05/12/20 History finasteride 5 mg PO HS 05/12/20 05/12/20 History silodosin [Rapaflo] 8 mg PO HS 05/12/20 05/12/20 History zinc oxide-cod liver oil [Desitin] 1 applic TOPICAL TID PRN 05/12/20 05/12/20 History Past Med/Surg History Medical History BPH (benign prostatic hyperplasia) Constipation Constipation Down's syndrome Enlarged prostate Esophageal ulceration Gastritis GERD (gastroesophageal reflux disease) Hiatal hernia Hypothyroidism Mental retardation Pyloric stenosis Recurrent aspiration pneumonia Reflux esophagitis Severe intellectual disability Urinary retention Urinary symptom or sign Surgical History History of prostate surgery Family History Other Family history non-contributory Social History Smoking Status: Never smoker Second Hand Exposure: No; Do You Dip or Chew Tobacco: No; Tobacco Cessation Education Requested by Patient: No Hx Alcohol Use: No Hx Substance Use: No Preferred Language: Bengali Communication Ability: Effective Poultry Hatchery Man Required: No Beliefs That Will Affect Care: None Current Living Situation: Other Current Living Situation Comment: [facility] current occupational status: disabled Other Information That Helps Us Care for You: Yes (axilliary temps only) Feels Safe at Home: Yes Safety Concerns: Feels Safe At This Time Assistive Devices: None Review of Systems Review of Systems: Unobtainable due to mental health condition Physical Exam Constitutional: well developed, well nourished and average body habitus; no acute distress Eyes: + anicteric sclerae Neck: trachea midline Respiratory: + tachypneic (mildly with mildly increased work of breathing though not in distress); does not use accessory muscles Auscultation: + diminished lung sounds and + crackles (bibasilar) Cardiovascular: Rate/Rhythm: regular rhythm and + tachycardic Heart Sounds: no gallop and no cardiac rub Vessels: dorsalis pedis pulses present and radial pulses present Extremities: no pedal edema Gastrointestinal (Abdomen): Inspection/Auscultation: normal bowel sounds; abdomen not distended Percussion/Palpation: abdomen soft; abdomen nontender Musculoskeletal: Head/Neck/Chest: normocephalic, head atraumatic and neck supple Extremities: no cyanosis Skin: no rashes, warm and dry Neurologic: moves all extremities Results & Data Results & Data ([facility]) Vital Signs (Past 12 Hours) Vital Signs Temp Pulse Pulse Resp BP BP Pulse Ox 05/12/20 11:29 106 H 18 92/60 L 96 05/12/20 10:30 105 H 20 104/52 L 97 05/12/20 10:11 99 05/12/20 09:30 38.2 C H 107 H 19 80/62 L 97 Laboratory Results Laboratory Results - last 24 hr 05/12/20 05/12/20 05/12/20 10:32 10:32 10:32 WBC RBC Hgb Hct MCV MCH MCHC RDW Std Deviation RDW Coeff of [place] Plt Count MPV Immature Gran % (Auto) Neut % (Auto) Lymph % (Auto) [place] % (Auto) Eos % (Auto) Baso % (Auto) Neut # (Auto) Lymph # (Auto) [place] # (Auto) Eos # (Auto) Baso # (Auto) Immature Gran # (Auto) PT INR APTT PTT Ratio Sodium Potassium Chloride Carbon Dioxide Anion Gap BUN Creatinine Est Cr Clr Drug Dosing Est GFR ( Amer) Est GFR (Non-Af Amer) BUN/Creatinine Ratio Glucose Lactate Calcium Magnesium Total Bilirubin AST ALT Alkaline Phosphatase Troponin I Total Protein Albumin Globulin Albumin/Globulin Ratio Procalcitonin Urine Color Urine Appearance Urine pH Ur Specific [place] Urine Protein Urine Glucose (UA) Urine Ketones Urine Blood Urine Nitrite Urine Bilirubin Urine Urobilinogen Ur Leukocyte Esterase Urine WBC (Auto) Urine RBC (Auto) U Hyaline Cast (Auto) U Epithel Cells (Auto) Urine Bacteria (Auto) Nasal Screen MRSA (PCR) Negative COVID-19 Eval Order CovFluRsv at [facility] SARS-CoV-2 (PCR) NEGATIVE Influenza Type A (PCR) Negative Influenza Type B (PCR) Negative RSV (RT-PCR) Negative 05/12/20 05/12/20 05/12/20 10:41 10:41 10:41 WBC 17.32 H RBC 3.92 L Hgb 13.2 L Hct 39.8 L MCV 101.5 H MCH 33.7 MCHC 33.2 RDW Std Deviation 51.8 H RDW Coeff of [place] 14.2 Plt Count 291 MPV 10.7 H Immature Gran % (Auto) 0.3 Neut % (Auto) 90.5 Lymph % (Auto) 5.3 [place] % (Auto) 3.6 Eos % (Auto) 0.1 Baso % (Auto) 0.2 Neut # (Auto) 15.69 H Lymph # (Auto) 0.91 L [place] # (Auto) 0.62 H Eos # (Auto) 0.02 Baso # (Auto) 0.03 Immature Gran # (Auto) 0.05 H PT 11.3 INR 1.1 APTT 25.5 PTT Ratio 1.0 Sodium 145 Potassium 3.7 Chloride 111 H Carbon Dioxide 27 Anion Gap 7.0 BUN 17 Creatinine 1.54 H Est Cr Clr Drug Dosing Not Reportable Est GFR ( Amer) 56.4 Est GFR (Non-Af Amer) 48.7 BUN/Creatinine Ratio 11.1 Glucose 98 Lactate Calcium 8.5 Magnesium 2.2 Total Bilirubin 0.6 AST 32 ALT 32 Alkaline Phosphatase 127 H Troponin I < 0.015 Total Protein 7.4 Albumin 2.4 L Globulin 5.0 H Albumin/Globulin Ratio 0.5 L Procalcitonin Urine Color Urine Appearance Urine pH Ur Specific [place] Urine Protein Urine Glucose (UA) Urine Ketones Urine Blood Urine Nitrite Urine Bilirubin Urine Urobilinogen Ur Leukocyte Esterase Urine WBC (Auto) Urine RBC (Auto) U Hyaline Cast (Auto) U Epithel Cells (Auto) Urine Bacteria (Auto) Nasal Screen MRSA (PCR) COVID-19 Eval Order SARS-CoV-2 (PCR) Influenza Type A (PCR) Influenza Type B (PCR) RSV (RT-PCR) 05/12/20 05/12/20 05/12/20 10:41 10:41 12:10 WBC RBC Hgb Hct MCV MCH MCHC RDW Std Deviation RDW Coeff of [place] Plt Count MPV Immature Gran % (Auto) Neut % (Auto) Lymph % (Auto) [place] % (Auto) Eos % (Auto) Baso % (Auto) Neut # (Auto) Lymph # (Auto) [place] # (Auto) Eos # (Auto) Baso # (Auto) Immature Gran # (Auto) PT INR APTT PTT Ratio Sodium Potassium Chloride Carbon Dioxide Anion Gap BUN Creatinine Est Cr Clr Drug Dosing Est GFR ( Amer) Est GFR (Non-Af Amer) BUN/Creatinine Ratio Glucose Lactate 2.5 H* Calcium Magnesium Total Bilirubin AST ALT Alkaline Phosphatase Troponin I Total Protein Albumin Globulin Albumin/Globulin Ratio Procalcitonin 1.32 H Urine Color Yellow Urine Appearance Turbid A Urine pH 5.0 Ur Specific [place] 1.020 Urine Protein 2+ H Urine Glucose (UA) Negative Urine Ketones Negative Urine Blood 2+ H Urine Nitrite Negative Urine Bilirubin Negative Urine Urobilinogen Negative Ur Leukocyte Esterase 3+ H Urine WBC (Auto) >30 H Urine RBC (Auto) 0-4 U Hyaline Cast (Auto) 1-5 U Epithel Cells (Auto) 20-30 H Urine Bacteria (Auto) 1+ H Nasal Screen MRSA (PCR) COVID-19 Eval Order SARS-CoV-2 (PCR) Influenza Type A (PCR) Influenza Type B (PCR) RSV (RT-PCR) Diagnostic Findings Chest X-ray 05/12/20 - IMPRESSION: 1. Bilateral right greater than left pulmonary airspace opacities likely secondary to a pneumonia. Suspected small right pleural effusion Medications Administered Discontinued Medications Sodium Chloride (Nss 1000ml) 1,000 mls @ 999 mls/hr IV .Q1H1M MAGDALENA Stop: 05/12/20 10:58 Last Admin: 05/12/20 11:23 Dose: 999 mls/hr Documented by: [id number] Sodium Chloride (Nss 1000ml) 1,000 mls @ 999 mls/hr IV .Q1H1M MAGDALENA Stop: 05/12/20 11:58 Last Admin: 05/12/20 11:54 Dose: 999 mls/hr Documented by: [id number] Acetaminophen (Ofirmev) 1,000 mg in 100 mls @ 400 mls/hr IV NOW STA Stop: 05/12/20 10:11 Last Infusion: 05/12/20 11:53 Dose: 0 mls/hr Documented by: [id number] Admin: 05/12/20 11:23 Dose: 400 mls/hr Documented by: [id number] Piperacillin Sod/Tazobactam Sod (Zosyn) 4.5 gm in 120 mls @ 240 mls/hr IV NOW ONE Stop: 05/12/20 10:29 Last Admin: 05/12/20 11:52 Dose: 240 mls/hr Documented by: [id number] Code Status & VTE Plan VTE Prophylaxis Plan VTE Prophylaxis will be ordered: Yes Supervising Physician Co-Signing Physician Notes Patient is a 59-year-old male with history of intellectual disability, chronic aspiration issues and other medical problems presents with history of increased fatigue, lethargy, decreased oral intake and respiratory failure requiring supplemental oxygen to maintain saturations. He was placed on nonrebreather while in ED. most of the history is obtained from patient's family, caregiver and ER physician. Patient currently unable to provide any history. He seems to be comfortable while on nonrebreather without any respiratory distress. Please review HPI for complete details of presentation. Chest x-ray showed bilateral right greater than left pulmonary airspace opacities likely secondary to pneumonia and suspected small right pleural effusion. Leukocytosis noted at 17 K.Lactate levels normalized with IV fluids from 2.5-2.0. Clinically seems to be dehydrated due to his poor oral intake. Urinalysis suggestive of possible urinary tract infection. Covid screen is negative. On exam patient is moderately built and nourished, no apparent distress, normocephalic atraumatic, lungs--decreased breath sounds, basal crackles bilaterally, S1-S2, no murmur, trace pedal edema, abdomen soft, nontender, normal bowel sounds, alert, awake, grossly moves all extremities. Patient is admitted for management of acute respiratory failure secondary to aspiration pneumonitis. Also septic, DOREEN, possible UTI. Blood pressure usually runs in the low 90s as per family. We will start him on broad-spectrum IV antibiotics vancomycin, Zosyn. Give IV fluids and continue supplemental oxygen as needed. No aggressive measures as per family. Blood cultures, urine culture obtained. Will trend lactate levels. Monitor renal function. We will keep him n.p.o. until evaluation by speech therapy. Discussed with patient's family and caregiver at bedside in detail who agrees with current management. Palliative care consulted to address goals of care. I personally reviewed the record. Patient is interviewed and examined at bedside. Patient's care is coordinated with Muriel Mann PA-C. Please refer to the documentation above for details of patient's presentation and for discussion of other issues.
--- NOTE | 2020-05-12 14:24 | Electrocardiogram Report ---
Test Reason : Blood Pressure : / mmHG Vent. Rate : 102 BPM Atrial Rate : 102 BPM P-R Int : 122 ms QRS Dur : 074 ms QT Int : 328 ms P-R-T Axes : 061 004 030 degrees QTc Int : 427 ms Poor data quality, interpretation may be adversely affected Sinus tachycardia Otherwise normal ECG When compared with ECG of 18-MAR-2020 06:44, No significant change was found Confirmed by Clay Novak ([id number]) on 05/12/2020 2:24:17 PM Referred By: REFERRED SELF Confirmed By:Clay Novak
[2020-05-12] MEDS ORDERED: VANCOMYCIN CONSULT ACTIVE PRN (14:47)
[2020-05-12] MEDS ORDERED: ALBUTEROL 0.083% NEBU SOLN 3 ML VIAL NEB PRN (14:47)
[2020-05-12] MEDS ORDERED: PATIENT'S HEIGHT AND/OR WEIGHT NEEDED SCH (15:00)
[2020-05-12] MEDS ORDERED: VANCOMYCIN HCL 1,750 MG in SODIUM CHLORIDE 0.9% 500 ML IV ONE (15:15)
[2020-05-12] MEDS: SODIUM CHLOR 0.45% + 20MEQ KCL 20 MEQ/1,000 ML BAG IV SCH ×2 (15:21→23:34)
[2020-05-12] MEDS: PIPERACILLIN/TAZOBACTAM 3.375 GM in DEXTROSE 5% 100 ML IV SCH ×2 (15:52→23:03)
[2020-05-12] MEDS: HEPARIN SOD 5,000 UNIT/0.5 ML VIAL SQ SCH ×2 (15:53→23:00)
[2020-05-12] MEDS: FAMOTIDINE 20 MG in SYRINGE 3 ML IV SCH (20:38)
[2020-05-13] MEDS ORDERED: OLANZapine 10 MG/2.1 ML SDV IM PRN (04:07)
[2020-05-13 04:46] LABS: Basophils # (auto) 0.03 K/uL (0-0.2); Basophils % (auto) 0.2 %; Eosinophils # (auto) 0.16 K/uL (0-0.5); Hematocrit (blood only) 35.8 % (42-52); Hemoglobin 11.9 g/dL (14.0-18.0); Immature Granulocytes # (auto) 0.02 K/uL (0.00-0.02); Immature Granulocytes % (auto) 0.1 %; Lymphocytes # (auto) 1.17 K/uL (1.2-3.4); Lymphocytes % (auto) 7.4 %; Mean Corpuscular Hemoglobin 33.3 pg (25-34); Mean Corpuscular Hgb Conc 33.2 g/dL (32-36); Mean Corpuscular Volume 100.3 fL (80-100); Mean Platelet Volume 10.8 fL (7.4-10.4); Monocytes # (auto) 0.59 K/uL (0.11-0.59); Monocytes % (auto) 3.8 %; Neutrophils # (auto) 13.74 K/uL (1.4-6.5); Neutrophils % (auto) 87.5 %; Platelet Count 262 K/uL (130-400); RDW Coefficient of Variation 14.2 % (11.5-14.5); RDW Standard Deviation 51.7 fL (36.4-46.3); Red Blood Count 3.57 M/uL (4.7-6.1); White Blood Count 15.71 K/uL (4.8-10.8)
[2020-05-13 05:03] LABS: Calcium 7.4 mg/dl (8.5-10.1); Est GFR (African American) 69.9; Est GFR (Non-African American) 60.3; Potassium 3.3 mmol/L (3.5-5.1)
[2020-05-13 05:06] LABS: Albumin Globulin Ratio 0.5 (0.9-2); Bilirubin,Total 0.5 mg/dl (0.2-1); Globulin 4.4 gm/dl (2.5-4.0); Total Protein 6.4 gm/dl (6.4-8.2)
[2020-05-13] MEDS: HEPARIN SOD 5,000 UNIT/0.5 ML VIAL SQ SCH ×3 (05:57→21:00)
[2020-05-13] MEDS ORDERED: VANCOMYCIN HCL 1,000 MG in SODIUM CHLORIDE 0.9% 250 ML IV ONE (07:15)
[2020-05-13] MEDS ORDERED: SODIUM CHLOR 0.45% + 20MEQ KCL 20 MEQ/1,000 ML BAG IV ONE (08:40)
[2020-05-13] MEDS ORDERED: LEVOTHYROXINE SODIUM 50 MCG in SYRINGE 0 ML IV SCH (09:00)
[2020-05-13] MEDS: PIPERACILLIN/TAZOBACTAM 3.375 GM in DEXTROSE 5% 100 ML IV SCH ×3 (09:18→23:42)
[2020-05-13] MEDS: POTASSIUM CHLORIDE / WTR 10 MEQ/100 ML PLCT IV SCH ×2 (09:18→10:35)
[2020-05-13] MEDS: FAMOTIDINE 20 MG in SYRINGE 3 ML IV SCH ×2 (09:19→20:49)
[2020-05-13] MEDS: ACETAMINOPHEN 1000 MG/100 ML IV IV PRN ×2 (11:30→23:36)
--- NOTE | 2020-05-13 15:17 | Pharmacy Report ---
Pharmacy Abx Initial Consult - Date of Service May 13, 2020 - Pharmacy Dosing Scope Date of Consult: 05/12/20 Consultation requested by: Regino Mann PA-C Pharmacy is consulted to initiate Vancomycin + Zosyn IV dosing therapy, order appropriate labs and adjust drug dose/frequency. - Subjective The patient is a 59 year old M admitted on 05/12/20 12:39. - Objective Height: 5 ft 4 in Weight: 70.8 kg Vital Signs (Past 12hrs): Vital Signs Temp Pulse Pulse Resp BP Pulse Ox 05/13/20 11:00 38.1 C H 105 H 17 102/61 100 05/13/20 08:00 103 H 05/13/20 07:28 38.0 C H 105 H 19 97/59 L 94 05/13/20 06:20 37 C 108 H 18 113/69 92 Lab Results (24hrs): Laboratory Tests (24 Hours) 05/13/20 05/13/20 05/13/20 04:31 04:31 04:31 WBC Neut # (Auto) Creatinine 1.29 Est Cr Clr Drug Dosing 56.0 Procalcitonin 1.46 H Random Vancomycin 15.9 05/13/20 04:31 WBC 15.71 H Neut # (Auto) 13.74 H Creatinine Est Cr Clr Drug Dosing Procalcitonin Random Vancomycin Micro Results: 05/12/20 10:52 Anaerobic Blood Culture - Pending Blood - Risk Factors for Resistance * None - Assessment & Plan Assessment 59 year old M admitted secondary to fatigue * PMHx significant for recurrent aspiration pneumonia with h/o MRSA infection per admitting PAWeiC * Remains febrile today. Leukocytosis improved from 17k-->15.7k. SCr improved from 1.54-->1.29 mg/dL. * MRSA nasal swab negative but admitting PAWeiC would like to continue vancomycin for now * Cultures pending Plan Vancomycin + Zosyn for treatment of pneumonia Vancomycin IV * Loading dose: 1750 mg (24 mg/kg) * Maintenance dose: 1000 mg IV (14 mg/kg) every 12 hours * Goal trough level: 15 to 20 mcg/mL * Trough ordered for Friday morning prior to 5th dose Piperacillin/tazobactam * 4.5 g bolus administered over 30 minutes, then 3.375 g IV extended infusion every 8 hours for CrCl greater than 20 mL/min Pharmacy will continue to follow and will adjust dose/frequency as necessary. Thank you.
--- NOTE | 2020-05-13 15:39 | Hospitalist Progress Note ---
Date of Service May 13, 2020 Assessment & Plan (1) Bilateral pneumonia: Acute respiratory failure with hypoxia Sepsis B/L Pneumonia likely secondary to aspiration CXR:Bilateral right greater than left pulmonary airspace opacities likely secondary to a pneumonia. Suspected small right pleural effusion COVID Screen:Negative H/O chronic aspiration as per patient's caregiver Lactic acid levels normalized with IV fluids Elevated procalcitonin Blood cultures:No growth to date Continue vancomycin, Zosyn for now Albuterol as needed Continue supplemental oxygen as needed No aggressive measures as per patient's primary Speech therapy consulted N.p.o. for now Plan for video swallow on Friday Palliative care consulted to address goals of care (2) DOREEN (acute kidney injury): Acute kidney injury Hypokalemia Likely prerenal Renal function improved with IV fluids Likely cellulitis Monitor (3) Hypotension: SBP usually runs in the 90s at baseline per caregiver BP improved with IV fluids monitor (4) Urinary retention: Due to BPH Continue Shah Resume PO meds as able Abnormal UA Likely contamination Urine culture negative for UTI (5) Constipation: Resume bowel regimen as able (6) Down's syndrome: (7) Hypothyroidism: Continue levothyroxine (8) GERD (gastroesophageal reflux disease): Continue IV Pepcid 20 mg BID while NPO DVT Px: Heparin SQ Code Status: DNR/DNI Admission and Anticipated Discharge Date Admission Date: May 12, 2020 Subjective Patient is seen and examined at bedside Noted to be drowsy this morning Was agitated overnight and received Zyprexa Patient unable to provide any history secondary to intellectual disability Febrile this morning Plan for video swallow study on Friday Leukocytosis trending down Review of Systems Review of Systems: All systems reviewed & are unremarkable except as noted in HPI & below Physical Exam Physical Exam: Physical Exam: Vitals signs as noted above General Appearance:Moderately built and nourished, no apparent distress, Drowsy Head: normocephalic, Atraumatic Eyes: normal inspection, EOMI Neck: supple, Trachea midline Respiratory/Chest: Decreased breath sounds, Basal crackles Cardiovascular: S1, S2, No murmur Abdomen/GI:Soft, Non tender, Bowel sounds present Extremities/Musculoskelatal:normal inspection, Trace pedal edema Neurologic/Psych:AAOX3, grossly no focal neurological deficits Skin: normal color, warm Results & Data Results & Data ([facility]) Vital Signs (Past 12 Hours) Vital Signs Temp Pulse Pulse Resp BP Pulse Ox 05/13/20 11:00 38.1 C H 105 H 17 102/61 100 05/13/20 08:00 103 H 05/13/20 07:28 38.0 C H 105 H 19 97/59 L 94 05/13/20 06:20 37 C 108 H 18 113/69 92 Laboratory Results Short CBC 05/13/20 Range/Units 04:31 WBC 15.71 H (4.8-10.8) K/uL Hgb 11.9 L (14.0-18.0) g/dL Hct 35.8 L (42-52) % Plt Count 262 (130-400) K/uL BMP 05/13/20 04:31 Sodium 147 H Potassium 3.3 L Chloride 117 H Carbon Dioxide 24 BUN 13 Creatinine 1.29 Glucose 108 H Calcium 7.4 L Liver Function 05/13/20 Range/Units 04:31 Total Bilirubin 0.5 (0.2-1) mg/dl AST 31 (15-37) U/L ALT 32 (12-78) U/L Alkaline Phosphatase 108 (45-117) U/L Albumin 2.0 L (3.4-5.0) gm/dl
[2020-05-13] MEDS: VANCOMYCIN HCL 1,000 MG in SODIUM CHLORIDE 0.9% 250 ML IV SCH (20:37)
[2020-05-13] MEDS: LACTATED RINGER'S 1,000 ML IV SCH (20:41)
[2020-05-14] MEDS: HEPARIN SOD 5,000 UNIT/0.5 ML VIAL SQ SCH ×3 (05:43→21:00)
[2020-05-14 06:53] LABS: Basophils # (auto) 0.03 K/uL (0-0.2); Basophils % (auto) 0.2 %; Eosinophils # (auto) 0.28 K/uL (0-0.5); Eosinophils % (auto) 1.8 %; Hematocrit (blood only) 37.4 % (42-52); Hemoglobin 12.4 g/dL (14.0-18.0); Immature Granulocytes # (auto) 0.02 K/uL (0.00-0.02); Immature Granulocytes % (auto) 0.1 %; Mean Corpuscular Hemoglobin 33.1 pg (25-34); Mean Corpuscular Hgb Conc 33.2 g/dL (32-36); Mean Corpuscular Volume 99.7 fL (80-100); Mean Platelet Volume 10.6 fL (7.4-10.4); Monocytes # (auto) 0.73 K/uL (0.11-0.59); Monocytes % (auto) 4.6 %; Neutrophils # (auto) 13.34 K/uL (1.4-6.5); Neutrophils % (auto) 83.3 %; Platelet Count 272 K/uL (130-400); RDW Coefficient of Variation 14.2 % (11.5-14.5); RDW Standard Deviation 50.4 fL (36.4-46.3); Red Blood Count 3.75 M/uL (4.7-6.1)
[2020-05-14] MEDS: VANCOMYCIN HCL 1,000 MG in SODIUM CHLORIDE 0.9% 250 ML IV SCH ×2 (07:07→20:42)
[2020-05-14] MEDS: FAMOTIDINE 20 MG in SYRINGE 3 ML IV SCH ×2 (07:07→20:48)
[2020-05-14 07:28] LABS: BUN Creatinine Ratio 6.7 (10-20); Calcium 7.7 mg/dl (8.5-10.1); Creatinine Clr Calc Pharmacy 61.7 ml/min; Est GFR (African American) 77.3; Est GFR (Non-African American) 66.7; Magnesium 2.1 mg/dl (1.8-2.4); Potassium 3.5 mmol/L (3.5-5.1)
[2020-05-14] MEDS: PIPERACILLIN/TAZOBACTAM 3.375 GM in DEXTROSE 5% 100 ML IV SCH ×2 (08:01→17:02)
[2020-05-14] MEDS: LACTATED RINGER'S 1,000 ML IV SCH (09:06)
[2020-05-14] MEDS: SODIUM CHLOR 0.45% + 20MEQ KCL 20 MEQ/1,000 ML BAG IV SCH ×2 (10:49→23:13)
[2020-05-14] MEDS: ACETAMINOPHEN 1000 MG/100 ML IV IV PRN (13:07)
--- NOTE | 2020-05-14 15:13 | Hospitalist Progress Note ---
Date of Service May 14, 2020 Assessment & Plan (1) Bilateral pneumonia: Acute respiratory failure with hypoxia Sepsis B/L Pneumonia likely secondary to aspiration CXR:Bilateral right greater than left pulmonary airspace opacities likely secondary to a pneumonia. Suspected small right pleural effusion COVID Screen:Negative H/O chronic aspiration as per patient's caregiver Lactic acid levels normalized with IV fluids Elevated procalcitonin Blood cultures:No growth to date Continue vancomycin, Zosyn Albuterol as needed No aggressive measures as per patient's primary Speech therapy consulted N.p.o. for now Plan for video swallow tomorrow Palliative care consulted to address goals of care We will repeat chest x-ray, procalcitonin tomorrow Saturating well on room air (2) DOREEN (acute kidney injury): Acute kidney injury Hypokalemia Likely prerenal Renal function improved with IV fluids Replace electrolytes as needed Monitor (3) Hypotension: SBP usually runs in the 90s at baseline per caregiver BP improved with IV fluids monitor (4) Urinary retention: Due to BPH Continue Shah Resume PO meds as able Abnormal UA Likely contamination UTI ruled out Urine Cx: Negative (5) Constipation: Resume bowel regimen as able (6) Down's syndrome: (7) Hypothyroidism: Continue levothyroxine (8) GERD (gastroesophageal reflux disease): Continue IV Pepcid 20 mg BID while NPO DVT Px: Heparin SQ Code Status: DNR/DNI Admission and Anticipated Discharge Date Admission Date: May 12, 2020 Subjective Patient is seen and examined at bedside More alert, awake today Patient unable to provide any history secondary to intellectual disability Persistent leukocytosis Low-grade fever this morning Plan for video swallow study tomorrow Blood, urine cultures remain negative Review of Systems Review of Systems: All systems reviewed & are unremarkable except as noted in HPI & below Physical Exam Physical Exam: Physical Exam: Vitals signs as noted above General Appearance:Moderately built and nourished, mild distress Head: normocephalic, Atraumatic Eyes: normal inspection, EOMI Neck: supple, Trachea midline Respiratory/Chest: Decreased breath sounds, CTA Cardiovascular: S1, S2, No murmur Abdomen/GI:Soft, Non tender, Bowel sounds present Extremities/Musculoskelatal:normal inspection, Trace pedal edema Neurologic/Psych:AAOX3, grossly no focal neurological deficits Skin: normal color, warm Results & Data Results & Data ([facility]) Vital Signs (Past 12 Hours) Vital Signs Temp Pulse Pulse Resp BP BP Pulse Ox 05/14/20 11:36 37.7 C H 73 16 107/66 95 05/14/20 08:00 36.9 C 85 88 18 108/68 97 05/14/20 04:03 36.9 C 85 20 103/60 99 Laboratory Results Short CBC 05/14/20 Range/Units 06:36 WBC 16.00 H (4.8-10.8) K/uL Hgb 12.4 L (14.0-18.0) g/dL Hct 37.4 L (42-52) % Plt Count 272 (130-400) K/uL BMP 05/14/20 06:36 Sodium 146 H Potassium 3.5 Chloride 116 H Carbon Dioxide 22 BUN 8 D Creatinine 1.18 Glucose 103 H Calcium 7.7 L
--- NOTE | 2020-05-14 20:59 | Communication Note ---
Date of Service: May 14, 2020 Mr. Mantilla is a 59 year old male who presented to the [facility] from home via EMS with overall fatigue and decreased PO intake. Upon arrival, he was found to be hypoxic in the low 80's. He is currently being treated for aspiration pnumonitis. He lives at home with his mother, sister and a caregiver. He has Trisomy 21 with intellect challenges and palliative care has been consulted to assist with aligning goals. In speaking with Dr. Lopez today, he is due to have a swallowing study tomorrow afternoon (05/16) and requested that palliative care see this individual on Wednesday 05/17 for which we will have additional information that will assist with goal making. Should anything change prior to them, please do not hesitate to reach out. Formal consult to follow.
[2020-05-15] MEDS: ACETAMINOPHEN 1000 MG/100 ML IV IV PRN (00:05)
[2020-05-15] MEDS: PIPERACILLIN/TAZOBACTAM 3.375 GM in DEXTROSE 5% 100 ML IV SCH ×2 (00:58→07:25)
[2020-05-15] MEDS: HEPARIN SOD 5,000 UNIT/0.5 ML VIAL SQ SCH ×3 (05:04→22:02)
[2020-05-15] MEDS: FAMOTIDINE 20 MG in SYRINGE 3 ML IV SCH (07:25)
[2020-05-15] MEDS ORDERED: VANCOMYCIN TROUGH ONE (07:30)
[2020-05-15 08:26] LABS: Basophils # (auto) 0.04 K/uL (0-0.2); Basophils % (auto) 0.3 %; Eosinophils # (auto) 0.52 K/uL (0-0.5); Eosinophils % (auto) 4.2 %; Hematocrit (blood only) 37.8 % (42-52); Hemoglobin 13.2 g/dL (14.0-18.0); Immature Granulocytes # (auto) 0.04 K/uL (0.00-0.02); Immature Granulocytes % (auto) 0.3 %; Lymphocytes # (auto) 1.49 K/uL (1.2-3.4); Lymphocytes % (auto) 11.9 %; Mean Corpuscular Hemoglobin 33.8 pg (25-34); Mean Corpuscular Hgb Conc 34.9 g/dL (32-36); Mean Corpuscular Volume 96.7 fL (80-100); Mean Platelet Volume 10.7 fL (7.4-10.4); Monocytes % (auto) 4.8 %; Neutrophils % (auto) 78.5 %; Platelet Count 295 K/uL (130-400); RDW Coefficient of Variation 14.1 % (11.5-14.5); RDW Standard Deviation 49.9 fL (36.4-46.3); Red Blood Count 3.91 M/uL (4.7-6.1); White Blood Count 12.49 K/uL (4.8-10.8)
[2020-05-15] MEDS: VANCOMYCIN HCL 1,000 MG in SODIUM CHLORIDE 0.9% 250 ML IV SCH (08:51)
[2020-05-15 09:18] LABS: BUN Creatinine Ratio 7.6 (10-20); Calcium 7.3 mg/dl (8.5-10.1); Creatinine Clr Calc Pharmacy 73.4 ml/min; Est GFR (African American) 94.4; Est GFR (Non-African American) 81.4; Potassium 3.4 mmol/L (3.5-5.1)
--- NOTE | 2020-05-15 09:22 | XRay Report ---
XR chest 1V portable CLINICAL HISTORY: Pneumonia COMPARISON STUDY: Chest radiograph May 12, 2020. FINDINGS: There is no pneumothorax. There are small bilateral pleural effusions. Perihilar opacities, greater on the right, and interstitial thickening have progressed. Cardiomediastinal silhouette is s table. IMPRESSION: 1. Progression of perihilar opacities, greater on the right, and interstitial thickening since chest radiograph of May 12, 2020. The findings may reflect pneumonia or asymmetric pulmonary edema. Radio graphic follow-up is recommended to ensure resolution. 2. Small bilateral pleural effusions. ACT 112: Negative or not required by law. Electronically signed by: Edwin Pollack M.D. 05/15/2020 9:20 AM
[2020-05-15] MEDS ORDERED: MEROPENEM CONSULT ACITVE PRN (09:38)
--- NOTE | 2020-05-15 09:46 | Pharmacy Report ---
Pharmacy Abx Dose Short Note - Date of Service May 15, 2020 - Assessment & Plan Assessment 60 year old M admitted secondary to fatigue * PMHx significant for recurrent aspiration pneumonia with h/o MRSA infection per admitting PA-C * Remains febrile today. Leukocytosis improved from 17k-->15.7k-->12.5K. SCr improved from 1.54-->1.29-->1.00 mg/dL. * MRSA nasal swab negative but admitting PA-C would like to continue vancomycin for now. * Cultures pending but with no growth to date * Procalcitonin continues to trend upward: 1.32-->1.46-->2.01 ng/dL. * Spoke with attending - will broaden gram negative coverage to include ESBLs and will add doxycycline for atypical coverage. Plan Vancomycin * Trough level of 22.2 mcg/mL is supratherapeutic * Already received this AM's dose prior to trough resulting * Change to 750 mg IV every 12 hours (~10 mg/kg) * Will delay start of this dose by 2 hours for supratherapeutic trough * Goal trough level: 15 to 20 mcg/mL * Trough level will be ordered for Friday morning Meropenem * Start 500 mg IV every 6 hours Doxycycline * Start 100 mg IV every 12 hours Pharmacy will continue to follow and will adjust dose/frequency as necessary. Thank you.
[2020-05-15] MEDS: POTASSIUM CHLORIDE / WTR 10 MEQ/100 ML PLCT IV SCH ×2 (09:54→11:03)
[2020-05-15] MEDS: SODIUM CHLOR 0.45% + 20MEQ KCL 20 MEQ/1,000 ML BAG IV SCH (09:54)
[2020-05-15] MEDS: DOXYCYCLINE HYCLATE 100 MG in DEXTROSE 5% 100 ML IV SCH ×2 (10:11→21:55)
[2020-05-15] MEDS: MEROPENEM 500 MG in SYRINGE 0 ML IV SCH ×3 (10:11→21:16)
--- NOTE | 2020-05-15 13:40 | Fluoroscopy Report ---
FL video swallow HISTORY: Pneumonia. r/o aspiration TECHNIQUE: Video fluoroscopic evaluation of swallowing was performed in the AP and lateral projection s by the speech pathology staff. The patient is fed nectar-thick and thin liquid barium, a barium coa compa wafer, and barium pudding. FLUOROSCOPY TIME: 1.5 minutes. A cine loop submitted. COMPARISON STUDY: None. FINDINGS: There are a few episodes of incomplete epiglottic deflection which result in the aspiration during swallows of the thin liquid barium. No aspiration identified with the remaining barium consis tencies. There is premature leakage to the piriform sinuses demonstrated during the examination. IMPRESSION: 1. There are a few episodes of incomplete epiglottic deflection which result in the aspiration during swallows of the thin liquid barium. 2. Please see the speech pathologist report for detailed findings and recommendations. ACT 112: Negative or not required by law. Electronically signed by: Marlon Fontenot M.D. 05/15/2020 1:39 PM
--- NOTE | 2020-05-15 17:51 | Hospitalist Progress Note ---
Date of Service May 15, 2020 Assessment & Plan (1) Bilateral pneumonia: Acute respiratory failure with hypoxia Sepsis B/L Pneumonia likely secondary to aspiration CXR:Bilateral right greater than left pulmonary airspace opacities likely secondary to a pneumonia. Suspected small right pleural effusion COVID Screen:Negative Video Swallow:There are a few episodes of incomplete epiglottic deflection which result in the aspiration during swallows of the thin liquid barium. H/O chronic aspiration as per patient's caregiver Lactic acid levels normalized with IV fluids Elevated procalcitonin Blood cultures:No growth to date Continue vancomycin, Zosyn>> transition to doxycycline, meropenem Day #1 Albuterol as needed No aggressive measures as per patient's primary Speech therapy eval done Continue aspiration precaution Palliative care consulted to address goals of care Continue nectar thick, pured diet as recommended by speech therapy Aspiration precautions Diarrhea Check stool for C. difficile Gentle IV hydration (2) DOREEN (acute kidney injury): Acute kidney injury Hypokalemia Likely prerenal Renal function improved with IV fluids Replace electrolytes as needed Monitor (3) Hypotension: SBP usually runs in the 90s at baseline per caregiver BP improved with IV fluids monitor (4) Urinary retention: Due to BPH Continue Shah Resume PO meds as able Abnormal UA Likely contamination UTI ruled out Urine Cx: Negative (5) Constipation: Resume bowel regimen as able (6) Down's syndrome: (7) Hypothyroidism: Continue levothyroxine (8) GERD (gastroesophageal reflux disease): Continue Pepcid DVT Px: Heparin SQ Code Status: DNR/DNI Admission and Anticipated Discharge Date Admission Date: May 12, 2020 Subjective Patient is seen and examined at bedside Patient unable to provide any history secondary to intellectual disability Was agitated earlier today Had video swallow. Discussed with speech therapy Persistent low-grade fever this afternoon Discussed with patient's family at bedside leukocytosis trending down Procalcitonin remains elevated Review of Systems Review of Systems: Other Physical Exam Physical Exam: Physical Exam: Vitals signs as noted above General Appearance:Moderately built and nourished, mild distress Head: normocephalic, Atraumatic Eyes: normal inspection, EOMI Neck: supple, Trachea midline Respiratory/Chest: Decreased breath sounds, CTA Cardiovascular: S1, S2, No murmur Abdomen/GI:Soft, Non tender, Bowel sounds present Extremities/Musculoskelatal:normal inspection, Trace pedal edema Neurologic/Psych:AAOX3, grossly no focal neurological deficits Skin: normal color, warm Results & Data Results & Data ([facility]) Vital Signs (Past 12 Hours) Vital Signs Temp Pulse Pulse Resp BP BP Pulse Ox 05/15/20 14:15 37.6 C H 75 16 134/75 98 05/15/20 11:45 36.6 C 89 18 101/62 98 05/15/20 08:23 36.6 C 78 18 91/70 L 93 05/15/20 08:00 76 Laboratory Results Short CBC 05/15/20 Range/Units 08:06 WBC 12.49 H (4.8-10.8) K/uL Hgb 13.2 L (14.0-18.0) g/dL Hct 37.8 L (42-52) % Plt Count 295 (130-400) K/uL BMP 05/15/20 08:06 Sodium 144 Potassium 3.4 L Chloride 116 H Carbon Dioxide 18 L BUN 8 Creatinine 1.00 Glucose 91 Calcium 7.3 L
[2020-05-15] MEDS: FAMOTIDINE 20 MG TAB PO SCH (21:05)
[2020-05-15] MEDS: FINASTERIDE 5 MG TAB PO SCH (21:06)
[2020-05-15] MEDS: MELATONIN 3 MG TAB PO SCH (21:07)
[2020-05-15] MEDS: ZINC SULFATE 220 MG CAPSULE PO SCH (21:07)
[2020-05-15] MEDS: traMADol HCL 50 MG TABLET PO SCH (21:15)
[2020-05-15] MEDS: VANCOMYCIN HCL 750 MG in SODIUM CHLORIDE 0.9% 250 ML IV SCH (21:55)
[2020-05-16] MEDS: ACETAMINOPHEN 1000 MG/100 ML IV IV PRN (01:02)
[2020-05-16] MEDS: MEROPENEM 500 MG in SYRINGE 0 ML IV SCH ×4 (04:24→23:10)
[2020-05-16] MEDS: HEPARIN SOD 5,000 UNIT/0.5 ML VIAL SQ SCH ×3 (05:29→23:09)
[2020-05-16] MEDS: LEVOTHYROXINE SODIUM 100 MCG TABLET PO SCH (05:30)
[2020-05-16 07:34] LABS: Basophils # (auto) 0.04 K/uL (0-0.2); Basophils % (auto) 0.5 %; Eosinophils # (auto) 0.63 K/uL (0-0.5); Hematocrit (blood only) 36.4 % (42-52); Hemoglobin 12.2 g/dL (14.0-18.0); Immature Granulocytes # (auto) 0.02 K/uL (0.00-0.02); Immature Granulocytes % (auto) 0.3 %; Lymphocytes # (auto) 2.08 K/uL (1.2-3.4); Lymphocytes % (auto) 26.6 %; Mean Corpuscular Hemoglobin 32.9 pg (25-34); Mean Corpuscular Hgb Conc 33.5 g/dL (32-36); Mean Corpuscular Volume 98.1 fL (80-100); Mean Platelet Volume 10.1 fL (7.4-10.4); Monocytes # (auto) 0.58 K/uL (0.11-0.59); Monocytes % (auto) 7.4 %; Neutrophils # (auto) 4.48 K/uL (1.4-6.5); Neutrophils % (auto) 57.2 %; Platelet Count 264 K/uL (130-400); RDW Coefficient of Variation 14.3 % (11.5-14.5); RDW Standard Deviation 51.2 fL (36.4-46.3); Red Blood Count 3.71 M/uL (4.7-6.1); White Blood Count 7.83 K/uL (4.8-10.8)
[2020-05-16 08:06] LABS: BUN Creatinine Ratio 6.6 (10-20); Calcium 7.8 mg/dl (8.5-10.1); Creatinine Clr Calc Pharmacy 73.4 ml/min; Est GFR (African American) 94.4; Est GFR (Non-African American) 81.4; Potassium 3.1 mmol/L (3.5-5.1)
[2020-05-16] MEDS: LACTOBACILLUS ACIDOPHILUS 1 GM PACK PO SCH ×3 (09:22→17:53)
[2020-05-16] MEDS: SILODOSIN: ORDER AWAITING ACTION SCH ×3 (09:22→15:17)
[2020-05-16] MEDS: traMADol HCL 50 MG TABLET PO SCH ×2 (09:22→20:30)
[2020-05-16] MEDS: VANCOMYCIN HCL 750 MG in SODIUM CHLORIDE 0.9% 250 ML IV SCH (09:27)
[2020-05-16] MEDS: DOXYCYCLINE HYCLATE 100 MG in DEXTROSE 5% 100 ML IV SCH ×2 (09:27→23:09)
[2020-05-16] MEDS: POTASSIUM CHLORIDE PWD 20 MEQ PACK PO ONE ×2 (11:11→11:28)
[2020-05-16] MEDS ORDERED: LOPERAMIDE HCL 2 MG CAP PO PRN (11:51)
[2020-05-16] MEDS ORDERED: POTASSIUM CHLORIDE 40 MEQ in SODIUM CHLORIDE 0.9% 500 ML IV ONE (12:30)
--- NOTE | 2020-05-16 15:34 | Hospitalist Progress Note ---
Date of Service May 16, 2020 Assessment & Plan (1) Bilateral pneumonia: Acute respiratory failure with hypoxia Sepsis B/L Pneumonia likely secondary to aspiration CXR:Bilateral right greater than left pulmonary airspace opacities likely secondary to a pneumonia. Suspected small right pleural effusion COVID Screen:Negative Video Swallow:There are a few episodes of incomplete epiglottic deflection which result in the aspiration during swallows of the thin liquid barium. H/O chronic aspiration as per patient's caregiver Lactic acid levels normalized with IV fluids Elevated procalcitonin Blood cultures:No growth to date Continue vancomycin, Zosyn>> transition to doxycycline, meropenem Day #2 Albuterol as needed No aggressive measures as per patient's primary Speech therapy eval done Continue aspiration precaution Palliative care consulted to address goals of care Continue nectar thick, pured diet as recommended by speech therapy Aspiration precautions Afebrile today Slowly improving Diarrhea stool for C. difficile negative Gentle IV hydration Added probiotics Imodium as needed (2) DOREEN (acute kidney injury): Acute kidney injury Hypokalemia Likely prerenal Renal function improved with IV fluids Replace electrolytes as needed DOREEN resolved (3) Hypotension: SBP usually runs in the 90s at baseline per caregiver BP improved with IV fluids monitor (4) Urinary retention: Due to BPH Continue Shah continue home meds Abnormal UA Likely contamination UTI ruled out Urine Cx: Negative (5) Constipation: Hold bowel regimen due to diarrhea (6) Down's syndrome: (7) Hypothyroidism: Continue levothyroxine (8) GERD (gastroesophageal reflux disease): Continue Pepcid DVT Px: Heparin SQ Code Status: DNR/DNI Admission and Anticipated Discharge Date Admission Date: May 12, 2020 Subjective Patient is seen and examined at bedside Patient unable to provide any history secondary to intellectual disability No distress on exam today Continues to have diarrhea Afebrile today Leukocytosis normalized Stool for C diff negative Review of Systems Review of Systems: All systems reviewed & are unremarkable except as noted in HPI & below Physical Exam Physical Exam: Physical Exam: Vitals signs as noted above General Appearance:Moderately built and nourished, mild distress Head: normocephalic, Atraumatic Eyes: normal inspection, EOMI Neck: supple, Trachea midline Respiratory/Chest: Decreased breath sounds, CTA Cardiovascular: S1, S2, No murmur Abdomen/GI:Soft, Non tender, Bowel sounds present Extremities/Musculoskelatal:normal inspection, Trace pedal edema Neurologic/Psych:AAOX3, grossly no focal neurological deficits Skin: normal color, warm Results & Data Results & Data ([facility]) Vital Signs (Past 12 Hours) Vital Signs Temp Pulse Resp BP BP Pulse Ox 05/16/20 14:54 36.8 C 82 18 91/62 L 95 05/16/20 07:15 36.8 C 70 16 101/62 93 Laboratory Results Short CBC 05/16/20 Range/Units 07:20 WBC 7.83 (4.8-10.8) K/uL Hgb 12.2 L (14.0-18.0) g/dL Hct 36.4 L (42-52) % Plt Count 264 (130-400) K/uL BMP 05/16/20 07:20 Sodium 143 Potassium 3.1 L Chloride 114 H Carbon Dioxide 22 BUN 7 Creatinine 1.00 Glucose 78 Calcium 7.8 L
--- NOTE | 2020-05-16 16:21 | Palliative Care Consultation ---
Date of Consultation May 16, 2020 Assessment & Plan (1) Dysphagia: His diet has been adjusted to decrease risk of aspiration. He has had decreased po intake in general per his sister. (2) Palliative care encounter: I spoke with Erlin's sister on the phone and later at bedside. She has noticed a decline in his condition over the last weeks to months. She tells me that he has been through enough. She asked about starting hospice care again. Given his pneumonia and functional decline, I think he would be appropriate for hospice. He was seen by palliative care in November of 2016 and a POLST was completed at that time. His sister had indicated that she would not want him to have a feeding tube and confirms that today. She would still consider hydration if it would make him more comfortable but not to prolong life. She understands that he is at risk for recurrent aspiration and wants to continue careful feedings for comfort, knowing that he will likely develop pneumonia again. She would want to try antibiotics at that point if possible but would not want him to be hospitalized unless his comfort needs could not be met at home. "What if he fell and broke his leg?" Prior POLST had indicated limited interventions. New form was completed with comfort measures to reflect her wishes. Plan will be for return to home with hospice care when stable for discharge. (3) Constipation: History of chronic constipation though currently he has loose stools, possibly related to antibiotics. C diff is negative. He does not appear to have excessive stool by exam and is not likely having overflow diarrhea, though this would be a concern. Monitor. (4) Bilateral pneumonia: (5) Aspiration pneumonia of right lung: Aspiration pneumonia type: unspecified Lung location: unspecified part of lung Qualified Code(s): J69.0 - Pneumonitis due to inhalation of food and vomit (6) Down's syndrome: History of Present Illness Reason for Consultation: goals of care Requesting Physician: Dr. Lopez Attending Physician: Kartik Lopez MD History of Present Illness 60 yo gentleman with Trisomy 21 who has history of aspiration in the past and has been on hospice in the past. He was discharged from hospice in the fall due to stability. He has been diagnosed with dementia and Parkinson's disease and his sister notes that he has had functional decline in the last few months with decreased appetite, weight loss, less social interaction. At his baseline he is able to ambulate and interact with family and friends. He is nonverbal at baseline. He was admitted with aspiration pneumonia and sepsis. He had a swallowing evaluation which indicated mild oropharyngeal dysphagia. He is on a thickened liquid and pureed diet which is similar to the diet he had at home. He is minimally interactive at the time of consult but was more animated later in the day when his sister was visiting. He appears comfortable and is smiling. Allergies Allergy/AdvReac Type Severity Reaction Status Date / Time azithromycin AdvReac Unknown Unknown Unverified 05/12/20 11:04 furosemide [From Lasix] AdvReac Unknown Unknown Unverified 05/12/20 11:04 Home Medications Medication Instructions Recorded Confirmed Type diphenhydramine HCl [Diphenhist] 25 mg PO Q6H PRN 12/19/17 05/12/20 History docusate sodium [Stool Softener] 100 mg PO TID 12/19/17 05/12/20 History ibuprofen 200 mg PO Q6H PRN 12/19/17 05/12/20 History levothyroxine [Synthroid] 100 mcg PO DAILYBB 12/19/17 05/12/20 History sodium phosphates 19 gram-7 266 ml [place] ONCE PRN #3192 ml 04/28/19 05/12/20 Rx gram/118 mL enema lubiprostone 24 mcg capsule 24 mcg PO BID #60 cap 05/28/19 05/12/20 Rx pantoprazole 40 mg tablet,delayed 40 mg PO BID #60 tab 06/09/19 05/12/20 Rx release acetaminophen 650 mg [place] Q4H PRN 03/18/20 05/12/20 History ascorbic acid (vitamin C) 1 g PO HS 03/18/20 05/12/20 History cholecalciferol (vitamin D3) 50 mcg PO HS 03/18/20 05/12/20 History [Vitamin D3] famotidine 20 mg PO HS 03/18/20 05/12/20 History lactulose 30 ml PO BID 03/18/20 05/12/20 History melatonin 6 mg PO HS 03/18/20 05/12/20 History nystatin 1 applic TOPICAL UD PRN 03/18/20 05/12/20 History tramadol 50 mg PO BID 03/18/20 05/12/20 History zinc 50 mg PO HS 03/18/20 05/12/20 History polyethylene glycol 3350 17 See Rx Instructions .ROUTE 05/01/20 05/12/20 Rx gram/dose oral powder .COMPLEX #510 g amoxicillin-pot clavulanate 10 ml PO Q12 05/12/20 05/12/20 History finasteride 5 mg PO HS 05/12/20 05/12/20 History silodosin [Rapaflo] 8 mg PO HS 05/12/20 05/12/20 History zinc oxide-cod liver oil [Desitin] 1 applic TOPICAL TID PRN 05/12/20 05/12/20 History Patient History Medical History BPH (benign prostatic hyperplasia) Constipation Constipation Down's syndrome Enlarged prostate Esophageal ulceration Gastritis GERD (gastroesophageal reflux disease) Hiatal hernia Hypothyroidism Mental retardation Pyloric stenosis Recurrent aspiration pneumonia Reflux esophagitis Severe intellectual disability Urinary retention Urinary symptom or sign Surgical History History of prostate surgery Family History Other Family history non-contributory Social History Smoking Status: Never smoker Second Hand Exposure: No; Do You Dip or Chew Tobacco: No; Tobacco Cessation Education Requested by Patient: No Hx Alcohol Use: No Hx Substance Use: No Preferred Language: Turkmen Communication Ability: Effective 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: No Beliefs That Will Affect Care: None Current Living Situation: Other Current Living Situation Comment: [facility] current occupational status: disabled Other Information That Helps Us Care for You: Yes (axilliary temps only) Feels Safe at Home: Yes Safety Concerns: Feels Safe At This Time Assistive Devices: None Review of Systems Review of Systems: Unobtainable due to cognitive status [place] Symptom Assessment Scale Pain AD 0/3 Dyspnea by observation 0/3 Drowsiness 0/3 Palliative Performance Score 30% Physical Exam Constitutional: no acute distress nonverbal Eyes: + eyes dysmorphic visual impairment ENMT: Mouth: + dry oral mucous membranes Respiratory: normal respiratory effort; no labored breathing Cardiovascular: Extremities: no edema Gastrointestinal (Abdomen): Percussion/Palpation: abdomen soft; abdomen nontender Skin: no rashes, warm and dry Neurologic: moves all extremities Speech / Cognition: + abnormal cognition Results & Data ([facility]) Vital Signs (Past 12 Hours) Vital Signs Temp Pulse Resp BP BP Pulse Ox 05/16/20 14:54 98.2 F 82 18 91/62 L 95 05/16/20 07:15 98.2 F 70 16 101/62 93 PG Care Time/CCT Total # of Minutes Spent Total Time Spent with Patient: Total time spent is greater than 50% in coordination of care (as documented) at patient's floor/unit and/or counseling patient: total time spent is 75 minutes with more than 50% of time spent on hospice, goals of care, POLST form completed, coordination of care. Coding Level of Care Code 80480 Inpt Consult Level 4 Diagnoses Dysphagia R13.10 Palliative care encounter Z51.5 Constipation K59.00 Bilateral pneumonia J18.9 Aspiration pneumonia of right lung J69.0 Aspiration pneumonia type: unspecified Lung location: unspecified part of lung Down's syndrome Q90.9
[2020-05-16] MEDS: FINASTERIDE 5 MG TAB PO SCH (20:31)
[2020-05-16] MEDS: ZINC SULFATE 220 MG CAPSULE PO SCH (20:31)
[2020-05-16] MEDS: FAMOTIDINE 20 MG TAB PO SCH (20:31)
[2020-05-16] MEDS: MELATONIN 3 MG TAB PO SCH (20:32)
[2020-05-17] MEDS: SILODOSIN: ORDER AWAITING ACTION SCH ×4 (00:30→22:39)
[2020-05-17] MEDS: MEROPENEM 500 MG in SYRINGE 0 ML IV SCH ×4 (04:25→21:18)
[2020-05-17] MEDS: HEPARIN SOD 5,000 UNIT/0.5 ML VIAL SQ SCH ×3 (05:16→21:26)
[2020-05-17] MEDS: LEVOTHYROXINE SODIUM 100 MCG TABLET PO SCH (05:17)
[2020-05-17 06:19] LABS: Basophils # (auto) 0.07 K/uL (0-0.2); Basophils % (auto) 0.9 %; Eosinophils # (auto) 0.52 K/uL (0-0.5); Eosinophils % (auto) 6.4 %; Hematocrit (blood only) 36.5 % (42-52); Hemoglobin 12.6 g/dL (14.0-18.0); Immature Granulocytes # (auto) 0.04 K/uL (0.00-0.02); Immature Granulocytes % (auto) 0.5 %; Lymphocytes # (auto) 2.12 K/uL (1.2-3.4); Lymphocytes % (auto) 26.2 %; Mean Corpuscular Hemoglobin 33.2 pg (25-34); Mean Corpuscular Hgb Conc 34.5 g/dL (32-36); Mean Corpuscular Volume 96.3 fL (80-100); Mean Platelet Volume 10.5 fL (7.4-10.4); Monocytes # (auto) 0.65 K/uL (0.11-0.59); Platelet Count 306 K/uL (130-400); RDW Coefficient of Variation 14.4 % (11.5-14.5); RDW Standard Deviation 50.3 fL (36.4-46.3); Red Blood Count 3.79 M/uL (4.7-6.1)
[2020-05-17 06:51] LABS: BUN Creatinine Ratio 8.8 (10-20); Calcium 8.1 mg/dl (8.5-10.1); Creatinine Clr Calc Pharmacy 85.3 ml/min; Est GFR (African American) 109.2; Est GFR (Non-African American) 94.3; Magnesium 1.9 mg/dl (1.8-2.4); Potassium 3.3 mmol/L (3.5-5.1)
[2020-05-17] MEDS: LACTOBACILLUS ACIDOPHILUS 1 GM PACK PO SCH ×3 (07:43→16:26)
[2020-05-17] MEDS: traMADol HCL 50 MG TABLET PO SCH ×2 (08:31→21:09)
[2020-05-17] MEDS: DOXYCYCLINE HYCLATE 100 MG in DEXTROSE 5% 100 ML IV SCH ×2 (09:29→21:18)
[2020-05-17] MEDS ORDERED: VANCOMYCIN TROUGH ONE (09:30)
--- NOTE | 2020-05-17 16:31 | Hospitalist Progress Note ---
Date of Service May 17, 2020 Assessment & Plan (1) Bilateral pneumonia: Acute respiratory failure with hypoxia Sepsis B/L Pneumonia likely secondary to aspiration CXR:Bilateral right greater than left pulmonary airspace opacities likely secondary to a pneumonia. Suspected small right pleural effusion COVID Screen:Negative Video Swallow:There are a few episodes of incomplete epiglottic deflection which result in the aspiration during swallows of the thin liquid barium. H/O chronic aspiration as per patient's caregiver received IV , meropenem Day #3 Albuterol as needed No aggressive measures as per patient's primary/pt is set up to follow up with Hospice on return back to [facility] Speech therapy eval done : on nectar thick, pured diet as recommended by speech therapy Continue aspiration precaution Palliative care consulted to address goals of care/appreciate input Diarrhea stool for C. difficile negative Added probiotics Imodium as needed (2) DOREEN (acute kidney injury): Acute kidney injury Hypokalemia Likely prerenal Renal function improved with IV fluids DOREEN resolved (3) Hypotension: SBP usually runs in the 90s at baseline per caregiver BP improved with IV fluids (4) Urinary retention: Due to BPH Continue Shah continue home meds Abnormal UA Likely contamination UTI ruled out Urine Cx: Negative (5) Constipation: Hold bowel regimen due to diarrhea (6) Down's syndrome: (7) Hypothyroidism: Continue levothyroxine (8) GERD (gastroesophageal reflux disease): Continue Pepcid DVT Px: Heparin SQ Code Status: DNR/DNI Disposition : return back to [facility] tomorrow plan of care updated to sister present at bedside , all questions answered Admission and Anticipated Discharge Date Admission Date: May 12, 2020 Subjective Patient is seen and examined at bedside Patient unable to provide any history secondary to intellectual disability sister present at bedside -assisting in feeding for dinner no sign of glenna aspiration noted, no cough , pt appears to be comfortable discussed with sister , pt is already set up with Hospice on return back to [facility] Review of Systems Review of Systems: Unobtainable due to cognitive status Physical Exam Physical Exam: Physical exam: General: No acute distress, HEENT: PERRLA, EOMI, Heart: Regular S1-S2, Lungs: diminished breath sound , rales at base Abdomen: Soft nontender, Neuro: downs syndrome , non verbal Psych: Alert awake /intellectual disability Results & Data Results & Data ([facility]) Vital Signs (Past 12 Hours) Vital Signs Temp Pulse Resp BP Pulse Ox 05/17/20 15:13 36.7 C 79 18 108/63 91 05/17/20 07:36 36.8 C 81 14 102/62 93
[2020-05-17] MEDS: ZINC SULFATE 220 MG CAPSULE PO SCH (21:10)
[2020-05-17] MEDS: FAMOTIDINE 20 MG TAB PO SCH (21:10)
[2020-05-17] MEDS: MELATONIN 3 MG TAB PO SCH (21:11)
[2020-05-17] MEDS: FINASTERIDE 5 MG TAB PO SCH (21:11)
[2020-05-18] MEDS: MEROPENEM 500 MG in SYRINGE 0 ML IV SCH ×2 (02:53→09:42)
[2020-05-18] MEDS: LEVOTHYROXINE SODIUM 100 MCG TABLET PO SCH (05:24)
[2020-05-18] MEDS: HEPARIN SOD 5,000 UNIT/0.5 ML VIAL SQ SCH (05:29)
[2020-05-18] MEDS: LACTOBACILLUS ACIDOPHILUS 1 GM PACK PO SCH ×2 (08:55→13:14)
[2020-05-18] MEDS: SILODOSIN: ORDER AWAITING ACTION SCH (08:55)
[2020-05-18] MEDS: traMADol HCL 50 MG TABLET PO SCH (09:19)
[2020-05-18] MEDS: DOXYCYCLINE HYCLATE 100 MG in DEXTROSE 5% 100 ML IV SCH (09:48)
--- NOTE | 2020-05-18 16:01 | Discharge Summary ---
Date of Service May 18, 2020 Admission HPI Per Admitting Provider This is a 59 y/o male with a PMH of Trisomy 21, intellectual disability, recurrent aspiration pneumonia, hypothyroidism, chronic constipation, GERD, urinary retention, pyloric stenosis and dementia who presents to the ED today via EMS with increased fatigue and decreased oral intake, found to by hypoxic on initial EMS evaluation with O2 sats in the 80s. History from the patient is unobtainable so history obtained from the sister and caregiver at bedside as well as the outpatient medical records. Apparently, pt underwent a dental procedure with sedation on 05/03. A few days after this procedure he developed a junky cough productive of yellow-green sputum. He was seen by his PCP two days ago and started on Augmentin for presumed aspiration pneumonia. He has been taking the antibiotic as ordered but has seemed to have less and less energy, especially today. Per pt's caregiver, he is on a pureed diet with nectar thick liquids but there is still concern for occasional aspiration at meals even with aggressive precautions in place. His oral intake is variable with some days only eating 1-2 meals. His oral intake has been worse than usual over the past several days and his PCP was concerned about dehydration. Pt also had diarrhea this morning, which may be related to the antibiotics. Principal Diagnosis Aspiration pneumonia Hospice care Discharge Exam Constitutional WD/WN, vitals as above no acute distress Eyes + anicteric sclerae Respiratory normal respiratory effort and + cough; no respiratory distress and no labored breathing Auscultation: + diminished lung sounds Gastrointestinal (Abdomen) Inspection/Auscultation: normal bowel sounds Percussion/Palpation: abdomen soft; abdomen nontender Neurologic + confused Speech / Cognition: + abnormal cognition (Severe mental retardation); normal speech (Nonverbal) Discharge Data Allergies Allergy/AdvReac Type Severity Reaction Status Date / Time azithromycin AdvReac Unknown Unknown Unverified 05/12/20 11:04 furosemide [From Lasix] AdvReac Unknown Unknown Unverified 05/12/20 11:04 Consultations 05/12/20 11:43 ED Decision to Admit Stat 05/12/20 14:47 Consult Palliative Care Routine Ordered Studies 05/15/20 10:30 FL video swallow Routine Hospital Course (1) Bilateral pneumonia: Acute respiratory failure with hypoxia Sepsis B/L Pneumonia likely secondary to aspiration CXR:Bilateral right greater than left pulmonary airspace opacities likely secondary to a pneumonia. Suspected small right pleural effusion COVID Screen:Negative Video Swallow:There are a few episodes of incomplete epiglottic deflection which result in the aspiration during swallows of the thin liquid barium. H/O chronic aspiration as per patient's caregiver received IV , meropenem Day #3 Albuterol as needed No aggressive measures as per patient's primary/pt is set up to follow up with Hospice on return back to [facility] Speech therapy eval done : on nectar thick, pured diet as recommended by speech therapy Continue aspiration precaution Palliative care consulted to address goals of care/appreciate input Patient will be discharged to [facility] today continued care with hospice (2) DOREEN (acute kidney injury): Resolved (3) Hypotension: BP stable (4) Urinary retention: Due to BPH Continue Shah continue home meds (5) Constipation: (6) Down's syndrome: (7) Hypothyroidism: (8) GERD (gastroesophageal reflux disease): Continue Pepcid DVT Px: Heparin SQ Code Status: DNR/DNI Disposition : return back to [facility] with hospice today Total Time Total Time Spent Total Time Spent (In Minutes): 35 minutes Total Time Includes: Discharge Planning and Medication Reconciliation Discharge Plan Discharge Items Patient Disposition: Home - Home Health Services Reason For Visit: ASPIRATION PNEUMONIA Discharge Diagnosis: Aspiration penumonia Activity: As commented below Activity Comment: as tolerated Non-emergency contact: Primary Care Provider Call non-emergency contact if: you have any medication questions Follow-up/Referrals: Kevin Teixeira DO [Primary Care Provider] - 05/22/20 2:20 pm (Date & Time 05/22/2020 2:20 PM Provider Jethro Luther PA-C Department General Internal Medicine [facility] ) Diet: Regular Diet Texture: Pureed (blended smooth) Liquid Consistency: [place] thick Addtl Attending Provider Instructions: Follow up with Hospice for further care on discharge /Hospice evaluation and treat Diet : Continue nectar thick, pured diet with aspiration precaution Please call if you have any questions or problems. You can reach a [facility] hospitalist on duty at [facility] 24 hours a day by calling [phone] Pending Studies at Discharge: No Stand-Alone Forms: My [facility], Smoking Cessation Medications and DC Order Prescriptions: New loperamide 2 mg Capsule 2 mg PO Q6H PRN30 Days Qty: 0 RF: 0 morphine 10 mg/5 mL solution 5 mg PO Q6H PRN (Reason: pain) Qty: 30 RF: 0 lorazepam [Ativan] 0.5 mg tablet 0.5 mg sublingual Q6 PRN (Reason: anxiety) Qty: 90 RF: 0 Continued Fleet Enema 19-7 gram/118 mL enema [address] ONCE PRN (Reason: no bm) Qty: 3192 RF: 1 acetaminophen 650 mg Suppository [address] Q4H PRN (Reason: Pain and Fever) RF: 0 nystatin 100,000 unit/gram powder 1 applic TOPICAL UD PRN (Reason: Rash) RF: 0 zinc oxide-cod liver oil Ointment 1 applic TOPICAL TID PRN (Reason: Groin and Buttocks Irritation) RF: 0 Discontinued Amitiza 24 mcg capsule 24 mcg PO BID Qty: 60 RF: 11 pantoprazole [Protonix] 40 mg tablet,delayed release (DR/EC) 40 mg PO BID Qty: 60 RF: 11 polyethylene glycol 3350 17 gram/dose powder See Rx Instructions .ROUTE .COMPLEX Qty: 510 RF: 5 levothyroxine [Synthroid] 100 mcg Tablet 100 mcg PO DAILYBB RF: 0 diphenhydramine HCl [Diphenhist] 25 mg Capsule 25 mg PO Q6H PRN (Reason: allergies) RF: 0 ibuprofen 200 mg Tablet 200 mg PO Q6H PRN (Reason: Pain) RF: 0 docusate sodium [Stool Softener] 100 mg Capsule 100 mg PO TID RF: 0 ascorbic acid (vitamin C) 1,000 mg Tablet 1 g PO HS RF: 0 melatonin 3 mg Tablet 6 mg PO HS RF: 0 tramadol 50 mg Tablet 50 mg PO BID RF: 0 famotidine 20 mg tablet 20 mg PO HS RF: 0 zinc 50 mg Tablet 50 mg PO HS RF: 0 lactulose 10 gram/15 mL solution 30 ml PO BID RF: 0 cholecalciferol (vitamin D3) [Vitamin D3] 50 mcg (2,000 unit) Capsule 50 mcg PO HS RF: 0 finasteride 5 mg tablet 5 mg PO HS RF: 0 silodosin [Rapaflo] 8 mg capsule 8 mg PO HS RF: 0 amoxicillin-pot clavulanate 400-57 mg/5 mL suspension for reconstitution 10 ml PO Q12 RF: 0 Discharge Orders: Discharge Order (Routine); Ordered 05/18/20 Ordered By: Luci Melendrez/Other Patient Handouts: What Is Palliative Care? Admission Data Admit Date/Time: 05/12/20 12:39 Attending Provider: Luci Mcmahan Admit Provider: Kartik Lopez Primary Care Provider: Kevin Teixeira Other Providers: Kartik Lopez ; Saira Trivedi ; Gertrudis,[facility] Other Interventions: Discharge Summary Assessment (RN) Last Done: 05/18/20 13:10
== END 2020-05-18 14:15 | disposition hospice, home (50) | DRG 871 ==
LOC: ED 09:20 → SUATTDRO 12:39 → 2S 12:39 → 3N 05-15 14:18